=== PATIENT | male | born 1945 | race Caucasian/White ===

== ENCOUNTER 2018-02-18 03:55 | Emergency (ER) | payer MEDICARE, SELFPAY ==
[2018-02-18 03:56] VITALS: BP 158/89; PULSE 58; RESP 18; TEMP 36.9; O2SAT 94; BMI 27.5
--- NOTE | 2018-02-18 04:44 | ED.VIS.GEN ---
History of Present Illness Chief Complaint: Other, Pain/Inj Detail of Chief Complaint: Neck pain Informant: Patient Onset: Days - 2 Context: Gradual Onset Timing: Continuous Quality: Aches/sore Location: Left upper posterior neck Current Severity: Severe Maximum Severity: Severe Worsened by: Neck/head rotation/movement Relieved by: Remaining still Associated Symptoms: None Narrative: Patient works out regularly at the gym. He states almost 2 days ago, he did his usual 5.5 miles of cardio, followed by 20-30 minutes each of weight lifting and core exercises, including crunches. He had no apparent acute injury. He went home and took a nap and woke up and his left neck hurt. Over the subsequent 24 or so hours, the pain has gradually increased. He has tried no medications for it. Pushing on the area and massaging it makes it better. There is no radiation into his upper extremities and no numbness or weakness of arms or legs. No headaches, lightheadedness, changes in level of consciousness, confusion/disorientation. Has a remote history of coronary disease for which he had a 5 way bypass. He has had no chest discomfort recently. He takes a daily aspirin but no other antiplatelets or anticoagulants. Prior similar symptoms: No Recent Illness/Hospitalization: No - Past Medical History (1) CAD (coronary artery disease) Status: Chronic (2) Kidney stone Status: Resolved Past Medical History - Allergies and Home Meds Allergies/Adverse Reactions: Allergies NARCOTIC Adverse Reaction (Uncoded 02/18/18 03:58) Vomiting Home Medications: Home Medications Medication Instructions Recorded Benazepril HCl [Lotensin] 20 mg PO DAILY 07/07/17 Carbidopa/Levodopa 25/100 [Sinemet] 1 tablet PO TIDAC 07/07/17 Omeprazole [Prilosec] 40 mg PO DAILY 07/07/17 Simvastatin [Zocor] 40 mg PO QHS 07/07/17 Aspirin [Aspirin EC] 325 mg PO DAILY 02/18/18 Metoprolol Succinate 25 mg PO DAILY 02/18/18 Ondansetron [Zofran Odt] 8 mg PO Q8H PRN PRN #12 tab 02/18/18 Primary Care Physician: Richard Schneider DO [Primary Care Provider] - 3-5 Days if not improving Smoking Status: Former smoker Review of Systems All systems negative except as indicated Musculoskeletal: Reports: Neck pain Physical Exam Vital Signs/Narrative: Vital Signs Temp Pulse Resp BP Pulse Ox 02/18/18 03:56 98.4 F 58 L 18 158/89 H 94 Inital Vital Signs reviewed: Yes General: Well nourished, Well developed, - - well-appearing, no acute distress. conversive at rest. Head: Normocephalic, Atraumatic Eyes: Perrl, EOMI ENT: Moist mucous membranes, No rhinorrhea Neck: Supple, No lymphadenopathy, No JVD, - - point tender, reproducing pt's pain, in upper left paraspinal cervical musculature, just below base of skull. no SCM or lateral neck tendnerness. No midline spinal tenderness or step-off. Skin: Normal color, No rash Neurological: Alert, Oriented x3, Cranial nerves II-XII grossly intact, Normal Strength - inclu BUE M/R/U nerves, and PIN/AIN branches., Normal Sensation, Normal Gait Psychological: Normal affect. Negative for: Depressed, Agitated Diagnostic/Tx/Re-eval - Medical Decision Making Reassured patient that this is consistent with a myofascial neck strain. We discussed treatment options. He really does not want narcotics because they tend to cause him nausea/vomiting, but at the same time, he is concerned that ibuprofen alone will not be enough to help. He has had trouble sleeping tonight because of the discomfort. We discussed pros and cons of multiple options, and we decided mutually to do intramuscular Toradol 30 mg, and oral Zofran, and discharged with a home pack of Vicodin, a single oral Norflex 100 mg, and a prescription for Zofran. I advised him that 2 weeks of discomfort would not be uncommon, but he is on day 2, and this day and tomorrow commonly are the worst. We discussed massage, hot or cold compresses, and gently stretching the affected musculature. I advised outpatient follow-up if he is not progressing as expected. He is comfortable with this plan. Of note, we did not give him mind-altering medications here because he drove himself and is driving home, and it is 4:30 in the morning. We also discussed alternative ways to do core exercises that would be less likely to result in neck muscle injury. ED Disposition - Plan for ED Patient: Disposition: Home or Assisted Living Chief Complaint: Other, Pain/Inj Diagnosis: Acute cervical myofascial strain Instructions: ED Sprain Strain Neck Prescriptions: Ondansetron [Zofran Odt] 8 mg PO Q8H PRN PRN #12 tab PRN Reason: Nausea Referrals: Richard Schneider DO [Primary Care Provider] - 3-5 Days if not improving Additional Instructions: Fill and take Zofran as needed for nausea. Ibuprofen 400-600 mg every 6-8 hours as needed for pain. When you get home, you may take the Norflex if needed, which is a muscle relaxer and may help, and/or the [place], which is a narcotic. Use a hot or cold compress, which ever feels better is a reasonable thing to try, in addition to stretching the affected muscle, and/or focused massage.
--- NOTE | 2018-02-18 04:47 | ED.DCSUM_ITS ---
History of Present Illness Chief Complaint: Other, Pain/Inj Detail of Chief Complaint: Neck pain Informant: Patient Onset: Days - 2 Context: Gradual Onset Timing: Continuous Quality: Aches/sore Location: Left upper posterior neck Current Severity: Severe Maximum Severity: Severe Worsened by: Neck/head rotation/movement Relieved by: Remaining still Associated Symptoms: None Narrative: Patient works out regularly at the gym. He states almost 2 days ago, he did his usual 5.5 miles of cardio, followed by 20-30 minutes each of weight lifting and core exercises, including crunches. He had no apparent acute injury. He went home and took a nap and woke up and his left neck hurt. Over the subsequent 24 or so hours, the pain has gradually increased. He has tried no medications for it. Pushing on the area and massaging it makes it better. There is no radiation into his upper extremities and no numbness or weakness of arms or legs. No headaches, lightheadedness, changes in level of consciousness , confusion/disorientation. Has a remote history of coronary disease for which he had a 5 way bypass. He has had no chest discomfort recently. He takes a daily aspirin but no other antiplatelets or anticoagulants. Prior similar symptoms: No Recent Illness/Hospitalization: No - Past Medical History (1) CAD (coronary artery disease) Status: Chronic (2) Kidney stone Status: Resolved Past Medical History - Allergies and Home Meds Allergies/Adverse Reactions: Allergies NARCOTIC Adverse Reaction (Uncoded 02/18/18 03:58) Vomiting Home Medications: Home Medications Medication Instructions Recorded Benazepril HCl [Lotensin] 20 mg PO DAILY 07/07/17 Carbidopa/Levodopa 25/100 [Sinemet] 1 tablet PO TIDAC 07/07/17 Omeprazole [Prilosec] 40 mg PO DAILY 07/07/17 Simvastatin [Zocor] 40 mg PO QHS 07/07/17 Aspirin [Aspirin EC] 325 mg PO DAILY 02/18/18 Metoprolol Succinate 25 mg PO DAILY 02/18/18 Ondansetron [Zofran Odt] 8 mg PO Q8H PRN PRN #12 tab 02/18/18 Primary Care Physician: Richard Schneider DO [Primary Care Provider] - 3-5 Days if not improving Smoking Status: Former smoker Review of Systems All systems negative except as indicated Musculoskeletal: Reports: Neck pain Physical Exam Vital Signs/Narrative: Vital Signs Temp Pulse Resp BP Pulse Ox 02/18/18 03:56 98.4 F 58 L 18 158/89 H 94 Inital Vital Signs reviewed: Yes General: Well nourished, Well developed, - - well-appearing, no acute distress. conversive at rest. Head: Normocephalic, Atraumatic Eyes: Perrl, EOMI ENT: Moist mucous membranes, No rhinorrhea Neck: Supple, No lymphadenopathy, No JVD, - - point tender, reproducing pt's pain, in upper left paraspinal cervical musculature, just below base of skull. no SCM or lateral neck tendnerness. No midline spinal tenderness or step-off. Skin: Normal color, No rash Neurological: Alert, Oriented x3, Cranial nerves II-XII grossly intact, Normal Strength - inclu BUE M/R/U nerves, and PIN/AIN branches., Normal Sensation, Normal Gait Psychological: Normal affect. Negative for: Depressed, Agitated Diagnostic/Tx/Re-eval - Medical Decision Making Reassured patient that this is consistent with a myofascial neck strain. We discussed treatment options. He really does not want narcotics because they tend to cause him nausea/vomiting, but at the same time, he is concerned that ibuprofen alone will not be enough to help. He has had trouble sleeping tonight because of the discomfort. We discussed pros and cons of multiple options, and we decided mutually to do intramuscular Toradol 30 mg, and oral Zofran, and discharged with a home pack of Vicodin, a single oral Norflex 100 mg , and a prescription for Zofran. I advised him that 2 weeks of discomfort would not be uncommon, but he is on day 2, and this day and tomorrow commonly are the worst. We discussed massage, hot or cold compresses, and gently stretching the affected musculature. I advised outpatient follow-up if he is not progressing as expected. He is comfortable with this plan. Of note, we did not give him mind-altering medications here because he drove himself and is driving home, and it is 4:30 in the morning. We also discussed alternative ways to do core exercises that would be less likely to result in neck muscle injury. ED Disposition - Plan for ED Patient: Disposition: Home or Assisted Living Chief Complaint: Other, Pain/Inj Diagnosis: Acute cervical myofascial strain Instructions: ED Sprain Strain Neck Prescriptions: Ondansetron [Zofran Odt] 8 mg PO Q8H PRN PRN #12 tab PRN Reason: Nausea Referrals: Richard Schneider DO [Primary Care Provider] - 3-5 Days if not improving Additional Instructions: Fill and take Zofran as needed for nausea. Ibuprofen 400-600 mg every 6-8 hours as needed for pain. When you get home, you may take the Norflex if needed, which is a muscle relaxer and may help, and/or the [place], which is a narcotic. Use a hot or cold compress, which ever feels better is a reasonable thing to try , in addition to stretching the affected muscle, and/or focused massage.
[2018-02-18] MEDS: Ketorolac 30 MG/ML Syringe IM (04:50)
[2018-02-18] MEDS: Ondansetron ODT 4 MG Tablet 8 MG PO (04:55)
[2018-02-18] MEDS: HYDROcodone Bitartrate/Apap 5/325 Tablet PO (04:57)
[2018-02-18] MEDS: Orphenadrine 100 MG Tablet PO (04:57)
[2018-02-18 05:11] VITALS: BP 123/80; PULSE 56; RESP 16; O2SAT 94
== END 2018-02-18 05:14 | disposition home or self-care (01) ==
PROVIDERS: Emergency Provider Emergency Medicine; Family Provider Student in an Organized Health Care Education/Training Program; PCP Student in an Organized Health Care Education/Training Program
DX: S16.1XXA Strain of muscle, fascia and tendon at neck level, initial encounter (principal); X50.0XXA Overexertion from strenuous movement or load, initial encounter; Y93.A3 Activity, aerobic and step exercise; Y92.89 Other specified places as the place of occurrence of the external cause; Y99.9 Unspecified external cause status; I25.10 Atherosclerotic heart disease of native coronary artery without angina pectoris; Z95.1 Presence of aortocoronary bypass graft; Z87.891 Personal history of nicotine dependence
CPT/HCPCS: 99283

== ENCOUNTER → 2022-03-27 | Outpatient (REF) | payer MEDICARE, SELFPAY ==
[2022-03-27 08:33] LABS: Bacteria 0 SEEN /hpf (None Seen); Mucous, Urine 0 SEEN /hpf (<or=2+); Red Blood Cells-Urine 0 SEEN /hpf (0-5); Squamous Epithelial Cells - UA 0 SEEN /hpf (0-5); White Blood Cells 0 SEEN /hpf (0-5)
[2022-03-27 08:45] LABS: Color, Urine Yellow (Yellow); Glucose, Dipstick Normal (Normal); Ketone-Dipstick Negative (Negative); Leukocyte Esterase-Dipstick Negative /ul (Negative); Nitrite-Dipstick Negative (Negative); Occult Blood-Urine Negative /ul (Negative); Protein-Dipstick Negative (Negative); Urine Bilirubin Dipstick Negative (Negative); Urine Clarity Clear (Clear); Urine Urobilinogen Normal (Normal)
[2022-03-27 09:34] LABS: BUN 20 mg/dL (7-18); Creatinine, Serum 1.19 mg/dL (0.70-1.30); EST Glomerular Filtration Rate 63 mL/min (>60); Glucose 87 mg/dL (74-106)
[2022-03-27 09:35] LABS: ALB/GLOB Ratio 1.2 RATIO (0.9-2.4); AST(SGOT) 44 U/L (15-37); Alanine Aminotransfer ALT/SGPT 81 U/L (16-61); Albumin, Serum 4.1 g/dL (3.2-5.0); Alkaline Phosphatase 87 U/L (45-117); Anion Gap 4 (5-15); BUN/Creat Ratio 16.8 RATIO (10-20); Calcium,Total 8.8 mg/dL (8.5-10.1); Chloride 105 mmol/L (98-107); Cholesterol 136 mg/dL (200); Est Glom Filt Rate - Afr Amer 77 mL/min (>60); Globulin 3.3 g/dL (2.2-4.2); High Density Lipoprotein 56 mg/dL; PSA,Total - Annual Screen 3.79 ng/mL (0.00-4.00); Potassium 4.3 mmol/L (3.5-5.1); Protein, Total 7.4 g/dL (6.4-8.2); Sodium Level 140 mmol/L (136-145); Triglycerides 74 mg/dL; Very Low Density Lipoprotein 15 mg/dL (5-40); Vitamin B12 > 2000 pg/mL (211-911)
== END | disposition home or self-care (01) ==
PROVIDERS: PCP Student in an Organized Health Care Education/Training Program; Referring Provider Student in an Organized Health Care Education/Training Program; Visit Provider Student in an Organized Health Care Education/Training Program
DX: E53.8 Deficiency of other specified B group vitamins (principal); N18.31 Chronic kidney disease, stage 3a; R97.20 Elevated prostate specific antigen [PSA]; R31.9 Hematuria, unspecified
CPT/HCPCS: 36415; 80053; 80061; 81001; 82607; 84153; G0103

== ENCOUNTER → 2022-07-18 | Outpatient (REF) | payer MEDICARE, SELFPAY ==
[2022-07-18 12:43] LABS: Hematocrit 43.6 % (40-54); Hemoglobin 13.9 g/dL (13.0-16.5); Mean Corp Hgb Conc 31.9 g/dL (32-36); Mean Corpuscular Hgb 31.7 pg (27.0-32.0); Mean Corpuscular Volume 99.3 fL (80-94); Mean Platelet Vol. 12.2 fl (6.2-12.0); Platelet Count 172 K/mm3 (150-450); RBC Distribution Width CV 12.3 % (11.6-14.6); RBC Distribution Width SD 45.3 fl (35.1-43.9); Red Blood Count 4.39 M/mm3 (4.6-6.2); White Blood Count 7.1 K/mm3 (4.4-11.0)
[2022-07-18 13:00] LABS: ALB/GLOB Ratio 1.1 RATIO (0.9-2.4); AST(SGOT) 22 U/L (15-37); Alanine Aminotransfer ALT/SGPT 17 U/L (16-61); Albumin, Serum 3.4 g/dL (3.2-5.0); Alkaline Phosphatase 69 U/L (45-117); Anion Gap 7 (5-15); BUN 23 mg/dL (7-18); BUN/Creat Ratio 18.4 RATIO (10-20); Calcium,Total 8.7 mg/dL (8.5-10.1); Chloride 104 mmol/L (98-107); Creatinine, Serum 1.25 mg/dL (0.70-1.30); EST Glomerular Filtration Rate 60 mL/min (>60); Est Glom Filt Rate - Afr Amer 72 mL/min (>60); Globulin 3.2 g/dL (2.2-4.2); Glucose 118 mg/dL (74-106); Potassium 4.2 mmol/L (3.5-5.1); Protein, Total 6.6 g/dL (6.4-8.2); Sodium Level 140 mmol/L (136-145)
== END ==
PROVIDERS: PCP Student in an Organized Health Care Education/Training Program; Visit Provider Student in an Organized Health Care Education/Training Program
DX: L97.919 Non-pressure chronic ulcer of unspecified part of right lower leg with unspecified severity (principal)
CPT/HCPCS: 36415; 80053; 85027; 87070; 87205

== ENCOUNTER 2022-09-23 09:23 | Outpatient (RCR) | payer MEDICARE, SELFPAY ==
[2022-09-23 09:46] VITALS: BP 107/45; PULSE 53; RESP 16; TEMP 35.5; BMI 29.9
--- NOTE | 2022-09-23 10:30 | LES_PTH ---
PATIENT: ALEXIS KRAMER LOC: U#:[id number] AGE/SX: 77/M ROOM: RE09/23/[address]: ENID Eng : 1945 BED: DIS: 10/17/2022 SPEC #: [id number] RECD: 09/23/22 10:56 STATUS: EDDIE KAYKAY #: [id number] EDILBERTO: 09/23/22 10:[address]: Edna Cabello NP DEPT: SURGICAL PATHOLOGY RECD BY: Tunde Hollingsworth ENTERED: 09/23/22 11:11 SP TYPE: Lesion OTHR DR: Dr. Richard Schneider DO Tissues: TISSUE SURGICALLY REMOVED Procedures: Surgery Specimen Level IV HEADER OPERATION: Right medial LE biopsy PRE-OP DIAGNOSIS: >20-year trauma to right thomas nonhealing wound TISSUE SUBMITTED: Right medial LE MICROSCOPIC DIAGNOSIS Right medial lower extremity skin lesion, punch biopsy: Basal cell carcinoma, ulcerated. See comment. AM:yesenia 09/24/2022 COMMENT The lesion extends to the peripheral margins of excision. Clinical correlation is suggested. Case has been reviewed in consultation with Dr. Ballesteros who concurs with the above diagnosis. IDC:LAURENT MICROSCOPIC DESCRIPTION Slides are reviewed. GROSS DESCRIPTION Received in fixative is one container labeled with the patient's name and designated right medial LE. The specimen consists of a punch biopsy of chavez-white skin measuring 0.4 cm in diameter and 0.5 cm in length. The specimen is longitudinally bisected and submitted entirely in one cassette. / SJ:yesenia 09/23/2022 TC:0 CPT: 81780
--- NOTE | 2022-09-23 11:12 | RAD_ITS ---
STUDY: X-RAY - RIGHT TIBIA AND FIBULA REASON FOR EXAM: Male, 77 years old. Nonhealing wound. TECHNIQUE: 2 view(s) of the tibia and fibula were obtained on 3 images. COMPARISON: None. FINDINGS: Normal visualized tibia. Normal visualized fibula. Diffuse subcutaneous soft tissue swelling. Focal ulceration in the proximal medial aspect of the lower leg. Vascular calcification. RAD/Tibia & Fibula 2 Views IMPRESSION: Diffuse subcutaneous soft tissue swelling with focal ulceration as described. No osseous abnormality. Electronically Signed: Trung Bahean, at 11:34 EST ,
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
--- NOTE | 2022-09-29 14:47 | WC ---
Received a call from [facility] nurse Trisha AVILES and daughter Sis this AM. They are inquiring about biopsy results and patient is c/o increased pain and foul odor from wound. Spoke with Edna Cabello CNP concerning patient pain and wound odor. Biopsy results also reviewed per Edna. New order received for ATB and refer to dermatology. Informed Trisha AVILES and daughter Sis of biopsy results, referral to dermatology, and antibiotic orders. Voiced understanding.
== END 2022-10-17 23:59 | disposition home or self-care (01) ==
LOC: WC 09:23
PROVIDERS: PCP Student in an Organized Health Care Education/Training Program; Visit Provider Nurse Practitioner
DX: L98.9 Disorder of the skin and subcutaneous tissue, unspecified (principal); S81.801A Unspecified open wound, right lower leg, initial encounter; R60.0 Localized edema; Z79.82 Long term (current) use of aspirin; G62.9 Polyneuropathy, unspecified; Z87.891 Personal history of nicotine dependence; E66.3 Overweight; I25.10 Atherosclerotic heart disease of native coronary artery without angina pectoris; T14.8XXA Other injury of unspecified body region, initial encounter
CPT/HCPCS: 11104; 73590; 88305; 99203; G0463

== ENCOUNTER → 2022-09-27 | Outpatient (REF) | payer MEDICARE, SELFPAY | PROVIDERS: PCP Student in an Organized Health Care Education/Training Program; Referring Provider Student in an Organized Health Care Education/Training Program; Visit Provider Student in an Organized Health Care Education/Training Program | DX: R53.83 Other fatigue (principal); R53.1 Weakness | CPT/HCPCS: 87804 ==

== ENCOUNTER → 2022-10-22 | Outpatient (REF) | payer MEDICARE, SELFPAY ==
[2022-10-22 10:08] LABS: AST(SGOT) 25 U/L (15-37); Alanine Aminotransfer ALT/SGPT 18 U/L (16-61); Albumin, Serum 3.4 g/dL (3.2-5.0); Alkaline Phosphatase 74 U/L (45-117); Anion Gap 6 (5-15); BUN 21 mg/dL (7-18); BUN/Creat Ratio 17.4 RATIO (10-20); Calcium,Total 8.7 mg/dL (8.5-10.1); Chloride 103 mmol/L (98-107); Creatinine, Serum 1.21 mg/dL (0.70-1.30); EST Glomerular Filtration Rate 62 mL/min (>60); Est Glom Filt Rate - Afr Amer 75 mL/min (>60); Globulin 3.4 g/dL (2.2-4.2); Glucose 106 mg/dL (74-106); Potassium 4.1 mmol/L (3.5-5.1); Protein, Total 6.8 g/dL (6.4-8.2); Sodium Level 140 mmol/L (136-145)
== END ==
PROVIDERS: PCP Student in an Organized Health Care Education/Training Program; Visit Provider Student in an Organized Health Care Education/Training Program
DX: N18.31 Chronic kidney disease, stage 3a (principal); R79.89 Other specified abnormal findings of blood chemistry
CPT/HCPCS: 36415; 80053

== ENCOUNTER → 2022-12-24 | Outpatient (REF) | payer MEDICARE, SELFPAY ==
[2022-12-24 07:57] LABS: Hematocrit 43.8 % (40-54); Hemoglobin 14.1 g/dL (13.0-16.5); Mean Corp Hgb Conc 32.2 g/dL (32-36); Mean Corpuscular Hgb 31.1 pg (27.0-32.0); Mean Corpuscular Volume 96.5 fL (80-94); Mean Platelet Vol. 12.1 fl (6.2-12.0); Platelet Count 206 K/mm3 (150-450); RBC Distribution Width SD 46.5 fl (35.1-43.9); Red Blood Count 4.54 M/mm3 (4.6-6.2)
[2022-12-24 08:13] LABS: ALB/GLOB Ratio 1.1 RATIO (0.9-2.4); AST(SGOT) 29 U/L (15-37); Alanine Aminotransfer ALT/SGPT 28 U/L (16-61); Albumin, Serum 3.8 g/dL (3.2-5.0); Alkaline Phosphatase 77 U/L (45-117); Anion Gap 4 (5-15); BUN 18 mg/dL (7-18); BUN/Creat Ratio 16.7 RATIO (10-20); Calcium,Total 8.9 mg/dL (8.5-10.1); Chloride 102 mmol/L (98-107); Creatinine, Serum 1.08 mg/dL (0.70-1.30); EST Glomerular Filtration Rate 71 mL/min (>60); Est Glom Filt Rate - Afr Amer 85 mL/min (>60); Globulin 3.5 g/dL (2.2-4.2); Glucose 98 mg/dL (74-106); Potassium 4.2 mmol/L (3.5-5.1); Protein, Total 7.3 g/dL (6.4-8.2); Sodium Level 137 mmol/L (136-145)
[2022-12-24 08:43] LABS: Hemoglobin A1c 5.6 % (3.8-5.6)
== END ==
PROVIDERS: PCP Student in an Organized Health Care Education/Training Program; Visit Provider Student in an Organized Health Care Education/Training Program
DX: N18.31 Chronic kidney disease, stage 3a (principal); R79.89 Other specified abnormal findings of blood chemistry; R73.01 Impaired fasting glucose
CPT/HCPCS: 36415; 80053; 83036; 85027

== ENCOUNTER → 2023-06-24 | Outpatient (REF) | payer MEDICARE, SELFPAY ==
[2023-06-24 09:25] LABS: Absolute Lymphocyte Count 1.15 X10^3/uL (0.83-4.51); Basophil# 0.04 X10^3/uL; Basophil% 0.7 % (0-1); Eosinophil# 0.35 X10^3/uL; Eosinophils% 5.7 % (0-5); Hematocrit 43.8 % (40-54); Hemoglobin 14.3 g/dL (13.0-16.5); Lymphocyte # 1.15 X10^3/ul (0.83-4.51); Lymphocyte % 18.7 % (19-41); Mean Corp Hgb Conc 32.6 g/dL (32-36); Mean Corpuscular Hgb 30.8 pg (27.0-32.0); Mean Corpuscular Volume 94.2 fL (80-94); Mean Platelet Vol. 12.4 fl (6.2-12.0); Monocyte# 0.55 X10^3/uL; NRBC Flagged by Analyzer 0 % (0-5); Neutrophil # 3.99 X10^3/uL (2.7-7.7); Neutrophil % 64.9 % (47-70); Platelet Count 183 K/mm3 (150-450); RBC Distribution Width CV 12.5 % (11.6-14.6); RBC Distribution Width SD 43.6 fl (35.1-43.9); Red Blood Count 4.65 M/mm3 (4.6-6.2); White Blood Count 6.1 K/mm3 (4.4-11.0)
[2023-06-24 09:56] LABS: ALB/GLOB Ratio 1.1 RATIO (0.9-2.4); AST(SGOT) 21 U/L (15-37); Alanine Aminotransfer ALT/SGPT 23 U/L (16-61); Alkaline Phosphatase 81 U/L (45-117); Anion Gap 6 (5-15); BUN 22 mg/dL (7-18); BUN/Creat Ratio 19.5 RATIO (10-20); Calcium,Total 8.8 mg/dL (8.5-10.1); Chloride 105 mmol/L (98-107); Cholesterol 136 mg/dL (200); Creatinine, Serum 1.13 mg/dL (0.70-1.30); EST Glomerular Filtration Rate 67 mL/min (>60); Est Glom Filt Rate - Afr Amer 81 mL/min (>60); Globulin 3.5 g/dL (2.2-4.2); Glucose 90 mg/dL (74-106); High Density Lipoprotein 45 mg/dL; Potassium 4.2 mmol/L (3.5-5.1); Protein, Total 7.5 g/dL (6.4-8.2); Sodium Level 139 mmol/L (136-145); Thyroid Stim Hormone (TSH) 3.05 uIU/mL (0.358-3.74); Triglycerides 121 mg/dL; Very Low Density Lipoprotein 24 mg/dL (5-40)
[2023-06-24 10:46] LABS: Hemoglobin A1c 5.7 % (3.8-5.6)
== END ==
PROVIDERS: PCP Student in an Organized Health Care Education/Training Program; Visit Provider Student in an Organized Health Care Education/Training Program
DX: R73.01 Impaired fasting glucose (principal); E78.00 Pure hypercholesterolemia, unspecified
CPT/HCPCS: 36415; 80053; 80061; 83036; 84443; 85025

== ENCOUNTER → 2023-10-12 | Outpatient (REF) | payer MEDICARE, SELFPAY ==
[2023-10-12 08:06] LABS: Hematocrit 42.5 % (40-54); Hemoglobin 13.2 g/dL (13.0-16.5); Mean Corp Hgb Conc 31.1 g/dL (32-36); Mean Corpuscular Hgb 30.8 pg (27.0-32.0); Mean Corpuscular Volume 99.3 fL (80-94); Mean Platelet Vol. 12.8 fl (6.2-12.0); Platelet Count 211 K/mm3 (150-450); RBC Distribution Width CV 12.6 % (11.6-14.6); Red Blood Count 4.28 M/mm3 (4.6-6.2); White Blood Count 7.6 K/mm3 (4.4-11.0)
[2023-10-12 08:10] LABS: ALB/GLOB Ratio 1.2 RATIO (0.9-2.4); AST(SGOT) 20 U/L (15-37); Alanine Aminotransfer ALT/SGPT 15 U/L (16-61); Albumin, Serum 4.2 g/dL (3.2-5.0); Alkaline Phosphatase 74 U/L (45-117); Anion Gap 3 (5-15); BUN 35 mg/dL (7-18); BUN/Creat Ratio 23.2 RATIO (10-20); Calcium,Total 9.2 mg/dL (8.5-10.1); Chloride 107 mmol/L (98-107); Creatinine, Serum 1.51 mg/dL (0.70-1.30); EST Glomerular Filtration Rate 48 mL/min (>60); Est Glom Filt Rate - Afr Amer 58 mL/min (>60); Globulin 3.5 g/dL (2.2-4.2); Glucose 101 mg/dL (74-106); Magnesium 2.6 mg/dL (1.6-2.6); Potassium 4.5 mmol/L (3.5-5.1); Protein, Total 7.7 g/dL (6.4-8.2); Sodium Level 139 mmol/L (136-145)
[2023-10-12 08:38] LABS: Vitamin B12 1628 pg/mL (211-911); Vitamin D,25 Hydroxy 54.4 ng/mL
== END ==
PROVIDERS: PCP Student in an Organized Health Care Education/Training Program; Visit Provider Student in an Organized Health Care Education/Training Program
DX: E55.9 Vitamin D deficiency, unspecified (principal); I10 Essential (primary) hypertension
CPT/HCPCS: 36415; 80053; 82306; 82607; 83735; 85027

== ENCOUNTER → 2023-11-03 | Outpatient (CLI) | payer MEDICARE, SELFPAY ==
--- NOTE | 2023-11-03 09:15 | NEURO ---
NCS and/or EMG Patient Report Ordering Doctor: Richard Schneider DATE OF SERVICE: 11/03/23 Andres presents for electrodiagnostic testing of the left upper limb. He has numbness and tingling in the left hand. Electrodiagnostic Findings: Left median motor nerve demonstrates prolonged distal latency with reduced amplitude and normal conduction velocity. Left ulnar motor responses within normal limits, including conduction across the elbow. Normal median and ulnar F?waves. Absent left median sensory latency at the wrist and palm. Needle EMG testing was performed in the left upper limb. This was technically complicated by the patient's inability to relax his muscles. All muscles tested showed no evidence of acute denervation with normal motor unit action potentials. Electrodiagnostic impression: This is an abnormal study in the left upper limb. 1. Electrodiagnostic findings suggestive of a left-sided median mononeuropathy. This is consistent with moderate to advanced left carpal tunnel syndrome Multi Select Codes Neurology Neurology Interp Codes: 96679-27 Musc test done w/n test comp (interp) and 47305-56 Nrv cndj test 7-8 studies (interp)
== END | disposition home or self-care (01) ==
LOC: PSN 08:04
PROVIDERS: PCP Student in an Organized Health Care Education/Training Program; Referring Provider Student in an Organized Health Care Education/Training Program; Visit Provider Student in an Organized Health Care Education/Training Program
DX: R20.0 Anesthesia of skin (principal); R20.2 Paresthesia of skin; M79.642 Pain in left hand
CPT/HCPCS: 95886; 95910

== ENCOUNTER → 2023-12-29 | Outpatient (REF) | payer MEDICARE, SELFPAY ==
[2023-12-29 08:00] LABS: Hematocrit 40.1 % (40-54); Hemoglobin 12.9 g/dL (13.0-16.5); Mean Corp Hgb Conc 32.2 g/dL (32-36); Mean Corpuscular Hgb 31.6 pg (27.0-32.0); Mean Corpuscular Volume 98.3 fL (80-94); Mean Platelet Vol. 12.5 fl (6.2-12.0); Platelet Count 172 K/mm3 (150-450); RBC Distribution Width CV 12.1 % (11.6-14.6); RBC Distribution Width SD 44.2 fl (35.1-43.9); Red Blood Count 4.08 M/mm3 (4.6-6.2); White Blood Count 6.1 K/mm3 (4.4-11.0)
--- OUTSIDE RECORDS SUMMARY | 2023-12-29 08:00 | XMS RPT_ITS | CCD ---
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 Name Role Phone Richard Pena DO Primary Care Provider Richard Pena DO L Primary Care Provider Snyder STRETCHING PRESS OPERATOR.LACY, Nery K Unavailable Richard Pena DO Primary Care Provider Snyder STRETCHING PRESS OPERATOR.SEPARATIONS SCIENTIST, Nery K Unavailable Alex STRETCHING PRESS OPERATOR.SEPARATIONS SCIENTIST, Liz Unavailable Claudio STRETCHING PRESS OPERATOR.SEPARATIONS SCIENTIST, Nery K Unavailable Alex STRETCHING PRESS OPERATOR.SEPARATIONS SCIENTIST, Liz Unavailable AVA SANDS Attending Unavailable AVA SANDS Admitting Unavailable RICHARD PENA Primary Care Unavailable Gila Hamm MD Unavailable RICHARD PENA Primary Care Unavailable RICHARD PENA Attending Unavailable RICHARD PENA Primary Care Unavailable RICHARD PENA Attending Unavailable JEAN RICHARD Dariana Primary Care Unavailable RICHARD PENA Attending Unavailable TONYA MEDEROS Attending Unavailable RICHARD PENA Referring Unavailable PENA RICHARD Dariana Primary Care Unavailable RICHARD PENA Primary Care Unavailable AVA SANDS Attending Unavailable RICHARD PENA Referring Unavailable PENA RICHARD Dariana Primary Care Unavailable RICHARD PENA Attending Unavailable RICHARD PENA Primary Care Unavailable GILA HAMM Attending Unavailable Allergies Allergy Classification Reported Allergen(s) Allergy Type Date of Onset Reaction(s) Facility (20 sources) Morphinan opioid; Translations: [OPIOIDS - MORPHINE ANALOGUES] Drug Intolerance 05-04-20 16 GI Upset [facility] (7 sources) Sulfamethoxazole / Trimethoprim; Translations: [SULFAMETHOXAZOLE-TR IMETHOPRIM] Drug Allergy 08-18-20 23 Unknown [facility] Medications Current Medications Medication Drug Class(es) Dates Sig (Normalized) Sig (Original) carbidopa 25 mg / levodopa 100 mg oral tablet (20 sources) Aromatic Amino Acid Decarboxylation Inhibitor, Aromatic Amino Acid Start: 08-18-2023 End: 08-17-2024 take 2 tablets by mouth four times daily carbidopa-levodopa (SINEMET 25-100) 25-100 mg per tablet Indications: Parkinson's disease with dyskinesia and fluctuating manifestations (HCC) Take 2 tablets by mouth four times daily. 0 08/18/2023 08/17/2024 Active Completed/Discontinued Medications Medication Drug Class(es) Dates Sig (Normalized) Sig (Original) acetaminophen 500 mg oral tablet (12 sources) take 1 tablet by mouth every eight hours as needed acetaminophen (TYLENOL) 500 mg tablet Take 500 mg by mouth every 8 hours as needed. 0 Active Problems Active Problems Problem Classification Problem Date Documented Date Episodic/Chronic Acquired foot deformities (1 source) Bunion; Translations: [Bunion of unspecified foot] Episodic Chronic kidney disease (20 sources) Chronic kidney disease stage 3A ; Translations: [Stage 3a chronic kidney disease (HCC)] Onset: 11-05-2017 Chronic Chronic kidney disease (1 source) Chronic kidney disease; Translations: [Stage 3a chronic kidney disease (HCC)] Onset: 07-09-2021 Chronic ulcer of skin (20 sources) Chronic ulcer of lower extremity; Translations: [Non-pressure chronic ulcer of unspecified part of right lower leg limited to breakdown of skin] Onset: 07-08-2022 Chronic Complication of device; implant or graft (20 sources) 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; Translations: [Atherosclerosis of coronary artery bypass graft(s) without angina pectoris] Onset: 05-05-2016 Chronic Coronary atherosclerosis and other heart disease (20 sources) Coronary atherosclerosis; Translations: [Atherosclerotic heart disease of [place] coronary artery without angina pectoris] Onset: 07-24-2021 07-24-2021 Chronic Disorders of lipid metabolism (20 sources) Pure hypercholesterolemia; Translations: [Pure hypercholesterolemia, unspecified] Onset: 05-05-2016 Chronic Esophageal disorders (20 sources) Gastroesophageal reflux disease without esophagitis; Translations: [Gastro-esophageal reflux disease without esophagitis] Onset: 11-05-2017 11-05-2017 Chronic Essential hypertension (20 sources) Essential hypertension; Translations: [Essential (primary) hypertension] Onset: 11-05-2017 Chronic Hypertension with complications and secondary hypertension (20 sources) Hypertensive renal disease; Translations: [Hypertensive chronic kidney disease with stage 1 through stage 4 chronic kidney disease, or unspecified chronic kidney disease] Onset: 01-05-2022 01-05-2022 Chronic Immunizations and screening for infectious disease (1 source) Needs influenza immunization; Translations: [Encounter for immunization] Episodic Mood disorders (20 sources) Depressive disorder; Translations: [Depressive disorder] Onset: 12-24-2021 Chronic Nutritional deficiencies (20 sources) Vitamin D deficiency; Translations: [Vitamin D deficiency, unspecified] Onset: 11-20-2020 Chronic Osteoarthritis (15 sources) Arthritis of joint of right shoulder region; Translations: [Primary osteoarthritis, right shoulder] Onset: 07-15-2022 07-15-2022 Chronic Other connective tissue disease (3 sources) Pain of left hand; Translations: [Pain in left hand] Onset: 10-13-2023 10-13-2023 Episodic Other connective tissue disease (1 source) Pain in left hand; Translations: [Left hand pain] Onset: 10-13-2023 Episodic Other hereditary and degenerative nervous system conditions (20 sources) Impaired cognition; Translations: [Mild cognitive impairment, so stated] Onset: 12-24-2021 12-24-2021 Chronic Other nervous system disorders (20 sources) Aphasia; Translations: [Aphasia] Onset: 12-24-2021 12-24-2021 Chronic Other nervous system disorders (2 sources) Carpal tunnel syndrome, left upper limb; Translations: [Left carpal tunnel syndrome] Onset: 11-09-2023 Chronic Other nervous system disorders (2 sources) Carpal tunnel syndrome of left wrist; Translations: [Carpal tunnel syndrome, left upper limb] 11-09-2023 Chronic Other nervous system disorders (3 sources) Paresthesia of hand ; Translations: [Anesthesia of skin] Onset: 10-13-2023 10-13-2023 Episodic Other nervous system disorders (1 source) Anesthesia of skin; Translations: [Numbness and tingling in left hand] Onset: 10-13-2023 Episodic Other nervous system disorders (1 source) Paresthesia of skin; Translations: [Numbness and tingling in left hand] Onset: 10-13-2023 Episodic Parkinson`s disease (20 sources) Parkinson's disease; Translations: [Parkinson's disease] Onset: 06-10-2016 Chronic Parkinson`s disease (1 source) Parkinson`s disease; Translations: [Parkinson's disease with dyskinesia and fluctuating manifestations] Onset: 10-13-2023 Past or Other Problems Problem Classification Problem Date Documented Date Episodic/Chronic Diabetes mellitus without complication (20 sources) Impaired fasting glycemia; Translations: [Impaired fasting glucose] Onset: 11-08-2019 Episodic Genitourinary symptoms and ill-defined conditions (20 sources) Microscopic hematuria; Translations: [Other microscopic hematuria] Onset: 12-24-2021 Episodic Malaise and fatigue (20 sources) Fatigue; Translations: [Other fatigue] Onset: 07-09-2021 07-09-2021 Episodic Mycoses (17 sources) Onychomycosis; Translations: [Tinea unguium] Onset: 07-08-2022 Episodic Nutritional deficiencies (20 sources) Cobalamin deficiency; Translations: [Deficiency of other specified B group vitamins] Onset: 04-08-2022 Episodic Open wounds of extremities (7 sources) Injury of lower extremity; Translations: [Unspecified open wound, right lower leg, initial encounter] Onset: 07-14-2023 Episodic Other connective tissue disease (20 sources) Muscle weakness; Translations: [Muscle weakness (generalized)] Onset: 01-07-2022 Episodic Other ear and sense organ disorders (20 sources) Impacted cerumen of bilateral ears; Translations: [Impacted cerumen, bilateral] Onset: 04-08-2022 Episodic Other nervous system disorders (20 sources) Impairment of balance; Translations: [Other abnormalities of gait and mobility] Onset: 12-24-2021 Episodic Other nervous system disorders (20 sources) Abnormal gait; Translations: [Unspecified abnormalities of gait and mobility] Onset: 07-09-2021 Episodic Other nervous system disorders (20 sources) Tremor; Translations: [Tremor, unspecified] Onset: 05-05-2016 05-05-2016 Episodic Other nervous system disorders (20 sources) Cold feet; Translations: [Unspecified disturbances of skin sensation] Onset: 11-20-2020 11-20-2020 Episodic Other nervous system disorders (20 sources) Dysphasia; Translations: [Dysphasia] Onset: 12-24-2021 12-24-2021 Episodic Other non-epithelial cancer of skin (14 sources) Basal cell carcinoma of lower extremity; Translations: [Basal cell carcinoma of skin of right lower limb, including hip] Onset: 10-07-2022 10-07-2022 Episodic Other non-traumatic joint disorders (20 sources) Chronic pain of right upper limb; Translations: [Pain in right shoulder] Onset: 04-08-2022 Episodic Other screening for suspected conditions (not mental disorders or infectious disease) (20 sources) Raised prostate specific antigen; Translations: [Elevated prostate specific antigen [PSA]] Onset: 12-24-2021 Episodic Residual codes; unclassified (20 sources) Bilateral lower limb edema; Translations: [Localized edema] Onset: 07-08-2022 Episodic Spondylosis; intervertebral disc disorders; other back problems (20 sources) Neck pain; Translations: [Cervicalgia] Onset: 05-11-2018 05-11-2018 Episodic Results Test Name Value Interpretation Reference Range Facil ity Vital Signs Date Time Vital Sign Value Performing Clinician Faci lity 08-18-2023 09:27-0400 Body height 172.7 cm Gila Hamm MD Work Phone: [facility] 08-18-2023 09:27-0400 Body weight 91.17 kg Gila Hamm MD Work Phone: [facility] 08-18-2023 09:27-0400 SaO2% (BldA) [Mass fraction] 96 % Gila Hamm MD Work Phone: [facility] 04-07-2023 09:53-0400 Body temperature 97 [degF] Richard Pena DO Work Phone: [facility] 04-07-2023 09:53-0400 Body weight 91.63 kg Richard Pena DO Work Phone: [facility] 04-07-2023 09:53-0400 Diastolic blood pressure 60 mm[Hg] Richard Pena DO Work Phone: [facility] 04-07-2023 09:53-0400 Heart rate 64 /min Richard Pena DO Work Phone: [facility] 04-07-2023 09:53-0400 Respiratory rate 20 /min Richard Pena DO Work Phone: [facility] 04-07-2023 09:53-0400 Systolic blood pressure 90 mm[Hg] Richard Pena DO Work Phone: [facility] 01-06-2023 10:31-0400 Body temperature 96.4 [degF] Richard Pena DO Work Phone: [facility] 01-06-2023 10:31-0400 Body weight 92.99 kg Richard Pena DO Work Phone: [facility] 01-06-2023 10:31-0400 Diastolic blood pressure 82 mm[Hg] Richard Pena DO Work Phone: [facility] 01-06-2023 10:31-0400 Heart rate 60 /min Richard Pena DO Work Phone: [facility] 01-06-2023 10:31-0400 Respiratory rate 20 /min Richard Pena DO Work Phone: [facility] 01-06-2023 10:31-0400 Systolic blood pressure 124 mm[Hg] Richard Pena DO Work Phone: [facility] 12-16-2022 10:47-0500 Body height 172.7 cm Gila Hamm MD Work Phone: [facility] 12-16-2022 10:47-0500 Body weight 93.67 kg Gila Hamm MD Work Phone: [facility] 12-16-2022 10:47-0500 SaO2% (BldA) [Mass fraction] 95 % Gila Hamm MD Work Phone: [facility] 07-08-2022 10:19-0400 Body temperature 97 [degF] Richard Pena DO Work Phone: [facility] 07-08-2022 10:19-0400 Body weight 91.63 kg Richard Pena DO Work Phone: [facility] 07-08-2022 10:19-0400 Diastolic blood pressure 60 mm[Hg] Richard Pena DO Work Phone: [facility] 07-08-2022 10:19-0400 Heart rate 64 /min Richard Pena DO Work Phone: [facility] 07-08-2022 10:19-0400 Respiratory rate 20 /min Richard Pena DO Work Phone: [facility] 07-08-2022 10:19-0400 Systolic blood pressure 110 mm[Hg] Richard Pena DO Work Phone: [facility] 04-08-2022 10:03-0400 Body temperature 97 [degF] Richard Pena DO Work Phone: [facility] 04-08-2022 10:03-0400 Body weight 86.64 kg Richard Pena DO Work Phone: [facility] 04-08-2022 10:03-0400 Diastolic blood pressure 60 mm[Hg] Richard Pena DO Work Phone: [facility] 04-08-2022 10:03-0400 Heart rate 64 /min Richard Pena DO Work Phone: [facility] 04-08-2022 10:03-0400 Respiratory rate 16 /min Richard Pena DO Work Phone: [facility] 04-08-2022 10:03-0400 Systolic blood pressure 90 mm[Hg] Richard Pena DO Work Phone: [facility] 01-07-2022 08:44-0400 Body temperature 96.01 [degF] Richard Pena DO Work Phone: [facility] 01-07-2022 08:44-0400 Body weight 79.38 kg Richard Pena DO Work Phone: [facility] 01-07-2022 08:44-0400 Diastolic blood pressure 50 mm[Hg] Richard Pena DO Work Phone: [facility] 01-07-2022 08:44-0400 Heart rate 60 /min Richard Pena DO Work Phone: [facility] 01-07-2022 08:44-0400 Respiratory rate 16 /min Richard Pena DO Work Phone: [facility] 01-07-2022 08:44-0400 Systolic blood pressure 107 mm[Hg] Richard Pena DO Work Phone: [facility] Encounters Encounter Date Encounter Type Care Provider Facility Start: 12-22-2023 Telephone encounter Richard finleygarret DO Work Phone: [facility] Procedures Date Procedure Procedure Detail Performing Clinician Start: 07-08-2022 INFLUENZA SEASONAL QUADRIVALENT HIGH DOSE AGE 65+ Richard Dariana Pena DO Work Phone: Start: 02-04-2022 Mri brain brain stem w/o w/contrast material Richard Westbrook Pena DO Work Phone: Start: 07-24-2021 History of coronary artery bypass grafting S/P CABG x 5 Richard Pena DO Work Phone: Start: 07-18-2018 Colonoscopy Richard Gaitan rison DO Work Phone: Plan of Treatment Date Care Activity Detail Author Start: 07-18-2028 Colonoscopy COLONOSCOPY [facility] Start: 07-18-2028 COLORECTAL CANCER SCREENING COLORECTAL CANCER SCREENING [facility] Start: 03-27-2027 LIPID SCREEN LIPID SCREEN [facility] Start: 11-04-2026 LIPID SCREEN LIPID SCREEN [facility] Start: 10-07-2025 DIABETES SCREEN DIABETES SCREEN [facility] Start: 10-07-2025 Diabetes Screening Diabetes Screening [facility] Start: 12-18-2024 DIABETES SCREEN DIABETES SCREEN [facility] Start: 10-13-2024 Annual PCP Team Chronic Disease Visit Annual PCP Team Chronic Disease Visit [facility] Start: 10-13-2024 BP Controlled (<130/80) BP Controlled (<130/80) [facility] Start: 07-14-2024 Annual PCP Team Chronic Disease Visit Annual PCP Team Chronic Disease Visit [facility] Start: 07-14-2024 BP Controlled (<130/80) BP Controlled (<130/80) [facility] in Start: 04-07-2024 ANNUAL PCP TEAM CHRONIC DISEASE VISIT ANNUAL PCP TEAM CHRONIC DISEASE VISIT [facility] Start: 04-07-2024 BP CONTROLLED (<130/80) BP CONTROLLED (<130/80) [facility] in Start: 01-07-2024 ANNUAL PCP TEAM CHRONIC DISEASE VISIT ANNUAL PCP TEAM CHRONIC DISEASE VISIT [facility] Start: 12-22-2023 End: 03-22-2024 CBC W Auto Differential panel - Blood CBC + DIFF Lab Routine Hypertension, essential Expected: 12/22/2023, Expires: 03/22/2024 [facility] Work Phone: Immunizations Immunization Date Immunization Notes Care Provider Ant campoverde 07-14-2023 influenza (HD-IIV4) vaccine, age 65+ yr, high dose, quadrivalent, PF (FLUZONE HIGH-DOSE) Richard Pena DO Work Phone: [facility] Work Phone: 07-14-2023 pneumococcal (PCV20) vaccine, 20 valent (PREVNAR 20) Richard Pena DO Work Phone: [facility] Work Phone: 07-08-2022 influenza, high-dose , quadrivalent vaccine (FLUZONE HIGH DOSE QUADRIVALENT) Richard Pena DO Work Phone: [facility] Work Phone: 07-09-2021 influenza, high-dose , quadrivalent vaccine (FLUZONE HIGH DOSE QUADRIVALENT) Richard Pena DO Work Phone: [facility] Work Phone: 07-19-2020 influenza, high dose seasonal, preservative-free Richard Gaitanrison DO Work Phone: [facility] 08-10-2019 influenza, high dose seasonal, preservative-free Richard Gaitanrison DO Work Phone: [facility] 06-28-2019 zoster vaccine recombinant Richard Pena DO Work Phone: [facility] 03-26-2019 zoster vaccine recombinant Richard Pean DO Work Phone: [facility] 08-09-2018 influenza, high dose seasonal, preservative-free Richard Pena DO Work Phone: [facility] 08-09-2018 influenza, injectabl e, quadrivalent, preservative free Richard Pena DO Work Phone: [facility] 07-16-2017 influenza, high dose seasonal, preservative-free Richard Pena DO Work Phone: [facility] Work Phone: 07-16-2017 pneumococcal conjuga te vaccine, 13 valent Richard Pena DO Work Phone: [facility] Work Phone: 07-25-2016 influenza, high dose seasonal, preservative-free Richard Pena DO Work Phone: [facility] Work Phone: 11-09-2007 pneumococcal polysaccharide vaccine, 23 valent Richard Pena DO Work Phone: [facility] Work Phone: Payers Date Payer Category Payer Medicare [employer] MEDICARE A ETNA MEDICARE PPO [id number] 2021-Present [phone] [address] [place] [address] PPO [id number] 2021 Medicare [employer] MEDICARE A ETNA MEDICARE PPO [id number] 2021-Present [phone] [address] [place] [address] PPO [id number] 2021 Medicare [id number] Social History Date Type Detail Facility Start: [facility] Work Phone: End: 06-28-2013 History of tobacco use Current smoker [facility] Work Phone: End: 06-28-2013 History of tobacco use Cigarette Smoker [facility] Work Phone: Start: 01-07-2022 End: 12-06-2023 Alcohol intake Current drinker of alcohol (finding) [facility] Start: 1945 Sex Assigned At Not on file [facility] Start: 12-28-2021 End: 07-08-2022 Exposure to SARS-CoV-2 (event) Not sure [facility] Work Phone: Start: 06-16-2022 End: 04-07-2023 Cigarettes smoked current (pack per day) - Reported 0.5 [facility] Start: 06-16-2022 Tobacco use and exposure Smoke less tobacco non-user [facility] Start: 01-05-2023 History SDOH Alcohol Frequency 1 [facility] Start: 01-05-2023 History SDOH Alcohol Std Drinks 0 [facility] Start: 01-05-2023 History SDOH Social Connections Phone 5 [facility] Start: 01-05-2023 History SDOH Social Connections Membership 2 [facility] Start: 01-05-2023 End: 04-07-2023 Social connection and isolation panel [facility] Do you belong to any clubs or organizations such as faith groups, unions, fraternal or athletic groups, or school groups? No [facility] Are you now , , , , never or living with a partner? [facility] How often to you hav e a drink containing alcohol? Never [facility] How many standard dr inks containing alcohol do you have on a typical day? Patient does not drink [facility] (I/We) worried eliza er (my/our) food would run out before (I/we) got money to buy more. Never true [facility] Clinical Notes 07-19-2017 to 12-22-2023 Telephone Encounter - Sabrina Kay LPN - 12/22/2023 5:55 PM ESTTelephone Encounter - Marta Thomson APRN.CNP - 12/22/2023 5:27 PM EST Note Date & Type Note Facility 12-22-2023 Miscellaneous Notes Formattin g of this note might be different from the original. Lab orders faxed to [facility]. Labs are placed -- should have these done fasting and just a few days prior to appointment . Please fax. Thank you, Marta Thomson APRN.SEPARATIONS SCIENTIST Patient daughter Sis Medina calling asking if father needs any lab work done prior to his appt on 01/12/2024 with PCP. If so can fax order to [facility] and can be drawn there. Computer shows last labs were done 06/2023. Pending orders if wanted, needs diagnosis. Please advise documented in this encounter [facility] documented in this encounter [facility]02-19-2024 NoteHNO ID: [id number] Author: TONYA MEDEROS PA-C Service: ? Author Type: Physician Branch Assistant Type: Progress Notes Filed: 12/06/2023 09:12 Note Text: Tonya Mederos PA-C Department of Orthopaedics Orthopaedics [address] [facility] [address] Dept: [phone] Dept December 06, 2023 CHIEF COMPLAINT: Established Patient and Post Op of the Left Hand. ASSESSMENT: G56.02 Left carpal tunnel syndrome (primary encounter diagnosis) SUMMARY/PLAN: Patient presents 1 week and 5 days status post left carpal tunnel release. He is doing well, having some 3 out of 10 soreness in the palm. He tells me that he constructed some padding out of a washcloth that he has been using while ambulating. We will get him a gel brace that he can wear instead of using the washcloth padding. We discussed proper hand washing, no soaking of the operative hand. No heavy lifting, pushing or pulling with the operative hand, encourage gentle motion. We discussed scar massage. Follow up as planned. Exam: Incision site is well-approximated without erythema or drainage, there is mild but appropriate tenderness throughout the base of the palm as well as some subjective numbness in the radial 3 digits on the left. Imaging: Deferred today. Mr. Andres Oliveira was advised as to contrast therapies and/or to take analgesics/anti-inflammatories as needed and all contraindications were reviewed. Supporting Information Below: Medications: Current Outpatient Medications Medication Sig carbidopa-levodopa (SINEMET 25-100) 25-100 mg per tablet Take 2 tablets by mouth four times daily. omeprazole (PRILOSEC) 40 mg capsule Take 1 capsule by mouth once daily. metoprolol succinate ER (TOPROL XL) 25 mg 24 hr tablet Take 1 tablet by mouth once daily. simvastatin (ZOCOR) 80 mg tablet Take 1 tablet by mouth daily at bedtime. aspirin, enteric coated (ASPIRIN, ENTERIC COATED) 81 mg EC tablet Take 1 tablet by mouth once daily. Magnesium Oxide 500 mg tab Take 1 tablet by mouth once daily. cholecalciferol (VITAMIN D3) 50 mcg (2,000 unit) tablet Take 1 tablet by mouth once daily. furosemide (LASIX) 20 mg tablet Take 1 tablet by mouth once daily. For leg swelling Cyanocobalamin 2,500 mcg subl Dissolve 1 tablet under the tongue twice daily with meals. (Patient taking differently: Dissolve 2,500 mcg under the tongue two times a day with meals. 2 tab once a day) acetaminophen (TYLENOL) 500 mg tablet Take 500 mg by mouth every 8 hours as needed. sertraline (ZOLOFT) 100 mg tablet Take 1 tablet by mouth once daily. In the bedtime, for mood diclofenac (VOLTAREN) 1 % topical gel 2 times daily as needed ondansetron (ZOFRAN) 4 mg tablet every 8 hours as needed. mupirocin (BACTROBAN) 2 % ointment Apply to affected area once daily. MEDICATION, NON-DATABASE Standard Wheel Chair Dx Parkinson's Disease No current facility-administered medications for this visit. Allergies: Bactrim [Sulfamethoxazole-Trimethoprim] and Narcotics [Opioids - Morphine Analogues] This note was partially generated using [employer] voice recognition system, and there may be some incorrect words, spellings, and punctuation that were not noted in checking the note before saving. BECCA QuintanaCCl[facility] NoteHNO ID: [id number] Author: ?, ?, ? Service: ? Author Type: ? Type: Progress Notes Filed: 12/06/2023 09:12 Note Text: AMB ROOMING INTAKE FLOWSHEET DATA Pain Pain Level: 3 Pain Location: Hand-Left Description: Numbness Duration Amount of Time: (post op) Frequency: Intermittent Intervention/Comfort measure: Other: See comment (none) Patient here today for 1 week 5 days post op left CTR. Still has some numbness, but feels like he is headed in the right direction. Is not taking anything for pain relief.[facility]02-19-2024 History of Present illness Narrative* Tonya Mederos PA-C - 12/06/2023 9:11 AM EST Tonya Mederos PA-C Department of Orthopaedics Orthopaedics [address] [facility] [address] Dept: [phone] Dept December 06, 2023 CHIEF COMPLAINT: Established Patient and Post Op of the Left Hand. ASSESSMENT: G56.02 Left carpal tunnel syndrome (primary encounter diagnosis) SUMMARY/PLAN: Patient presents 1 week and 5 days status post left carpal tunnel release. He is doing well, havingsome 3 out of 10 soreness in the palm. He tells me that he constructed some padding out of a washcloth that he has been using while ambulating. We will get him a gel brace that he can wear instead ofusing the washcloth padding. We discussed proper hand washing, no soaking of the operative hand. Noheavy lifting, pushing or pulling with the operative hand, encourage gentle motion. We discussed scar massage. Follow up as planned. Exam: Incision site is well-approximated without erythema or drainage, there is mild but appropriate tenderness throughout the base of the palm as well as some subjective numbness in the radial 3 digits onthe left. Imaging: Deferred today. Mr. Andres Oliveira was advised as to contrast therapies and/or to take analgesics/anti-inflammatories as needed and all contraindications were reviewed. Supporting Information Below: Medications: Current Outpatient Medications Medication Sig carbidopa-levodopa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 TOPICAL OINTMENT 2. Need for influenza vaccination - ICD9: V04.81, ICD10: Z23 - INFLUENZA SEASONAL QUADRIVALENT HIGH DOSE AGE 65+ 3. Onychomycosis - ICD9: 110.1, ICD10: B35.1 - referral for helping to trim toenails. - CONSULT TO PODIATRY 4. Bunion - ICD9: 727.1, ICD10: M21.619 - referral for toenail and foot care. - CONSULT TO PODIATRY 5. Bilateral leg edema - ICD9: 782.3, ICD10: R60.0 - see above Start on diuretic for 30 days as below with Lasix, need for leg elevation when sitting as d/w him today. Wound dressing changes daily with mupirocin and telfa non stick dressing until wound is healed. If not improving, then will get opinion from wound care. Likely related to dependent edema legs and non healing in area of previous wound/injury of the past - FUROSEMIDE 20 MG TABLET 6. IFG (impaired fasting glucose) - ICD9: 790.21, ICD10: R73.01 Stable 7. Stage 3a chronic kidney disease (HCC) - ICD9: 585.3, ICD10: N18.31 - eGFR: Stable - Counseled on avoiding regular use of NSAIDs, adequate hydration, potential risk of IV dye 8. Balance disorder - ICD9: 781.99, ICD10: R26.89 - secondary to parkinson's, need for walker use at all times, okay for wheelchair use as needed, f/u with Neurologist as well. 9. Parkinson disease (HCC) - ICD9: 332.0, ICD10: G20 See above 10. Hypertension, essential - ICD9: 401.9, ICD10: I10 - good control - Encouraged dietary sodium restriction/DASH diet - Recommended regular aerobic exercise. - Recommend home blood pressure monitoring, to bring results in on next visit - Discussed need and benefit for weight loss. - Goal of BP <130/80 Richard Pena DO To ER if develops chest pain, shortness of breath, or severe worsening of symptoms. Discussed risks, benefits, alternatives, and potential side effects of medications. Patient expressed understanding and agreed with the plan. Richard Pena DO [address] [place] [address] documented in this encounterGerman Hospital07-13-2022 Miscellaneous Notes* Telephone Encounter - Vivien Elena Ma - 04/29/2022 3:12 PM EDT Faxed 04/29/2022 Vivien Elena Ma * Telephone Encounter - Pearl Gibbons APRN.LACY - 04/29/2022 2:00 PM EDT In the outbox in our office, please fax. Pearl Gibbons APRN.LACY * Telephone Encounter - Marta Devine APRN.CNP - 04/29/2022 1:59 PM EDT Noted. Please look out for this. Thank you, Marta Devine APRN.LACY * Telephone Encounter - Imtiaz Olivares RN - 04/29/2022 1:47 PM EDT [facility] returned call and states they do still need the Rx. She will fax again today. * Telephone Encounter - Sharon Calloway MA - 04/29/2022 1:20 PM EDT TC to pharmacy to clarify if prescription was refilled or no longer needed. Unable to reach left to return call to office. Please read below and advise. Sharon Calloway MA * Telephone Encounter - Radha Carpio LPN - 04/17/2022 1:18 PM EDT Will watch for this. * Telephone Encounter - Lynn Gray LPN - 04/17/2022 12:04 PM EDT Adelaide with [facility] faxing over a refill request for Medication: Voltaren gel 1% directions from last prescription sent to them from Dr. Pena was : apply topically 2 times a day to the right shoulder for pain until pain resolves. [facility] PH: [phone] ext [phone] FAX: [phone] Please watch for the fax to come thru. Lynn Gray LPN documented in this encounterGerman Hospital06-30-2022 Miscellaneous Notes* Telephone Encounter - Norah Joseph RN - 04/16/2022 3:07 PM EDT Received fax from [facility]. [facility] Physician Provider Order Sheet. Update post fall with vitals. Placed in [employer]'s inbox for review. Will fax upon completion. IBRAHIMA Motley, RN April 16, 2022 3:10 PM documented in this encounterGerman Hospital06-22-2022 History of Present illness Narrative* Richard Pena, - 04/08/2022 10:05 PM EDT CC: Andres Oliveira is a 76 year old male who presents to the office for follow up HPI: Patient is present with his daughter Sis in the office today Seen in the office last on 01/07/22 Parkinson's disease, taking his Sinemet medication without difficulty. Struggling with worsening ofsome of his functional status that is intermittent but progressive. Difficulty with dressing himself/changing clothes in the AM, stick feet difficulty with picking up his feet in the morning for about 30 min when waking up, as well as shaving difficulty- taking himmuch longer than previous. Has had some balance concerns with worsening balance with gait as well as some intermittent speech slurring. He has been living alone but no longer feeling safe for this due to muscle weakness and difficulty with gait and balance. no longer is driving which is also a new change. Hasn't been exercising as much over the last 2-3 weeks due to these bad days. Was tried on some trazodone for his insomnia which is also worsening. He was recently in office on 12/23 and had been able to admit to feeling hopeless and overwhelmed at times with his progressive nature of the parkinson's disease. Daughter has also noticed that his memory seems to be changing- word finding difficulty as well as short term memory recall difficulty . He has had 1 hallucination in the last few months- has fallen out of bed twice and off couch once dueto acting out my dreams. Very vivid dreams at times. Last MRI brain >5 years ago. No known head injuries. he was started on Zoloft, MRI brain was ordered. Hasn't had this completed yet. HTN, stable, readings at home 105-110/70s typically. Denies any dyspnea or CP or palpitations or dizziness/LH or syncope. Elevated PSA, asymptomatic, no fevers or chills or pain, no previous history. + microscopic hematuria, no flank pain. willing to have urinalysis rechecked Currently Parkinson's disease, is now living at [facility] and overall feels it is going okay living there. He continues to have my good days and moments and other times not doing as well. he has days he struggles more with his gait and balance than other days. No recent falls, use of his walker daily when he is walking. Right shoulder pain, present for the last few months since his fall prior to moving in the assistedliving area of [place]. Worse with trying to reach or grab or lift sometimes. No swelling. Use ofibuprofen with some relief. B/l ear discomfort, present the last few weeks, no fevers or chills. Labs are showing PSA <4 and stable creatinine and CBC labs Still admits struggles sometimes with feeling down/overwhelmed by his parkinson's disease process. No SI or HI. Is taking his zoloft medication- okay with dose adjustments. 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 CKD (chronic kidney disease) stage 3, GFR 30-59 ml/min ([facility]) 04/2016 Depressive disorder 12/24/2021 GERD (gastroesophageal reflux disease) Hypertension IFG (impaired fasting glucose) 10/2019 5.7% at diagnosis Kidney stone Mixed hyperlipidemia Parkinson disease (HCC) 07/2014 PAST SURGICAL HISTORY Procedure Laterality Date COLONOSCOPY FLX DX W/COLLJ SPEC WHEN PFRMD 07/18/2018 Colonoscopy EKG HEART SURGERY HX KIDNEY SURGERY HX basket extraction of kidney stone PAST SURGICAL HISTORY OF 04/2002 cardiac bypass x 5 PAST SURGICAL HISTORY OF 05/2015 kidney stone removed Current Outpatient Medications Medication Sig ibuprofen (MOTRIN) 200 mg tablet Take 1-2 tablets by mouth every 8 hours as needed for pain (Take with food.). MEDICATION, NON-DATABASE Standard Wheel Chair Dx Parkinson's Disease sertraline (ZOLOFT) 25 mg tablet Take 1 tablet by mouth once daily. In the evening, for mood (Patient taking differently: Take 50 mg by mouth once daily. In the evening, for mood ) carbidopa-levodopa (SINEMET 25-100) 25-100 mg per tablet Take 2 tablets by mouth three times daily. omeprazole (PRILOSEC) 40 mg capsule Take 1 capsule by mouth once daily. metoprolol succinate ER (TOPROL XL) 25 mg 24 hr tablet Take 1 tablet by mouth once daily. simvastatin (ZOCOR) 80 mg tablet Take 1 tablet by mouth daily at bedtime. melatonin 5 mg tablet Take 2 tablets by mouth daily at bedtime. aspirin, enteric coated (ASPIRIN, ENTERIC COATED) 81 mg EC tablet Take 81 mg by mouth once daily. Cholecalciferol, Vitamin D3, 5,000 unit cap Take 5,000 Units by mouth once daily. MAGNESIUM OXIDE/MAGNESIUM (MAGNESIUM, OXIDE/AA CHELATE, ORAL) Take by mouth. Current Facility-Administered Medications Medication Dose Route Frequency perflutren lipid microspheres 1.3 mL in NaCl (PF) 0.9% 10 mL injection (DEFINITY) INTRAVENOUS DIRECTED PRN sodium chloride 0.9 % (flush) 10 mL (BD POSIFLUSH) 10 mL INTRAVENOUS DIRECTED PRN ALLERGIES Allergen Reactions Narcotics [Opioids * GI Upset vomiting with an oral pain med-has taken morphine without problems Social History Tobacco Use Smoking status: Former Smoker Packs/day: 0.50 Years: 20.00 Pack years: 10.00 Types: Cigarettes Quit date: 06/28/2013 Years since quittin.7 Smokeless tobacco: Never Used Substance Use Topics Alcohol use: Yes Comment: occasionally Drug use: No ROS: See HPI PE: BP 90/60 Pulse 64 Temp (Src) 97 (Left Tympanic) Resp 16 Wt 191 lb (86.6kg) Gen: A&OX3, NAD, non-toxic appearing HEENT: PERRLA, EOMs intact b/l, nares without drainage, pharynx without erythema, exudate, lesions,or drainage. Uvula midline. EAC with b/l cerumen present Neck: No LAD, no thyromegaly, no meningismus. CV: RRR, no murmur Lungs: CTA b/l, no wheezing Skin: No rashes, lesions, or wounds on exposed skin. Pain with abduction right shoulder and at AC joint on exam, signs of impingement with + lema' and neers' testing present, weakness with lift off testing, no swelling of shoulder No leg swelling + resting tremor right >left hand/harm Mild head tremor Balance disorder- walking with walker. Slowed gait ASSESSMENT/PLAN: 1. Parkinson's disease (HCC) - ICD9: 332.0, ICD10: G20 (primary diagnosis) - increase dose of zoloft as prescribed, continue sinemet, continue use of walker daily. Is living in assisted living, needs to start PHYSICAL THERAPY for right shoulder pain and concerns for rotatorcuff tendinitis and weakness as well as right shoulder pain 2. Elevated PSA - ICD9: 790.93, ICD10: R97.20 Improved levels 3. Balance disorder - ICD9: 781.99, ICD10: R26.89 - increase dose of zoloft as prescribed, continue sinemet, continue use of walker daily. Is living in assisted living, needs to start PHYSICAL THERAPY for right shoulder pain and concerns for rotatorcuff tendinitis and weakness as well as right shoulder pain 4. Microscopic hematuria - ICD9: 599.72, ICD10: R31.29 resolved 5. Pure hypercholesterolemia - ICD9: 272.0, ICD10: E78.00 - stable, continue same medications 6. IFG (impaired fasting glucose) - ICD9: 790.21, ICD10: R73.01 - stable, continue same medications. 7. Stage 3a chronic kidney disease (HCC) - ICD9: 585.3, ICD10: N18.31 stable 8. Vitamin D deficiency - ICD9: 268.9, ICD10: E55.9 - stable, continue supplement 9. Vitamin B12 deficiency - ICD9: 266.2, ICD10: E53.8 - stable, continue supplement 10. Gait disorder - ICD9: 781.2, ICD10: R26.9 - increase dose of zoloft as prescribed, continue sinemet, continue use of walker daily. Is living in assisted living, needs to start PHYSICAL THERAPY for right shoulder pain and concerns for rotatorcuff tendinitis and weakness as well as right shoulder pain 11. Muscle weakness - ICD9: 728.87, ICD10: M62.81 - increase dose of zoloft as prescribed, continue sinemet, continue use of walker daily. Is living in assisted living, needs to start PHYSICAL THERAPY for right shoulder pain and concerns for rotatorcuff tendinitis and weakness as well as right shoulder pain 12. Depressive disorder - ICD9: 311, ICD10: F32.A - increase dose of zoloft as prescribed, continue sinemet, continue use of walker daily. Is living in assisted living, needs to start PHYSICAL THERAPY for right shoulder pain and concerns for rotatorcuff tendinitis and weakness as well as right shoulder pain 13. Chronic right shoulder pain - ICD9: 719.41, 338.29, ICD10: M25.511, G89.29 - continue use of walker daily. Is living in assisted living, needs to start PHYSICAL THERAPY for right shoulder pain and concerns for rotator cuff tendinitis and weakness as well as right shoulder pain. Add on voltaren 1% cream twice a day until symptoms improve, likely due to rotator cuff disorder as d/w him and dtr today in office 14. Bilateral impacted cerumen - ICD9: 380.4, ICD10: H61.23 Flushed today with success in office, no complications Richard Pena DO Return if no improvement. Follow up with Richard Pena DO. To ER if develops chest pain, shortness of breath Discussed risks, benefits, alternatives, and potential side effects of medications. Patient/Guardian expressed understanding and agreed with the plan. See patient instructions. Richard Pena DO [address] [place] [address] documented in this encounterGerman Hospital06-09-2022 Miscellaneous Notes* Telephone Encounter - Jerrica Mehta RN - 03/26/2022 8:56 AM EDT Margie with [facility] calls. Provider message given. Orders for labs were received. Pauline verbalizes understanding. Jerrica Mehta RN * Telephone Encounter - Vivien Elena Ma - 03/26/2022 8:41 AM EDT Spoke with Alejandrina @ [facility] who will have nurse contact office for Dr. Pena order. Lab orders faxed to [phone]. Vivien Elena Ma * Telephone Encounter - Richard Pena DO - 03/25/2022 10:21 PM EDT Please call [facility] and fax orders for labs as below. Needs to have these drawn this week (Wednesday is good). He will need to fast if able on after 10 pm until drawn on Wednesday AM. Richard Pena DO documented in this encounterGerman Hospital05-31-2022 Miscellaneous Notes* Telephone Encounter - Norah Joseph RN - 03/17/2022 11:56 AM EDT Received fax update from Trisha Dumont LPN @ [facility]. 03/14/2022 Resident decided amantadine was not effective. Now discontinued per orders. Fax sent to [facility] admins to scan into patient's chart. Update shared with MD DAVIS. Norah Joseph, MSN, RN March 17, 2022 11:57 AM * Telephone Encounter - Gila Hamm MD - 03/02/2022 8:01 AM EDT Done * Telephone Encounter - Yocasta Miller MA - 02/27/2022 3:51 PM EDT Alejandrina from [place] called back. Patient is still getting tripped up and they need a new rx sent through to the pharmacy for patient to only take the medication 1 x daily. I have the rx pended with updated instructions if you can review and sign. Also, they will be faxing over a hard copy for a written signature to update there records that it is okay to decrease patients dose. Once I receive this I will place this in providers inbox. Thanks! Yocasta Miller MA * Telephone Encounter - Norah Joseph RN - 02/27/2022 2:59 PM EDT Called [facility] to see if RX refill was needed. RN on unit was unavailable so left message with Alejandrina and provided office number for [facility] to clarify. Awaiting response. Will process as needed. IBRAHIMA Motley, RN February 27, 2022 3:01 PM * Telephone Encounter - Gila Hamm MD - 02/27/2022 1:41 PM EDT Pt in facility. Dose recently changed on facility orders. Refill to pharmacy not appropriate * Telephone Encounter - Joyce Ernst [facility] - 02/27/2022 10:32 AM EDT [facility] phones requesting refills as follows: Last FUV January 2022 with [facility] Pending Prescriptions Disp Refills AMANTADINE HCL 100 MG TABLET 60 tablet 11 Sig: Take 1 tablet by mouth twice daily. VERONICA: No Please review and advise. Joyce Ernst [facility] documented in this encounterGerman Hospital05-13-2022 Miscellaneous Notes* Telephone Encounter - Yanira Rainey Ma - 02/27/2022 3:17 PM EDT Called [facility] and gave information. Niece was notified Yanira Rainey Ma * Telephone Encounter - Pearl Gibbons APRN.CNP - 02/27/2022 3:09 PM EDT Ibuprofen ordered. Please instruct staff to watch for signs of possible head bleed, including but not limited to loss of consciousness, altered mental status, aphasia. The following approved medication requests have been transmitted electronically. Signed Prescriptions Disp Refills ibuprofen (MOTRIN) 200 mg tablet 30 tablet 0 Sig: Take 1-2 tablets by mouth every 8 hours as needed for pain (Take with food.). Authorizing Provider: RICHARD PENA Ordering User: PEARL GIBBONS APRN.CNP * Telephone Encounter - Jing Snow RN - 02/26/2022 2:05 PM EDT Patient's daughter, Sis calling on behalf of patient with request for prn order for Ibuprofen (or related medication) be faxed to [facility] today. Patient fell twice within last couple of days without report of injury. See My Chart message and TE in [employer]. She states yesterday her patient attemptedto get out of chair and reach for walker. He told his daughter he lost his balance and fell on his s german, landing on his shoulder. Per [facility] notes he has no injury but he tells his daughter he is verysore . She is asking for medication for discomfort. [facility] .She does not know fax#. She is out of town at this time. Jing Snow RN documented in this encounterGerman Hospital05-12-2022 Miscellaneous Notes* Telephone Encounter - Norah Joseph RN - 02/26/2022 9:05 AM EDT Order form completed and faxed to [facility]. RN also called facility and spoke with Alejandrina, asking her to share update with Moira. IBRAHIMA Motley, RN February 26, 2022 9:23 AM * Telephone Encounter - Gila Hamm MD - 02/26/2022 8:58 AM EDT If no UTI or other exacerbating factor as alternative explanation. Reduce amantadine to once daily (in AM). If better then stay at that dose. If not better after 5-7 days then just discontinue. * Telephone Encounter - Norah Joseph RN - 02/26/2022 8:38 AM EDT Received fax from [facility]ACI. Provider order sheet for Amantadine. Included note On 02-13-22 Resident started Amantadine 100mg every day x 7 days, then on 02-20-22 Resident started above med BID, Resident has experienced 2 falls since starting BID. (02/24 & 02/25). Please advise. Thank you. RN called facility to further investigate the note. Spoke with Moira, nurse caring for the patient. No recent acute illnesses, or confusion. No other changes in medication. He says that he has sticky feet, he feels like its very sticy and gets frozen and then falls over. He fell and hit his rightshoulder on the floor. Similar fall twice. He did not hit his head and had no injury with the falls. Nurse reported that he refused to take the amantadine this morning. Update shared with MD DAVIS. RN will communicate update to the facility based on DAVIS's feedback and guidance. Norah Joseph, MSN, RN February 26, 2022 8:47 AM documented in this encounterGerman Hospital05-06-2022 Miscellaneous Notes* Telephone Encounter - Pearl Gibbons APRN.CNP - 02/20/2022 4:11 PM EDT Noted, agree with below. Pearl Gibbons APRN.LACY * Telephone Encounter - Adenike Oliva LPN - 02/20/2022 4:05 PM EDT Andrew from [facility] calling with PT plan of care 2 visits weekly for 4 weeks working onbalance and fall prevention. documented in this encounterGerman Hospital05-02-2022 Miscellaneous Notes* Telephone Encounter - Sabrina Kay LPN - 02/16/2022 4:22 PM EDT Kamala informed detailed message left on Vm. Sabrina Kay LPN * Telephone Encounter - Marta Devine APRN.CNP - 02/16/2022 4:04 PM EDT Yes, Dr. Pena willing to follow. Marta Devine APRN.LACY * Telephone Encounter - Imtiaz Olivares RN - 02/16/2022 1:48 PM EDT Michelle Wray , asking if pcp would agree to follow for orders for PT. Please phone Kamala withverbal: [phone] documented in this encounterGerman Hospital04-29-2022 Miscellaneous Notes* Telephone Encounter - Imtiaz Olivares RN - 02/13/2022 9:16 AM EDT Faxed last 2 ov notes to attn: Louis- [facility], per Louis request. Reports they have a referral for services for patient. documented in this encounterGerman Hospital04-20-2022 Miscellaneous Notes* Telephone Encounter - Richard Pena DO - 02/04/2022 8:34 PM EDT MRI reviewed, will follow up with Neurologist next week. Richard Pena DO documented in this encounterGerman Hospital04-20-2022 History of Present illness Narrative* RT Chetan(R) - 02/04/2022 9:20 AM EDT Radiology Service Progress Note DATE OF SERVICE: February 04, 2022 TIME: 9:53 AM PATIENT IDENTITY VERIFICATION COMPLETED USING TWO (2) STANDARD IDENTIFIERS: Name and Date of confirmed by patient verbally. FALL SCREENING: Has the patient had 2 falls in the last year or 1 fall with injury or currently using an Ambulatory Assistive Device (Walker, Cane, Wheelchair, Crutches, etc.)? Yes, Patient High Riskfor Falls What interventions were put in place to prevent falls during this visit? Instructed Patient to Callfor Help if Needed, Offered Assistance with Transfers/Clothing, Instructed Patient to Remain Seated(Not on Exam Table) Until Exam and Increased Observations by Caregivers PATIENT GENDER DATA: Male PATIENT RELEVANT IMPLANT DATA REVIEWED: Yes ALLERGIES: Reviewed and unchanged CONTRAST ALLERGY: NO. EXAM: MRI - CONTRAST TYPE: GROUP II PERIPHERAL IV DATA: Ambulatory: A peripheral IV was started in the Right antecubital site with a Angio cath: 22 gauge. RADIOLOGY DEPARTMENT: MR; Exam(s) Completed: Head: Routine Brain SIGNATURE: RT Chetan(R) PATIENT NAME: Andres Oliveira DATE: February 04, 2022 TIME: 9:53 AM documented in this encounterGerman Hospital03-23-2022 History of Present illness Narrative* Richard Pena, DO - 01/07/2022 10:11 AM EDT CC: Andres Oliveira is a 76 year old male who presents to the office for follow up HPI: Patient is present with his daughter Sis in the office today Parkinson's disease, taking his Sinemet medication without difficulty. Struggling with worsening ofsome of his functional status that is intermittent but progressive. Difficulty with dressing himself/changing clothes in the AM, stick feet difficulty with picking up his feet in the morning for about 30 min when waking up, as well as shaving difficulty- taking himmuch longer than previous. Has had some balance concerns with worsening balance with gait as well as some intermittent speech slurring. He has been living alone but no longer feeling safe for this due to muscle weakness and difficulty with gait and balance. no longer is driving which is also a new change. Hasn't been exercising as much over the last 2-3 weeks due to these bad days. Was tried on some trazodone for his insomnia which is also worsening. He was recently in office on 12/23 and had been able to admit to feeling hopeless and overwhelmed at times with his progressive nature of the parkinson's disease. Daughter has also noticed that his memory seems to be changing- word finding difficulty as well as short term memory recall difficulty . He has had 1 hallucination in the last few months- has fallen out of bed twice and off couch once dueto acting out my dreams. Very vivid dreams at times. Last MRI brain >5 years ago. No known head injuries. he was started on Zoloft, MRI brain was ordered. Hasn't had this completed yet. HTN, stable, readings at home 105-110/70s typically. Denies any dyspnea or CP or palpitations or dizziness/LH or syncope. Elevated PSA, asymptomatic, no fevers or chills or pain, no previous history. + microscopic hematuria, no flank pain. 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 CKD (chronic kidney disease) stage 3, GFR 30-59 ml/min ([facility]) 04/2016 Depressive disorder 12/24/2021 GERD (gastroesophageal reflux disease) Hypertension IFG (impaired fasting glucose) 10/2019 5.7% at diagnosis Kidney stone Mixed hyperlipidemia Parkinson disease ([facility]) 07/2014 PAST SURGICAL HISTORY Procedure Laterality Date COLONOSCOPY FLX DX W/COLLJ SPEC WHEN PFRMD 07/18/2018 Colonoscopy EKG HEART SURGERY HX KIDNEY SURGERY HX basket extraction of kidney stone PAST SURGICAL HISTORY OF 04/2002 cardiac bypass x 5 PAST SURGICAL HISTORY OF 05/2015 kidney stone removed Social History: Social History Tobacco Use Smoking status: Former Smoker Packs/day: 0.50 Years: 20.00 Pack years: 10.00 Types: Cigarettes Quit date: 06/28/2013 Years since quittin.5 Smokeless tobacco: Never Used Substance Use Topics Alcohol use: Yes Comment: occasionally Drug use: No FAMILY HISTORY Problem Relation Age of Onset Heart Father Stroke Father Heart Attack Father Hypertension Father Hyperlipidemia Father Alzheimer's Disease Father Colon Cancer Mother Aneurysm Mother Diabetes Mother Alzheimer's Disease Maternal Grandfather Thyroid No Family History Blood Disease No Family History Blood Clots No Family History Factor 5 Leiden No Family History DVT No Family History Systemic Lupus Erythematosus No Family History Multiple Sclerosis No Family History Bipolar disorder No Family History Schizophrenia No Family History Depression No Family History Dementia No Family History Parkinson s Disease No Family History COPD No Family History Current Outpatient prescriptions: MEDICATION, NON-DATABASE Standard Wheel Chair Dx Parkinson's Disease sertraline (ZOLOFT) 25 mg tablet Take 1 tablet by mouth once daily. In the evening, for mood carbidopa-levodopa (SINEMET 25-100) 25-100 mg per tablet Take 2 tablets by mouth three times daily. omeprazole (PRILOSEC) 40 mg capsule Take 1 capsule by mouth once daily. metoprolol succinate ER (TOPROL XL) 25 mg 24 hr tablet Take 1 tablet by mouth once daily. simvastatin (ZOCOR) 80 mg tablet Take 1 tablet by mouth daily at bedtime. melatonin 5 mg tablet Take 2 tablets by mouth daily at bedtime. aspirin, enteric coated (ASPIRIN, ENTERIC COATED) 81 mg EC tablet Take 81 mg by mouth once daily. Cholecalciferol, Vitamin D3, 5,000 unit cap Take 5,000 Units by mouth once daily. MAGNESIUM OXIDE/MAGNESIUM (MAGNESIUM, OXIDE/AA CHELATE, ORAL) Take by mouth. Allergies: ALLERGIES Allergen Reactions Narcotics [Opioids * GI Upset vomiting with an oral pain med-has taken morphine without problems ROS: See HPI PE: 01/07/22 0844 BP: 107/50 Pulse: 60 Resp: 16 Temp: (!) 35.6 C (96 F) TempSrc: Right Tympanic Weight: 79.4 kg (175 lb) Gen: A&O, NAD, non-toxic appearing, Pleasant, cooperative HEENT: NT/AC, PERRLA, EOMs intact b/l, nares clear and patent b/l, pharynx without erythema, exudate or lesions. Uvula midline. EACs without erythema or debris. TMs pearly dunlap with intact landmarks b/l. Neck: supple, No cervical LAD, no thyromegaly, no carotid bruits CV: RRR, normal S1 and S2, no murmurs, no gallops, no rubs, Pulses 2+ and symmetric in UE and LE b/l Lungs: normal respiratory effort, CTA b/l, no wheezing or rhonchi or rales Abd: soft, NT, ND, +BS, no hepatosplenomegaly MS: slowed gait, stable with use of walker today, Neuro: CN II-XII intact b/l, strength diminished at 4/5 b/l UE and LE, DTRs 2/4 UE and LE, sensation diminished legs Skin: warm, dry, intact, No rashes or lesions on exposed skin. Shuffling gait Fatigued appearing ASSESSMENT/PLAN: 1. Parkinson's disease (HCC) - ICD9: 332.0, ICD10: G20 (primary diagnosis) - will be going into assisted living as recommended due to his balance and gait and muscle strengthdecline, hospital bed and lift chair and wheelchair rx given today - HOSP BED W MATTR FULL ELECTRIC - SEAT LIFT MECHANISM COMBL 2. Balance disorder - ICD9: 781.99, ICD10: R26.89 - will be going into assisted living as recommended due to his balance and gait and muscle strengthdecline, hospital bed and lift chair and wheelchair rx given today - HOSP BED W MATTR FULL ELECTRIC - SEAT LIFT MECHANISM COMBL 3. Muscle weakness - ICD9: 728.87, ICD10: M62.81 - will be going into assisted living as recommended due to his balance and gait and muscle strengthdecline, hospital bed and lift chair and wheelchair rx given today - HOSP BED W MATTR FULL ELECTRIC - SEAT LIFT MECHANISM COMBL 4. Gait disorder - ICD9: 781.2, ICD10: R26.9 - will be going into assisted living as recommended due to his balance and gait and muscle strengthdecline, hospital bed and lift chair and wheelchair rx given today - HOSP BED W MATTR FULL ELECTRIC - SEAT LIFT MECHANISM COMBL 5. Microscopic hematuria - ICD9: 599.72, ICD10: R31.29 Recheck urinalysis today, f/u with urologist, slightly elevated PSA that is new - URINALYSIS, WITH MICROSCOPIC - URINALYSIS, WITH MICROSCOPIC 6. Elevated PSA - ICD9: 790.93, ICD10: R97.20 Recheck urinalysis today, f/u with urologist, slightly elevated PSA that is new 7. Pure hypercholesterolemia - ICD9: 272.0, ICD10: E78.00 Stable, good control 8. Hypertension, essential - ICD9: 401.9, ICD10: I10 - good control - Continue current medication(s) - Encouraged dietary sodium restriction/DASH diet - Recommended regular aerobic exercise. - Recommend home blood pressure monitoring, to bring results in on next visit - Goal of BP <130/80 9. Depressive disorder - ICD9: 311, ICD10: F32.A - continue zoloft, is helping mood. 10. IFG (impaired fasting glucose) - ICD9: 790.21, ICD10: R73.01 - stable 11. 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 Stage 3a chronic kidney disease (HCC) - ICD9: 585.3, ICD10: N18.31 stable 13. Vitamin D deficiency - ICD9: 268.9, ICD10: E55.9 Continue supplement 14. Vitamin B12 deficiency - ICD9: 266.2, ICD10: E53.8 - continue supplement Richard L Pena, DO I spent 42 minutes in the visit, with more than 50% of the total [id number] time of the visit in counseling / coordination of care. Paperwork given from Stefani for patient today to take for admission. To ER if develops chest pain, shortness of breath, or severe worsening of symptoms. Discussed risks, benefits, alternatives, and potential side effects of medications. Patient expressed understanding and agreed with the plan. Richard Pena DO [address] [place] [address] [facility] Miscellaneous Notes* Telephone Encounter - Richard Pena DO - 12/05/2021 5:11 PM EST The following approved medication requests have been transmitted electronically. Signed Prescriptions Disp Refills traZODone (DESYREL) 50 mg tablet 180 tablet 0 Sig: Take 1-2 tablets by mouth daily at bedtime. For insomnia Authorizing Provider: RICHARD PENA DO Patient aware rx sent in Richard Pena DO documented in this [facility] History of Past illness Narrative* Problem Noted Date Resolved Date Acute on chronic renal insufficiency 07/19/2017 01/05/2022 Dehydration, moderate 07/19/2017 01/05/2022 Parkinson disease 06/10/2016 01/05/2022 Essential hypertension 05/05/2016 1 documented as of this encounter (statuses as of 01/07/2022) [facility] of Past illness Narrative* Problem Noted Date Resolved Date Acute on chronic renal insufficiency 07/19/2017 01/05/2022 Dehydration, moderate 07/19/2017 01/05/2022 Parkinson disease 06/10/2016 01/05/2022 Essential hypertension 05/05/2016 1 documented as of this encounter (statuses as of 01/22/2022) [facility] of Past illness Narrative* Problem Noted Date Resolved Date Acute on chronic renal insufficiency 07/19/2017 01/05/2022 Dehydration, moderate 07/19/2017 01/05/2022 Parkinson disease 06/10/2016 01/05/2022 Essential hypertension 05/05/2016 1 documented as of this encounter (statuses as of 02/05/2022) [facility] of Past illness Narrative* Problem Noted Date Resolved Date Acute on chronic renal insufficiency 07/19/2017 01/05/2022 Dehydration, moderate 07/19/2017 01/05/2022 Parkinson disease 06/10/2016 01/05/2022 Essential hypertension 05/05/2016 1 documented as of this encounter (statuses as of 02/05/2022) [facility] illness Narrative* Problem Noted Date Resolved Date Acute on chronic renal insufficiency 07/19/2017 01/05/2022 Dehydration, moderate 07/19/2017 01/05/2022 Parkinson disease 06/10/2016 01/05/2022 Essential hypertension 05/05/2016 1 documented as of this encounter (statuses as of 02/13/2022) [facility] of [facility] illness Narrative* Problem Noted Date Resolved Date Acute on chronic renal insufficiency 07/19/2017 01/05/2022 Dehydration, moderate 07/19/2017 01/05/2022 Parkinson disease 06/10/2016 01/05/2022 Essential hypertension 05/05/2016 1 documented as of this encounter (statuses as of 02/16/2022) [facility] of [facility] illness Narrative* Problem Noted Date Resolved Date Acute on chronic renal insufficiency 07/19/2017 01/05/2022 Dehydration, moderate 07/19/2017 01/05/2022 Parkinson disease 06/10/2016 01/05/2022 Essential hypertension 05/05/2016 1 documented as of this encounter (statuses as of 02/26/2022) [facility] of [facility] illness Narrative* Problem Noted Date Resolved Date Acute on chronic renal insufficiency 07/19/2017 01/05/2022 Dehydration, moderate 07/19/2017 01/05/2022 Parkinson disease 06/10/2016 01/05/2022 Essential hypertension 05/05/2016 1 documented as of this encounter (statuses as of 02/27/2022) [facility] Narrative* Problem Noted Date Resolved Date Acute on chronic renal insufficiency 07/19/2017 01/05/2022 Dehydration, moderate 07/19/2017 01/05/2022 Parkinson disease 06/10/2016 01/05/2022 Essential hypertension 05/05/2016 1 documented as of this encounter (statuses as of 03/17/2022) [facility] Narrative* Problem Noted Date Resolved Date Acute on chronic renal insufficiency 07/19/2017 01/05/2022 Dehydration, moderate 07/19/2017 01/05/2022 Parkinson disease 06/10/2016 01/05/2022 Essential hypertension 05/05/2016 1 documented as of this encounter (statuses as of 03/18/2022) [facility] Narrative* Problem Noted Date Resolved Date Acute on chronic renal insufficiency 07/19/2017 01/05/2022 Dehydration, moderate 07/19/2017 01/05/2022 Parkinson disease 06/10/2016 01/05/2022 Essential hypertension 05/05/2016 1 documented as of this encounter (statuses as of 03/26/2022) [facility] Narrative* Problem Noted Date Resolved Date Acute on chronic renal insufficiency 07/19/2017 01/05/2022 Dehydration, moderate 07/19/2017 01/05/2022 Parkinson disease 06/10/2016 01/05/2022 Essential hypertension 05/05/2016 1 documented as of this encounter (statuses as of 04/09/2022) [facility] Narrative* Problem Noted Date Resolved Date Acute on chronic renal insufficiency 07/19/2017 01/05/2022 Dehydration, moderate 07/19/2017 01/05/2022 Parkinson disease 06/10/2016 01/05/2022 Essential hypertension 05/05/2016 1 documented as of this encounter (statuses as of 04/16/2022) [facility] Narrative* Problem Noted Date Resolved Date Acute on chronic renal insufficiency 07/19/2017 01/05/2022 Dehydration, moderate 07/19/2017 01/05/2022 Parkinson disease 06/10/2016 01/05/2022 Essential hypertension 05/05/2016 1 documented as of this encounter (statuses as of 04/30/2022) [facility] Narrative* Problem Noted Date Resolved Date Acute on chronic renal insufficiency 07/19/2017 01/05/2022 Dehydration, moderate 07/19/2017 01/05/2022 Essential hypertension 05/05/2016 1 documented as of this encounter (statuses as of 07/08/2022) [facility] Narrative* Problem Noted Date Resolved Date Acute on chronic renal insufficiency 07/19/2017 01/05/2022 Dehydration, moderate 07/19/2017 01/05/2022 Essential hypertension 05/05/2016 1 documented as of this encounter (statuses as of 08/11/2022) [facility] Narrative* Problem Noted Date Resolved Date Acute on chronic renal insufficiency 07/19/2017 01/05/2022 Dehydration, moderate 07/19/2017 01/05/2022 Essential hypertension 05/05/2016 1 documented as of this encounter (statuses as of 10/09/2022) [facility] N[facility]ative* Problem Noted Date Resolved Date Acute on chronic renal insufficiency 07/19/2017 01/05/2022 Dehydration, moderate 07/19/2017 01/05/2022 Essential hypertension 05/05/2016 1 documented as of this encounter (statuses as of 11/11/2022) [facility] N[facility]* Problem Noted Date Resolved Date Acute on chronic renal insufficiency 07/19/2017 01/05/2022 Dehydration, moderate 07/19/2017 01/05/2022 Essential hypertension 05/05/2016 1 documented as of this encounter (statuses as of 12/17/2022) [facility] Narrative* Problem Noted Date Resolved Date Acute on chronic renal insufficiency 07/19/2017 01/05/2022 Dehydration, moderate 07/19/2017 01/05/2022 Essential hypertension 05/05/2016 1 documented as of this encounter (statuses as of 12/24/2022) [facility] Narrative* Problem Noted Date Resolved Date Acute on chronic renal insufficiency 07/19/2017 01/05/2022 Dehydration, moderate 07/19/2017 01/05/2022 Essential hypertension 05/05/2016 1 documented as of this encounter (statuses as of 12/24/2022) [facility] Narrative* Problem Noted Date Resolved Date Acute on chronic renal insufficiency 07/19/2017 01/05/2022 Dehydration, moderate 07/19/2017 01/05/2022 Essential hypertension 05/05/2016 1 documented as of this encounter (statuses as of 01/06/2023) [facility] Narrative* Problem Noted Date Resolved Date Acute on chronic renal insufficiency 07/19/2017 01/05/2022 Dehydration, moderate 07/19/2017 01/05/2022 Essential hypertension 05/05/2016 1 documented as of this encounter (statuses as of 04/07/2023) [facility] Narrative* Problem Noted Date Diagnosed Date Resolved Date Acute on chronic renal insufficiency 07/19/2017 01/05/2022 Dehydration, moderate 07/19/20172021 Essential hypertension 05/05/201607/24 documented as of this encounter (statuses as of 06/23/2023) [facility]* Problem Noted Date Diagnosed Date Resolved Date Acute on chronic renal insufficiency 07/19/2017 01/05/2022 Dehydration, moderate 07/19/20172021 Essential hypertension 05/05/201607/24 documented as of this encounter (statuses as of 08/11/2023) [facility]* Problem Noted Date Diagnosed Date Resolved Date Acute on chronic renal insufficiency 07/19/2017 01/05/2022 Dehydration, moderate 07/19/20172021 Essential hypertension 05/05/201607/24 documented as of this encounter (statuses as of 08/23/2023) [facility] Narrative* Problem Noted Date Diagnosed Date Resolved Date Acute on chronic renal insufficiency 07/19/2017 01/05/2022 Dehydration, moderate 07/19/20172021 Essential hypertension 05/05/201607/24 documented as of this encounter (statuses as of 09/08/2023) [facility] Narrative* Problem Noted Date Diagnosed Date Resolved Date Acute on chronic renal insufficiency 07/19/2017 01/05/2022 Dehydration, moderate 07/19/20172021 Essential hypertension 05/05/201607/24 documented as of this encounter (statuses as of 11/30/2023) [facility]* Problem Noted Date Diagnosed Date Resolved Date Acute on chronic renal insufficiency 07/19/2017 01/05/2022 Dehydration, moderate 07/19/20172021 Essential hypertension 05/05/201607/24 documented as of this encounter (statuses as of 12/06/2023) [facility] Narrative* Problem Noted Date Diagnosed Date Resolved Date Acute on chronic renal insufficiency 07/19/2017 01/05/2022 Dehydration, moderate 07/19/20172021 Essential hypertension 05/05/201607/24 documented as of this encounter (statuses as of 12/23/2023) [facility] Diagnosis Parkinson's disease (HCC)- Primary Paralysis agitans Balance disorder Other symptoms involving nervous and musculoskeletal systems Muscle weakness Muscle weakness (generalized) Gait disorder Abnormality of gait Microscopic hematuria Elevated PSA Elevated prostate specific antigen (PSA) Pure hypercholesterolemia Hypertension, essential Unspecified essential hypertension Depressive disorder Depressive disorder, not elsewhere classified IFG (impaired fasting glucose) Impaired fasting glucose 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 Stage 3a chronic kidney disease (HCC) Vitamin D deficiency Unspecified vitamin D deficiency Vitamin B12 deficiency Other B-complex deficiencies [facility] encounter [facility] Diagnosis Cognitive impairment, mild, so stated Mild cognitive impairment, so stated Parkinson's disease (HCC) Paralysis agitans Aphasia Dysphasia Other speech disturbance [facility] Diagnosis Elevated PSA- Primary Elevated prostate specific antigen (PSA) Parkinson's disease (HCC) Paralysis agitans Balance disorder Other symptoms involving nervous and musculoskeletal systems Microscopic hematuria Pure hypercholesterolemia IFG (impaired fasting glucose) Impaired fasting glucose Stage 3a chronic kidney disease (HCC) Vitamin D deficiency Unspecified vitamin D deficiency Vitamin B12 deficiency Other B-complex deficiencies [facility] Diagnosis Parkinson's disease (HCC)- Primary Paralysis agitans Elevated PSA Elevated prostate specific antigen (PSA) Balance disorder Other symptoms involving nervous and musculoskeletal systems Microscopic hematuria Pure hypercholesterolemia IFG (impaired fasting glucose) Impaired fasting glucose Stage 3a chronic kidney disease (HCC) Vitamin D deficiency Unspecified vitamin D deficiency Vitamin B12 deficiency Other B-complex deficiencies Gait disorder Abnormality of gait Muscle weakness Muscle weakness (generalized) Depressive disorder Depressive disorder, not elsewhere classified Chronic right shoulder pain Pain in joint, shoulder region Bilateral impacted cerumen Impacted cerumen [facility] Diagnosis Chronic ulcer of right leg, limited to breakdown of skin (HCC)- Primary Need for influenza vaccination Need for prophylactic vaccination and inoculation against influenza Onychomycosis Dermatophytosis of nail Bunion Bilateral leg edema Edema IFG (impaired fasting glucose) Impaired fasting glucose Stage 3a chronic kidney disease (HCC) Balance disorder Other symptoms involving nervous and musculoskeletal systems Parkinson disease (HCC) Paralysis agitans Hypertension, essential Unspecified essential hypertension [facility]* Diagnosis Bilateral leg edema Edema Chronic ulcer of right leg, limited to breakdown of skin (HCC) [facility]* Diagnosis Parkinson's disease (HCC)- Primary Paralysis agitans [facility]* Diagnosis Gastroesophageal reflux disease without esophagitis Esophageal reflux Parkinson's disease (HCC) Paralysis agitans Hypertension, essential Unspecified essential hypertension Pure hypercholesterolemia Parkinson disease (HCC) Paralysis agitans Bilateral leg edema Edema Chronic ulcer of right leg, limited to breakdown of skin (HCC) [facility]* Diagnosis Parkinson's disease (HCC)- Primary Paralysis agitans Chronic ulcer of right leg, limited to breakdown of skin (HCC) Chronic kidney disease, stage 3a (HCC) Hypertension, essential Unspecified essential hypertension Pure hypercholesterolemia Bilateral leg edema Edema IFG (impaired fasting glucose) Impaired fasting glucose Vitamin D deficiency Unspecified vitamin D deficiency [facility]* Diagnosis Leg wound, right, initial encounter- Primary Chronic ulcer of right leg, limited to breakdown of skin (HCC) Chronic kidney disease, stage 3a (HCC) Parkinson's disease (HCC) Paralysis agitans Hypertension, essential Unspecified essential hypertension Pure hypercholesterolemia Bilateral leg edema Edema IFG (impaired fasting glucose) Impaired fasting glucose documented in this encounter [facility] note* Diagnosis Pure hypercholesterolemia- Primary IFG (impaired fasting glucose) Impaired fasting glucose documented in this encounter [facility] note* Diagnosis Parkinson's disease with dyskinesia and fluctuating manifestations- Primary documented in this encounter [facility]* Diagnosis Carpal tunnel syndrome, left Carpal tunnel syndrome documented in this encounter [facility] note* Diagnosis Left carpal tunnel syndrome- Primary Carpal tunnel syndrome [facility] Advance Directives No Advanced Directives Records FoundDocuments on File Type Date Recorded Patient [employer] Expl anation Advance Directive(s) 11/20/2020 6:33 PM Advance Directive(s) 07/18/2018 8:31 AM Documents on File Type Date Recorded Patient [employer] Expl anation Advance Directive(s) 11/20/2020 6:33 PM Advance Directive(s) 07/18/2018 8:31 AM Documents on File Type Date Recorded Patient [employer] Expl anation Advance Directive(s) 11/20/2020 6:33 PM Documents on File Type Date Recorded Patient [employer] Expl anation Advance Directive(s) 11/20/2020 6:33 PM Reason for Referral Specialty Diagnoses / Procedures Referred By Raul wild Referred To Contact MR IMAGING Diagnoses Cognitive impairment, mild, so stated Parkinson's disease (HCC) Aphasia Dysphasia Procedures MRI BRAIN WO/W IVCON MRI BRAIN BRAIN STEM W/O W/CONTRAST MATERIAL Richard Pena, [address] [place] [address] Mr Imaging Referral ID Status Reason Start Date Expiration Date V isits Requested Visits Authorized [id number] Closed Auto-Generate d Referral 12/24/2021 01/23/2023 1 1 Specialty Diagnoses / Procedures Referred By Contac t Referred To Contact Podiatry Diagnoses Onychomycosis Bunion Procedures CONSULT TO PODIATRY OFFICE/OUTPATIENT NEW HIGH MDM 60-74 MINUTES Richard Pena, [address] [place] [address] Referral ID Status Reason Start Date Expiration Date Visits Requested Visits Authorized [id number] Pending Review PCP Requested Referral 07/08/2022 07/08/2023 1 1 Specialty Diagnoses / Procedures Referred By Contac t Referred To Contact Diagnoses Parkinson's disease (HCC) Procedures PROVIDER ORDERED FOLLOW UP OFFICE/OUTPATIENT NEW HIGH MDM 60-74 MINUTES Gila Hamm MD [address] [address] Referral ID Status Reason Start Date Expiration Date Visits Requested Visits Authorized [id number] Pending Review PCP Requested Referral 12/16/2022 03/16/2023 1 1 Specialty Diagnoses / Procedures Referred By Raul wild Referred To Contact Diagnoses Parkinson's disease with dyskinesia and fluctuating manifestations Procedures PROVIDER ORDERED FOLLOW UP OFFICE/OUTPATIENT NEW HIGH [facility] 60-74 MINUTES Gila Hamm MD [address] [address] Referral ID Status Reason Start Date Expiration Date Visits Requested Visits Authorized [id number] Pending Review PCP Requested Referral 08/18/2023 11/16/2023 1 1 Summary Purpose Family History No Family History Records FoundNo Family History Records Found Additional Source Comments Source Comments (unrecognize d section and content) In the event this informatio n is protected by the Federal Confidentiality of Alcohol and Drug Abuse Patient Records regulations: The Federal rules restrict any use of the information to criminally investigate or prosecute any alcohol or drug abuse patient.[facility] HospitalIn the event this information is protected by the Federal Confidentiality of Alcohol and Drug Abuse Patient Records regulations: The Federal rules restrict any use of the information to criminally investigate or prosecute any alcohol or drug abuse patient.[facility] HospitalIn the event this information is protected by the Federal Confidentiality of Alcohol and Drug Abuse Patient Records regulations: The Federal rules restrict any use of the information to criminally investigate or prosecute any alcohol or drug abuse patient.[facility] HospitalIn the event this information is protected by the Federal Confidentiality of Alcohol and Drug Abuse Patient Records regulations: The Federal rules restrict any use of the information to criminally investigate or prosecute any alcohol or drug abuse patient.[facility] HospitalIn the event this information is protected by the Federal Confidentiality of Alcohol and Drug Abuse Patient Records regulations: The Federal rules restrict any use of the information to criminally investigate or prosecute any alcohol or drug abuse patient.[facility] HospitalIn the event this information is protected by the Federal Confidentiality of Alcohol and Drug Abuse Patient Records regulations: The Federal rules restrict any use of the information to criminally investigate or prosecute any alcohol or drug abuse patient.[facility] HospitalIn the event this information is protected by the Federal Confidentiality of Alcohol and Drug Abuse Patient Records regulations: The Federal rules restrict any use of the information to criminally investigate or prosecute any alcohol or drug abuse patient.[facility] HospitalIn the event this information is protected by the Federal Confidentiality of Alcohol and Drug Abuse Patient Records regulations: The Federal rules restrict any use of the information to criminally investigate or prosecute any alcohol or drug abuse patient.[facility] HospitalIn the event this information is protected by the Federal Confidentiality of Alcohol and Drug Abuse Patient Records regulations: The Federal rules restrict any use of the information to criminally investigate or prosecute any alcohol or drug abuse patient.[facility] HospitalIn the event this information is protected by the Federal Confidentiality of Alcohol and Drug Abuse Patient Records regulations: The Federal rules restrict any use of the information to criminally investigate or prosecute any alcohol or drug abuse patient.[facility] HospitalIn the event this information is protected by the Federal Confidentiality of Alcohol and Drug Abuse Patient Records regulations: The Federal rules restrict any use of the information to criminally investigate or prosecute any alcohol or drug abuse patient.[facility] HospitalIn the event this information is protected by the Federal Confidentiality of Alcohol and Drug Abuse Patient Records regulations: The Federal rules restrict any use of the information to criminally investigate or prosecute any alcohol or drug abuse patient.[facility] HospitalIn the event this information is protected by the Federal Confidentiality of Alcohol and Drug Abuse Patient Records regulations: The Federal rules restrict any use of the information to criminally investigate or prosecute any alcohol or drug abuse patient.[facility] HospitalIn the event this information is protected by the Federal Confidentiality of Alcohol and Drug Abuse Patient Records regulations: The Federal rules restrict any use of the information to criminally investigate or prosecute any alcohol or drug abuse patient.[facility] HospitalIn the event this information is protected by the Federal Confidentiality of Alcohol and Drug Abuse Patient Records regulations: The Federal rules restrict any use of the information to criminally investigate or prosecute any alcohol or drug abuse patient.[facility] HospitalIn the event this information is protected by the Federal Confidentiality of Alcohol and Drug Abuse Patient Records regulations: The Federal rules restrict any use of the information to criminally investigate or prosecute any alcohol or drug abuse patient.[facility] HospitalIn the event this information is protected by the Federal Confidentiality of Alcohol and Drug Abuse Patient Records regulations: The Federal rules restrict any use of the information to criminally investigate or prosecute any alcohol or drug abuse patient.[facility] HospitalIn the event this information is protected by the Federal Confidentiality of Alcohol and Drug Abuse Patient Records regulations: The Federal rules restrict any use of the information to criminally investigate or prosecute any alcohol or drug abuse patient.[facility] HospitalIn the event this information is protected by the Federal Confidentiality of Alcohol and Drug Abuse Patient Records regulations: The Federal rules restrict any use of the information to criminally investigate or prosecute any alcohol or drug abuse patient.[facility] HospitalIn the event this information is protected by the Federal Confidentiality of Alcohol and Drug Abuse Patient Records regulations: The Federal rules restrict any use of the information to criminally investigate or prosecute any alcohol or drug abuse patient.[facility] HospitalIn the event this information is protected by the Federal Confidentiality of Alcohol and Drug Abuse Patient Records regulations: The Federal rules restrict any use of the information to criminally investigate or prosecute any alcohol or drug abuse patient.[facility] HospitalIn the event this information is protected by the Federal Confidentiality of Alcohol and Drug Abuse Patient Records regulations: The Federal rules restrict any use of the information to criminally investigate or prosecute any alcohol or drug abuse patient.[facility] HospitalIn the event this information is protected by the Federal Confidentiality of Alcohol and Drug Abuse Patient Records regulations: The Federal rules restrict any use of the information to criminally investigate or prosecute any alcohol or drug abuse patient.[facility] HospitalIn the event this information is protected by the Federal Confidentiality of Alcohol and Drug Abuse Patient Records regulations: The Federal rules restrict any use of the information to criminally investigate or prosecute any alcohol or drug abuse patient.[facility] HospitalIn the event this information is protected by the Federal Confidentiality of Alcohol and Drug Abuse Patient Records regulations: The Federal rules restrict any use of the information to criminally investigate or prosecute any alcohol or drug abuse patient.[facility] HospitalIn the event this information is protected by the Federal Confidentiality of Alcohol and Drug Abuse Patient Records regulations: The Federal rules restrict any use of the information to criminally investigate or prosecute any alcohol or drug abuse patient.[facility] HospitalIn the event this information is protected by the Federal Confidentiality of Alcohol and Drug Abuse Patient Records regulations: The Federal rules restrict any use of the information to criminally investigate or prosecute any alcohol or drug abuse patient.[facility] HospitalIn the event this information is protected by the Federal Confidentiality of Alcohol and Drug Abuse Patient Records regulations: The Federal rules restrict any use of the information to criminally investigate or prosecute any alcohol or drug abuse patient.[facility] HospitalIn the event this information is protected by the Federal Confidentiality of Alcohol and Drug Abuse Patient Records regulations: The Federal rules restrict any use of the information to criminally investigate or prosecute any alcohol or drug abuse patient.[facility] HospitalIn the event this information is protected by the Federal Confidentiality of Alcohol and Drug Abuse Patient Records regulations: The Federal rules restrict any use of the information to criminally investigate or prosecute any alcohol or drug abuse patient.[facility] Reason for Visit (unrecogniz ed section and content) Specialty Diagnoses / Procedures Referred By Contac t Referred To Contact Diagnoses Parkinson's disease Procedures PROVIDER ORDERED FOLLOW UP OFFICE/OUTPATIENT [facility] 60-74 MINUTES Gila Hamm MD [address] [place] [id number] Referral ID Status Reason Start Date Expiration Date V isits Requested Visits Authorized [id number] Closed PCP Requested Referral 12/16/2022 03/16/2023 1 1 Reason Comments Follow Up 6 months Reason Comments Refill Request Specialty Diagnoses / Procedures Referred By Contac t Referred To Contact MR IMAGING Diagnoses Cognitive impairment, mild, so stated Parkinson's disease (HCC) Aphasia Dysphasia Procedures MRI BRAIN WO/W IVCON MRI BRAIN BRAIN STEM W/O W/CONTRAST MATERIAL Richard Pena DO [address] [place] [address] Mr Imaging Referral ID Status Reason Start Date Expiration Date V isits Requested Visits Authorized [id number] Closed Auto-Generate d Referral 12/24/2021 01/23/2023 1 1 Reason Comments Results Reason Comments Faxed to [facility] Reason Comments Follow for PT Reason Comments Other Falls on Amantadine Reason Comments Patient Update Reason Onset Date Comments Refill Request 02/27/2022 Refill Request 03/17/2022 Reason Comments PT plan of care Reason Comments Orders Reason Comments Follow Up 3 months Reason Comments Other Ella Treviñoe Physician Provider Order Reason Comments request for medication being faxed Reason Onset Date Comments F/U 3 Month Immunizations 07/08/2022 Flu vaccination Reason Onset Date Comments Refill Request 11/10/2022 Reason Onset Date Comments Refill Request 12/23/2022 Reason Comments 6 Month Exam Reason Comments F/U 3 Month Reason Comments Lab Orders Reason Comments Patient Question Reason Comments New Pain Specialty Diagnoses / Procedures Referred By Raul wild Referred To Contact Orthopedics Diagnoses Carpal tunnel syndrome, left Procedures CONSULT TO ORTHOPAEDICS OFFICE/OUTPATIENT NEW HIGH MDM 60 MINUTES Richard Pena, DO [address] [place] [address] Referral ID Status Reason Start Date Expiration Date V isits Requested Visits Authorized [id number] Closed PCP Requested Referral 11/06/2023 11/05/2024 1 1 Reason Comments Established Patient Post Op Care Teams (unrecognized sec tion and content) Rail 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 Relationship Specialty Start Date End Date Richard Pena DO [address] [place] [address] PCP - General Family Practice 05/04/16 Rail Tractor Operator Relationship Specialty Start Date End Date Richard Pena DO [address] [place] [address] PCP - General Family Practice 05/04/16 Rail Tractor Operator Relationship Specialty Start Date End Date Richard Pena DO [address] [place] [address] PCP - General Family Practice 05/04/16 Rail Tractor Operator Relationship Specialty Start Date End Date Richard Pena DO [address] [place] [address] PCP - General Family Practice 05/04/16 Rail Tractor Operator Relationship Specialty Start Date End Date Richard Pena, DO [address] [facility] [place] [address] PCP - General Family Practice 05/04/16 Rail Tractor Operator Relationship Specialty Start Date End Date Richard Pena, DO [address] [facility] [place] [address] PCP - General Family Practice 05/04/16 Rail Tractor Operator Relationship Specialty Start Date End Date Richard Pena, DO [address] [facility] [place] [address] PCP - General Family Practice 05/04/16 Rail Tractor Operator Relationship Specialty Start Date End Date Richard Pena, DO [address] [facility] [place] [address] PCP - General Family Practice 05/04/16 Rail Tractor Operator Relationship Specialty Start Date End Date Richard Pena, DO [address] [facility] [place] [address] PCP - General Family Practice 05/04/16 Rail Tractor Operator Relationship Specialty Start Date End Date Richard Pena, DO [address] [facility] [place] [address] PCP - General Family Practice 05/04/16 Rail Tractor Operator Relationship Specialty Start Date End Date Richard Pena, DO [address] [facility] [place] [address] PCP - General Family Medicine 05/04/16 Rail Tractor Operator Relationship Specialty Start Date End Date Richard Pena, DO [address] [facility] [place] [address] PCP - General Family Medicine 05/04/16 Nery Snyder, STRETCHING PRESS OPERATOR.SEPARATIONS SCIENTIST [address] [place] [address] Specialty Boardmarker Neurology 08/05/22 Rail Tractor Operator Relationship Specialty Start Date End Date Richard Pena, DO [address] [facility] [place] [address] PCP - General Family Medicine 05/04/16 Nery Snyder, STRETCHING PRESS OPERATOR.SEPARATIONS SCIENTIST [address] [place] [address] Specialty Boardmarker Neurology 08/05/22 Rail Tractor Operator Relationship Specialty Start Date End Date Richard Pena, DO [address] [facility] [place] [address] PCP - General Family Medicine 05/04/16 Nery Snyder, STRETCHING PRESS OPERATOR.SEPARATIONS SCIENTIST [address] [facility] [place] [address] Specialty Boardmarker Neurology 08/05/22 Liz Johnson, STRETCHING PRESS OPERATOR.SEPARATIONS SCIENTIST [address] [place] [address] Specialty Boardmarker Neurology 11/02/22 Rail Tractor Operator Relationship Specialty Start Date End Date Richard Pena, DO [address] [place] [address] PCP - General Family Medicine 05/04/16 Nery Snyder, STRETCHING PRESS OPERATOR.SEPARATIONS SCIENTIST [address] [facility] [place] [address] Specialty Boardmarker Neurology 08/05/22 Liz Johnson, STRETCHING PRESS OPERATOR.SEPARATIONS SCIENTIST [address] [facility] [place] [place] [address] Specialty Boardmarker Neurology 11/02/22 Rail Tractor Operator Relationship Specialty Start Date End Date Richard Pena, DO [address] [facility] [place] [address] PCP - General Family Medicine 05/04/16 Nery Snyder, STRETCHING PRESS OPERATOR.SEPARATIONS SCIENTIST [address] [place] [address] Specialty Boardmarker Neurology 08/05/22 Liz Johnson, STRETCHING PRESS OPERATOR.SEPARATIONS SCIENTIST [address] [place] [address] Specialty Boardmarker Neurology 11/02/22 Rail Tractor Operator Relationship Specialty Start Date End Date Richard Pena, DO [address] [place] [address] PCP - General Family Medicine 05/04/16 Nery Snyder, STRETCHING PRESS OPERATOR.SEPARATIONS SCIENTIST [address] [place] [address] Specialty Boardmarker Neurology 08/05/22 Liz Johnson, STRETCHING PRESS OPERATOR.SEPARATIONS SCIENTIST [address] [facility] [place] [place] [address] Specialty Boardmarker Neurology 11/02/22 Rail Tractor Operator Relationship Specialty Start Date End Date Richard Pena DO [address] [place] [address] PCP - General Family Medicine 05/04/16 Nery Snyder, STRETCHING PRESS OPERATOR.SEPARATIONS SCIENTIST [address] [facility] [place] [address] Specialty Boardmarker Neurology 08/05/22 Liz Johnson, STRETCHING PRESS OPERATOR.SEPARATIONS SCIENTIST [address] [place] [address] Specialty Boardmarker Neurology 11/02/22 Rail Tractor Operator Relationship Specialty Start Date End Date Richard Pena DO [address] [place] [address] PCP - General Family Medicine 05/04/16 Nery Snyder, STRETCHING PRESS OPERATOR.SEPARATIONS SCIENTIST [address] [place] [address] Specialty Boardmarker Neurology 08/05/22 Liz Johnson APRN.SEPARATIONS SCIENTIST [address] [place] [address] Specialty Boardmarker Neurology 11/02/22 Rail Tractor Operator Relationship Specialty Start Date End Date Richard Pena DO [address] [place] [address] PCP - General Family Medicine 05/04/16 Nery Snyder, STRETCHING PRESS OPERATOR.SEPARATIONS SCIENTIST [address] [place] [address] Specialty Boardmarker Neurology 08/05/22 Liz Johnson, STRETCHING PRESS OPERATOR.SEPARATIONS SCIENTIST [address] [place] [address] Specialty Boardmarker Neurology 11/02/22 Rail Tractor Operator Relationship Specialty Start Date End Date Richard Pena DO [address] [place] [address] PCP - General Family Medicine 05/04/16 Nery Snyder, STRETCHING PRESS OPERATOR.SEPARATIONS SCIENTIST [address] [place] [address] Specialty Boardmarker Neurology 08/05/22 Liz Johnson STRETCHING PRESS OPERATOR.SEPARATIONS SCIENTIST [address] [place] [address] Specialty Boardmarker Neurology 11/02/22 Rail Tractor Operator Relationship Specialty Start Date End Date Richard Pena DO [address] [place], [place] [address] PCP - General Family Medicine 05/04/16 Nery Snyder, STRETCHING PRESS OPERATOR.SEPARATIONS SCIENTIST [address], [place] [id number] Specialty Boardmarker Neurology 08/05/22 Liz Johnson, STRETCHING PRESS OPERATOR.SEPARATIONS SCIENTIST [address] [place], [place] [id number] Specialty Boardmarker Neurology 11/02/22 Gila Hamm MD [address] [place] [id number] Specialty Boardmarker Neurology 10/06/23 Rail Tractor Operator Relationship Specialty Start Date End Date Richard Pena DO [address] [place], [place] [address] PCP - General Family Medicine 05/04/16 Nery Snyder, STRETCHING PRESS OPERATOR.SEPARATIONS SCIENTIST [address] [place] [place], [place] [id number] Specialty Boardmarker Neurology 08/05/22 Liz Johnson, STRETCHING PRESS OPERATOR.SEPARATIONS SCIENTIST [address] [place] [address] Specialty Boardmarker Neurology 11/02/22 Gila Hamm MD [address] [id number] Specialty Boardmarker Neurology 10/06/23 Rail Tractor Operator Relationship Specialty Start Date End Date Richard Pena DO [address] [place] [address] PCP - General Family Medicine 05/04/16 Nery Snyder, STRETCHING PRESS OPERATOR.SEPARATIONS SCIENTIST [address] [place] [address] Specialty Boardmarker Neurology 08/05/22 Liz Johnson, MILIND.SEPARATIONS SCIENTIST [address] [place] [address] Specialty Boardmarker Neurology 11/02/22 Gila Hamm MD [address] [id number] Specialty Boardmarker Neurology 10/06/23 (unrecognized sect ion and content) No Status Records FoundNo Status Records Found INFORMATION SOURCE (unrecogn ized section and content) DATE CREATED AUTHOR AUTHOR'S ORGANIZ ATION 12/23/2023 [facility] FOR RECORDS PERTAINING TO PATIENTS WHO ARE OR HAVE BEEN ENROLLED IN A CHEMICAL DEPENDENCY/SUBSTANCEABUSE PROGRAM, SOME INFORMATION MAY BE OMITTED. This clinical summary was aggregated from multiple sources. Caution should be exercised in using it in the provision of clinical care. This summary normalizes information from multiple sources, and as a consequence, information in this document may materially change the coding, format and clinical context of patient data. In addition, data may be omitted in some cases. CLINICAL DECISIONS SHOULD BE BASED ON THE PRIMARY CLINICAL RECORDS. [employer] [facility]. provides no warranty or guarantee of the accuracy or completeness of information in this document.
[2023-12-29 08:10] LABS: Vitamin B12 1377 pg/mL (211-911)
[2023-12-29 08:55] LABS: ALB/GLOB Ratio 1.3 RATIO (0.9-2.4); AST(SGOT) 23 U/L (15-37); Alanine Aminotransfer ALT/SGPT 14 U/L (16-61); Albumin, Serum 3.8 g/dL (3.2-5.0); Alkaline Phosphatase 73 U/L (45-117); Anion Gap 5 (5-15); BUN 24 mg/dL (7-18); BUN/Creat Ratio 22.6 RATIO (10-20); Calcium,Total 8.8 mg/dL (8.5-10.1); Chloride 106 mmol/L (98-107); Creatinine, Serum 1.06 mg/dL (0.70-1.30); EST Glomerular Filtration Rate 72 mL/min (>60); Est Glom Filt Rate - Afr Amer 87 mL/min (>60); Glucose 100 mg/dL (74-106); Magnesium 2.5 mg/dL (1.6-2.6); Potassium 4.6 mmol/L (3.5-5.1); Protein, Total 6.8 g/dL (6.4-8.2); Sodium Level 142 mmol/L (136-145)
== END ==
PROVIDERS: PCP Student in an Organized Health Care Education/Training Program; Referring Provider Student in an Organized Health Care Education/Training Program; Visit Provider Student in an Organized Health Care Education/Training Program
DX: I10 Essential (primary) hypertension (principal); E53.9 Vitamin B deficiency, unspecified; E78.00 Pure hypercholesterolemia, unspecified; R73.01 Impaired fasting glucose; N18.31 Chronic kidney disease, stage 3a
CPT/HCPCS: 36415; 80053; 82607; 83735; 85027

== ENCOUNTER → 2024-03-01 | Outpatient (REF) | payer MEDICARE, SELFPAY ==
[2024-03-01 09:34] LABS: Bacteria 0 SEEN /hpf (None Seen); Mucous, Urine 0 SEEN /hpf (<or=2+); Red Blood Cells-Urine 0 SEEN /hpf (0-5); Squamous Epithelial Cells - UA 0 SEEN /hpf (0-5); White Blood Cells 0 SEEN /hpf (0-5)
[2024-03-01 09:42] LABS: Color, Urine Yellow (Yellow); Glucose, Dipstick Normal (Normal); Ketone-Dipstick 5 mg/dl (Negative); Leukocyte Esterase-Dipstick Negative /ul (Negative); Nitrite-Dipstick Negative (Negative); Occult Blood-Urine Negative /ul (Negative); Protein-Dipstick 15 mg/dl (Negative); Urine Bilirubin Dipstick Negative (Negative); Urine Clarity Clear (Clear); Urine Urobilinogen Normal (Normal)
[2024-03-01 09:57] LABS: Amorphous Sediment 1+
== END ==
PROVIDERS: PCP Student in an Organized Health Care Education/Training Program; Visit Provider Student in an Organized Health Care Education/Training Program
DX: R35.0 Frequency of micturition (principal)
CPT/HCPCS: 81001; 87086

== ENCOUNTER → 2024-04-03 | Outpatient (REF) | payer MEDICARE, SELFPAY ==
[2024-04-03 08:46] LABS: Hematocrit 42.5 % (40-54); Hemoglobin 13.4 g/dL (13.0-16.5); Mean Corp Hgb Conc 31.5 g/dL (32-36); Mean Corpuscular Hgb 31.4 pg (27.0-32.0); Mean Corpuscular Volume 99.5 fL (80-94); Platelet Count 184 K/mm3 (150-450); RBC Distribution Width CV 12.4 % (11.6-14.6); RBC Distribution Width SD 45.4 fl (35.1-43.9); Red Blood Count 4.27 M/mm3 (4.6-6.2); White Blood Count 5.3 K/mm3 (4.4-11.0)
[2024-04-03 08:53] LABS: Vitamin D,25 Hydroxy 52.2 ng/mL
[2024-04-03 08:59] LABS: ALB/GLOB Ratio 1.2 RATIO (0.9-2.4); AST(SGOT) 30 U/L (15-37); Alanine Aminotransfer ALT/SGPT 16 U/L (16-61); Albumin, Serum 3.8 g/dL (3.2-5.0); Alkaline Phosphatase 80 U/L (45-117); Anion Gap 7 (5-15); BUN 25 mg/dL (7-18); BUN/Creat Ratio 22.3 RATIO (10-20); Chloride 105 mmol/L (98-107); Creatinine, Serum 1.12 mg/dL (0.70-1.30); EST Glomerular Filtration Rate 67 mL/min (>60); Est Glom Filt Rate - Afr Amer 82 mL/min (>60); Globulin 3.2 g/dL (2.2-4.2); Glucose 119 mg/dL (74-106); Magnesium 2.3 mg/dL (1.6-2.6); Potassium 4.3 mmol/L (3.5-5.1); Sodium Level 141 mmol/L (136-145); Thyroid Stim Hormone (TSH) 2.49 uIU/mL (0.358-3.74)
== END ==
PROVIDERS: PCP Student in an Organized Health Care Education/Training Program; Visit Provider Student in an Organized Health Care Education/Training Program
DX: G20.C Parkinsonism, unspecified (principal); I12.9 Hypertensive chronic kidney disease with stage 1 through stage 4 chronic kidney disease, or unspecified chronic kidney disease; N18.31 Chronic kidney disease, stage 3a; E55.9 Vitamin D deficiency, unspecified; K21.9 Gastro-esophageal reflux disease without esophagitis; R73.01 Impaired fasting glucose
CPT/HCPCS: 36415; 80053; 82306; 83735; 84443; 85027

== ENCOUNTER 2024-04-13 07:22 | Emergency (ER) | payer MEDICARE, SELFPAY ==
[2024-04-13 07:22] VITALS: BP 130/78; PULSE 48; RESP 12; TEMP 35.7; O2SAT 97
[2024-04-13 07:25] VITALS: BMI 29.1
--- NOTE | 2024-04-13 07:36 | EDS_ITS ---
HPI History of Present Illness Chief Complaint: Head Injury Detail of Chief Complaint: Facial trauma Informant: patient Onset/Context/Timing Onset: Today (Midnight) Mechanism/Context: Blunt Injury and Fall (Fell out of bed. Awoke when he hit the floor.) Location: Patient has abrasion left side of the forehead and has periorbital ecchymos Current Severity: Gone Maximum Severity: Patient has absolutely no complaints Worsened by: Nothing Relieved by: Not applicable Associated Symptoms Associated Symptoms: Negative for Parasthesias, Weakness, Loss of function, Inability to ambulate, Loss of consciousness or Amnesia Narrative Narrative: Patient is a 78-year-old male. He has history of Parkinson's disease, coronary disease, dyslipidemia, and depression who was sent in by nursing facility [facility] he fell. He was asleep in his bed. He fell out of his bed. He was not aware that he fell out of his bed until he hit the floor and awoke. This occurred at midnight. He presently at the time denied headache. He denies double vision blurred vision loss of vision or change in vision. He denies parr ears or decreased hearing. He denies difficulty breathing out of his nose. He denies dental trauma. He denies neck pain. He denies paresthesia, anesthesia or motor weakness upper or lower extremity. He does report difficulty walking and is has fallen due to Parkinson's disease. He is on no anticoagulant. He is on a baby aspirin. He denies chest pain or shortness of breath. He denies shoulder or upper extremity pain. Tetanus Immunization: 5-10 years Prior similar symptoms: No Recent Illness/Hospitalization: No PFSH PFSH Medical History no medical history no medical history (Documented HPI narrative) Home Medications ?Medication ?Instructions ?Recorded ?Last Taken ?Type Omeprazole [Prilosec] 40 mg PO DAILY 07/07/17 Unknown History simvastatin 40 mg tablet 80 mg PO QHS 07/07/17 Unknown History metoprolol succinate 25 mg 25 mg PO DAILY 02/18/18 Unknown History tablet,extended release 24 hr aspirin 81 mg capsule 81 mg PO DAILY 09/23/22 Unknown History carbidopa 25 mg-levodopa 100 mg 2 tab PO TID 09/23/22 Unknown History tablet cholecalciferol (vitamin D3) 50 50 mcg PO DAILY 09/23/22 Unknown History mcg (2,000 unit) capsule (Vitamin D3) furosemide 20 mg tablet 20 mg PO DAILY 09/23/22 Unknown History ibuprofen 200 mg capsule 400 mg PO Q6H PRN Pain 09/23/22 Unknown History magnesium 500 mg tablet 500 mg PO DAILY 09/23/22 Unknown History sertraline 100 mg tablet 100 mg PO DAILY 09/23/22 Unknown History vitamin B12 0.5 mg-folic acid 1 mg 2 tab PO DAILY 09/23/22 Unknown History tablet Allergy/AdvReac Type Severity Reaction Status Date / Time Opioids - Morphine Analogues AdvReac Vomiting Verified 09/28/22 16:09 (narcotics) Social History (Updated 04/13/24 @ 07:[address] Jarod Maya MD) household members: none housing: assisted living facility Smoking Status: Former smoker ROS ROS ED Constitutional Constitutional ED: Denies chills, fever(s) or subjective Eyes Eyes: Denies blurry vision or change in vision ENT ENT ED: Denies ear pain, rhinorrhea or sore throat Cardiovascular Cardiovascular: Denies chest pain or palpitations Respiratory/Chest Respiratory/Chest: Denies cough, dyspnea or dyspnea on exertion Gastrointestinal Gastrointestinal: Denies nausea or vomiting Musculoskeletal Musculoskeletal: Denies arthralgias, back pain, myalgias or neck pain Integumentary Reports Abrasions Hematologic/Lymphatic Hematologic/Lymphatic: Denies easy bleeding or easy bruising EXAM Physical Exam Const Vital Signs: 04/13/24 07:22 Temperature 96.2 F L Temperature Source Temporal Pulse Rate 48 L Respiratory Rate 12 Blood Pressure 130/78 H Blood Pressure Mean 95 Pulse Ox 97 Oxygen Delivery Method Room Air Positive well nourished and well developed General Appearance ED: well developed and NAD HEENT Reports TM's clear HEENT Narrative: Patient has abrasion above the left brow medially swell as mid left forehead. There is mild Donald orbital ecchymosis noted. There is no clinical findings of basilar skull fracture. Patient does have cerumen in his external auditory canal. Able to see approximately 50% of the TM and they are normal. trauma; Negative for tenderness Nose: Negative for septum abnormal Tympanic Membrane ED: Yes TM's clear Eyes PERRL and EOMs intact bilaterally General Eye ED: Yes other Other Details: There is no subconjunctival hemorrhage. There is no nystagmus. There is no step-off with palpation the infraorbital rim. There is no hyperesthesia of the infraorbital nerve. There is no entrapment with upward gaze. He denies diplopia with upward gaze. Neck full ROM Neck Narrative: C-spine was cleared per Nexus criteria. General: Negative for tenderness Chest Wall inspection of chest normal Resp normal respiratory effort and clear to auscultation bilaterally Cardio regular rhythm, S1 normal heart sound, S2 normal heart sound and no murmurs GI normal to inspection, nondistended, normoactive bowel sounds, non-tender, non- distended and no masses Back/Spine normal to inspection Extremity normal to inspection Extremity Narrative: Patient has a cock-up splint left wrist due to carpal tunnel syndrome. Neuro oriented x3, CN's II-XII intact bilaterally, moves all extremities, no focal motor deficits and no sensory deficits noted Neuro Narrative: Gait not assessed since he has instability due to Parkinson's. Daughter states she noted no difference this morning. Nichol Coma Scale: document GCS findings Spontaneous Obeys Commands Oriented 15 Plantar Reflex: Downgoing: bilateral Psych mental status grossly normal and thought process normal Skin no rashes or lesions noted, No no wounds, skin turgor normal and no jaundice Trauma: abrasion MDM MDM MDM Narrative Medical decision making narrative: Per the Correll CT head rule imaging of the head is not indicated. Per the Nexus criteria imaging of the neck is not indicated. Patient's tetanus is up-to-date based on the information obtained. Discharge Plan Triage Chief Complaint: Head Injury ED Provider: Jarod Maya Dx/Rx/DC Orders Clinical Impression: Injury due to fall, Contusion of face, Contusion of nose, initial encounter, Abrasion of forehead, History of Parkinson's disease, History of coronary artery disease Instructions: ED Abrasion, ED Facial Contusion Prescriptions: No Action simvastatin 40 MG tablet 80 mg PO QHS Omeprazole [Prilosec] 40 MG capsule 40 mg PO DAILY metoprolol succinate 25 MG tablet extended release 24 hr 25 mg PO DAILY ibuprofen 200 mg Capsule 400 mg PO Q6H PRN (Reason: Pain) furosemide 20 mg Tablet 20 mg PO DAILY carbidopa-levodopa 25-100 mg Tablet 2 tab PO TID aspirin 81 mg Capsule 81 mg PO DAILY magnesium 500 mg Tablet 500 mg PO DAILY sertraline 100 mg Tablet 100 mg PO DAILY vitamin Z42-[id number] acid 0.5-1 mg Tablet 2 tab PO DAILY cholecalciferol (vitamin D3) [Vitamin D3] 50 mcg (2,000 unit) Capsule 50 mcg PO DAILY Primary Care Provider: Richard Schneider Referrals: Richard Schneider DO [Primary Care Provider] - As Needed Print Language: Japanese Disposition Disposition: Home, Self Care
== END 2024-04-13 07:58 | disposition home or self-care (01) ==
LOC: ED 07:54
PROVIDERS: Emergency Provider Emergency Medicine; PCP Student in an Organized Health Care Education/Training Program; Visit Provider Emergency Medicine
DX: S00.83XA Contusion of other part of head, initial encounter (principal); G20.C Parkinsonism, unspecified; I25.10 Atherosclerotic heart disease of native coronary artery without angina pectoris; R26.2 Difficulty in walking, not elsewhere classified; Z87.891 Personal history of nicotine dependence; Z79.82 Long term (current) use of aspirin; S00.33XA Contusion of nose, initial encounter; S00.31XA Abrasion of nose, initial encounter; E78.5 Hyperlipidemia, unspecified; W06.XXXA Fall from bed, initial encounter
CPT/HCPCS: 99282

== ENCOUNTER → 2024-05-01 | Outpatient (REF) | payer MEDICARE, SELFPAY ==
[2024-05-01 08:17] LABS: Absolute Lymphocyte Count 1.12 X10^3/uL (0.83-4.51); Absolute Neutrophil Count 5.9 X10^3/uL (2.0-7.7); Basophil# 0.04 X10^3/uL; Basophil% 0.5 % (0-1); Eosinophil# 0.36 X10^3/uL; Eosinophils% 4.4 % (0-5); Hematocrit 43.9 % (40-54); Hemoglobin 13.6 g/dL (13.0-16.5); Lymphocyte # 1.12 X10^3/ul (0.83-4.51); Lymphocyte % 13.8 % (19-41); Mean Corpuscular Hgb 30.4 pg (27.0-32.0); Mean Corpuscular Volume 98.2 fL (80-94); Mean Platelet Vol. 11.9 fl (6.2-12.0); Monocyte# 0.63 X10^3/uL; Monocyte% 7.7 % (0-10); NRBC Flagged by Analyzer 0 % (0-5); Neutrophil # 5.94 X10^3/uL (2.7-7.7); Neutrophil % 73.1 % (47-70); POSITIVE COUNT YES; RBC Distribution Width CV 12.4 % (11.6-14.6); Red Blood Count 4.47 M/mm3 (4.6-6.2); White Blood Count 8.1 K/mm3 (4.4-11.0)
[2024-05-01 08:19] LABS: Differential Indicated SCAN CRITERIA MET
[2024-05-01 08:24] LABS: Vitamin B12 1610 pg/mL (211-911)
[2024-05-01 08:28] LABS: ALB/GLOB Ratio 1.1 RATIO (0.9-2.4); AST(SGOT) 22 U/L (15-37); Alanine Aminotransfer ALT/SGPT 11 U/L (16-61); Albumin, Serum 3.9 g/dL (3.2-5.0); Alkaline Phosphatase 92 U/L (45-117); Anion Gap 2 (5-15); BUN 23 mg/dL (7-18); BUN/Creat Ratio 22.3 RATIO (10-20); Calcium,Total 9.2 mg/dL (8.5-10.1); Chloride 105 mmol/L (98-107); Creatinine, Serum 1.03 mg/dL (0.70-1.30); EST Glomerular Filtration Rate 74 mL/min (>60); Est Glom Filt Rate - Afr Amer 90 mL/min (>60); Globulin 3.7 g/dL (2.2-4.2); Glucose 100 mg/dL (74-106); Potassium 4.2 mmol/L (3.5-5.1); Protein, Total 7.6 g/dL (6.4-8.2); Sodium Level 139 mmol/L (136-145)
[2024-05-01 09:16] LABS: Platelet Estimate ADEQUATE (ADEQ)
[2024-05-01 21:47] LABS: Hemoglobin A1c 5.2 % (3.8-5.6)
== END ==
PROVIDERS: PCP Student in an Organized Health Care Education/Training Program; Visit Provider Student in an Organized Health Care Education/Training Program
DX: I10 Essential (primary) hypertension (principal); G20.B2 Parkinson's disease with dyskinesia, with fluctuations; R73.01 Impaired fasting glucose
CPT/HCPCS: 36415; 80053; 82607; 83036; 85025

== ENCOUNTER → 2024-07-25 | Outpatient (REF) | payer MEDICARE, SELFPAY ==
[2024-07-25 09:07] LABS: Hematocrit 43.7 % (40-54); Hemoglobin 13.9 g/dL (13.0-16.5); Mean Corp Hgb Conc 31.8 g/dL (32-36); Mean Corpuscular Hgb 30.6 pg (27.0-32.0); Mean Corpuscular Volume 96.3 fL (80-94); Platelet Count 200 K/mm3 (150-450); RBC Distribution Width CV 12.2 % (11.6-14.6); RBC Distribution Width SD 43.6 fl (35.1-43.9); Red Blood Count 4.54 M/mm3 (4.6-6.2); White Blood Count 6.4 K/mm3 (4.4-11.0)
[2024-07-25 09:57] LABS: ALB/GLOB Ratio 1.2 RATIO (0.9-2.4); AST(SGOT) 21 U/L (15-37); Alanine Aminotransfer ALT/SGPT 16 U/L (16-61); Alkaline Phosphatase 80 U/L (45-117); Anion Gap 7 (5-15); BUN 20 mg/dL (7-18); BUN/Creat Ratio 17.5 RATIO (10-20); Calcium,Total 9.1 mg/dL (8.5-10.1); Chloride 105 mmol/L (98-107); Creatinine, Serum 1.14 mg/dL (0.70-1.30); EST Glomerular Filtration Rate 66 mL/min (>60); Est Glom Filt Rate - Afr Amer 80 mL/min (>60); Globulin 3.3 g/dL (2.2-4.2); Glucose 91 mg/dL (74-106); Potassium 4.3 mmol/L (3.5-5.1); Protein, Total 7.3 g/dL (6.4-8.2); Sodium Level 141 mmol/L (136-145)
[2024-07-25 10:13] LABS: Hemoglobin A1c 5.7 % (3.8-5.6)
== END ==
PROVIDERS: PCP Student in an Organized Health Care Education/Training Program; Visit Provider Student in an Organized Health Care Education/Training Program
DX: G20.C Parkinsonism, unspecified (principal); R73.01 Impaired fasting glucose; I12.9 Hypertensive chronic kidney disease with stage 1 through stage 4 chronic kidney disease, or unspecified chronic kidney disease; N18.31 Chronic kidney disease, stage 3a; E55.9 Vitamin D deficiency, unspecified; R31.29 Other microscopic hematuria; K21.9 Gastro-esophageal reflux disease without esophagitis; Z79.899 Other long term (current) drug therapy
CPT/HCPCS: 36415; 80053; 83036; 85027

== ENCOUNTER → 2025-01-11 | Outpatient (REF) | payer MEDICARE, SELFPAY ==
[2025-01-11 08:08] LABS: Absolute Lymphocyte Count 1.07 X10^3/uL (0.83-4.51); Absolute Neutrophil Count 4.5 X10^3/uL (2.0-7.7); Basophil# 0.03 X10^3/uL; Basophil% 0.5 % (0-1); Eosinophil# 0.28 X10^3/uL; Eosinophils% 4.4 % (0-5); Hematocrit 44.1 % (40-54); Hemoglobin 14.5 g/dL (13.0-16.5); Lymphocyte # 1.07 X10^3/ul (0.83-4.51); Lymphocyte % 16.8 % (19-41); Mean Corp Hgb Conc 32.9 g/dL (32-36); Mean Corpuscular Hgb 31.8 pg (27.0-32.0); Mean Corpuscular Volume 96.7 fL (80-94); Mean Platelet Vol. 12.3 fl (6.2-12.0); Monocyte# 0.44 X10^3/uL; Monocyte% 6.9 % (0-10); NRBC Flagged by Analyzer 0 % (0-5); Neutrophil # 4.54 X10^3/uL (2.7-7.7); Neutrophil % 71.1 % (47-70); Platelet Count 189 K/mm3 (150-450); RBC Distribution Width CV 12.5 % (11.6-14.6); RBC Distribution Width SD 44.7 fl (35.1-43.9); Red Blood Count 4.56 M/mm3 (4.6-6.2); White Blood Count 6.4 K/mm3 (4.4-11.0)
[2025-01-11 09:48] LABS: Hemoglobin A1c 5.6 % (<=5.6)
[2025-01-11 10:04] LABS: AST(SGOT) 30 U/L (<=37); Alanine Aminotransfer ALT/SGPT 15 U/L (<=46); Albumin, Serum 4.7 g/dL (3.4-4.8); Alkaline Phosphatase 90 U/L (40-129); Anion Gap 12 (5-15); BUN 21 mg/dL (4-19); BUN/Creat Ratio 19.4 RATIO (10-20); Calcium,Total 9.3 mg/dL (7.6-11.0); Carbon Dioxide 26.9 mmol/L (21.0-32.0); Chloride 102 mmol/L (98-108); Creatinine, Serum 1.08 mg/dL (0.70-1.20); EST Glomerular Filtration Rate 70 (>60); Globulin 1.2 g/dL (2.2-4.2); Glucose 84 mg/dL (70-99); Potassium 4.4 mmol/L (3.3-5.1); Protein, Total 5.9 g/dL (5.9-8.4); Sodium Level 141 mmol/L (133-145); Total Bilirubin 0.55 mg/dL (0.00-1.30)
[2025-01-11 10:25] LABS: Vitamin B12 1876 pg/mL (180-914); Vitamin D,25 Hydroxy 46.9 ng/mL (30-100)
== END ==
PROVIDERS: PCP Student in an Organized Health Care Education/Training Program; Referring Provider Student in an Organized Health Care Education/Training Program; Visit Provider Student in an Organized Health Care Education/Training Program
DX: I12.9 Hypertensive chronic kidney disease with stage 1 through stage 4 chronic kidney disease, or unspecified chronic kidney disease (principal); G20.C Parkinsonism, unspecified; R73.01 Impaired fasting glucose; N18.31 Chronic kidney disease, stage 3a; I25.810 Atherosclerosis of coronary artery bypass graft(s) without angina pectoris; E55.9 Vitamin D deficiency, unspecified
CPT/HCPCS: 36415; 80053; 82306; 82607; 83036; 85025

== ENCOUNTER 2025-04-24 09:30 | Outpatient (RCR) | payer MEDICARE, SELFPAY ==
--- NOTE | 2024-12-20 12:50 | HP.PTEVAL ---
Patient's Visit Information Visit Information Visit Information: ALEXIS KRAMER is a 79 year old M referred to Physical Therapy by Dr. Shilpa Hamm MD with a diagnosis of PD with dyskinesia. Date of Evaluation: 12/20/24 Physical Therapist: SUNSHINE Santos Visit Plan Frequency: 1-2x /Week Duration: 3 Months Plan: 1-2X/ week for sit to stand transfers, gait training, standing balance, seated opp arm and leg, posture and general mobility with HEP Assess bed mobility on Re-eval Subjective Subjective: Her daughter is present. He has PD and has had it for 15 years. He lives at [facility] for 3 years. He was able to use the walker to walk. He attempts to use the walker in his room and to go to the dining room. His legs feel like cement and hard to walk. He is having trouble getting out of bed most of the time and uses his call button. Mornings are not good. He has a thick phlegm build up in his lungs but no trouble swallowing and no choking. He is not exercising. He will walk on a good day. Objective Objective: LE MMT: B hip flex 4/5 B knee ext 4/5 B knee flex 4/5 Sit to stand: not able to get up on first attempt. He does not like to weight shift FW and likes to pull himself to stand. After instructing in how to get up pt was able to get up much easier using 2 UE assist and min A by therapist to weight shift him forward. Gait: walks with rolling walker with short steps and does not pick R foot up at times. Has a hard time finding his center of gravity. With verbal cues and pushing the walker a little farther out in front of him, he was able to take larger steps but did need constant cueing. 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 Nu-step L1 X 5 min Balance/Special Test Scores Lower Extremity Functional Score: 10 Goals Goal 1:: I HEP Goal Time Frame: 6-8 Weeks Goal 2:: Be able to sit to stand X 5 times in a row Goal Time Frame: 6-8 Weeks Goal 3:: Be able to walk 150 feet with wheeled walker with CGA and verbal cues to take larger steps Goal Time Frame: 6-8 Weeks Goal 4:: Pt to report improvement with his walking at the outpatient [facility] living facility Goal Time Frame: 6-8 Weeks Rehabilitation Potential Rehabilitation Potential: Good Anticipated Interventions Patient/Client Instruction: Educate patient on: Condition and Plan of Care For the Purpose of:: To improve muscle performance and motor function, To improve ability to perform ADL's, To increase tolerance to activity/condition/position, To improve performance and independence with ADL's, To decrease level of supervision to perform tasks, To improve ability of physical actions for home/community/work/leisure, To improve gait and locomotor functions, To improve health of tissue, To increase flexibility/ROM, To improve endurance, To improve balance, To improve safety with gait and To improve safety Therapeutic Exercise to Include: Strength training, Endurance training, Balance training, Postural training, Gait and locomotor training, Neuromotor development and Active ROM For the Purpose of:: To improve muscle performance and motor function, To improve ability to perform ADL's, To increase tolerance to activity/condition/position, To improve performance and independence with ADL's, To decrease level of supervision to perform tasks, To improve ability of physical actions for home/community/work/leisure, To improve gait and locomotor functions, To improve health of tissue, To decrease soft tissue restriction, To increase flexibility/ROM, To improve endurance, To improve balance and To improve safety with gait Functional Training to Include: Gait training For the Purpose of:: To improve gait and locomotor functions and To improve safety with gait Text: Thank you for the opportunity to evaluate your patient. For Medicare and Medicare HMO plans, please review the plan of care and approve it. It will need to be FAXED BACK to us at [phone] for Medicare purposes. For Medicare only, by signing this I certify the plan of care. Please let me know if there are questions or concerns regarding this plan of care. Physician Signature: Date:
--- NOTE | 2025-01-17 10:56 | HP.PTREVAL ---
Re-Evaluation Intro: Dr. Shilpa Hamm MD, It has been my pleasure to treat ALEXIS KRAMER over the last 8 visits for PD with dyskinesia. Please see the progress note below for an update on the physical therapy plan of care! Subjective Subjective: Pt thinks that some of this PT is helping. He is learning lots of tips. Things are frustrating because sometimes things change in the middle of walking or an exercises. At times he feels that he is nailed down to the floor. Objective Objective/Function: sit to stand: Pt was able to get 6 times sit to stand using his UE and then on the 7th time he was not weight shifting FW enough. As he did more sit to stands he progressively got more retro LOB. Pt needs to work on turning with his walker...he tries more quick small steps. Pt able to ambulate 157 feet with rolling walker with CGA. Plan Plan Plan: 1-2X/ week for sit to stand transfers, gait training, standing balance, seated opp arm and leg, posture and general mobility with HEP Assess bed mobility on Re-eval Balance/Gait/Functional tests Balance/Special Test Scores Lower Extremity Functional Score: 18 Goals Goals Goal 1:: I HEP Goal Time Frame: 6-8 Weeks Goal 2:: Be able to sit to stand X 10 times in a row Goal Time Frame: 6-8 Weeks Goal 3:: Be able to walk 250 feet with wheeled walker with CGA and verbal cues to take larger steps Goal Time Frame: 6-8 Weeks Goal 4:: Pt to report improvement with his walking [facility] Goal Time Frame: 6-8 Weeks Goal Progress: Progressing Anticipated Interventions Anticipated Interventions Patient/Client Instruction: Educate patient on: Condition and Plan of Care For the Purpose of:: To improve muscle performance and motor function, To improve ability to perform ADL's, To increase tolerance to activity/condition/position, To improve performance and independence with ADL's, To decrease level of supervision to perform tasks, To improve ability of physical actions for home/community/work/leisure, To improve gait and locomotor functions, To improve health of tissue, To increase flexibility/ROM, To improve endurance, To improve balance, To improve safety with gait and To improve safety Therapeutic Exercise to Include: Strength training, Endurance training, Balance training, Postural training, Gait and locomotor training, Neuromotor development and Active ROM For the Purpose of:: To improve muscle performance and motor function, To improve ability to perform ADL's, To increase tolerance to activity/condition/position, To improve performance and independence with ADL's, To decrease level of supervision to perform tasks, To improve ability of physical actions for home/community/work/leisure, To improve gait and locomotor functions, To improve health of tissue, To decrease soft tissue restriction, To increase flexibility/ROM, To improve endurance, To improve balance and To improve safety with gait Functional Training to Include: Gait training For the Purpose of:: To improve gait and locomotor functions and To improve safety with gait Re-Evaluation Ending Re-evaluation ending: Please do not hesitate to contact me at [phone] by phone or if you have questions or concerns regarding this new plan of care! Sincerely, Trena Hernandez, MPT
--- NOTE | 2025-02-21 11:21 | HP.PTEVAL_ITS ---
Patient's Visit Information Visit Information Visit Information: ALEXIS KRAMER is a 79 year old M referred to Physical Therapy by Dr. Shilpa Hamm MD with a diagnosis of PD with dyskinesia. Date of Evaluation: 12/20/24 Physical Therapist: SUNSHINE Santos Visit Plan Frequency: 1-2x /Week Duration: 3 Months Plan: Discussed w/ PT the saliva issue and possible SP therapy 1.Give chair exercises and go over for understanding for home (see hand out: seated opp arm and leg, seated trunk rotation, seated trunk flexion with rotation, LAQ) 2. Work on sit to stands and getting nose out over toes to weight shift FW 3. Work on progressive gait and getting his steps to be more smooth and recip and not a step 2 pattern 1X/ week for 4-6 weeks sit to stand transfers, gait training, standing balance, seated opp arm and leg, posture and general mobility with HEP Subjective Subjective: Her daughter is present. He has PD and has had it for 15 years. He lives at [facility] for 3 years. He was able to use the walker to walk. He attempts to use the walker in his room and to go to the dining room. His legs feel like cement and hard to walk. He is having trouble getting out of bed most of the time and uses his call button. Mornings are not good. He has a thick phlegm build up in his lungs but no trouble swallowing and no choking. He is not exercising. He will walk on a good day. Pain multiple areas: Pain Intensity (Out of 10): Unrated Objective Objective: LE MMT: B hip flex 4/5 B knee ext 4/5 B knee flex 4/5 Sit to stand: not able to get up on first attempt. He does not like to weight shift FW and likes to pull himself to stand. After instructing in how to get up pt was able to get up much easier using 2 UE assist and min A by therapist to weight shift him forward. Gait: walks with rolling walker with short steps and does not pick R foot up at times. Has a hard time finding his center of gravity. With verbal cues and pushing the walker a little farther out in front of him, he was able to take larger steps but did need constant cueing. 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 Nu-step L1 X 5 min Balance/Special Test Scores Lower Extremity Functional Score: 14 Goals Goal 1:: I HEP Goal Time Frame: 6-8 Weeks Goal 2:: Be able to sit to stand X 10 times in a row Goal Time Frame: 6-8 Weeks Goal 3:: Be able to walk 250 feet with wheeled walker with CGA and verbal cues to take larger steps Goal Time Frame: 6-8 Weeks Goal 4:: Pt to report improvement with his walking at the [facility] living facility Goal Time Frame: 6-8 Weeks Goal 5:: Pt to talk to head nurse at his facility about riding the Nu-step daily and taking the movement class daily at his facility Goal Time Frame: 2-4 Weeks Rehabilitation Potential Rehabilitation Potential: Good Anticipated Interventions Patient/Client Instruction: Educate patient on: Condition and Plan of Care For the Purpose of:: To improve muscle performance and motor function, To improve ability to perform ADL's, To increase tolerance to activity/condition/position, To improve performance and independence with ADL's, To decrease level of supervision to perform tasks, To improve ability of physical actions for home/community/work/leisure, To improve gait and locomotor functions, To improve health of tissue, To increase flexibility/ROM, To improve endurance, To improve balance, To improve safety with gait and To improve safety Therapeutic Exercise to Include: Strength training, Endurance training, Balance training, Postural training, Gait and locomotor training, Neuromotor development and Active ROM For the Purpose of:: To improve muscle performance and motor function, To improve ability to perform ADL's, To increase tolerance to activity/condition/position, To improve performance and independence with ADL's, To decrease level of supervision to perform tasks, To improve ability of physical actions for home/community/work/leisure, To improve gait and locomotor functions, To improve health of tissue, To decrease soft tissue restriction, To increase flexibility/ROM, To improve endurance, To improve balance and To improve safety with gait Functional Training to Include: Gait training For the Purpose of:: To improve gait and locomotor functions and To improve safety with gait Text: Thank you for the opportunity to evaluate your patient. For Medicare and Medicare HMO plans, please review the plan of care and approve it. It will need to be FAXED BACK to us at [phone] for Medicare purposes. For Medicare only, by signing this I certify the plan of care. Please let me know if there are questions or concerns regarding this plan of care. Physician Signature: Date:
--- NOTE | 2025-04-24 11:26 | HP.PTREVAL ---
Re-Evaluation Intro: Dr. Shilpa Hamm MD, It has been my pleasure to treat ALEXIS KRAMER over the last 24 visits for PD with dyskinesia. Please see the progress note below for an update on the physical therapy plan of care! Subjective Subjective: Pt feels that he has good days and bad days. He feels that getting up out of a chair has improved and his strength is a little better. He is up walking at [place] 3-4x/ week and he tries to find someone to walk with him. Objective Objective/Function: Pt still gets sticky feet with turning. Today after a PT session he was unable to turn a 1/4 turn from one chair to his wheelchair as he was unable to move his feet Gait: walking approx 40 feet he had to stop and reset as he started to take very short steppage steps and could not make his stride bigger. Sit to stand X 10 in a row using B UE on first attempt Plan Plan Plan: Today we discussed taking a month off PT and seeing how he does. He has made improvements with sit to stand but turning and gait with some distance he struggles with 3. Add turning with walker exercises around objects and to turn to sit down in a chair as pt feet get stuck at times 1. Continue to Work on sit to stands and getting nose out over toes to weight shift FW 2. Continue to Work on progressive gait and getting his steps to be more smooth and recip and not a step 2 pattern 1X/ week for 4-6 weeks sit to stand transfers, gait training, standing balance, seated opp arm and leg, posture and general mobility with HEP Balance/Gait/Functional tests Balance/Special Test Scores Lower Extremity Functional Score: 14 Goals Goals Goal 1:: I HEP Goal Time Frame: 6-8 Weeks Goal Progress: Goal Met Goal 2:: Be able to sit to stand X 10 times in a row Goal Time Frame: 6-8 Weeks Goal Progress: Goal Met Goal 3:: Be able to walk 250 feet with wheeled walker with CGA and verbal cues to take larger steps Goal Time Frame: 6-8 Weeks Goal Progress: Progressing Goal 4:: Pt to report improvement with his walking at the [facility] Goal Time Frame: 6-8 Weeks Goal Progress: Goal Met Goal 5:: Pt to talk to head nurse at his facility about riding the Nu-step daily and taking the movement class daily at his facility Goal Time Frame: 2-4 Weeks Goal Progress: Goal Met Goal 6:: Be able to turn with his walker with less sticky feet and not getting stuck. Goal Progress: Not Progressing Anticipated Interventions Anticipated Interventions Patient/Client Instruction: Educate patient on: Condition and Plan of Care For the Purpose of:: To improve muscle performance and motor function, To improve ability to perform ADL's, To increase tolerance to activity/condition/position, To improve performance and independence with ADL's, To decrease level of supervision to perform tasks, To improve ability of physical actions for home/community/work/leisure, To improve gait and locomotor functions, To improve health of tissue, To increase flexibility/ROM, To improve endurance, To improve balance, To improve safety with gait and To improve safety Therapeutic Exercise to Include: Strength training, Endurance training, Balance training, Postural training, Gait and locomotor training, Neuromotor development and Active ROM For the Purpose of:: To improve muscle performance and motor function, To improve ability to perform ADL's, To increase tolerance to activity/condition/position, To improve performance and independence with ADL's, To decrease level of supervision to perform tasks, To improve ability of physical actions for home/community/work/leisure, To improve gait and locomotor functions, To improve health of tissue, To decrease soft tissue restriction, To increase flexibility/ROM, To improve endurance, To improve balance and To improve safety with gait Functional Training to Include: Gait training For the Purpose of:: To improve gait and locomotor functions and To improve safety with gait Re-Evaluation Ending Re-evaluation ending: Please do not hesitate to contact me at [phone] by phone or if you have questions or concerns regarding this new plan of care! Sincerely, Trena Hernandez MPT
--- NOTE | 2025-06-12 11:59 | HP.PT.NRP ---
Patient Information Patient Information: ALEXIS KRAMER was seen in my office for initial evaluation on 12/20/24. The following Plan of Care was established for this patient: POC Established Initial Frequency: 1-2x /Week Initial Duration: 3 Months Anticipated Interventions Patient/Client Instruction: Educate patient on: Condition and Plan of Care For the Purpose of:: To improve muscle performance and motor function, To improve ability to perform ADL's, To increase tolerance to activity/condition/position, To improve performance and independence with ADL's, To decrease level of supervision to perform tasks, To improve ability of physical actions for home/community/work/leisure, To improve gait and locomotor functions, To improve health of tissue, To increase flexibility/ROM, To improve endurance, To improve balance, To improve safety with gait and To improve safety Therapeutic Exercise to Include: Strength training, Endurance training, Balance training, Postural training, Gait and locomotor training, Neuromotor development and Active ROM For the Purpose of:: To improve muscle performance and motor function, To improve ability to perform ADL's, To increase tolerance to activity/condition/position, To improve performance and independence with ADL's, To decrease level of supervision to perform tasks, To improve ability of physical actions for home/community/work/leisure, To improve gait and locomotor functions, To improve health of tissue, To decrease soft tissue restriction, To increase flexibility/ROM, To improve endurance, To improve balance and To improve safety with gait Functional Training to Include: Gait training For the Purpose of:: To improve gait and locomotor functions and To improve safety with gait Last Seen Last Seen: This patient was last seen in our office 04/24/25. Pertinent comments regarding their Physical therapy will appear below: [facility] PT. Pt was going to take a month off and call back and he didn't call back and will be discharged. At this point I will be discontinuing this patient from physical therapy. I would be happy to see this patient again in the future if found appropriate by the physician. Thank you! Trena Hernandez, [facility] Balance/Gait/Functional tests Balance/Special Test Scores Lower Extremity Functional Score: 14
== END 2025-04-24 19:00 | disposition home or self-care (01) ==
LOC: PT 09:30
PROVIDERS: PCP Student in an Organized Health Care Education/Training Program; Referring Provider Psychiatry & Neurology Neurology; Visit Provider Psychiatry & Neurology Neurology
DX: G20.B2 Parkinson's disease with dyskinesia, with fluctuations (principal)
CPT/HCPCS: 97110; 97116; 97162; 97164; 97530

== ENCOUNTER 2025-06-24 05:59 | Emergency (ER) | payer MEDICARE, SELFPAY ==
[2025-06-24 06:00] VITALS: BP 143/77; PULSE 53; RESP 16; TEMP 37.3; O2SAT 98; BMI 29.1
--- NOTE | 2025-06-24 06:40 | RAD_ITS ---
PROCEDURE: PELVIS 1 OR 2 VIEWS 06/24/2025 REASON FOR EXAM: FALL TECHNIQUE: Procedure Code: RADPEL Modality: DX Procedure: PELVIS 1 OR 2 VIEWS COMPARISON: None FINDINGS: CR pelvis/hips: Bones: Mild marginal osteophyte formation both hips. Bony pelvis intact with no fractures. Right proximal femur otherwise negative. Left proximal femur otherwise negative. Joints: Age-appropriate degenerative changes of the hips and pelvis. Soft tissues: Moderate vascular calcifications abdominal aortic branches. Adjacent soft tissues otherwise negative. Other: Remainder of exam negative. RAD/Pelvis 1 or 2 Views IMPRESSION: Negative for acute abnormality of the bony pelvis. Reading Location: [id number]
--- NOTE | 2025-06-24 06:40 | RAD_ITS ---
PROCEDURE: RIBS UNI MIN 3V W/PA CHEST 06/24/2025 REASON FOR EXAM: FALL TECHNIQUE: Procedure Code: RADRIB Modality: DX Procedure: RIBS UNI MIN 3V W/PA CHEST COMPARISON: None. FINDINGS: Hardware and support lines: Sternotomy wires in place. Mediastinal clips in place. Heart: Negative. Lungs: Negative for infiltrates, or pulmonary edema. Pleura: No pleural thickening. No pleural effusion. Negative from the thorax. Mediastinum and aorta: Negative for hilar adenopathy. Mildly tortuous thoracic aorta. Bones: Additional right-sided rib images show no rib fracture. Age-appropriate degenerative changes of the spine. Other: Remainder of the exam negative. RAD/Ribs Uni Min 3V w/PA Chest IMPRESSION: Negative for acute cardiopulmonary disease Negative for right-sided rib fracture. Reading Location: [id number]
--- NOTE | 2025-06-24 06:40 | RAD_ITS ---
PROCEDURE: WRIST MIN 3 VIEWS 06/24/2025 REASON FOR EXAM: PAIN TECHNIQUE: Procedure Code: RADWR Modality: DX Procedure: WRIST MIN 3 VIEWS Laterality: Right COMPARISON: None. FINDINGS: Bones: Moderate degenerative changes in the triscaphe joint. Old probable 5th metacarpal fracture. Healed. Distal radius and ulna otherwise negative. Carpals and metacarpals otherwise negative. Negative for fracture. Joints: Moderate degenerative changes of the triscaphe joint. Soft tissues: Adjacent soft tissues otherwise negative. Negative for soft tissue swelling. Other: Remainder of exam negative. RAD/Wrist min 3 Views IMPRESSION: Negative for acute abnormality of the right wrist. Reading Location: [id number]
--- OUTSIDE RECORDS SUMMARY | 2025-06-24 06:44 | XMS RPT_ITS | CCD ---
Author Organization [facility] Care Team Providers Care Carpet Inspector Finished Name Role Phone Richard Schneider DO Primary Care Provider Richard Schneider DO Primary Care Provider Claudio HATCHERY HELPER.Nery HOUSE Unavailable Richard Schneider DO Primary Care Provider Claudio HATCHERY HELPER.Nery HOUSE Unavailable Alex HATCHERY HELPER.Justine HOUSEricia Unavailable Claudio HATCHERY HELPER.SENIOR ETL DEVELOPERNery Unavailable Alex HATCHERY HELPER.SENIOR ETL DEVELOPER, Liz Unavailable ALBERTO SPENCER Attending Unavailable ALBERTO SPENCER Admitting Unavailable RICHARD SCHNEIDER Primary Care Unavailable Gila Issa MD Unavailable Dr. Richard Schneider Primary Care Provider Dr. Richard Schneider Referring Provider Dr. Richard Schneider Other Provider Dr. Bruno Zarate Attending Provider Richard Schneider DO Primary Care Provider Berto HATCHERY HELPER.Marta HOUSE Unavailable Shai HATCHERY HELPER.Rob HOUSE Unavailable Dr. Richard Schneider DO Primary Care Provider Richard Escudero Attending Provider UnavailRichard Seymour Referring Provider UnavailDr. Gila Keller MD Attending Provider Dr. Gila Issa MD Referring Provider Winston VAZ.Kavita HOUSE Unavailable Dr. Richard Schneider DO Primary Care Provider [phone] Dr. Gila Issa MD Attending Provider Dr. Gila Issa MD Referring Provider Schneider, Richard Primary Care Unavailable Schneider, Richard Attending Unavailable Schneider, Richard Referring Unavailable Schneider, Richard Attending Unavailable Schneider, Richard Primary Care Unavailable Schneider, Richard Attending Unavailable Schneider, Richard Primary Care Unavailable Gila Issa Referring Unavailable Gila Issa Attending Unavailable Schneider, Richard Primary Care Unavailable SCHNEIDER, RICHARD L Attending Unavailable SCHNEIDER, RICHARD L Primary Care Unavailable GILA ISSA Attending Unavailable GILA ISSA Referring Unavailable WYATT, RICHARD L Primary Care Unavailable RICHARD SCHNEIDER L Attending Unavailable RICHARD SCHNEIDER L Primary Care Unavailable Allergies Allergy Classification Reported Allergen(s) Allergy Type Date of Onset Reaction(s) Facility (20 sources) Morphinan opioid; Translations: [OPIOIDS - MORPHINE ANALOGUES] Drug Intolerance 05-04-20 16 GI Upset [facility] (8 sources) Opioids - Morphine Analogues Propensity to adverse reactions 09-28-20 22 Vomiting [facility] (20 sources) Sulfamethoxazole / Trimethoprim; Translations: [SULFAMETHOXAZOLE-TR IMETHOPRIM] Drug Allergy 08-18-20 23 Unknown [facility] (1 source) Opioids - Morphine Analogues Drug allergy (disorder) 12-13-19 25 [facility] Repository Medications Current Medications Medication Drug Class(es) Dates Sig (Normalized) Sig (Original) acetaminophen 500 mg oral tablet (20 sources) take 1 tablet by mouth every eight hours as needed acetaminophen (TYLENOL) 500 mg tablet Take 500 mg by mouth every 8 hours as needed. Active Comment on above: Take 500 mg by mouth every 8 hours as needed. albuterol 0.83 mg/ml inhalation solution (18 sources) beta2-Adrenergic Agonist Start: 09-27-2024 End: 10-04-2024 albuterol (PROVENTIL) 2.5 mg /3 mL (0.083 %) nebulizer solution Indications: Wheezing , Chest congestion Use 3 mL via nebulizer two times a day. Use over 5-15minutes. 60 mL 3 10/04/2024 Active aspirin 81 mg delayed release oral tablet (20 sources) Platelet Aggregation Inhibitor, Nonsteroidal Anti-inflammatory Drug Start: 12-23-2022 End: 12-23-2022 take 1 tablet by mouth once daily aspirin, enteric coated (ASPIRIN, ENTERIC COATED) 81 mg EC tablet Take 1 tablet by mouth once daily. 90 tablet 3 12/23/2022 Active Start: 09-23-2022 take 1 capsule by mo [facility] once daily Aspirin 81 mg Capsule Active 81 mg PO DAILY September 23, 2022 1:00am Start: 02-18-2018 take 325 mg by mouth once ellyn y Aspirin Active 325 MG PO DAILY February 18, 2018 4:01am Comment on above: Take 81 mg by mouth once daily. [facility] benazepril hydrochloride 40 mg oral tablet (2 sources) Angiotensin Converting Enzyme Inhibitor Start: 017 Benazepril (Lotensin) 40 MG tablet Active 20 MG PO DAILY July 07, 2017 3:42pm carbidopa 25 mg / levodopa 100 mg oral tablet (20 sources) Aromatic Amino Acid Decarboxylation Inhibitor, Aromatic Amino Acid Start: 023 End: 025 take 2 tablets by mouth four times daily carbidopa-levodopa (SINEMET 25-100) 25-100 mg per tablet Indications: Parkinson's disease with dyskinesia and fluctuating manifestations (HCC) Take 2 tablets by mouth four times daily. 240 tablet 11 07/26/2024 07/26/2025 Active Start: 09-23-2022 take 2 tablets by mo [facility] three times daily Carbidopa-Levodopa Active 2 TABLET PO THREE TIMES A DAY September 23, 2022 1:00am Start: 11-20-2020 End: 12-23-2023 Carbidopa-Levodopa 25-100 mg Tablet Active 2 {tbl} PO THREE TIMES A DAY September 23, 2022 1:00am Start: 07-07-2017 take 1 tablet by gerardo three times daily before mealtime Carbidopa-Levodopa Active 1 TABLET PO THREE TIMES DAILY BEFORE MEALS July 07, 2017 3:42pm Comment on above: Take 2 tablets by mo [facility] three times daily. Take 2 tablets by mo [facility] four times daily. cholecalciferol 0.05 mg oral tablet (20 sources) Vitamin D Start: 12-24-19 End: 12-24-19 take 1 tablet by mouth once daily cholecalciferol (VITAMIN D3) 50 mcg (2,000 unit) tablet Take 1 tablet by mouth once daily. 90 tablet 3 12/23/2022 Active Start: 09-23-2022 take 1 capsule by [facility] once daily Cholecalciferol (Vitamin D3) (Vitamin D3) 50 mcg (2,000 unit) Capsule Active 50 ug PO DAILY September 23, 2022 1:00am take 1 capsule by [facility] once daily Cholecalciferol, Vitamin D3, 5,000 unit cap Take 5,000 Units by mouth once daily. 0 Active Comment on above: Take 5,000 Units by mouth once daily. Take 2,000 Units by mouth once daily. Take 1 tablet by gerardo once daily. clonazePAM 0.5 mg oral tablet (3 sources) Benzodiazepine Start: End: take 0.5 tablet by mouth once daily at bedtime clonazePAM (KLONOPIN) 0.5 mg tablet Indications: Sleep disturbance , Sleep walking Take 0.5 tablets by mouth daily at bedtime for 90 days. 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 For leg swelling 90 tablet 3 12/23/2022 Active Comment on above: Take 1 tablet by gerardo once daily. For leg swelling 12 hr guaiFENesin 600 mg extended release oral tablet (5 sources) Start: 09-08-2024 End: 10-08-2024 take 2 tablets by mouth twice daily guaiFENesin (MUCINEX) 600 mg 12 hr tablet Take 2 tablets by mouth two times a day. 120 tablet 09/08/2024 10/08/2024 Active Magnesium (8 sources) Start: 09-23-2022 take 1 tablet by mouth once daily Magnesium 500 mg Tablet Active 500 mg PO DAILY September 23, 2022 1:00am Start: 09-23-2022 take 500 mg by mouth once ellyn y Magnesium Active 500 MG PO DAILY September 23, 2022 1:00am Start: 09-23-2022 take 500 mg by mouth once ellyn y Magnesium Active 500 MG PO DAILY September 23, 2022 12:00am magnesium oxide 500 mg oral tablet (20 sources) Start: 12-23-2022 take 1 tablet by mouth once daily Magnesium Oxide 500 mg tab Take 1 tablet by mouth once daily. 90 tablet 3 12/23/2022 Active Comment on above: Take 1 tablet by gerardo th once daily. MEDICATION, NON-DATABASE (20 sources) Start: 01-06-2022 MEDICATION, NON-DATABASE Indications: Parkinson's disease (HCC) Standard Wheel Chair Dx Parkinson's Disease 1 Each 01/06/2022 Active Start: 01-06-2022 MEDICATION, NO N-DATABASE Indications: Parkinson's disease Standard Wheel Chair Dx Parkinson's Disease 1 Each 0 01/06/2022 Active Start: 01-06-2022 MEDICATION, NO N-DATABASE Indications: Parkinson's disease (HCC) Standard Wheel Chair Dx Parkinson's Disease 1 Each 0 01/06/2022 Active Comment on above: Standard Wheel Chair Dx Parkinson's Disease 24 hr metoprolol succinate 25 mg extended release oral tablet (20 sources) beta-Adrenergic Kalee Start: 02-19-20 18 End: 12-24-19 take 1 tablet by mouth once daily metoprolol succinate ER (TOPROL XL) 25 mg 24 hr tablet Indications: Parkinson's disease (HCC) , Hypertension, essential Take 1 tablet by mouth once daily. 90 tablet 3 12/23/2022 Active Comment on above: Take 1 tablet by gerardo th once daily. omeprazole 40 mg delayed release oral capsule (20 sources) Proton Pump Inhibitor Start: 07-07-20 17 End: 12-24-19 23 take 1 capsule by mouth once daily omeprazole (PRILOSEC) 40 mg capsule Indications: Gastroesophageal reflux disease without esophagitis Take 1 capsule by mouth once daily. 90 capsule 3 12/23/2022 Active Comment on above: Take 1 capsule by mo [facility] once daily. ondansetron 4 mg oral tablet (20 sources) Serotonin-3 Receptor Antagonist Start: 11-12-19 ondansetron (ZOFRAN) 4 mg tablet every 8 hours as needed. 11/12/2022 Active Start: 02-18-2018 take 8 mg by mouth e very eight hours as needed Ondansetron Active 8 MG PO EVERY 8 HOURS NEEDED February 18, 2018 4:45am Comment on above: every 8 hours as nee ded. sertraline 100 mg oral tablet (20 sources) Serotonin Reuptake Inhibitor Start: 12-19-2024 End: 12-21-2024 take 1 tablet by mouth once daily sertraline (ZOLOFT) 50 mg tablet Take 1 tablet by mouth once daily. Add to 100 mg tablet to total 150 mg a day 90 tablet 1 12/21/2024 Active Start: 04-08-2022 End: 12-21-2024 take 1 tablet by mouth once daily at bedtime sertraline (ZOLOFT) 100 mg tablet Take 1 tablet by mouth once daily. In the bedtime, for mood 90 tablet 3 12/21/2024 Active Start: 12-24-2021 End: 04-08-2022 take 1 tablet by mouth once daily in the evening sertraline (ZOLOFT) 25 mg tablet Take 1 tablet by mouth once daily. In the evening, for mood 90 tablet 1 12/24/2021 04/08/2022 Discontinued Comment on above: Take 1 tablet by gerardo once daily. In the evening, for mood Take 1 tablet by gerardo once daily. In the bedtime, for mood simvastatin 80 mg oral tablet (20 sources) HMG-CoA Reductase Inhibitor Start: 07-24-20 End: 12-24-19 take 1 tablet by mouth once daily at bedtime simvastatin (ZOCOR) 80 mg tablet Indications: Pure hypercholesterolemia Take 1 tablet by mouth daily at bedtime. 90 tablet 3 12/23/2022 Active Start: 07-07-2017 take 2 tablets by mo [facility] at bedtime Simvastatin 40 MG tablet Active 80 mg PO AT BEDTIME July 07, 2017 12:00am Start: 07-07-2017 take 80 mg by mouth at bedtime Simvastatin Active 80 MG PO AT BEDTIME July 07, 2017 12:00am Start: 07-07-2017 take 40 mg by mouth at bedtime Simvastatin Active 40 MG PO AT BEDTIME July 07, 2017 3:42pm Comment on above: Take 1 tablet by gerardo th daily at bedtime. vitamin b12 1 mg oral lozenge (20 sources) Vitamin B12 Start: 04-05-2025 cyanocobalamin, vitamin B-12, 1,000 mcg lozg Dissolve 2 lozenges under the tongue once daily. 30 lozenge 04/05/2025 Active Start: 12-23-2022 End: 04-05-2025 Cyanocobalamin 2,500 mcg sub l Dissolve 1 tablet under the tongue twice daily with meals. 180 tablet 3 12/23/2022 04/05/2025 Discontinued (Dosage adjustment) Comment on above: Dissolve 1 tablet un valentin the tongue twice daily with meals. Completed/Discontinued Medications Medication Drug Class(es) Dates Sig (Normalized) Sig (Original) amantadine hydrochloride 100 mg oral tablet (8 sources) Influenza A M2 Protein Inhibitor Start: 03-02-2022 End: 08-29-2022 take 1 tablet by mouth once daily amantadine HCl (SYMMETREL) 100 mg tablet Take 1 tablet by mouth once daily. 30 tablet 5 03/02/2022 04/08/2022 Discontinued Start: 02-11-2022 End: 02-27-2022 take 1 tablet by mouth twice daily amantadine HCl (SYMMETREL) 100 mg tablet Take 1 tablet by mouth twice daily. 0 02/11/2022 02/27/2022 Discontinued Comment on above: Take 1 tablet by gerardo th twice daily. Take 1 tablet by gerardo th once daily. diclofenac potassium 50 mg oral tablet (20 sources) Nonsteroidal Anti-inflammatory Drug Start: take 1 tablet by mouth every twelve hours as needed diclofenac potassium (CATAFLAM) 50 mg tablet Take 1 tablet by mouth two times a day as needed. Take with food. 60 tablet 2 09/07/2023 Active Start: 09-03-2023 End: 03-01-2024 take 1 tablet by mouth twice daily diclofenac, EC, (VOLTAREN) 50 mg EC tablet Take 1 tablet by mouth two times a day. 180 tablet 1 09/03/2023 03/01/2024 Active Start: 10-26-2022 End: 08-30-2024 diclofenac (VOLTAREN) 1 % to pical gel 2 times daily as needed 10/26/2022 08/30/2024 Discontinued Comment on above: 2 times daily as nee ded Take 1 tablet by gerardo th two times a day. Take 1 tablet by gerardo th two times a day as needed. Take with food. ibuprofen 400 mg oral tablet (20 sources) Nonsteroidal Anti-inflammatory Drug Start: End: take 1 tablet by mouth every six hours as needed ibuprofen (MOTRIN) 400 mg tablet Take 1 tablet by mouth every 6 hours as needed (for pain as needed). 0 12/23/2022 08/10/2023 Discontinued Start: 09-23-2022 Ibuprofen 200 mg cap Take by mouth. 09/23/2022 Active Start: 09-23-2022 take 2 capsules by m out every six hours as needed for pain Ibuprofen 200 mg Capsule Active 400 mg PO EVERY 6 HOURS as needed for Pain September 23, 2022 1:00am Start: 09-23-2022 take 400 mg by mouth every six hours Ibuprofen Active 400 MG PO EVERY 6 HOURS September 23, 2022 1:00am Start: 02-27-2022 End: 12-23-2022 take 200-400 mg by mouth every eight hours as needed ibuprofen (MOTRIN) 200 mg tablet Take 1-2 tablets by mouth every 8 hours as needed for pain (Take with food.). 30 tablet 0 02/27/2022 12/23/2022 Discontinued (Changing Therapy/Dosage Form) Comment on above: Take 1-2 tablets by mouth every 8 hours as needed for pain (Take with food.). Take 1 tablet by gerardo th every 6 hours as needed (for pain as needed). MAGNESIUM OXIDE/MAGNESIUM (MAGNESIUM, OXIDE/AA CHELATE, ORAL) (20 sources) End: 12-23-2022 take 500 mg by mouth once daily MAGNESIUM OXIDE/MAGNESIUM (MAGNESIUM, OXIDE/AA CHELATE, ORAL) Take 500 mg by mouth once daily. 0 12/23/2022 Discontinued (Changing Therapy/Dosage Form) take 500 mg by mouth once daily MAGNESIUM OXIDE/MAGNESIUM (MAGNESIUM, OXIDE/AA CHELATE, ORAL) Take 500 mg by mouth once daily. 0 Active MAGNESIUM OXIDE/ MAGNESIUM (MAGNESIUM, OXIDE/AA CHELATE, ORAL) Take by mouth. 0 Active Comment on above: Take by mouth. Take 500 mg by mouth once daily. melatonin 5 mg oral tablet (14 sources) Start: 12-20-19 take 2 tablets by mouth once daily at bedtime melatonin 5 mg tablet Take 2 tablets by mouth daily at bedtime. 0 12/20/2019 Active Comment on above: Take 2 tablets by mo [facility] daily at bedtime. meloxicam 15 mg oral tablet (2 sources) Nonsteroidal Anti-inflammatory Drug Start: 08-10-20 take 1 tablet by mouth once daily for pain meloxicam (MOBIC) 15 mg tablet Take 1 tablet by mouth once daily. For hand pain, with breakfast take PO With food. 90 tablet 1 08/10/2023 Active Comment on above: Take 1 tablet by gerardo once daily. For hand pain, with breakfast take PO With food. 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 30 g 1 07/08/2022 08/30/2024 Discontinued Comment on above: Apply to affected ar ea once daily. perflutren lipid microspheres 1.3 mL in NaCl (PF) 0.9% 10 mL injection (DEFINITY) (17 sources) Start: 07-09-20 End: 10-08-20 perflutren lipid microspheres 1.3 mL in NaCl (PF) 0.9% 10 mL injection (DEFINITY) 125 ml sodium chloride 9 mg/ml prefilled syringe (17 sources) Start: 07-09-20 End: 10-08-20 sodium chloride 0.9 % (flush) 10 mL (BD POSIFLUSH) traZODone hydrochloride 50 mg oral tablet (1 source) Serotonin Reuptake Inhibitor Start: 12-05-19 End: 12-25-19 take 1-2 tablets by mouth once daily at bedtime traZODone (DESYREL) 50 mg tablet Take 1-2 tablets by mouth daily at bedtime. For insomnia 180 tablet 0 12/05/2021 12/24/2021 Discontinued Comment on above: Take 1-2 tablets by mouth daily at bedtime. For insomnia Problems Active Problems Problem Classification Problem Date Documented Date Episodic/Chronic Acquired foot deformities (1 source) Bunion; Translations: [Bunion of unspecified foot] Episodic Calculus of urinary tract (10 sources) Kidney stone; Translations: [Calculus of kidney] 02-18-2018 Episodic Chronic kidney disease (20 sources) Chronic kidney disease stage 3A ; Translations: [Stage 3a chronic kidney disease (HCC)] Onset: 11-05-2017 Chronic Chronic kidney disease (1 source) Chronic kidney disease; Translations: [Chronic kidney disease, stage 3a] Onset: 01-16-2025 Chronic ulcer of skin (20 sources) Chronic ulcer of lower extremity; Translations: [Non-pressure chronic ulcer of unspecified part of right lower leg limited to breakdown of skin] Onset: 07-08-2022 Resolved: 05-10-2024 Chronic Complication of device; implant or graft (20 sources) 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; Translations: [Atherosclerosis of coronary artery bypass graft(s) without angina pectoris] Onset: 05-05-2016 Chronic Coronary atherosclerosis and other heart disease (20 sources) Coronary atherosclerosis; Translations: [Atherosclerotic heart disease of [place] coronary artery without angina pectoris] Onset: 07-24-2021 07-24-2021 Chronic Disorders of lipid metabolism (20 sources) Pure hypercholesterolemia; Translations: [Pure hypercholesterolemia, unspecified] Onset: 05-05-2016 Chronic Esophageal disorders (20 sources) Gastroesophageal reflux disease without esophagitis; Translations: [Gastro-esophageal reflux disease without esophagitis] Onset: 11-05-2017 11-05-2017 Chronic Essential hypertension (20 sources) Essential hypertension; Translations: [Essential (primary) hypertension] Onset: 05-05-2016 Resolved: 07-24-2021 Chronic Hypertension with complications and secondary hypertension (20 sources) Hypertensive renal disease; Translations: [Hypertensive chronic kidney disease with stage 1 through stage 4 chronic kidney disease, or unspecified chronic kidney disease] Onset: 01-05-2022 01-05-2022 Chronic Immunizations and screening for infectious disease (2 sources) Needs influenza immunization; Translations: [Encounter for immunization] Episodic Mood disorders (20 sources) Depressive disorder; Translations: [Depressive disorder] Onset: 12-24-2021 Chronic Nutritional deficiencies (20 sources) Vitamin D deficiency; Translations: [Vitamin D deficiency, unspecified] Onset: 11-20-2020 Chronic Osteoarthritis (20 sources) Arthritis of joint of right shoulder region; Translations: [Primary osteoarthritis, right shoulder] Onset: 07-15-2022 07-15-2022 Chronic Other circulatory disease (2 sources) Pulmonary congestion ; Translations: [Other specified symptoms and signs involving the circulatory and respiratory systems] 09-27-2024 Episodic Other hereditary and degenerative nervous system conditions (20 sources) Impaired cognition; Translations: [Mild cognitive impairment, so stated] Onset: 12-24-2021 12-24-2021 Chronic Other injuries and conditions due to external causes (6 sources) Open wound with complication; Translations: [Other injury of unspecified body region, initial encounter] 09-23-2022 Episodic Other injuries and conditions due to external causes (3 sources) Other injury of unspecified body region, initial encounter; Translations: [Open wound(s) (multiple) of unspecified site(s), complicated] Episodic Other injuries and conditions due to external causes (2 sources) Open wound; Translations: [Other injury of unspecified body region, initial encounter] 09-23-2022 Episodic Other lower respiratory disease (2 sources) Dyspnea; Translations: [Shortness of breath] 05-10-2024 Episodic Other lower respiratory disease (2 sources) Wheezing; Translations: [Wheezing] 09-27-2024 Episodic Other nervous system disorders (20 sources) Aphasia; Translations: [Aphasia] Onset: 12-24-2021 12-24-2021 Chronic Other nervous system disorders (1 source) Carpal tunnel syndrome, left upper limb; Translations: [Left carpal tunnel syndrome] Onset: 11-24-2023 Chronic Other nervous system disorders (20 sources) Carpal tunnel syndrome of left wrist; Translations: [Carpal tunnel syndrome, left upper limb] Onset: 01-12-2024 11-09-2023 Chronic Other nutritional; endocrine; and metabolic disorders (1 source) Weight decreased; Translations: [Abnormal weight loss] 01-24-2025 Episodic Other skin disorders (8 sources) Biopsy result abnormal; Translations: [Disorder of the skin and subcutaneous tissue, unspecified] 09-23-2022 Episodic Other skin disorders (3 sources) Disorder of the skin and subcutaneous tissue, unspecified; Translations: [Unspecified disorder of skin and subcutaneous tissue] Episodic Parkinson`s disease (20 sources) Parkinson's disease; Translations: [Parkinson's disease] Onset: 06-10-2016 Chronic Parkinson`s disease (2 sources) Parkinson`s disease; Translations: [Parkinson's disease with dyskinesia, with fluctuations] Onset: 10-13-2023 Sprains and strains (10 sources) Strain of neck muscle; Translations: [Strain of muscle, fascia and tendon at neck level, initial encounter] 02-19-2018 Episodic Past or Other Problems Problem Classification Problem Date Documented Date Episodic/Chronic Diabetes mellitus without complication (20 sources) Impaired fasting glycemia; Translations: [Impaired fasting glucose] Onset: 11-08-2019 Episodic Fluid and electrolyte disorders (20 sources) Moderate dehydration; Translations: [Dehydration] Onset: 07-19-2017 Resolved: 01-05-2022 01-05-2022 Episodic Genitourinary symptoms and ill-defined conditions (20 sources) Microscopic hematuria; Translations: [Other microscopic hematuria] Onset: 12-24-2021 Episodic Malaise and fatigue (20 sources) Fatigue; Translations: [Other fatigue] Onset: 07-09-2021 07-09-2021 Episodic Mycoses (20 sources) Onychomycosis; Translations: [Tinea unguium] Onset: 07-08-2022 Episodic Nutritional deficiencies (20 sources) Cobalamin deficiency; Translations: [Deficiency of other specified B group vitamins] Onset: 04-08-2022 Episodic Open wounds of extremities (20 sources) Injury of lower extremity; Translations: [Unspecified open wound, right lower leg, initial encounter] Onset: 07-14-2023 Episodic Other aftercare (1 source) Other care home (current) drug therapy; Translations: [Other care home (current) drug therapy] Onset: 08-18-2024 Episodic Other connective tissue disease (20 sources) Muscle weakness; Translations: [Muscle weakness (generalized)] Onset: 01-07-2022 Episodic Other connective tissue disease (20 sources) Pain of left hand; Translations: [Pain in left hand] Onset: 10-13-2023 10-13-2023 Episodic Other diseases of kidney and ureters (20 sources) Chronic renal insufficiency; Translations: [Disorder of kidney and ureter, unspecified] Onset: 07-19-2017 Resolved: 01-05-2022 01-05-2022 Episodic Other ear and sense organ disorders (20 sources) Impacted cerumen of bilateral ears; Translations: [Impacted cerumen, bilateral] Onset: 04-08-2022 Episodic Other lower respiratory disease (16 sources) Cough; Translations: [Subacute cough] Onset: 05-10-2024 05-10-2024 Episodic Other lower respiratory disease (7 sources) Cough; Translations: [Subacute cough] Onset: 05-10-2024 05-10-2024 Episodic Other nervous system disorders (20 sources) [...] Translations: [Dysphasia] Onset: 12-24-2021 12-24-2021 Episodic Other nervous system disorders (20 sources) Paresthesia of hand ; Translations: [Anesthesia of skin] Onset: 10-13-2023 10-13-2023 Episodic Other non-epithelial cancer of skin (20 sources) Basal cell carcinoma of lower extremity; [...] edema; Translations: [Localized edema] Onset: 07-08-2022 Episodic Residual codes; unclassified (20 sources) Poor short-term memory ; Translations: [Other amnesia] Onset: 01-12-2024 01-12-2024 Episodic Spondylosis; intervertebral disc disorders; other back problems (20 sources) Neck pain; Translations: [Cervicalgia] Onset: 05-11-2018 05-11-2018 Episodic Results Test Name Value Interpretation Reference Range Facility [facility] 06-21-2025 CNPN Telephone (NRMDN) ALEXIS KRAMER ([id number]) 1945 M Date Time Provider Department 06/21/25 GILA ISSA During your visit today, we recorded the following information about you: Moon Clarke RN 06/21/2025 1:35 PM Signed Voicemail received June 21, 2025 [id number] with [facility] requesting last OV notes to be faxed to [phone]. Also asking if Dr. sIsa will follow and sign for home care. Call back number is [phone] Tiffanie Hannah MA 06/21/2025 3:56 PM Signed Faxed and confirmation received Gila Issa MD 06/22/2025 2:10 PM Signed More appropriate for PCP to follow Moon Clarke RN 06/22/2025 2:54 PM Signed Message from provider given Allergies As of Date: 06/21/2025 Noted Allergy Reaction BACTRIM (SULFAMETHOXAZOLE-TRIME TH*08/18/2023 16 - Unknown NARCOTICS (OPIOIDS - MORPHINE RICARDO*2016 8 - GI Upset Comments: vomiting with an oral pain med-has taken morphine without problems Date Reviewed: 01/24/2025 Reviewed by: Sabrina Kay LPN - Fully Assessed Reason for Visit: Patient Update [1234] Prescriptions as of 06/22/2025 - clonazePAM (KLONOPIN) 0.5 mg tablet Take 0.5 tablets by mouth daily at bedtime for 90 days. - cyanocobalamin, vitamin B-12, 1,000 mcg lozg Dissolve 2 lozenges under the tongue once daily. - sertraline (ZOLOFT) 50 mg tablet Take 1 tablet by mouth once daily. Add to 100 mg tablet to total 150 mg a day - sertraline (ZOLOFT) 100 mg tablet Take 1 tablet by mouth once daily. In the bedtime, for mood - albuterol (PROVENTIL) 2.5 mg /3 mL (0.083 %) nebulizer solution Use 3 mL via nebulizer two times a day. Use over 5-15minutes. - carbidopa-levodopa (SINEMET 25-100) 25-100 mg per tablet Take 2 tablets by mouth four times daily. - Ibuprofen 200 mg cap Take by mouth. - omeprazole (PRILOSEC) 40 mg capsule Take 1 capsule by mouth once daily. - metoprolol succinate ER (TOPROL XL) 25 mg 24 hr tablet Take 1 tablet by mouth once daily. - simvastatin (ZOCOR) 80 mg tablet Take 1 tablet by mouth daily at bedtime. - aspirin, enteric coated (ASPIRIN, ENTERIC COATED) 81 mg EC tablet Take 1 tablet by mouth once daily. - Magnesium Oxide 500 mg tab Take 1 tablet by mouth once daily. - cholecalciferol (VITAMIN D3) 50 mcg (2,000 unit) tablet Take 1 tablet by mouth once daily. - furosemide (LASIX) 20 mg tablet Take 1 tablet by mouth once daily. For leg swelling - acetaminophen (TYLENOL) 500 mg tablet Take 500 mg by mouth every 8 hours as needed. - ondansetron (ZOFRAN) 4 mg tablet every 8 hours as needed. - MEDICATION, NON-DATABASE Standard Wheel Chair Dx Parkinson's Disease Meds Comments as of 2016: Aspirin 325 mg a day OTC Problem List As Of Date 06/21/2025 Noted Resolved Coronary atherosclerosis of autologous artery b*05/05/2016 Pure hypercholesterolemia [E78.00] 05/05/2016 Essential hypertension [I10] 05/05/2016 07/24/2021 Tremor of unknown origin [R25.1] 05/05/2016 Parkinson disease (HCC) [G20.A1] 06/10/2016 Acute on chronic renal insufficiency [N28.9, N1*07/19/2017 01/05/2022 Dehydration, moderate [E86.0] 07/19/2017 01/05/2022 Gastroesophageal reflux disease without esophag*11/05/2017 Parkinson's disease (HCC) [G20.A1] 11/05/2017 Hypertension, essential [I10] 11/05/2017 Stage 3a chronic kidney disease (HCC) [N18.31] 11/05/2017 Neck pain [M54.2] 05/11/2018 IFG (impaired fasting glucose) [R73.01] 11/08/2019 Vitamin D deficiency [E55.9] 11/20/2020 Bilateral cold feet [R20.9] 11/20/2020 Gait disorder [R26.9] 07/09/2021 Fatigue [R53.83] 07/09/2021 Coronary artery disease involving [place] turcios*07/24/2021 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] 07/24/2021 Dysphasia [R47.02] 12/24/2021 Aphasia [R47.01] 12/24/2021 Cognitive impairment, mild, so stated [G31.84] 12/24/2021 Elevated PSA [R97.20] 12/24/2021 Balance disorder [R26.89] 12/24/2021 Microscopic hematuria [R31.29] 12/24/2021 Depressive disorder [F32.A] 12/24/2021 Hypertensive kidney disease with stage 3a chron*01/05/2022 Muscle weakness [M62.81] 01/07/2022 Vitamin B12 deficiency [E53.8] 04/08/2022 Chronic right shoulder pain [M25.511, G89.29] 04/08/2022 Bilateral impacted cerumen [H61.23] 04/08/2022 Bilateral leg edema [R60.0] 07/08/2022 Chronic ulcer of right leg, limited to breakdow*07/08/2022 05/10/2024 Onychomycosis [B35.1] 07/08/2022 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] 07/15/2022 Basal cell carcinoma (BCC) of right lower leg [*10/07/2022 Chronic kidney disease, stage 3a (HCC) [N18.31] 01/06/2023 Leg wound, right, initial encounter [S81.801A] 07/14/2023 Parkinson's disease with dyskinesia and fluctua*10/13/2023 Left hand pain [M79.642] 10/13/2023 Numbness and tingling in left hand [R20.0, R20.*10/13/2023 Short-term memory loss [R41.3] 01/12/2024 Carpal tunnel syndrome, left [G56.02] 01/12/2024 Subacute cough [R05.2] 05/10/2024 Encoun (more content not included)... Normal [facility] CNPNon 06-13-2025 CNPN Telephone (NRMDN) ALEXIS KRAMER ([id number]) 1945 M Date Time Provider Department 06/13/25 GILA ISSA During your visit today, we recorded the following information about you: Tiffanie Hannah MA 06/13/2025 2:33 PM Signed Received rehab discharge summary from [facility]. Placed on Dr. Issa desk for review Allergies As of Date: 06/13/2025 Noted Allergy Reaction BACTRIM (SULFAMETHOXAZOLE-TRIME TH*08/18/2023 16 - Unknown NARCOTICS (OPIOIDS - MORPHINE RICARDO*2016 8 - GI Upset Comments: vomiting with an oral pain med-has taken morphine without problems Date Reviewed: 01/24/2025 Reviewed by: Sabrina Kay LPN - Fully Assessed Reason for Visit: Patient Update [1234] Prescriptions as of 06/13/2025 - clonazePAM (KLONOPIN) 0.5 mg tablet Take 0.5 tablets by mouth daily at bedtime for 90 days. - cyanocobalamin, vitamin B-12, 1,000 mcg lozg Dissolve 2 lozenges under the tongue once daily. - sertraline (ZOLOFT) 50 mg tablet Take 1 tablet by mouth once daily. Add to 100 mg tablet to total 150 mg a day - sertraline (ZOLOFT) 100 mg tablet Take 1 tablet by mouth once daily. In the bedtime, for mood - albuterol (PROVENTIL) 2.5 mg /3 mL (0.083 %) nebulizer solution Use 3 mL via nebulizer two times a day. Use over 5-15minutes. - carbidopa-levodopa (SINEMET 25-100) 25-100 mg per tablet Take 2 tablets by mouth four times daily. - Ibuprofen 200 mg cap Take by mouth. - omeprazole (PRILOSEC) 40 mg capsule Take 1 capsule by mouth once daily. - metoprolol succinate ER (TOPROL XL) 25 mg 24 hr tablet Take 1 tablet by mouth once daily. - simvastatin (ZOCOR) 80 mg tablet Take 1 tablet by mouth daily at bedtime. - aspirin, enteric coated (ASPIRIN, ENTERIC COATED) 81 mg EC tablet Take 1 tablet by mouth once daily. - Magnesium Oxide 500 mg tab Take 1 tablet by mouth once daily. - cholecalciferol (VITAMIN D3) 50 mcg (2,000 unit) tablet Take 1 tablet by mouth once daily. - furosemide (LASIX) 20 mg tablet Take 1 tablet by mouth once daily. For leg swelling - acetaminophen (TYLENOL) 500 mg tablet Take 500 mg by mouth every 8 hours as needed. - ondansetron (ZOFRAN) 4 mg tablet every 8 hours as needed. - MEDICATION, NON-DATABASE Standard Wheel Chair Dx Parkinson's Disease Meds Comments as of 2016: Aspirin 325 mg a day OTC Problem List As Of Date 06/13/2025 Noted Resolved Coronary atherosclerosis of autologous artery b*05/05/2016 Pure hypercholesterolemia [E78.00] 05/05/2016 Essential hypertension [I10] 05/05/2016 07/24/2021 Tremor of unknown origin [R25.1] 05/05/2016 Parkinson disease (HCC) [G20.A1] 06/10/2016 Acute on chronic renal insufficiency [N28.9, N1*07/19/2017 01/05/2022 Dehydration, moderate [E86.0] 07/19/2017 01/05/2022 Gastroesophageal reflux disease without esophag*11/05/2017 Parkinson's disease (HCC) [G20.A1] 11/05/2017 Hypertension, essential [I10] 11/05/2017 Stage 3a chronic kidney disease (HCC) [N18.31] 11/05/2017 Neck pain [M54.2] 05/11/2018 IFG (impaired fasting glucose) [R73.01] 11/08/2019 Vitamin D deficiency [E55.9] 11/20/2020 Bilateral cold feet [R20.9] 11/20/2020 Gait disorder [R26.9] 07/09/2021 Fatigue [R53.83] 07/09/2021 Coronary artery disease involving [place]*07/24/2021 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] 07/24/2021 Dysphasia [R47.02] 12/24/2021 Aphasia [R47.01] 12/24/2021 Cognitive impairment, mild, so stated [G31.84] 12/24/2021 Elevated PSA [R97.20] 12/24/2021 Balance disorder [R26.89] 12/24/2021 Microscopic hematuria [R31.29] 12/24/2021 Depressive disorder [F32.A] 12/24/2021 Hypertensive kidney disease with stage 3a chron*01/05/2022 Muscle weakness [M62.81] 01/07/2022 Vitamin B12 deficiency [E53.8] 04/08/2022 Chronic right shoulder pain [M25.511, G89.29] 04/08/2022 Bilateral impacted cerumen [H61.23] 04/08/2022 Bilateral leg edema [R60.0] 07/08/2022 Chronic ulcer of right leg, limited to breakdow*07/08/2022 05/10/2024 Onychomycosis [B35.1] 07/08/2022 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] 07/15/2022 Basal cell carcinoma (BCC) of right lower leg [*10/07/2022 Chronic kidney disease, stage 3a (HCC) [N18.31] 01/06/2023 Leg wound, right, initial encounter [S81.801A] 07/14/2023 Parkinson's disease with dyskinesia and fluctua*10/13/2023 Left hand pain [M79.642] 10/13/2023 Numbness and tingling in left hand [R20.0, R20.*10/13/2023 Short-term memory loss [R41.3] 01/12/2024 Carpal tunnel syndrome, left [G56.02] 01/12/2024 Subacute cough [R05.2] 05/10/2024 Encounter Status:Closed by TIFFANIE HANNAH on 06/13/25 [facility] CNPMeghana 04-24-2025 CNPN Telephone (NRMDN) ALEXIS KRAMER ([id number]) 1945 M Date Time Provider Department 04/24/25 GILA ISSA CAESAR During your visit today, we recorded the following information about you: Tiffanie Hannah MA 04/24/2025 12:37 PM Signed Received PT recertification letter from [facility]. Placed on Dr. Issa desk for review and signature Tiffanie Hannah MA 04/24/2025 2:04 PM Signed Faxed back and confirmation received Allergies As of Date: 04/24/2025 Noted Allergy Reaction BACTRIM (SULFAMETHOXAZOLE-TRIME TH*08/18/2023 16 - Unknown NARCOTICS (OPIOIDS - MORPHINE RICARDO*2016 8 - GI Upset Comments: vomiting with an oral pain med-has taken morphine without problems Date Reviewed: 01/24/2025 Reviewed by: Sabrina Kay LPN - Fully Assessed Reason for Visit: Orders [681] Prescriptions as of 04/24/2025 - clonazePAM (KLONOPIN) 0.5 mg tablet Take 0.5 tablets by mouth daily at bedtime for 90 days. - cyanocobalamin, vitamin B-12, 1,000 mcg lozg Dissolve 2 lozenges under the tongue once daily. - sertraline (ZOLOFT) 50 mg tablet Take 1 tablet by mouth once daily. Add to 100 mg tablet to total 150 mg a day - sertraline (ZOLOFT) 100 mg tablet Take 1 tablet by mouth once daily. In the bedtime, for mood - albuterol (PROVENTIL) 2.5 mg /3 mL (0.083 %) nebulizer solution Use 3 mL via nebulizer two times a day. Use over 5-15minutes. - carbidopa-levodopa (SINEMET 25-100) 25-100 mg per tablet Take 2 tablets by mouth four times daily. - Ibuprofen 200 mg cap Take by mouth. - omeprazole (PRILOSEC) 40 mg capsule Take 1 capsule by mouth once daily. - metoprolol succinate ER (TOPROL XL) 25 mg 24 hr tablet Take 1 tablet by mouth once daily. - simvastatin (ZOCOR) 80 mg tablet Take 1 tablet by mouth daily at bedtime. - aspirin, enteric coated (ASPIRIN, ENTERIC COATED) 81 mg EC tablet Take 1 tablet by mouth once daily. - Magnesium Oxide 500 mg tab Take 1 tablet by mouth once daily. - cholecalciferol (VITAMIN D3) 50 mcg (2,000 unit) tablet Take 1 tablet by mouth once daily. - furosemide (LASIX) 20 mg tablet Take 1 tablet by mouth once daily. For leg swelling - acetaminophen (TYLENOL) 500 mg tablet Take 500 mg by mouth every 8 hours as needed. - ondansetron (ZOFRAN) 4 mg tablet every 8 hours as needed. - MEDICATION, NON-DATABASE Standard Wheel Chair Dx Parkinson's Disease Meds Comments as of 2016: Aspirin 325 mg a day OTC Problem List As Of Date 04/24/2025 Noted Resolved Coronary atherosclerosis of autologous artery b*05/05/2016 Pure hypercholesterolemia [E78.00] 05/05/2016 Essential hypertension [I10] 05/05/2016 07/24/2021 Tremor of unknown origin [R25.1] 05/05/2016 Parkinson disease (HCC) [G20.A1] 06/10/2016 Acute on chronic renal insufficiency [N28.9, N1*07/19/2017 01/05/2022 Dehydration, moderate [E86.0] 07/19/2017 01/05/2022 Gastroesophageal reflux disease without esophag*11/05/2017 Parkinson's disease (HCC) [G20.A1] 11/05/2017 Hypertension, essential [I10] 11/05/2017 Stage 3a chronic kidney disease (HCC) [N18.31] 11/05/2017 Neck pain [M54.2] 05/11/2018 IFG (impaired fasting glucose) [R73.01] 11/08/2019 Vitamin D deficiency [E55.9] 11/20/2020 Bilateral cold feet [R20.9] 11/20/2020 Gait disorder [R26.9] 07/09/2021 Fatigue [R53.83] 07/09/2021 Coronary artery disease involving [place] turc[place]*07/24/2021 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] 07/24/2021 Dysphasia [R47.02] 12/24/2021 Aphasia [R47.01] 12/24/2021 Cognitive impairment, mild, so stated [G31.84] 12/24/2021 Elevated PSA [R97.20] 12/24/2021 Balance disorder [R26.89] 12/24/2021 Microscopic hematuria [R31.29] 12/24/2021 Depressive disorder [F32.A] 12/24/2021 Hypertensive kidney disease with stage 3a chron*01/05/2022 Muscle weakness [M62.81] 01/07/2022 Vitamin B12 deficiency [E53.8] 04/08/2022 Chronic right shoulder pain [M25.511, G89.29] 04/08/2022 Bilateral impacted cerumen [H61.23] 04/08/2022 Bilateral leg edema [R60.0] 07/08/2022 Chronic ulcer of right leg, limited to breakdow*07/08/2022 05/10/2024 Onychomycosis [B35.1] 07/08/2022 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] 07/15/2022 Basal cell carcinoma (BCC) of right lower leg [*10/07/2022 Chronic kidney disease, stage 3a (HCC) [N18.31] 01/06/2023 Leg wound, right, initial encounter [S81.801A] 07/14/2023 Parkinson's disease with dyskinesia and fluctua*10/13/2023 Left hand pain [M79.642] 10/13/2023 Numbness and tingling in left hand [R20.0, R20.*10/13/2023 Short-term memory loss [R41.3] 01/12/2024 Carpal tunnel syndrome, left [G56.02] 01/12/2024 Subacute cough [R05.2] 05/10/2024 Encounter Status:Closed by TIFFANIE HANNAH on 04/24/25 Normal [facility] Re-Evaluation - PT (1)on Re-Evaluation - PT (1) [facility] Physical Therapy [facility] [place] [address] / REEVALUATION / MEDICARE RECERTIFICATION PHYSICAL THERAPY MR#: [id number] Acct: [id number] Name: ALEXIS KRAMER Rep #: [id number] : 1945 79 From: Trena Hernandez MPT Referring Dr.: Dr. Gila Issa MD Status:REG RCR Insurance: [facility] SELF PAY INSURANCE Re-Evaluation Intro: Dr. Gila Issa MD, It has been my pleasure to treat ALEXIS KRAMER over the last 24 visits for PD with dyskinesia. Please see the progress note below for an update on the physical therapy plan of care! Subjective Subjective: Pt feels that he has good days and bad days. He feels that getting up out of a chair has improved and his strength is a little better. He is up walking at [place] 3-4x/ week and he tries to find someone to walk with him. Objective Objective/Function: Pt still gets sticky feet with turning. Today after a PT session he was unable to turn a 1/4 turn from one chair to his wheelchair as he was unable to move his feet Gait: walking approx 40 feet he had to stop and reset as he started to take very short steppage steps and could not make his stride bigger. Sit to stand X 10 in a row using B UE on first attempt Plan Plan Plan: Today we discussed taking a month off PT and seeing how he does. He has made improvements with sit to stand but turning and gait with some distance he struggles with 3. Add turning with walker exercises around objects and to turn to sit down in a chair as pt feet get stuck at times 1. Continue to Work on sit to stands and getting nose out over toes to weight shift FW 2. Continue to Work on progressive gait and getting his steps to be more smooth and recip and not a step 2 pattern 1X/ week for 4-6 weeks sit to stand transfers, gait training, standing balance, seated opp arm and leg, posture and general mobility with HEP Balance/Gait/Functional tests Balance/Special Test Scores Lower Extremity Functional Score: 14 Goals Goals Goal 1:: I HEP Goal Time Frame: 6-8 Weeks Goal Progress: Goal Met Goal 2:: Be able to sit to stand X 10 times in a row Goal Time Frame: 6-8 Weeks Goal Progress: Goal Met Goal 3:: Be able to walk 250 feet with wheeled walker with CGA and verbal cues to take larger steps Goal Time Frame: 6-8 Weeks Goal Progress: Progressing Goal 4:: Pt to report improvement with his walking at the student [facility] living facility Goal Time Frame: 6-8 Weeks Goal Progress: Goal Met Goal 5:: Pt to talk to head nurse at his facility about riding the Nu-step daily and taking the movement class daily at his facility Goal Time Frame: 2-4 Weeks Goal Progress: Goal Met Goal 6:: Be able to turn with his walker with less sticky feet and not getting stuck. Goal Progress: Not Progressing Anticipated Interventions Anticipated Interventions Patient/Client Instruction: Educate patient on: Condition and Plan of Care For the Purpose of:: To improve muscle performance and motor function, To improve ability to perform ADL's, To increase tolerance to activity/condition/posi tion, To improve performance and independence with ADL's, To decrease level of supervision to perform tasks, To improve ability of physical actions for home/community/work/lei sure, To improve gait and locomotor functions, To improve health of tissue, To increase flexibility/ROM, To improve endurance, To improve balance, To improve safety with gait and To improve safety Therapeutic Exercise to Include: Strength training, Endurance training, Balance training, Postural training, Gait and locomotor training, Neuromotor development and Active ROM For the Purpose of:: To improve muscle performance and motor function, To improve ability to perform ADL's, To increase tolerance to activity/condition/posi tion, To improve performance and independence with ADL's, To decrease level of supervision to perform tasks, To improve ability of physical actions for home/community/work/lei sure, To improve gait and locomotor functions, To improve health of tissue, To decrease soft tissue restriction, To increase flexibility/ROM, To improve endurance, To improve balance and To improve safety with gait Functional Training to Include: Gait training For the Purpose of:: To improve gait and locomotor functions and To improve safety with gait Re-Evaluation Ending Re-evaluation ending: Please do not hesitate to contact me at [phone] by phone or if you have questions or concerns regarding this new plan of care! Sincerely, Trena Hernandez, SUNSHINE 04/24/25 1126 CC: Dr. Richard Schneider DO; Dr. Gila Issa MD Signed For Medicare only, by signing this I certify the plan of care. Physicians Signatur (more content not included)... Normal [facility] 04-05-2025 [facility] Telephone (FAMMukulWS) ALEXIS KRAMER ([id number]) 1945 M Date Time Provider Department [facility] your visit today, we recorded the following information about you: Jerrica Mehta, KACIE 04/05/2025 12:59 PM Signed Trisha AVILES with [facility] calls to let provider know that they are switching pharmacies and need medication orders resigned. Forms were faxed a week ago and not received back. Trisha re faxing forms and asking if SUPPORT TECHNICIAN can sign them since Dr. Schneider is out. Jerrica Mehta, RN Kavita Mcgarry APRN.CNP 04/05/2025 4:21 PM Signed I will get the orders for [facility] patients signed and returned, thank you Kavita Mcgarry APRN.CNP 04/05/2025 4:39 PM Signed Addended by: KAVITA MCGARRY on: 04/05/2025 04:39 PM Modules accepted: Orders Kavita Mcgarry APRN.CNP 04/05/2025 4:41 PM Addendum Orders signed and in fax bin for staff to send back. If clonazepam was ordered by neurologist, they should sign for the med and provide scripts. If he's no longer seeing the neurologist then we can manage. Thank you Radha Carpio LPN 04/06/2025 8:06 AM Addendum This was faxed back and confirmation of received.Spoke with nurse Priya whom takes care of pt at facility she states pt never started the clonazapam they asked for per fax Neurologist stated to get filled through pcp. Kavita Mcgarry APRN.LCAY 04/06/2025 8:24 AM Signed Per daughter/facility, this clonazepam was recommended by neurology for sleep disturbances and sleep walking. Unable to find note of this by Dr Issa, but ok with ordering. Patient is in a controlled environment and doesn't need nonopioid agreement or consents signed, daughter already consented to agreeable to treatment. PDMP website checked and validated. All prescriptions have been APPROPRIATELY filled. No suspicious activity was identified. 04/06/2025 by Kavita Mcgarry APRN.CNP The following approved medication requests have been transmitted electronically. Requested Prescriptions Signed Prescriptions Disp Refills cyanocobalamin, vitamin B-12, 1,000 mcg lozg 30 lozenge 0 Sig: Dissolve 2 lozenges under the tongue once daily. Authorizing Provider: KAVITA MCGARRY clonazePAM (KLONOPIN) 0.5 mg tablet 15 tablet 2 Sig: Take 0.5 tablets by mouth daily at bedtime for 90 days. Authorizing Provider: KAVITA MCGARRY APRN.CNP Casto, Miranda Jean, APRN.CNP 04/06/2025 8:24 AM Signed Addended by: KAVITA MCGARRY on: 04/06/2025 08:24 AM Modules accepted: Orders Allergies As of Date: 04/05/2025 Noted Allergy Reaction BACTRIM (SULFAMETHOXAZOLE-TRIME TH*08/18/2023 16 - Unknown NARCOTICS (OPIOIDS - MORPHINE RICARDO*2016 8 - GI Upset Comments: vomiting with an oral pain med-has taken morphine without problems Date Reviewed: 01/24/2025 Reviewed by: Sabrina Kay LPN - Fully Assessed Reason for Visit: Forms [913] Visit Diagnoses:Sleep disturbance [G47.9] Sleep walking [F51.3] Order(s):cyanocobalamin , vitamin B-12, 1,000 mcg lozgDissolve 2 lozenges under the tongue once daily.Disp: 30 lozengeRfl: 0 clonazePAM (KLONOPIN) 0.5 mg tabletTake 0.5 tablets by mouth daily at bedtime for 90 days.Disp: 15 tabletRfl: 2 Prescriptions as of 04/06/2025 - clonazePAM (KLONOPIN) 0.5 mg tablet Take 0.5 tablets by mouth daily at bedtime for 90 days. - cyanocobalamin, vitamin B-12, 1,000 mcg lozg Dissolve 2 lozenges under the tongue once daily. - sertraline (ZOLOFT) 50 mg tablet Take 1 tablet by mouth once daily. Add to 100 mg tablet to total 150 mg a day - sertraline (ZOLOFT) 100 mg tablet Take 1 tablet by mouth once daily. In the bedtime, for mood - albuterol (PROVENTIL) 2.5 mg /3 mL (0.083 %) nebulizer solution Use 3 mL via nebulizer two times a day. Use over 5-15minutes. - carbidopa-levodopa (SINEMET 25-100) 25-100 mg per tablet Take 2 tablets by mouth four times daily. - Ibuprofen 200 mg cap Take by mouth. - omeprazole (PRILOSEC) 40 mg capsule Take 1 capsule by mouth once daily. - metoprolol succinate ER (TOPROL XL) 25 mg 24 hr tablet Take 1 tablet by mouth once daily. - simvastatin (ZOCOR) 80 mg tablet Take 1 tablet by mouth daily at bedtime. - aspirin, enteric coated (ASPIRIN, ENTERIC COATED) 81 mg EC tablet Take 1 tablet by mouth once daily. - Magnesium Oxide 500 mg tab Take 1 tablet by mouth once daily. - cholecalciferol (VITAMIN D3) 50 mcg (2,000 unit) tablet Take 1 tablet by mouth once daily. - furosemide (LASIX) 20 mg tablet Take 1 tablet by mouth once daily. For leg swelling - acetaminophen (TYLENOL) 500 mg tablet Take 500 mg by mouth every 8 hours as needed. - ondansetron (ZOFRAN) 4 mg tablet every 8 hours as needed. - MEDICATION, NON-DATABASE Standard Wheel Chair Dx Parkinson's Disease Meds Comments as of 2016: Aspirin 325 mg a day OTC Medication notes t (more content not included)... Normal [facility] Inital Evaluation (1) - PTon 02-21-2025 Inital Evaluation (1) - PT [facility] [address] [place] [address]. [address] [place] [address] / REHABILITATION SERVICES INITIAL EVALUATION MR#: [id number] Acct: [id number] Name: ALEXIS KRAMER Rep #: [id number] : 1945 79 From: Trena GONSALEZ Referring Dr.: Dr. Gila Issa MD Status: REG [facility] Insurance: [facility] SELF PAY INSURANCE Patient's Visit Information Visit Information Visit Information: ALEXIS KRAMER is a 79 year old M referred to Physical Therapy by Dr. Gila Issa MD with a diagnosis of PD with dyskinesia. Date of Evaluation: 12/20/24 Physical Therapist: SUNSHINE Santos Visit Plan Frequency: 1-2x /Week Duration: 3 Months Plan: Discussed w/ PT the saliva issue and possible SP therapy 1.Give chair exercises and go over for understanding for home (see hand out: seated opp arm and leg, seated trunk rotation, seated trunk flexion with rotation, LAQ) 2. Work on sit to stands and getting nose out over toes to weight shift FW 3. Work on progressive gait and getting his steps to be more smooth and recip and not a step 2 pattern 1X/ week for 4-6 weeks sit to stand transfers, gait training, standing balance, seated opp arm and leg, posture and general mobility with HEP Subjective Subjective: Her daughter is present. He has PD and has had it for 15 years. He lives at [facility] for 3 years. He was able to use the walker to walk. He attempts to use the walker in his room and to go to the dining room. His legs feel like cement and hard to walk. He is having trouble getting out of bed most of the time and uses his call button. Mornings are not good. He has a thick phlegm build up in his lungs but no trouble swallowing and no choking. He is not exercising. He will walk on a good day. Pain multiple areas: Pain Intensity (Out of 10): Unrated Objective Objective: LE MMT: B hip flex 4/5 B knee ext 4/5 B knee flex 4/5 Sit to stand: not able to get up on first attempt. He does not like to weight shift FW and likes to pull himself to stand. After instructing in how to get up pt was able to get up much easier using 2 UE assist and min A by therapist to weight shift him forward. Gait: walks with rolling walker with short steps and does not pick R foot up at times. Has a hard time finding his center of gravity. With verbal cues and pushing the walker a little farther out in front of him, he was able to take larger steps but did need constant cueing. He struggles with turning 180 degrees to get into the chair...takes very small steps and does not filler picker his feet much. Nu-step L1 X 5 min Balance/Special Test Scores Lower Extremity Functional Score: 14 Goals Goal 1:: I HEP Goal Time Frame: 6-8 Weeks Goal 2:: Be able to sit to stand X 10 times in a row Goal Time Frame: 6-8 Weeks Goal 3:: Be able to walk 250 feet with wheeled walker with CGA and verbal cues to take larger steps Goal Time Frame: 6-8 Weeks Goal 4:: Pt to report improvement with his walking at the [facility] Goal Time Frame: 6-8 Weeks Goal 5:: Pt to talk to head nurse at his facility about riding the Nu-step daily and taking the movement class daily at his facility Goal Time Frame: 2-4 Weeks Rehabilitation Potential Rehabilitation Potential: Good Anticipated Interventions Patient/Client Instruction: Educate patient on: Condition and Plan of Care For the Purpose of:: To improve muscle performance and motor function, To improve ability to perform ADL's, To increase tolerance to activity/condition/posi tion, To improve performance and independence with ADL's, To decrease level of supervision to perform tasks, To improve ability of physical actions for home/community/work/lei sure, To improve gait and locomotor functions, To improve health of tissue, To increase flexibility/ROM, To improve endurance, To improve balance, To improve safety with gait and To improve safety Therapeutic Exercise to Include: Strength training, Endurance training, Balance training, Postural training, Gait and locomotor training, Neuromotor development and Active ROM For the Purpose of:: To improve muscle performance and motor function, To improve ability to perform ADL's, To increase tolerance to activity/condition/posi tion, To improve performance and independence with ADL's, To decrease level of supervision to perform tasks, To improve ability of physical actions for home/community/work/lei sure, To improve gait and locomotor functions, To improve health of tissue, To decrease soft tissue restriction, To increase flexibility/ROM, To improve endurance, To improve balance and To improve safety with gait Functional Training to Include: Gait training For the Purpose of:: To improve gait and locomotor functions and To improve safety with gait Text: Thank you for the opportunity to eval (more content not included)... [facility] 01-24-2025 [facility] NIAALEXIS ([id number]) 1945 M Date Time Provider Department 01/24/25 10:00 AM [facility] During your visit today, we recorded the following information about you: Temperature Pulse Respiration Blood pressure 97 degrees 64/minute 20/minute 100/60 Weight 83.5 kg Richard Schneider, 01/24/2025 8:01 PM Signed CC: Alexis Kramer is a 79 year old male who presents to the office for follow up HPI: Appetite has been good Parkinson's disease, taking medications as prescribed, seeing Neurologist Dr. Holm regularly, no recent medication changes. daughter Sis has noticed some slight decline in memory and weakening of his voice and he is no longer able to write. He has some bad days in which he is not able to walk at all. CKD stage 3, has been improved Creatinine at this time in 1.08 No recent falls, using his wheelchair/walker Cough is resolved. No wheezing or shortness of breath or hemoptysis. Did have a normal CXR per [facility] orders. No distress. No chest pain. No hx of CHF or asthma Dry mouth and dry lips, creates a mucous like film which bothers him. Has been tried on multiple different medications and supplements without benefit. Neurologist thinks this is about his Parkinson's disease. Has lost about 12 lbs in the last 6 months. Unintentional. 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 Add to 100 mg tablet to total 150 mg a day sertraline (ZOLOFT) 100 mg tablet Take 1 tablet by mouth once daily. In the bedtime, for mood albuterol (PROVENTIL) 2.5 mg /3 mL (0.083 %) nebulizer solution Use 3 mL via nebulizer two times a day. Use over 5-15minutes. carbidopa-levodopa (SINEMET 25-100) 25-100 mg per tablet Take 2 tablets by mouth four times daily. Ibuprofen 200 mg cap Take by mouth. omeprazole (PRILOSEC) 40 mg capsule Take 1 [...] daily with meals. (Patient taking differently: Dissolve 1,000 mcg under the tongue two times a day with meals. 2 tab once a day) acetaminophen (TYLENOL) 500 mg tablet Take 500 mg by mouth every 8 hours as needed. ondansetron (ZOFRAN) 4 mg tablet every 8 hours as needed. MEDICATION, NON-DATABASE Standard Wheel Chair Dx Parkinson's Disease No current facility-administered medications for this visit. ALLERGIES Allergen Reactions Bactrim [Sulfametho* Unknown Narcotics [Opioids * GI Upset vomiting with an oral pain med-has taken morphine without problems Social History Tobacco Use Smoking status: Former Current packs/day: 0.00 Average packs/day: 0.5 packs/day for 20.0 years (10.0 ttl pk-yrs) Types: Cigarettes Start date: 06/28/1993 Quit date: 06/28/2013 Years since quittin.5 Smokeless tobacco: Never Vaping Use Vaping status: Never Used Substance Use Topics Alcohol use: Yes Comment: occasionally Drug use: No ROS: See HPI PE: BP 100/60 Pulse 64 Temp (Src) 97 (Left Tympanic) Resp 20 Wt 184 lb (83.5kg) Gen: AANDO, NAD, non-toxic appearing, Pleasant, cooperative HEENT: NT/AC, PERRLA, EOMs intact b/l, nares clear and patent b/l, pharynx without erythema, exudate or lesions. Uvula midline. MMM, EACs without erythema or debris. TMs pearly dunlap with intact landmarks b/l. Neck: supple, No cervical LAD, no thyromegaly, no carotid bruits CV: RRR, n (more content not included)... Normal [facility] CNPNon 01-17-2025 CNPN Telephone (NRMDN) ALEXIS KRAMER ([id number]) 1945 M Date Time Provider Department 01/17[facility] visit today, we recorded the following information about you: Tiffanie Hannah MA 01/17/2025 1:50 PM Signed Received Re-evaluation from [facility]. Placed on Dr. Issa desk for review and signature Tiffanie Hannah MA 01/26/2025 8:58 AM Signed Faxed back and confirmation received Allergies As of Date: 01/17/2025 Noted Allergy Reaction BACTRIM (SULFAMETHOXAZOLE-TRIME TH*08/18/2023 16 - Unknown NARCOTICS (OPIOIDS - MORPHINE RICARDO*2016 8 - GI Upset Comments: vomiting with an oral pain med-has taken morphine without problems Date Reviewed: 08/30/2024 Reviewed by: Gila Issa MD - Fully Assessed Reason for Visit: Orders [681] Prescriptions as of 01/26/2025 - sertraline (ZOLOFT) 50 mg tablet Take 1 tablet by mouth once daily. Add to 100 mg tablet to total 150 mg a day - sertraline (ZOLOFT) 100 mg tablet Take 1 tablet by mouth once daily. In the bedtime, for mood - albuterol (PROVENTIL) 2.5 mg /3 mL (0.083 %) nebulizer solution Use 3 mL via nebulizer two times a day. Use over 5-15minutes. - carbidopa-levodopa (SINEMET 25-100) 25-100 mg per tablet Take 2 tablets by mouth four times daily. - Ibuprofen 200 mg cap Take by mouth. - omeprazole (PRILOSEC) 40 mg capsule Take 1 capsule by mouth once daily. - metoprolol succinate ER (TOPROL XL) 25 mg 24 hr tablet Take 1 tablet by mouth once daily. - simvastatin (ZOCOR) 80 mg tablet Take 1 tablet by mouth daily at bedtime. - aspirin, enteric coated (ASPIRIN, ENTERIC COATED) 81 mg EC tablet Take 1 tablet by mouth once daily. - Magnesium Oxide 500 mg tab Take 1 tablet by mouth once daily. - cholecalciferol (VITAMIN D3) 50 mcg (2,000 unit) tablet Take 1 tablet by mouth once daily. - furosemide (LASIX) 20 mg tablet Take 1 tablet by mouth once daily. For leg swelling - Cyanocobalamin 2,500 mcg subl Dissolve 1 tablet under the tongue twice daily with meals. - acetaminophen (TYLENOL) 500 mg tablet Take 500 mg by mouth every 8 hours as needed. - ondansetron (ZOFRAN) 4 mg tablet every 8 hours as needed. - MEDICATION, NON-DATABASE Standard Wheel Chair Dx Parkinson's Disease Meds Comments as of 2016: Aspirin 325 mg a day OTC Problem List As Of Date 01/17/2025 Noted Resolved Coronary atherosclerosis of autologous artery b*05/05/2016 Pure hypercholesterolemia [E78.00] 05/05/2016 Essential hypertension [I10] 05/05/2016 07/24/2021 Tremor of unknown origin [R25.1] 05/05/2016 Parkinson disease (HCC) [G20.A1] 06/10/2016 Acute on chronic renal insufficiency [N28.9, N1*07/19/2017 01/05/2022 Dehydration, moderate [E86.0] 07/19/2017 01/05/2022 Gastroesophageal reflux disease without esophag*11/05/2017 Parkinson's disease (HCC) [G20.A1] 11/05/2017 Hypertension, essential [I10] 11/05/2017 Stage 3a chronic kidney disease (HCC) [N18.31] 11/05/2017 Neck pain [M54.2] 05/11/2018 IFG (impaired fasting glucose) [R73.01] 11/08/2019 Vitamin D deficiency [E55.9] 11/20/2020 Bilateral cold feet [R20.9] 11/20/2020 Gait disorder [R26.9] 07/09/2021 Fatigue [R53.83] 07/09/2021 Coronary artery disease involving [place]*07/24/2021 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] 07/24/2021 Dysphasia [R47.02] 12/24/2021 Aphasia [R47.01] 12/24/2021 Cognitive impairment, mild, so stated [G31.84] 12/24/2021 Elevated PSA [R97.20] 12/24/2021 Balance disorder [R26.89] 12/24/2021 Microscopic hematuria [R31.29] 12/24/2021 Depressive disorder [F32.A] 12/24/2021 Hypertensive kidney disease with stage 3a chron*01/05/2022 Muscle weakness [M62.81] 01/07/2022 Vitamin B12 deficiency [E53.8] 04/08/2022 Chronic right shoulder pain [M25.511, G89.29] 04/08/2022 Bilateral impacted cerumen [H61.23] 04/08/2022 Bilateral leg edema [R60.0] 07/08/2022 Chronic ulcer of right leg, limited to breakdow*07/08/2022 05/10/2024 Onychomycosis [B35.1] 07/08/2022 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] 07/15/2022 Basal cell carcinoma (BCC) of right lower leg [*10/07/2022 Chronic kidney disease, stage 3a (HCC) [N18.31] 01/06/2023 Leg wound, right, initial encounter [S81.801A] 07/14/2023 Parkinson's disease with dyskinesia and fluctua*10/13/2023 Left hand pain [M79.642] 10/13/2023 Numbness and tingling in left hand [R20.0, R20.*10/13/2023 Short-term memory loss [R41.3] 01/12/2024 Carpal tunnel syndrome, left [G56.02] 01/12/2024 Subacute cough [R05.2] 05/10/2024 Encounter Status:Closed by TIFFANIE HANNAH on 01/26/25 Normal [facility] Re-Evaluation - PT (1)on Re-Evaluation - PT (1) [facility] [address] [place] [address] / REEVALUATION / MEDICARE RECERTIFICATION PHYSICAL THERAPY MR#: [id number] Acct: [id number] Name: ALEXIS KRAMER Rep #: [id number] : 1945 79 From: Trena Hernandez [facility] Referring Dr.: Dr. Gila Issa MD Status:REG RCR Insurance: [employer] [facility] SELF PAY INSURANCE Re-Evaluation Intro: Dr. Gila Issa MD, It has been my pleasure to treat ALEXIS KRMAER over the last 8 visits for PD with dyskinesia. Please see the progress note below for an update on the physical therapy plan of care! Subjective Subjective: Pt thinks that some of this PT is helping. He is learning lots of tips. Things are frustrating because sometimes things change in the middle of walking or an exercises. At times he feels that he is nailed down to the floor. Objective Objective/Function: sit to stand: Pt was able to get 6 times sit to stand using his UE and then on the 7th time he was not weight shifting FW enough. As he did more sit to stands he progressively got more retro LOB. Pt needs to work on turning with his walker...he tries more quick small steps. Pt able to ambulate 157 feet with rolling walker with CGA. Plan Plan Plan: 1-2X/ week for sit to stand transfers, gait training, standing balance, seated opp arm and leg, posture and general mobility with HEP Assess bed mobility on Re-eval Balance/Gait/Functional tests Balance/Special Test Scores Lower Extremity Functional Score: 18 Goals Goals Goal 1:: I HEP Goal Time Frame: 6-8 Weeks Goal 2:: Be able to sit to stand X 10 times in a row Goal Time Frame: 6-8 Weeks Goal 3:: Be able to walk 250 feet with wheeled walker with CGA and verbal cues to take larger steps Goal Time Frame: 6-8 Weeks Goal 4:: Pt [facility] Goal Time Frame: 6-8 Weeks Goal Progress: Progressing Anticipated Interventions Anticipated Interventions Patient/Client Instruction: Educate patient on: Condition and Plan of Care For the Purpose of:: To improve muscle performance and motor function, To improve ability to perform ADL's, To increase tolerance to activity/condition/posi tion, To improve performance and independence with ADL's, To decrease level of supervision to perform tasks, To improve ability of physical actions for home/community/work/lei sure, To improve gait and locomotor functions, To improve health of tissue, To increase flexibility/ROM, To improve endurance, To improve balance, To improve safety with gait and To improve safety Therapeutic Exercise to Include: Strength training, Endurance training, Balance training, Postural training, Gait and locomotor training, Neuromotor development and Active ROM For the Purpose of:: To improve muscle performance and motor function, To improve ability to perform ADL's, To increase tolerance to activity/condition/posi tion, To improve performance and independence with ADL's, To decrease level of supervision to perform tasks, To improve ability of physical actions for home/community/work/lei sure, To improve gait and locomotor functions, To improve health of tissue, To decrease soft tissue restriction, To increase flexibility/ROM, To improve endurance, To improve balance and To improve safety with gait Functional Training to Include: Gait training For the Purpose of:: To improve gait and locomotor functions and To improve safety with gait Re-Evaluation Ending Re-evaluation ending: Please do not hesitate to contact me at [phone] by phone or if you have questions or concerns regarding this new plan of care! Sincerely, SUNSHINE Santos 01/17/25 1056 CC: Dr. Richard Schneider, DO; Dr. Gila Issa MD Signed For Medicare only, by signing this I certify the plan of care. Physicians Signature Date Normal [facility] Absolute neutrophil countOrd ered By: Richard Schneider on 01-11-2025 Neutrophils (Bld) [#/Vol] 4.5 10*3/uL 2.0-7.7 [facility] Anion gap in Serum or Plasma Ordered By: Richard Schneider on 01-11-2025 Anion gap [Moles/Vol] 12 mmol/L 5-15 [facility] BUN/creatinine ratioOrdered By: Richard Schneider on 01-11-2025 Urea nitrogen/Creatinine [Mass ratio] 19.4 mg/mg 10-20 [facility] Basophil percentageOrdered B y: Richard Schneider on 01-11-2025 Basophils/100 WBC (Bld) 0.5 % 0-1 [facility] Bilirubin, totalOrdered By: Richard Schneider on 01-11-2025 Bilirubin [Mass/Vol] 0.55 mg/dL 0.00-1.30 [facility] Carbon dioxide, total [Moles /volume] in Central venous bloodOrdered By: Richard Schneider on 01-11-2025 CO2 [Moles/Vol] 26.9 mmol/L 21.0-32.0 [facility] Chloride assayOrdered By: Iram Schneider on 01-11-2025 Chloride [Moles/Vol] 102 mmol/L 98-108 [facility] Eosinophil percentageOrdered By: Richard Schneider on 01-11-2025 Eosinophils/100 WBC (Bld) 4.4 % 0-5 [facility] Erythrocyte distribution wid th ratioOrdered By: Richard Schneider on 01-11-2025 Erythrocyte distribution width (RBC) [Ratio] 12.5 % 11.6-14.6 [facility] Erythrocyte distribution wid th standard deviationOrdered By: Richard Schneider on 01-11-2025 Erythrocyte distribution width (RBC) [Entitic vol] 44.7 fL High 35.1-43.9 [facility] GFR/1.73 sq M.predicted domo g non-blacks MDRD (S/P/Bld) [Vol rate/Area]Ordered By: Richard Schneider on 01-11-2025 Estimated GFR (MDRD) Non-Af Amer 70 >60 [facility] Comment on above: mL/min/1.73m2 CKD-EP I Creatinine Equation (2020) Hematocrit Auto (Bld) [Volum e fraction]Ordered By: Richard Schneider on 01-11-2025 Hematocrit (Bld) [Volume fraction] 44.1 % 40-54 [facility] Hemoglobin A1c percentageOrd ered By: Richard Schneider on 01-11-2025 HbA1c (Bld) [Mass fraction] 5.6 % Low >5.7 [facility] Hemoglobin measurementOrdere d By: Richard Schneider on 01-11-2025 Hemoglobin (Bld) [Mass/Vol] 14.5 g/dL 13.0-16.5 [facility] Immature granulocytes/100 WB C Auto (Bld)Ordered By: Richard Schneider on 01-11-2025 Immature granulocytes/100 WBC (Bld) 0.300 % 0.0-0.9 [facility] Comment on above: IG% - Immature Granu locytes (promyelocytes, myelocytes and metamyelocytes) > 1% indicates that a LEFT SHIFT is Present. Laboratory - Chemistry and C hemistry - challengeOrdered By: Richard Schneider on 01-11-2025 AST [Catalytic activity/Vol] 30 U/L <38 [facility] Lymphocytes Auto (Unsp spec) [#/Vol]Ordered By: Richard Schneider on 01-11-2025 Lymphocytes (Bld) [#/Vol] 1.07 10*3/uL 0.83-4.51 [facility] Lymphocytes/100 WBC Auto (Un sp spec)Ordered By: Richard Schneider on 01-11-2025 Lymphocytes/100 WBC (Bld) 16.8 % Low 19-41 [facility] MCV (mean corpuscular volume ) determinationOrdered By: Richard Schneider on 01-11-2025 MCV (RBC) [Entitic vol] 96.7 fL High 80-94 [facility] Mean corpuscular hemoglobin (MCH) determinationOrdered By: Richard Schneider on 01-11-2025 MCH (RBC) [Entitic mass] 31.8 pg 27.0-32.0 [facility] Mean corpuscular hemoglobin concentration (MCHC) determinationOrdered By: Richard Schneider on 01-11-2025 MCHC (RBC) [Mass/Vol] 32.9 g/dL 32-36 [facility] Mean platelet volume determi nationOrdered By: Richard Schneider on 01-11-2025 Platelet mean volume (Bld) [Entitic vol] 12.3 fL High 6.2-12.0 [facility] Monocyte percentageOrdered B y: Richard Schneider on 01-11-2025 Monocytes/100 WBC (Bld) 6.9 % 0-10 [facility] Neutrophil percentageOrdered By: Richard Schneider on 01-11-2025 Neutrophils/100 WBC (Bld) 71.1 % High 47-70 [facility] Nucleated red blood cell per centageOrdered By: Richard Schneider on 01-11-2025 Nucleated RBC/100 WBC (Bld) [Ratio] 0 % 0-5 [facility] Platelet countOrdered By: Iram Schneider on 01-11-2025 Platelets (Bld) [#/Vol] 189 10*3/uL 150-450 [facility] Potassium (Unsp spec) [Mass/ Vol]Ordered By: Richard Schneider on 01-11-2025 Potassium [Moles/Vol] 4.4 mmol/L 3.3-5.1 [facility] RBC Auto (Bld) [#/Vol]Ordere d By: Richard Schneider on 01-11-2025 RBC (Bld) [#/Vol] 4.56 10*6/uL Low 4.6-6.2 [facility] Serum creatinine measurement (mass/volume)Ordered By: Richard Schneider on 01-11-2025 Creatinine [Mass/Vol] 1.08 mg/dL 0.70-1.20 [facility] Serum globulin measurementOr dered By: Richard Schneider on 01-11-2025 Globulin (S) [Mass/Vol] 1.2 g/dL Low 2.2-4.2 [facility] Serum glucose measurement (m ass/volume)Ordered By: Richard Schneider on 01-11-2025 Glucose [Mass/Vol] 84 mg/dL 70-99 [facility] Serum or plasma alanine watters otransferase (ALT) measurementOrdered By: Richard Schneider on 01-11-2025 ALT [Catalytic activity/Vol] 15 U/L <47 [facility] Serum or plasma albumin nelia urement (mass/volume)Ordered By: Richard Schneider on 01-11-2025 Albumin [Mass/Vol] 4.7 g/dL 3.4-4.8 [facility] Serum or plasma albumin/glob ulin mass ratioOrdered By: Richard Schneider on 01-11-2025 Albumin/Globulin [Mass ratio] 4.0 {ratio} High 0.9-2.4 [facility] Serum or plasma alkaline bianka sphatase measurementOrdered By: Richard Schneider on 01-11-2025 ALP [Catalytic activity/Vol] 90 U/L 40-129 [facility] Serum or plasma calcium nelia urement (mass/volume)Ordered By: Richard Schneider on 01-11-2025 Calcium [Mass/Vol] 9.3 mg/dL 7.6-11.0 [facility] Serum or plasma urea nitroge n measurement (mass/volume)Ordered By: Richard Schneider on 01-11-2025 Urea nitrogen [Mass/Vol] 21 mg/dL High 4-19 [facility] Sodium levelOrdered By: Patricia Schneider on 01-11-2025 Sodium [Moles/Vol] 141 mmol/L 133-145 [facility] Total proteinOrdered By: Jason Schneider on 01-11-2025 Protein [Mass/Vol] 5.9 g/dL 5.9-8.4 [facility] Vitamin B12 ser/plasOrdered By: Richard Schneider on 01-11-2025 Cobalamin (Vitamin B12) [Mass/Vol] 1876 pg/mL High 180-914 [facility] Vitamin D, 25-hydroxyOrdered By: Richard Schneider on 01-11-2025 Vitamin D 25-Hydroxy 46.9 ng/mL 30-100 [facility] Comment on above: Vitamin D StatusDefi ciency: <20 ng/mL (50nmol/L)Insufficiency: 20-30 ng/mL (50-75 nmol/L)Sufficiency: 30-100 ng/mL (75-250 nmol/L)Toxicity: >100 ng/mL (>250 nmol/L) White blood cell (WBC) count Ordered By: Richard Schneider on 01-11-2025 WBC (Bld) [#/Vol] 6.4 10*3/uL 4.4-11.0 [facility] AELX[facility]RAM[facility] ([id number]) 1945 M Date Time Provider Department 12/21/24 [facility] During your visit today, we recorded the following information about you: Vivien Martinez MA 12/21/2024 1:49 PM Signed Scripts pended. See note from Stefani in your box. EMILY Noe Rebekah, APRN.[facility] 12/21/2024 1:53 PM Signed The following approved medication requests have been transmitted electronically. Requested Prescriptions Signed Prescriptions Disp Refills sertraline (ZOLOFT) 50 mg tablet 90 tablet 1 Sig: Take 1 tablet by mouth once daily. Add to 100 mg tablet to total 150 mg a day Authorizing Provider: RICHARD SCHNEIDER Ordering User: ROB COPELAND sertraline (ZOLOFT) 100 mg tablet 90 tablet 3 Sig: Take 1 tablet by mouth once daily. In the bedtime, for mood Authorizing Provider: RICHARD SCHNEIDER Ordering User: ROB COPELAND APRN.CNP Holiday, [place], [place] 12/21/2024 1:56 PM Signed Sis notified Vivien Martinez MA Allergies As of Date: 12/21/2024 Noted Allergy Reaction BACTRIM (SULFAMETHOXAZOLE-TRIME TH*08/18/2023 16 - Unknown NARCOTICS (OPIOIDS - MORPHINE RICARDO*2016 8 - GI Upset Comments: vomiting with an oral pain med-has taken morphine without problems Date Reviewed: 08/30/2024 Reviewed by: Gila Issa MD - Fully Assessed Reason for Visit: Orders [681] Order(s):sertraline (ZOLOFT) 50 mg tabletTake 1 tablet by mouth once daily. Add to 100 mg tablet to total 150 mg a dayDisp: 90 tabletRfl: 1 sertraline (ZOLOFT) 100 mg tabletTake 1 tablet by mouth once daily. In the bedtime, for moodDisp: 90 tabletRfl: 3 Prescriptions as of 12/21/2024 - sertraline (ZOLOFT) 50 mg tablet Take 1 tablet by mouth once daily. Add to 100 mg tablet to total 150 mg a day - sertraline (ZOLOFT) 100 mg tablet Take 1 tablet by mouth once daily. In the bedtime, for mood - albuterol (PROVENTIL) 2.5 mg /3 mL (0.083 %) nebulizer solution Use 3 mL via nebulizer two times a day. Use over 5-15minutes. - carbidopa-levodopa (SINEMET 25-100) 25-100 mg per tablet Take 2 tablets by mouth four times daily. - Ibuprofen 200 mg cap Take by mouth. - omeprazole (PRILOSEC) 40 mg capsule Take 1 capsule by mouth once daily. - metoprolol succinate ER (TOPROL XL) 25 mg 24 hr tablet Take 1 tablet by mouth once daily. - simvastatin (ZOCOR) 80 mg tablet Take 1 tablet by mouth daily at bedtime. - aspirin, enteric coated (ASPIRIN, ENTERIC COATED) 81 mg EC tablet Take 1 tablet by mouth once daily. - Magnesium Oxide 500 mg tab Take 1 tablet by mouth once daily. - cholecalciferol (VITAMIN D3) 50 mcg (2,000 unit) tablet Take 1 tablet by mouth once daily. - furosemide (LASIX) 20 mg tablet Take 1 tablet by mouth once daily. For leg swelling - Cyanocobalamin 2,500 mcg subl Dissolve 1 tablet under the tongue twice daily with meals. - acetaminophen (TYLENOL) 500 mg tablet Take 500 mg by mouth every 8 hours as needed. - ondansetron (ZOFRAN) 4 mg tablet every 8 hours as needed. 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/05/2016 Pure hypercholesterolemia [E78.00] 05/05/2016 Essential hypertension [I10] 05/05/2016 07/24/2021 Tremor of unknown origin [R25.1] 05/05/2016 Parkinson disease (HCC) [G20.A1] 06/10/2016 Acute on chronic renal insufficiency [N28.9, N1*07/19/2017 01/05/2022 Dehydration, moderate [E86.0] 07/19/2017 01/05/2022 Gastroesophageal reflux disease without esophag*11/05/2017 Parkinson's disease (HCC) [G20.A1] 11/05/2017 Hypertension, essential [I10] 11/05/2017 Stage 3a chronic kidney disease (HCC) [N18.31] 11/05/2017 Neck pain [M54.2] 05/11/2018 IFG (impaired fasting glucose) [R73.01] 11/08/2019 Vitamin D deficiency [E55.9] 11/20/2020 Bilateral cold feet [R20.9] 11/20/2020 Gait disorder [R26.9] 07/09/2021 Fatigue [R53.83] 07/09/2021 Coronary artery disease involving [place] turcios*07/24/2021 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] 07/24/2021 Dysphasia [R47.02] 12/24/2021 Aphasia [R47.01] 12/24/2021 Cognitive impairment, mild, so stated [G31.84] 12/24/2021 Elevated PSA [R97.20] 12/24/2021 Balance disorder [R26.89] 12/24/2021 Microscopic hematuria [R31.29] 12/24/2021 Depressive disorder [F32.A] 12/24/2021 Hypertensive kidney disease with stage 3a chron*01/05/2022 Muscle weakness [M62.81] 01/07/2022 Vitamin B12 deficiency [E53.8] 04/08/2022 Chronic right shoulder pain [M25.511, G89.29] 04/08/2022 Bilateral impacted cerumen [H61.23] 04/08/2022 Bilateral leg edema [R60.0] 07/08/2022 Chronic ulcer of right leg, limited to breakdow*07/08/2022 05/10/2024 Onychomycosis [B35.1] 07/08/2022 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] 07/15/2022 (more content not included)... Normal [facility] CNPN Telephone (NRMDN) ALEXIS KRAMER ([id number]) 1945 M Date Time Provider Department 12/21/24 GILA ISSA CAESAR During your visit today, we recorded the following information about you: Tiffanie Hannah MA 12/21/2024 2:59 PM Signed Received Rehab eval from [facility]. Placed on Dr. Issa desk for signature Tiffanie Hannah MA 12/22/2024 8:54 AM Signed Faxed back and confirmation received Allergies As of Date: 12/21/2024 Noted Allergy Reaction BACTRIM (SULFAMETHOXAZOLE-TRIME TH*08/18/2023 16 - Unknown NARCOTICS (OPIOIDS - MORPHINE RICARDO*2016 8 - GI Upset Comments: vomiting with an oral pain med-has taken morphine without problems Date Reviewed: 08/30/2024 Reviewed by: Gila Issa MD - Fully Assessed Reason for Visit: Orders [681] Prescriptions as of 12/22/2024 - sertraline (ZOLOFT) 50 mg tablet Take 1 tablet by mouth once daily. Add to 100 mg tablet to total 150 mg a day - sertraline (ZOLOFT) 100 mg tablet Take 1 tablet by mouth once daily. In the bedtime, for mood - albuterol (PROVENTIL) 2.5 mg /3 mL (0.083 %) nebulizer solution Use 3 mL via nebulizer two times a day. Use over 5-15minutes. - carbidopa-levodopa (SINEMET 25-100) 25-100 mg per tablet Take 2 tablets by mouth four times daily. - Ibuprofen 200 mg cap Take by mouth. - omeprazole (PRILOSEC) 40 mg capsule Take 1 capsule by mouth once daily. - metoprolol succinate ER (TOPROL XL) 25 mg 24 hr tablet Take 1 tablet by mouth once daily. - simvastatin (ZOCOR) 80 mg tablet Take 1 tablet by mouth daily at bedtime. - aspirin, enteric coated (ASPIRIN, ENTERIC COATED) 81 mg EC tablet Take 1 tablet by mouth once daily. - Magnesium Oxide 500 mg tab Take 1 tablet by mouth once daily. - cholecalciferol (VITAMIN D3) 50 mcg (2,000 unit) tablet Take 1 tablet by mouth once daily. - furosemide (LASIX) 20 mg tablet Take 1 tablet by mouth once daily. For leg swelling - Cyanocobalamin 2,500 mcg subl Dissolve 1 tablet under the tongue twice daily with meals. - acetaminophen (TYLENOL) 500 mg tablet Take 500 mg by mouth every 8 hours as needed. - ondansetron (ZOFRAN) 4 mg tablet every 8 hours as needed. 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/05/2016 Pure hypercholesterolemia [E78.00] 05/05/2016 Essential hypertension [I10] 05/05/2016 07/24/2021 Tremor of unknown origin [R25.1] 05/05/2016 Parkinson disease (HCC) [G20.A1] 06/10/2016 Acute on chronic renal insufficiency [N28.9, N1*07/19/2017 01/05/2022 Dehydration, moderate [E86.0] 07/19/2017 01/05/2022 Gastroesophageal reflux disease without esophag*11/05/2017 Parkinson's disease (HCC) [G20.A1] 11/05/2017 Hypertension, essential [I10] 11/05/2017 Stage 3a chronic kidney disease (HCC) [N18.31] 11/05/2017 Neck pain [M54.2] 05/11/2018 IFG (impaired fasting glucose) [R73.01] 11/08/2019 Vitamin D deficiency [E55.9] 11/20/2020 Bilateral cold feet [R20.9] 11/20/2020 Gait disorder [R26.9] 07/09/2021 Fatigue [R53.83] 07/09/2021 Coronary artery disease involving [place] turcios*07/24/2021 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] 07/24/2021 Dysphasia [R47.02] 12/24/2021 Aphasia [R47.01] 12/24/2021 Cognitive impairment, mild, so stated [G31.84] 12/24/2021 Elevated PSA [R97.20] 12/24/2021 Balance disorder [R26.89] 12/24/2021 Microscopic hematuria [R31.29] 12/24/2021 Depressive disorder [F32.A] 12/24/2021 Hypertensive kidney disease with stage 3a chron*01/05/2022 Muscle weakness [M62.81] 01/07/2022 Vitamin B12 deficiency [E53.8] 04/08/2022 Chronic right shoulder pain [M25.511, G89.29] 04/08/2022 Bilateral impacted cerumen [H61.23] 04/08/2022 Bilateral leg edema [R60.0] 07/08/2022 Chronic ulcer of right leg, limited to breakdow*07/08/2022 05/10/2024 Onychomycosis [B35.1] 07/08/2022 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] 07/15/2022 Basal cell carcinoma (BCC) of right lower leg [*10/07/2022 Chronic kidney disease, stage 3a (HCC) [N18.31] 01/06/2023 Leg wound, right, initial encounter [S81.801A] 07/14/2023 Parkinson's disease with dyskinesia and fluctua*10/13/2023 Left hand pain [M79.642] 10/13/2023 Numbness and tingling in left hand [R20.0, R20.*10/13/2023 Short-term memory loss [R41.3] 01/12/2024 Carpal tunnel syndrome, left [G56.02] 01/12/2024 Subacute cough [R05.2] 05/10/2024 Encounter Status:Closed by TIFFANIE HANNAH on 12/22/24 Normal [facility] Inital Evaluation (1) - PTon 12-20-2024 Inital Evaluation (1) - PT [facility] Physical Therapy [facility] [address] [place] [address] / REHABILITATION SERVICES INITIAL EVALUATION MR#: [id number] Acct: [id number] Name: ALEXIS KRAMER Rep #: [id number] : 1945 79 From: Trena GONSALEZ Referring Dr.: Dr. Gila Issa MD Status: REG RCR [facility] Patient's Visit Information Visit Information Visit Information: ALEXIS KRAMER is a 79 year old M referred to Physical Therapy by Dr. Gila Issa MD with a diagnosis of PD with dyskinesia. Date of Evaluation: 12/20/24 Physical Therapist: SUNSHINE Santos Visit Plan Frequency: 1-2x /Week Duration: 3 Months Plan: 1-2X/ week for sit to stand transfers, gait training, standing balance, seated opp arm and leg, posture and general mobility with HEP Assess bed mobility on Re-eval Subjective Subjective: Her daughter is present. He has PD and has had it for 15 years. He lives at [facility] for 3 years. He was able to use the walker to walk. He attempts to use the walker in his room and to go to the dining room. His legs feel like cement and hard to walk. He is having trouble getting out of bed most of the time and uses his call button. Mornings are not good. He has a thick phlegm build up in his lungs but no trouble swallowing and no choking. He is not exercising. He will walk on a good day. Objective Objective: LE MMT: B hip flex 4/5 B knee ext 4/5 B knee flex 4/5 Sit to stand: not able to get up on first attempt. He does not like to weight shift FW and likes to pull himself to stand. After instructing in how to get up pt was able to get up much easier using 2 UE assist and min A by therapist to weight shift him forward. Gait: walks with rolling walker with short steps and does not pick R foot up at times. Has a hard time finding his center of gravity. With verbal cues and pushing the walker a little farther out in front of him, he was able to take larger steps but did need constant cueing. He struggles with turning 180 degrees to get into the chair...takes very small steps and does not filler picker his feet much. Nu-step L1 X 5 min Balance/Special Test Scores Lower Extremity Functional Score: 10 Goals Goal 1:: I HEP Goal Time Frame: 6-8 Weeks Goal 2:: Be able to sit to stand X 5 times in a row Goal Time Frame: 6-8 Weeks Goal 3:: Be able to walk 150 feet with wheeled walker with CGA and verbal cues to take larger steps Goal Time Frame: 6-8 Weeks Goal 4:: Pt to report improvement with his walking at the [facility] Goal Time Frame: 6-8 Weeks Rehabilitation Potential Rehabilitation Potential: Good Anticipated Interventions Patient/Client Instruction: Educate patient on: Condition and Plan of Care For the Purpose of:: To improve muscle performance and motor function, To improve ability to perform ADL's, To increase tolerance to activity/condition/posi tion, To improve performance and independence with ADL's, To decrease level of supervision to perform tasks, To improve ability of physical actions for home/community/work/lei sure, To improve gait and locomotor functions, To improve health of tissue, To increase flexibility/ROM, To improve endurance, To improve balance, To improve safety with gait and To improve safety Therapeutic Exercise to Include: Strength training, Endurance training, Balance training, Postural training, Gait and locomotor training, Neuromotor development and Active ROM For the Purpose of:: To improve muscle performance and motor function, To improve ability to perform ADL's, To increase tolerance to activity/condition/posi tion, To improve performance and independence with ADL's, To decrease level of supervision to perform tasks, To improve ability of physical actions for home/community/work/lei sure, To improve gait and locomotor functions, To improve health of tissue, To decrease soft tissue restriction, To increase flexibility/ROM, To improve endurance, To improve balance and To improve safety with gait Functional Training to Include: Gait training For the Purpose of:: To improve gait and locomotor functions and To improve safety with gait Text: Thank you for the opportunity to evaluate your patient. For Medicare and Medicare HMO plans, please review the plan of care and approve it. It will need to be FAXED BACK to us at [phone] for Medicare purposes. For Medicare only, by signing this I certify the plan of care. Please let me know if there are questions or concerns regarding this plan of care. Physician Signature: Date: 12/20/24 1250 CC: Dr. Richard Schneider DO; Dr. Gila Issa MD Signed Normal [facility] 12-18-2024 CNPN Telephone (FAMPWS) ALEXIS KRAMER ([id number]) 1945 M Date Time Provider Department 12/18/24 [facility] During your visit today, we recorded the following information about you: Ольга Young MA 12/18/2024 1:52 PM Signed Message sent in pt's daughter with update. Please review and advise. Ольга Young MA Pt message: Hello. Dad is having increased difficulty with walking and even being able to get out of bed without assistance is sometimes impossible. He?s feeling very weak and I?m noticing that he seems depressed. Wondering if maybe an increase dose of his depression medicine could help some? [facility] evaluation, as suggested by Dr issa. He?s still trying to walk, but it?s becoming more and more difficult. So I don?t think he?s giving up but he?s definitely depressed. The staff at [facility] have also noticed. Thank you! Richard Carney DO 12/19/2024 4:21 PM Signed Please let Sis know, okay to increase zoloft to 150 mg a day Richard Schneider DO The following approved medication requests have been transmitted electronically. Requested Prescriptions Signed Prescriptions Disp Refills sertraline (ZOLOFT) 50 mg tablet 90 tablet 1 Sig: Take 1 tablet by mouth once daily. Add to 100 mg tablet to total 150 mg a day Authorizing Provider: RICHARD SCHNEIDER DO Detwiler-Green, Susan LPN 12/20/2024 9:02 AM Signed Sis informed. Jerrica Mehta RN 12/20/2024 11:19 AM Signed Daughter (Sis) calls to request the order for increased Zoloft be sent to [facility] so they have it for their files as well. Faxed order to [phone] per request. Jerrica Mehta RN Allergies As of Date: 12/18/2024 Noted Allergy Reaction BACTRIM (SULFAMETHOXAZOLE-TRIME TH*08/18/2023 16 - Unknown NARCOTICS (OPIOIDS - MORPHINE RICARDO*2016 8 - GI Upset Comments: vomiting with an oral pain med-has taken morphine without problems Date Reviewed: 08/30/2024 Reviewed by: Gila Issa MD - Fully Assessed Reason for Visit: Patient Update [1234] Order(s):sertraline (ZOLOFT) 50 mg tabletTake 1 tablet by mouth once daily. Add to 100 mg tablet to total 150 mg a dayDisp: 90 tabletRfl: 1 Prescriptions as of 12/20/2024 - sertraline (ZOLOFT) 50 mg tablet Take 1 tablet by mouth once daily. Add to 100 mg tablet to total 150 mg a day - albuterol (PROVENTIL) 2.5 mg /3 mL (0.083 %) nebulizer solution Use 3 mL via nebulizer two times a day. Use over 5-15minutes. - carbidopa-levodopa (SINEMET 25-100) 25-100 mg per tablet Take 2 tablets by mouth four times daily. - Ibuprofen 200 mg cap Take by mouth. - omeprazole (PRILOSEC) 40 mg capsule Take 1 capsule by mouth once daily. - metoprolol succinate ER (TOPROL XL) 25 mg 24 hr tablet Take 1 tablet by mouth once daily. - simvastatin (ZOCOR) 80 mg tablet Take 1 tablet by mouth daily at bedtime. - aspirin, enteric coated (ASPIRIN, ENTERIC COATED) 81 mg EC tablet Take 1 tablet by mouth once daily. - Magnesium Oxide 500 mg tab Take 1 tablet by mouth once daily. - cholecalciferol (VITAMIN D3) 50 mcg (2,000 unit) tablet Take 1 tablet by mouth once daily. - sertraline (ZOLOFT) 100 mg tablet Take 1 tablet by mouth once daily. In the bedtime, for mood - furosemide (LASIX) 20 mg tablet Take 1 tablet by mouth once daily. For leg swelling - Cyanocobalamin 2,500 mcg subl Dissolve 1 tablet under the tongue twice daily with meals. - acetaminophen (TYLENOL) 500 mg tablet Take 500 mg by mouth every 8 hours as needed. - ondansetron (ZOFRAN) 4 mg tablet every 8 hours as needed. 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/05/2016 Pure hypercholesterolemia [E78.00] 05/05/2016 Essential hypertension [I10] 05/05/2016 07/24/2021 Tremor of unknown origin [R25.1] 05/05/2016 Parkinson disease (HCC) [G20.A1] 06/10/2016 Acute on chronic renal insufficiency [N28.9, N1*07/19/2017 01/05/2022 Dehydration, moderate [E86.0] 07/19/2017 01/05/2022 Gastroesophageal reflux disease without esophag*11/05/2017 Parkinson's disease (HCC) [G20.A1] 11/05/2017 Hypertension, essential [I10] 11/05/2017 Stage 3a chronic kidney disease (HCC) [N18.31] 11/05/2017 Neck pain [M54.2] 05/11/2018 IFG (impaired fasting glucose) [R73.01] 11/08/2019 Vitamin D deficiency [E55.9] 11/20/2020 Bilateral cold feet [R20.9] 11/20/2020 Gait disorder [R26.9] 07/09/2021 Fatigue [R53.83] 07/09/2021 Coronary artery disease involving [place] turcios*07/24/2021 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 Normal [facility] ALEXIS KRAMER ([id number]) 1945 M Date Time Provider Department 10/16/24 RICHARD SCHNEIDER [facility] During your visit today, we recorded the following information about you: Amita Bojorquez RN 10/16/2024 9:46 AM Signed Pts josselin Sis called in and reports Pt has been using the nebulizer for a week or so, and hasn't noticed that it has helped much with his phlegm. She states Jayce is going to keep giving them to him until the provider tells them not to. She is asking if there is anything else the provider would recommend for the Pt to help him get rid of the phlegm. She said or is this just his new normal after the Parkinson's and he is just going to have to get used to it. Please call Pts josselin back. Richard Schneider DO 10/16/2024 4:18 PM Signed Only other option would be to see [employer]. I don't have any other options to use other than trial of an antihistamine such as Claritin or Angie or Zyrtec DO Rahul Morales Susan LPN 10/16/2024 4:22 PM Signed Pt's daughter informed. Allergies As of Date: 10/16/2024 Noted Allergy Reaction BACTRIM (SULFAMETHOXAZOLE-TRIME TH*08/18/2023 16 - Unknown NARCOTICS (OPIOIDS - MORPHINE RICARDO*2016 8 - GI Upset Comments: vomiting with an oral pain med-has taken morphine without problems Date Reviewed: 08/30/2024 Reviewed by: Gila Issa MD - Fully Assessed Reason for Visit: Patient Question [5252] Prescriptions as of 10/16/2024 - albuterol (PROVENTIL) 2.5 mg /3 mL (0.083 %) nebulizer solution Use 3 mL via nebulizer two times a day. Use over 5-15minutes. - carbidopa-levodopa (SINEMET 25-100) 25-100 mg per tablet Take 2 tablets by mouth four times daily. - Ibuprofen 200 mg cap Take by mouth. - omeprazole (PRILOSEC) 40 mg capsule Take 1 capsule by mouth once daily. - metoprolol succinate ER (TOPROL XL) 25 mg 24 hr tablet Take 1 tablet by mouth once daily. - simvastatin (ZOCOR) 80 mg tablet Take 1 tablet by mouth daily at bedtime. - aspirin, enteric coated (ASPIRIN, ENTERIC COATED) 81 mg EC tablet Take 1 tablet by mouth once daily. - Magnesium Oxide 500 mg tab Take 1 tablet by mouth once daily. - cholecalciferol (VITAMIN D3) 50 mcg (2,000 unit) tablet Take 1 tablet by mouth once daily. - sertraline (ZOLOFT) 100 mg tablet Take 1 tablet by mouth once daily. In the bedtime, for mood - furosemide (LASIX) 20 mg tablet Take 1 tablet by mouth once daily. For leg swelling - Cyanocobalamin 2,500 mcg subl Dissolve 1 tablet under the tongue twice daily with meals. - acetaminophen (TYLENOL) 500 mg tablet Take 500 mg by mouth every 8 hours as needed. - ondansetron (ZOFRAN) 4 mg tablet every 8 hours as needed. - MEDICATION, NON-DATABASE Standard Wheel Chair Dx Parkinson's Disease Meds Comments as of 2016: Aspirin 325 mg a day OTC Problem List As Of Date 10/16/2024 Noted Resolved Coronary atherosclerosis of autologous artery b*05/05/2016 Pure hypercholesterolemia [E78.00] 05/05/2016 Essential hypertension [I10] 05/05/2016 07/24/2021 Tremor of unknown origin [R25.1] 05/05/2016 Parkinson disease (HCC) [G20.A1] 06/10/2016 Acute on chronic renal insufficiency [N28.9, N1*07/19/2017 01/05/2022 Dehydration, moderate [E86.0] 07/19/2017 01/05/2022 Gastroesophageal reflux disease without esophag*11/05/2017 Parkinson's disease (HCC) [G20.A1] 11/05/2017 Hypertension, essential [I10] 11/05/2017 Stage 3a chronic kidney disease (HCC) [N18.31] 11/05/2017 Neck pain [M54.2] 05/11/2018 IFG (impaired fasting glucose) [R73.01] 11/08/2019 Vitamin D deficiency [E55.9] 11/20/2020 Bilateral cold feet [R20.9] 11/20/2020 Gait disorder [R26.9] 07/09/2021 Fatigue [R53.83] 07/09/2021 Coronary artery disease involving [place] turcios*07/24/2021 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] 07/24/2021 Dysphasia [R47.02] 12/24/2021 Aphasia [R47.01] 12/24/2021 Cognitive impairment, mild, so stated [G31.84] 12/24/2021 Elevated PSA [R97.20] 12/24/2021 Balance disorder [R26.89] 12/24/2021 Microscopic hematuria [R31.29] 12/24/2021 Depressive disorder [F32.A] 12/24/2021 Hypertensive kidney disease with stage 3a chron*01/05/2022 Muscle weakness [M62.81] 01/07/2022 Vitamin B12 deficiency [E53.8] 04/08/2022 Chronic right shoulder pain [M25.511, G89.29] 04/08/2022 Bilateral impacted cerumen [H61.23] 04/08/2022 Bilateral leg edema [R60.0] 07/08/2022 Chronic ulcer of right leg, limited to breakdow*07/08/2022 05/10/2024 Onychomycosis [B35.1] 07/08/2022 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] 07/15/2022 Basal cell carcinoma (BCC) of right lower leg [*10/07/2022 Chronic kidney disease, stage 3a (HCC) [N18.31] 01/06/2023 Leg wound, right, initial encounter [S81.801A] 07/14/2023 Parkinson's disease with dyskinesia and fluctua*10/13/2023 Left hand pain [M79.642] 10/13/2023 Numbness and tingling in left hand [R20.0, R20.*12 (more content not included)... Normal [facility] 10-06-2024 CNPN Telephone (FAMPWS) ALEXIS KRAMER ([id number]) 1945 M Date Time Provider Department 10/06/24 RICHARD SCHNEIDER [facility] During your visit today, we recorded the following information about you: Amelia Goldberg, KACIE 10/06/2024 11:06 AM Signed Priya from [facility] calling and states that [facility] [place] face office notes and diagnosis codes for pt's nebulizer. [facility] [place] [phone]. Sent 08/30/[address] [facility]a neurologist, phone encounter from 09/22/24 and order that has dx codes on it for nebulizer. [place] [facility] Priya [place] [facility] for them to have on file in case they need it again. Allergies As of Date: 10/06/2024 Noted Allergy Reaction BACTRIM (SULFAMETHOXAZOLE-TRIME TH*08/18/2023 16 - Unknown NARCOTICS (OPIOIDS - MORPHINE RICARDO*2016 8 - GI Upset Comments: vomiting with an oral pain med-has taken morphine without problems Date Reviewed: 08/30/2024 Reviewed by: Gila Issa MD - Fully Assessed Reason for Visit: Information needed for DME company for nebulizer [Other] Prescriptions as of 10/06/2024 - albuterol (PROVENTIL) 2.5 mg /3 mL (0.083 %) nebulizer solution Use 3 mL via nebulizer two times a day. Use over 5-15minutes. - guaiFENesin (MUCINEX) 600 mg 12 hr tablet Take 2 tablets by mouth two times a day. - carbidopa-levodopa (SINEMET 25-100) 25-100 mg per tablet Take 2 tablets by mouth four times daily. - Ibuprofen 200 mg cap Take by mouth. - omeprazole (PRILOSEC) 40 mg capsule Take 1 capsule by mouth once daily. - metoprolol succinate ER (TOPROL XL) 25 mg 24 hr tablet Take 1 tablet by mouth once daily. - simvastatin (ZOCOR) 80 mg tablet Take 1 tablet by mouth daily at bedtime. - aspirin, enteric coated (ASPIRIN, ENTERIC COATED) 81 mg EC tablet Take 1 tablet by mouth once daily. - Magnesium Oxide 500 mg tab Take 1 tablet by mouth once daily. - cholecalciferol (VITAMIN D3) 50 mcg (2,000 unit) tablet Take 1 tablet by mouth once daily. - sertraline (ZOLOFT) 100 mg tablet Take 1 tablet by mouth once daily. In the bedtime, for mood - furosemide (LASIX) 20 mg tablet Take 1 tablet by mouth once daily. For leg swelling - Cyanocobalamin 2,500 mcg subl Dissolve 1 tablet under the tongue twice daily with meals. - acetaminophen (TYLENOL) 500 mg tablet Take 500 mg by mouth every 8 hours as needed. - ondansetron (ZOFRAN) 4 mg tablet every 8 hours as needed. - MEDICATION, NON-DATABASE Standard Wheel Chair Dx Parkinson's Disease Meds Comments as of 2016: Aspirin 325 mg a day OTC Problem List As Of Date 10/06/2024 Noted Resolved Coronary atherosclerosis of autologous artery b*05/05/2016 Pure hypercholesterolemia [E78.00] 05/05/2016 Essential hypertension [I10] 05/05/2016 07/24/2021 Tremor of unknown origin [R25.1] 05/05/2016 Parkinson disease (HCC) [G20.A1] 06/10/2016 Acute on chronic renal insufficiency [N28.9, N1*07/19/2017 01/05/2022 Dehydration, moderate [E86.0] 07/19/2017 01/05/2022 Gastroesophageal reflux disease without esophag*11/05/2017 Parkinson's disease (HCC) [G20.A1] 11/05/2017 Hypertension, essential [I10] 11/05/2017 Stage 3a chronic kidney disease (HCC) [N18.31] 11/05/2017 Neck pain [M54.2] 05/11/2018 IFG (impaired fasting glucose) [R73.01] 11/08/2019 Vitamin D deficiency [E55.9] 11/20/2020 Bilateral cold feet [R20.9] 11/20/2020 Gait disorder [R26.9] 07/09/2021 Fatigue [R53.83] 07/09/2021 Coronary artery disease involving [place] turcios*07/24/2021 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] 07/24/2021 Dysphasia [R47.02] 12/24/2021 Aphasia [R47.01] 12/24/2021 Cognitive impairment, mild, so stated [G31.84] 12/24/2021 Elevated PSA [R97.20] 12/24/2021 Balance disorder [R26.89] 12/24/2021 Microscopic hematuria [R31.29] 12/24/2021 Depressive disorder [F32.A] 12/24/2021 Hypertensive kidney disease with stage 3a chron*01/05/2022 Muscle weakness [M62.81] 01/07/2022 Vitamin B12 deficiency [E53.8] 04/08/2022 Chronic right shoulder pain [M25.511, G89.29] 04/08/2022 Bilateral impacted cerumen [H61.23] 04/08/2022 Bilateral leg edema [R60.0] 07/08/2022 Chronic ulcer of right leg, limited to breakdow*07/08/2022 05/10/2024 Onychomycosis [B35.1] 07/08/2022 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] 07/15/2022 Basal cell carcinoma (BCC) of right lower leg [*10/07/2022 Chronic kidney disease, stage 3a (HCC) [N18.31] 01/06/2023 Leg wound, right, initial encounter [S81.801A] 07/14/2023 Parkinson's disease with dyskinesia and fluctua*10/13/2023 Left hand pain [M79.642] 10/13/2023 Numbness and tingling in left hand [R20.0, R20.*10/13/2023 Short-term memory loss [R41.3] 01/12/2024 Carpal tunnel syndrome, left [G56.02] 01/12/2024 Subacute cough [R05.2] 05/10/2024 Encounter Status:Closed by AMELIA [facility]ERG [facility]LEX[facility]RAM[facility] ([id number]) 1945 M Date Time Provider Department 10/04/24 RICHARD SCHNEIDER [facility] During your visit today, we recorded the following information about you: Lynn Gray LPN 10/04/2024 11:40 AM Signed Padmini with [employer] reports they have sent several faxes regarding Nebulizer solution and also needs an order for the machine. They will try to order from [employer]. Please fax orders to [facility] FAX: [phone]. They never received anything earlier. 1)orders for nebulizer solution 2)order for machine. TRACI Minor Rachel L, MA 10/04/2024 1:58 PM Signed Order for Albuterol was faxed to on 09/29. Reordered and pended along with order for nebulizer. Please sign. Orders will need to be faxed. EMILY Arriaga Jordan L, DO 10/04/2024 4:16 PM Signed Please fax rx MARTY Morales Rachel L, MA 10/04/2024 4:18 PM Signed Faxed as requested. Liliya Patel MA Allergies As of Date: 10/04/2024 Noted Allergy Reaction BACTRIM (SULFAMETHOXAZOLE-TRIME TH*08/18/2023 16 - Unknown NARCOTICS (OPIOIDS - MORPHINE RICARDO*2016 8 - GI Upset Comments: vomiting with an oral pain med-has taken morphine without problems Date Reviewed: 08/30/2024 Reviewed by: Gila Issa MD - Fully Assessed Reason for Visit: Orders [681] Primary Visit Diagnosis:SOB (shortness of breath) [R06.02] Other Visit Diagnoses:Wheezing [R06.2] Chest congestion [R09.89] Order(s):NEBULIZER [[id number]] Order #: [id number] albuterol (PROVENTIL) 2.5 mg /3 mL (0.083 %) nebulizer solutionUse 3 mL via nebulizer two times a day. Use over 5-15minutes.Disp: 60 mLRfl: 3 Prescriptions as of 10/04/2024 - albuterol (PROVENTIL) 2.5 mg /3 mL (0.083 %) nebulizer solution Use 3 mL via nebulizer two times a day. Use over 5-15minutes. - guaiFENesin (MUCINEX) 600 mg 12 hr tablet Take 2 tablets by mouth two times a day. - carbidopa-levodopa (SINEMET 25-100) 25-100 mg per tablet Take 2 tablets by mouth four times daily. - Ibuprofen 200 mg cap Take by mouth. - omeprazole (PRILOSEC) 40 mg capsule Take 1 capsule by mouth once daily. - metoprolol succinate ER (TOPROL XL) 25 mg 24 hr tablet Take 1 tablet by mouth once daily. - simvastatin (ZOCOR) 80 mg tablet Take 1 tablet by mouth daily at bedtime. - aspirin, enteric coated (ASPIRIN, ENTERIC COATED) 81 mg EC tablet Take 1 tablet by mouth once daily. - Magnesium Oxide 500 mg tab Take 1 tablet by mouth once daily. - cholecalciferol (VITAMIN D3) 50 mcg (2,000 unit) tablet Take 1 tablet by mouth once daily. - sertraline (ZOLOFT) 100 mg tablet Take 1 tablet by mouth once daily. In the bedtime, for mood - furosemide (LASIX) 20 mg tablet Take 1 tablet by mouth once daily. For leg swelling - Cyanocobalamin 2,500 mcg subl Dissolve 1 tablet under the tongue twice daily with meals. - acetaminophen (TYLENOL) 500 mg tablet Take 500 mg by mouth every 8 hours as needed. - ondansetron (ZOFRAN) 4 mg tablet every 8 hours as needed. - MEDICATION, NON-DATABASE Standard Wheel Chair Dx Parkinson's Disease Meds Comments as of 2016: Aspirin 325 mg a day OTC Problem List As Of Date 10/04/2024 Noted Resolved Coronary atherosclerosis of autologous artery b*05/05/2016 Pure hypercholesterolemia [E78.00] 05/05/2016 Essential hypertension [I10] 05/05/2016 07/24/2021 Tremor of unknown origin [R25.1] 05/05/2016 Parkinson disease (HCC) [G20.A1] 06/10/2016 Acute on chronic renal insufficiency [N28.9, N1*07/19/2017 01/05/2022 Dehydration, moderate [E86.0] 07/19/2017 01/05/2022 Gastroesophageal reflux disease without esophag*11/05/2017 Parkinson's disease (HCC) [G20.A1] 11/05/2017 Hypertension, essential [I10] 11/05/2017 Stage 3a chronic kidney disease (HCC) [N18.31] 11/05/2017 Neck pain [M54.2] 05/11/2018 IFG (impaired fasting glucose) [R73.01] 11/08/2019 Vitamin D deficiency [E55.9] 11/20/2020 Bilateral cold feet [R20.9] 11/20/2020 Gait disorder [R26.9] 07/09/2021 Fatigue [R53.83] 07/09/2021 Coronary artery disease involving [place] turcios*07/24/2021 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] 07/24/2021 Dysphasia [R47.02] 12/24/2021 Aphasia [R47.01] 12/24/2021 Cognitive impairment, mild, so stated [G31.84] 12/24/2021 Elevated PSA [R97.20] 12/24/2021 Balance disorder [R26.89] 12/24/2021 Microscopic hematuria [R31.29] 12/24/2021 Depressive disorder [F32.A] 12/24/2021 Hypertensive kidney disease with stage 3a chron*01/05/2022 Muscle weakness [M62.81] 01/07/2022 Vitamin B12 deficiency [E53.8] 04/08/2022 Chronic right shoulder pain [M25.511, G89.29] 04/08/2022 Bilateral impacted cerumen [H61.23] 04/08/2022 Bilateral leg edema [R60.0] 07/08/2022 Chronic ulcer of right leg, limited to breakdow*07/08/2022 05/10/2024 Onychomycosis [B35.1] 07/08/2022 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] 07/15 (more content not included)... Normal [facility] CNPNon 09-22-2024 [facility]RAM[facility] ([id number]) 1945 M Date Time Provider Department 09/22/24 RICHARD SCHNEIDER [facility] During your visit today, we recorded the following information about you: Amita Bojorquez RN 09/26/2024 10:24 AM Addendum Flory Soni with [facility] (this was a mistake I had Stefani written down, but typed in the wrong place) called in and reports Pt was put on Mucinex 600 mg take 2 tablets po BID on August 10. She states the Pt is not having any improvement he is still not able to get up the phlegm. He has a weak cough and cannot clear the phlegm. She states he uses cough drops as well. Pt was asking if there was anything else he could try to help with this. Please call [facility] back so they can let Pt know and send Rx to [facility] Vianca Holcomb LPN 09/26/2024 10:00 AM Signed Daughter is calling to check on status of message. Daughter reports pt is getting frustrated. Daughter reports pt is at [facility]. Daughter is asking for a call along with Stefani with dr's message. TRACI Russell Jordan L, DO 09/26/2024 4:30 PM Signed Please call the daughter and let her know that we are going to have to get an opinion from Neurologist to know what to try next since the Mucinex isn't helping him and likely it is related to weakness of respiratory muscles related to his Parkinson's disease DO Hansel Morales Kristin, MD 09/27/2024 7:31 AM Signed No additional recommendations from me. I defer to Dr. Schneider for opinion on what options could work better for him. Richard Schneider DO 09/27/2024 7:47 AM Signed See below Could consider trying to do albuterol nebulizer twice a day to see if this helps him break up the mucous if patient/daughter are willing DO Reno Morales Amanda, RN 09/27/2024 10:46 AM Signed Pts daughter called and is notified of providers message. She voices understanding and states Pt lives at [facility], so they would have to help him. Valerie nurse with [facility] called and asked if they would help Pt with albuterol nebulizer, and she states they help him with medications already. She states they would help with the administration. Please fax orders to [facility] at fax # [phone]. KACIE Teague Jordan L, DO 09/27/2024 8:14 PM Signed Please fax script and notify DO hSirin Morales Linda M, LPN 09/28/2024 10:28 AM Signed Script is not signed placed back in your box for signature. Richard Schneider DO 09/29/2024 1:08 PM Signed rx signed DO Rahul Morales Susan LPN 09/29/2024 1:16 PM Signed Order faxed. Allergies As of Date: 09/22/2024 Noted Allergy Reaction BACTRIM (SULFAMETHOXAZOLE-TRIME TH*08/18/2023 16 - Unknown NARCOTICS (OPIOIDS - MORPHINE RICARDO*2016 8 - GI Upset Comments: vomiting with an oral pain med-has taken morphine without problems Date Reviewed: 08/30/2024 Reviewed by: Gila Issa MD - Fully Assessed Reason for Visit: Patient Question [1477] Medication Request [138] Primary Visit Diagnosis:Wheezing [R06.2] Other Visit Diagnosis:Chest congestion [R09.89] Order(s):albuterol (PROVENTIL) 2.5 mg /3 mL (0.083 %) nebulizer solutionUse 3 mL via nebulizer two times a day. Use over 5-15minutes.Disp: 60 mLRfl: 3 Prescriptions as of 09/29/2024 - albuterol (PROVENTIL) 2.5 mg /3 mL (0.083 %) nebulizer solution Use 3 mL via nebulizer two times a day. Use over 5-15minutes. - guaiFENesin (MUCINEX) 600 mg 12 hr tablet Take 2 tablets by mouth two times a day. - carbidopa-levodopa (SINEMET 25-100) 25-100 mg per tablet Take 2 tablets by mouth four times daily. - Ibuprofen 200 mg cap Take by mouth. - omeprazole (PRILOSEC) 40 mg capsule Take 1 capsule by mouth once daily. - metoprolol succinate ER (TOPROL XL) 25 mg 24 hr tablet Take 1 tablet by mouth once daily. - simvastatin (ZOCOR) 80 mg tablet Take 1 tablet by mouth daily at bedtime. - aspirin, enteric coated (ASPIRIN, ENTERIC COATED) 81 mg EC tablet Take 1 tablet by mouth once daily. - Magnesium Oxide 500 mg tab Take 1 tablet by mouth once daily. - cholecalciferol (VITAMIN D3) 50 mcg (2,000 unit) tablet Take 1 tablet by mouth once daily. - sertraline (ZOLOFT) 100 mg tablet Take 1 tablet by mouth once daily. In the bedtime, for mood - furosemide (LASIX) 20 mg tablet Take 1 tablet by mouth once daily. For leg swelling - Cyanocobalamin 2,500 mcg subl Dissolve 1 tablet under the tongue twice daily with meals. - acetaminophen (TYLENOL) 500 mg tablet Take 500 mg by mouth every 8 hours as needed. - ondansetron (ZOFRAN) 4 mg tablet every 8 hours as needed. - MEDICATION, NON-DATABASE Standard Wheel Chair Dx Parkinson's Disease Meds Comments as of 2016: Aspirin 325 mg a day OTC Problem List As Of Date 09/22/2024 Note (more content not included)... Normal [facility] CNPNon 09-08-2024 CNPN Telephone ([facility]) ALEXIS KRAMER ([id number]) 1945 M Date Time Provider Department 09/08/24 [facility]ARD SCHNEIDER [facility] During your visit today, we recorded the following information about you: Misty Hopkins, KACIE 09/08/2024 8:39 AM Signed Patients daughter is calling in due to patient saw neurology (Dr. Issa) on 08/30/24 and she informed them that she was going to send a staff messages to pcp to see if pcp thought it would be ok for patient to start mucinex treatment and they have not heard anything back from either office. Please review and advise and contact patients daughter back with information Richard Schneider DO 09/08/2024 9:39 AM Signed Noted, yes okay to trial on Mucinex 600 mg 2 times a day to see if this helps his symptoms DO Deysi Morales Barbara, RN 09/08/2024 11:06 AM Addendum Called daughter and notified of Dr. Schneider's instructions. Daughter says pt is at [facility] and the order for the med would need to be faxed over to them. Noted in another encounter that prescription was already sent to [facility] pharmacy per Rob Copeland. Called and spoke with nurse Rico at [facility]. Trisha asking about Mucinex directions of taking 2 tablets by mouth 2 times per day. Since it is a 12 hour tablet, should it be 1 tablet by mouth 2 times a day? If so, can a new script be sent in? Richard Schneider DO 09/11/2024 7:55 AM Signed Mucinex should be as below 600 mg twice a day Richard L Schneider, DO Allergies As of Date: 09/08/2024 Noted Allergy Reaction BACTRIM (SULFAMETHOXAZOLE-TRIME TH*08/18/2023 16 - Unknown NARCOTICS (OPIOIDS - MORPHINE RICARDO*2016 8 - GI Upset Comments: vomiting with an oral pain med-has taken morphine without problems Date Reviewed: 08/30/2024 Reviewed by: Gila Issa MD - Fully Assessed Reason for Visit: Patient Question [1477] Medication Question [1478] Prescriptions as of 09/11/2024 - guaiFENesin (MUCINEX) 600 mg 12 hr tablet Take 2 tablets by mouth two times a day. - carbidopa-levodopa (SINEMET 25-100) 25-100 mg per tablet Take 2 tablets by mouth four times daily. - Ibuprofen 200 mg cap Take by mouth. - omeprazole (PRILOSEC) 40 mg capsule Take 1 capsule by mouth once daily. - metoprolol succinate ER (TOPROL XL) 25 mg 24 hr tablet Take 1 tablet by mouth once daily. - simvastatin (ZOCOR) 80 mg tablet Take 1 tablet by mouth daily at bedtime. - aspirin, enteric coated (ASPIRIN, ENTERIC COATED) 81 mg EC tablet Take 1 tablet by mouth once daily. - Magnesium Oxide 500 mg tab Take 1 tablet by mouth once daily. - cholecalciferol (VITAMIN D3) 50 mcg (2,000 unit) tablet Take 1 tablet by mouth once daily. - sertraline (ZOLOFT) 100 mg tablet Take 1 tablet by mouth once daily. In the bedtime, for mood - furosemide (LASIX) 20 mg tablet Take 1 tablet by mouth once daily. For leg swelling - Cyanocobalamin 2,500 mcg subl Dissolve 1 tablet under the tongue twice daily with meals. - acetaminophen (TYLENOL) 500 mg tablet Take 500 mg by mouth every 8 hours as needed. - ondansetron (ZOFRAN) 4 mg tablet every 8 hours as needed. - MEDICATION, NON-DATABASE Standard Wheel Chair Dx Parkinson's Disease Meds Comments as of 2016: Aspirin 325 mg a day OTC Problem List As Of Date 09/08/2024 Noted Resolved Coronary atherosclerosis of autologous artery b*05/05/2016 Pure hypercholesterolemia [E78.00] 05/05/2016 Essential hypertension [I10] 05/05/2016 07/24/2021 Tremor of unknown origin [R25.1] 05/05/2016 Parkinson disease (HCC) [G20.A1] 06/10/2016 Acute on chronic renal insufficiency [N28.9, N1*07/19/2017 01/05/2022 Dehydration, moderate [E86.0] 07/19/2017 01/05/2022 Gastroesophageal reflux disease without esophag*11/05/2017 Parkinson's disease (HCC) [G20.A1] 11/05/2017 Hypertension, essential [I10] 11/05/2017 Stage 3a chronic kidney disease (HCC) [N18.31] 11/05/2017 Neck pain [M54.2] 05/11/2018 IFG (impaired fasting glucose) [R73.01] 11/08/2019 Vitamin D deficiency [E55.9] 11/20/2020 Bilateral cold feet [R20.9] 11/20/2020 Gait disorder [R26.9] 07/09/2021 Fatigue [R53.83] 07/09/2021 Coronary artery disease involving [place]cios*07/24/2021 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] 07/24/2021 Dysphasia [R47.02] 12/24/2021 Aphasia [R47.01] 12/24/2021 Cognitive impairment, mild, so stated [G31.84] 12/24/2021 Elevated PSA [R97.20] 12/24/2021 Balance disorder [R26.89] 12/24/2021 Microscopic hematuria [R31.29] 12/24/2021 Depressive disorder [F32.A] 12/24/2021 Hypertensive kidney disease with stage 3a chron*01/05/2022 Muscle weakness [M62.81] 01/07/2022 Vitamin B12 deficiency [E53.8] 04/08/2022 Chronic right shoulder pain [M25.511, G89.29] 04/08/2022 Bilateral impacted cerumen [H61.23] 04/08/2022 Bilateral leg edema [R60.0] 07/08/2022 Chronic ulcer of right leg, limited to breakdow*07/08/2022 (more content not included)... Normal [facility]RAM[facility] ([id number]) 1945 M Date Time Provider Department 09/08/24 ROB [facility] During your visit today, we recorded the following information about you: Allergies As of Date: 09/08/2024 Noted Allergy Reaction BACTRIM (SULFAMETHOXAZOLE-TRIME TH*08/18/2023 16 - Unknown NARCOTICS (OPIOIDS - MORPHINE RICARDO*2016 8 - GI Upset Comments: vomiting with an oral pain med-has taken morphine without problems Date Reviewed: 08/30/2024 Reviewed by: Gila Issa MD - Fully Assessed Reason for Visit: Orders [681] Order(s):guaiFENesin (MUCINEX) 600 mg 12 hr tabletTake 2 tablets by mouth two times a day.Disp: 120 tabletRfl: 0 Prescriptions as of 09/08/2024 - guaiFENesin (MUCINEX) 600 mg 12 hr tablet Take 2 tablets by mouth two times a day. - carbidopa-levodopa (SINEMET 25-100) 25-100 mg per tablet Take 2 tablets by mouth four times daily. - Ibuprofen 200 mg cap Take by mouth. - omeprazole (PRILOSEC) 40 mg capsule Take 1 capsule by mouth once daily. - metoprolol succinate ER (TOPROL XL) 25 mg 24 hr tablet Take 1 tablet by mouth once daily. - simvastatin (ZOCOR) 80 mg tablet Take 1 tablet by mouth daily at bedtime. - aspirin, enteric coated (ASPIRIN, ENTERIC COATED) 81 mg EC tablet Take 1 tablet by mouth once daily. - Magnesium Oxide 500 mg tab Take 1 tablet by mouth once daily. - cholecalciferol (VITAMIN D3) 50 mcg (2,000 unit) tablet Take 1 tablet by mouth once daily. - sertraline (ZOLOFT) 100 mg tablet Take 1 tablet by mouth once daily. In the bedtime, for mood - furosemide (LASIX) 20 mg tablet Take 1 tablet by mouth once daily. For leg swelling - Cyanocobalamin 2,500 mcg subl Dissolve 1 tablet under the tongue twice daily with meals. - acetaminophen (TYLENOL) 500 mg tablet Take 500 mg by mouth every 8 hours as needed. - ondansetron (ZOFRAN) 4 mg tablet every 8 hours as needed. - MEDICATION, NON-DATABASE Standard Wheel Chair Dx Parkinson's Disease Meds Comments as of 2016: Aspirin 325 mg a day OTC Problem List As Of Date 09/08/2024 Noted Resolved Coronary atherosclerosis of autologous artery b*05/05/2016 Pure hypercholesterolemia [E78.00] 05/05/2016 Essential hypertension [I10] 05/05/2016 07/24/2021 Tremor of unknown origin [R25.1] 05/05/2016 Parkinson disease (HCC) [G20.A1] 06/10/2016 Acute on chronic renal insufficiency [N28.9, N1*07/19/2017 01/05/2022 Dehydration, moderate [E86.0] 07/19/2017 01/05/2022 Gastroesophageal reflux disease without esophag*11/05/2017 Parkinson's disease (HCC) [G20.A1] 11/05/2017 Hypertension, essential [I10] 11/05/2017 Stage 3a chronic kidney disease (HCC) [N18.31] 11/05/2017 Neck pain [M54.2] 05/11/2018 IFG (impaired fasting glucose) [R73.01] 11/08/2019 Vitamin D deficiency [E55.9] 11/20/2020 Bilateral cold feet [R20.9] 11/20/2020 Gait disorder [R26.9] 07/09/2021 Fatigue [R53.83] 07/09/2021 Coronary artery disease involving [place] turcios*07/24/2021 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] 07/24/2021 Dysphasia [R47.02] 12/24/2021 Aphasia [R47.01] 12/24/2021 Cognitive impairment, mild, so stated [G31.84] 12/24/2021 Elevated PSA [R97.20] 12/24/2021 Balance disorder [R26.89] 12/24/2021 Microscopic hematuria [R31.29] 12/24/2021 Depressive disorder [F32.A] 12/24/2021 Hypertensive kidney disease with stage 3a chron*01/05/2022 Muscle weakness [M62.81] 01/07/2022 Vitamin B12 deficiency [E53.8] 04/08/2022 Chronic right shoulder pain [M25.511, G89.29] 04/08/2022 Bilateral impacted cerumen [H61.23] 04/08/2022 Bilateral leg edema [R60.0] 07/08/2022 Chronic ulcer of right leg, limited to breakdow*07/08/2022 05/10/2024 Onychomycosis [B35.1] 07/08/2022 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] 07/15/2022 Basal cell carcinoma (BCC) of right lower leg [*10/07/2022 Chronic kidney disease, stage 3a (HCC) [N18.31] 01/06/2023 Leg wound, right, initial encounter [S81.801A] 07/14/2023 Parkinson's disease with dyskinesia and fluctua*10/13/2023 Left hand pain [M79.642] 10/13/2023 Numbness and tingling in left hand [R20.0, R20.*10/13/2023 Short-term memory loss [R41.3] 01/12/2024 Carpal tunnel syndrome, left [G56.02] 01/12/2024 Subacute cough [R05.2] 05/10/2024 Prescriptions ordered this encounter Disp Refills Start End GUAIFENESIN ER 600 MG TABLET, EXTEND* 120 * 0 09/08/2024 10/08/2024 Route: ORAL Sig: Take 2 tablets by mouth two times a day. Encounter Status:Closed by ROB COPELAND on 09/08/24 [facility] Madhu 08-30-2024 CNOV Office Visit (NRMDN) ALEXIS KRAMER ([id number]) 1945 M Date Time Provider Department 08/30/24 9:30 AM GILA ISSA NRMDN During your visit today, we recorded the following information about you: Weight 86.1 kg Gila Issa MD 08/30/2024 10:19 AM Addendum It was a pleasure to see you today. We addressed the following diagnoses: Parkinson's disease with dyskinesia and fluctuating manifestations (hcc) My recommendations are as follows: For Parkinson's - no change to medications today For walking/freezing - consider Parkinson's specific therapy at [facility]. Seeing therapy at [place] when you come for a Dr. Issa visit is always an option. Consider U-step walker. [employer] For the phlegm - continue with the lemon drops. I will message Dr. Schneider about something to thin out the phlegm Movement Disorders Medication Schedule: Medications [id number] HS Sinemet 25/100mg 2 2 2 2 Sertraline 100 mg 1 No follow-ups on file. If there are any concerns before your next visit, please call or you can send a message through [employer]. You can also now schedule and select appointments through [employer]. MD Hansel Figueredo Kristin, MD 08/30/2024 12:58 PM Signed [facility] - FOLLOW UP EVALUATION Richard Schneider, DO [address] [facility] [id number] I had the pleasure of seeing Mr. Kramer for follow up today. He is a 79 year old right-handed male with a history of Parkinson's disease since 2009. He is seen with a daughter. Subjective Previous Plan-02/23/2024 Visit: Continue your medications as you have been taking them. We are not making any changes today. If you feel you are not tolerating them or your symptoms are changing before your next appointment, please feel free to send me a [employer] message or contact the office - Continue exercise - Interval History: Good and bad times. Hard to see patterns. Thick secretions. [place] his mouth and bothersome. PCP suggested lemon drops about a week ago so unclear how helpful so far. More slurred speech. Worse in the evening. More freezing. Multiple times per day. Not linked to bad/off times. No PT lately. Hasn't found therapy helpful- Parkinson's specific and not. One fall since last visit but he was half asleep and hit his face. Parkinson's Medication Schedule - as of the start of the visit: Medications [id number] 430 HS Sinemet 25/100mg 2 2 2 2 Sertraline 100 mg 1 Prior Anti-Parkinson Therapies Amantadine IR Carbidopa/Levodopa didn't tolerate trazodone Questionnaires In addition, the following areas that may be affected by abnormal involuntary movements were evaluated: Daily activities Difficulties with eating: Yes (mild) Difficulties in dressing: Yes (slight) Difficulties with hygiene activities: Yes (slight) Difficulties with handwriting: Yes (mild) Difficulties with doing hobbies and other activities: Yes (mild) Difficulties turning in bed: Yes (severe) Difficulties getting out of bed, car or chair: Yes (moderate) Tremors/Gait/Balance Shaking or tremors: Yes (slight) Walking and balance problems: Yes (moderate) Number of falls in the Last Month: 0 Gait freezing: Yes (severe) Autonomic/Pain Lightheadeness on standin (none) Urinary problems: 0 (none) Constipation problems: Yes (slight) Pain and other sensations: 0 (none) Speech/Swallowing Speech problems: Yes (moderate) Drooling: Yes (mild) Chewing and swallowing problems: 0 (none) Sleep/Fatigue Sleep problems: Yes (mild) Daytime sleepiness: Yes (mild) Fatigue: 0 (none) Mood/Behavior Depression: PHQ-9 Score: 0 usually representing no significant (0-4) depression. Anxiety: GANGA-7 Total Score: 0 usually representing no significant (0-4) anxiety. Finally, the following table shows the patient's overall global physical and mental health using the PROMIS scale: PROMIS-10 Flowsheet Row Office Visit from 08/30/2024 in Neurology Office Visit from 02/23/2024 in Neurology Global Physical Health T Score 39.8 44.9 Global Mental Health T Score 48.3 50.8 0-10 Standard Pain Scale 5 5 *PROMIS-10 scoring scale: mean = 50, over 50 is above average, under 50 is below average ALLERGIES Allergen Reactions Bactrim [Sulfametho* Unknown Narcotics [Opioids * GI Upset vomiting with an oral pain med-has taken morphine without problems Current Outpatient Medications Medication Sig carbidopa-levodopa (SINEMET 25-100) 25-100 mg per tablet Take 2 tablets by mouth four times daily. Ibuprofen 200 mg cap Take by mouth. omeprazole (PRILOSEC) 40 mg capsule Take 1 capsule by mouth once daily. metoprolol succinate ER (TOPROL XL) 25 mg 24 hr tablet Take 1 tablet by mouth once daily. simvastatin (ZOCOR) 80 mg tablet Take 1 tablet by mouth daily at bedtime. aspirin, enteric coated (ASPIRIN, ENTERIC COATED) 81 mg EC tablet Take 1 (more content not included)... Normal [facility] CNOVon 07-26-2024 CNOV Office Visit (FAMPWS ) ALEXIS KRAMER ([id number]) 1945 M Date Time Provider Department 07/26/24 10:00 AM [facility] During your visit today, we recorded the following information about you: Temperature Pulse Respiration Blood pressure 97 degrees 60/minute 20/minute 110/60 Weight 86.6 kg Richard Schneider DO 07/26/2024 12:01 PM Signed CC: Alexis Kramer is a 79 year old male who presents to the office for follow up HPI: Appetite has been good Parkinson's disease, taking medications as prescribed, seeing Neurologist Dr. Holm regularly, no recent medication changes. daughter Sis has noticed some slight decline in memory CKD stage 3, has been improved Creatinine at this time in 1.12 No recent falls Cough is resolved. No wheezing or shortness of breath or hemoptysis. Did have a normal CXR per [facility] orders. No distress. No chest pain. 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 Ibuprofen 200 mg cap Take by mouth. omeprazole (PRILOSEC) 40 mg capsule Take 1 capsule by mouth once daily. metoprolol succinate ER (TOPROL XL) 25 mg 24 hr tablet Take 1 tablet by mouth once daily. (Patient not taking: Reported on 02/22/2024) simvastatin (ZOCOR) 80 mg tablet Take 1 [...] topical gel 2 times daily as needed (Patient not taking: Reported on 02/22/2024) ondansetron (ZOFRAN) 4 mg tablet every 8 hours as needed. mupirocin (BACTROBAN) 2 % ointment Apply to affected area once daily. (Patient not taking: Reported on 02/22/2024) MEDICATION, NON-DATABASE Standard Wheel Chair Dx Parkinson's Disease No current facility-administered medications for this visit. ALLERGIES Allergen Reactions Bactrim [Sulfametho* Unknown Narcotics [Opioids * GI Upset vomiting with an oral pain med-has taken morphine without problems Social History Tobacco Use Smoking status: Former Current packs/day: 0.00 Average packs/day: 0.5 packs/day for 20.0 years (10.0 ttl pk-yrs) Types: Cigarettes Start date: 06/28/1993 Quit date: 06/28/2013 Years since quittin.0 Smokeless tobacco: Never Vaping Use Vaping status: Never Used Substance Use Topics Alcohol use: Yes Comment: occasionally Drug use: No ROS: See HPI PE: BP 110/60 Pulse 60 Temp (Src) 97 (Left Tympanic) Resp 20 Wt 191 lb (86.6kg) Gen: AANDO, NAD, non-toxic appearing, Pleasant, cooperative HEENT: NT/AC, PERRLA, EOMs intact b/l, nares clear and patent b/l, pharynx without erythema, exudate or lesions. Uvula midline. MMM, EACs without erythema or debris. TMs pearly dunlap with intact landmarks b/l. Neck: supple, No cervical LAD, no thyromegaly, no carotid bruits CV: RRR, normal S1 and S2, 1/6 HSM RUSB soft blowing murmurs, no gallops, no rubs, Pulses 2+ and symmetric in UE and LE b/l Lungs: normal respiratory effort, CTA b/l, no wheezing or rhonchi or rales Abd: soft, NT, ND, +BS, no hepatosplenomegaly MS: gait impaired, sitting in wheelchair Neuro: CN II-XII intact b/l, strength 5/5 b/l UE and LE, DTRs 2/4 UE and LE, sensation (more content not included)... Normal [facility] [place] Basophil percentageOrdered B y: Richard Schneider on 12-29-2023 Bilirubin [Mass/Vol] 0.60 mg/dL 0.20-1.00 [facility] Comment on above: For patients on eltr ombopag therapy, use of Dimension [place] TBIL is not recommended. Chloride [Moles/Vol] 106 mmol/L 98-[address] [facility] Glucose [Mass/Vol] 100 mg/dL 74-106 [facility] Comment on above: Fasting Glucose resu lt from 100 to 125 mg/dL suggests IMPAIRED HOMEOSTASIS per A.D.A. criteria. Hemoglobin (Bld) [Mass/Vol] 12.9 g/dL 13.0-16.5 [facility] Potassium [Moles/Vol] 4.6 mmol/L 3.5-5.1 [facility] Protein [Mass/Vol] 6.8 g/dL 6.4-8.2 [facility] Sodium [Moles/Vol] 142 mmol/L 136-145 [facility] WBC (Bld) [#/Vol] 6.1 10*3/uL 4.4-11.0 [facility] Determination of erythrocyte mean corpuscular volume (MCV)Ordered By: Richrad Schneider on 12-29-2023 MCV (RBC) [Entitic vol] 98.3 fL 80-94 [facility] Erythrocyte distribution wid th ratioOrdered By: Richard Schneider on 12-29-2023 Erythrocyte distribution width (RBC) [Ratio] 12.1 % 11.6-14.6 [facility] Erythrocyte distribution wid th standard deviationOrdered By: Richard Schneider on 12-29-2023 Erythrocyte distribution width (RBC) [Entitic vol] 44.2 fL 35.1-43.9 [facility] Hematocrit Auto (Bld) [Volum e fraction]Ordered By: Richard Schneider on 12-29-2023 Hematocrit (Bld) [Volume fraction] 40.1 % 40-54 [facility] Laboratory - Chemistry and C hemistry - challengeOrdered By: Richard Schneider on 12-29-2023 Albumin/Globulin [Mass ratio] 1.3 {ratio} 0.9-2.4 [facility] ALP [Catalytic activity/Vol] 73 U/L 45-117 [facility] ALT [Catalytic activity/Vol] 14 U/L 16-61 [facility] CO2 [Moles/Vol] 31.0 mmol/L 21.0-32.0 [facility] Cobalamin (Vitamin B12) [Mass/Vol] 1377 pg/mL 211-911 [facility] Globulin (S) [Mass/Vol] 3.0 g/dL 2.2-4.2 [facility] Magnesium [Mass/Vol] 2.5 mg/dL 1.6-2.6 [facility] Urea nitrogen/Creatinine [Mass ratio] 22.6 mg/mg 10-20 [facility] Laboratory - Hematology and Cell countsOrdered By: Richard Schneider on 12-29-2023 MCH (RBC) [Entitic mass] 31.6 pg 27.0-32.0 [facility] MCHC (RBC) [Mass/Vol] 32.2 g/dL 32-36 [facility] Platelet mean volume (Bld) [Entitic vol] 12.5 fL 6.2-12.0 [facility] Platelets (Bld) [#/Vol] 172 10*3/uL 150-450 [facility] No Panel InformationOrdered By: Richard Schneider on 12-29-2023 Estimated GFR (MDRD) Amer 87 mL/min >60 [facility] Comment on above: GFR Calc Estimated GFR (MDRD) Non-Af Amer 72 mL/min >60 [facility] Comment on above: Non- GFR Calc RBC Auto (Bld) [#/Vol]Ordere d By: Richard Schneider on 12-29-2023 RBC (Bld) [#/Vol] 4.08 10*6/uL 4.6-6.2 [facility] Serum or plasma calcium nelia urement (mass/volume)Ordered By: Richard Schneider on 12-29-2023 Calcium [Mass/Vol] 8.8 mg/dL 8.5-10.1 [facility] Serum or plasma creatinine m easurement (mass/volume)Ordered By: Richard Schneider on 12-29-2023 Creatinine [Mass/Vol] 1.06 mg/dL 0.70-1.30 [facility] Comment on above: The validity of the calculated GFR & GFRAA in patients over 70 years has not been determined. Clinical correlation is essential. Serum or plasma urea nitroge n measurement (mass/volume)Ordered By: Richard Schneider on 12-29-2023 Urea nitrogen [Mass/Vol] 24 mg/dL 7-18 [facility] Thin prep Papanicolaou smear with manual screeningOrdered By: Richard Schneider on 12-29-2023 Thin prep Papanicolaou smear with manual screening 3.8 g/dL 3.2-5.0 [facility] Thin prep Papanicolaou smear with manual screening 23 U/L 15-37 [facility] Thin prep Papanicolaou smear with manual screening 5 5-15 [facility] NURSING PROGon 11-24-2023 NURSING PROG HNO ID: [id number] Author: MARVEL SINGH RN Service: ? Author Type: Registered Nurse Type: Nursing Progress Note Filed: 11/24/2023 16:50 Note Text: Dr. Spencer at bedside for Ultrasound guided Left local block. RN at bedside, pt monitored throughout, BP 126/60 Temp 37.1 ?C (98.8 ?F) (Temporal) Resp 16 Ht 172.7 cm (5' 8) Wt 88 kg (194 lb) SpO2 98% BMI 29.50 kg/m? . Pt medicated with 15cc of local anesthetic. Pt tolerated procedure without difficulty. Family called to bedside at completion of procedure. [facility] OPERATIVE NOon 11-24-2023 OPERATIVE NO HNO ID: [id number] Author: ALBERTO SPENCER MD Service: Orthopaedic Surgery Author Type: Physician Type: Operative Report Filed: 11/24/2023 17:26 Note Text: OPERATIVE/PROCEDURE REPORT LOG ID: [id number] Surgery/Procedure Date: 11/24/2023 Incision/Procedure Start Time: 5:02 PM Incision Close/Procedure End Time: 5:21 PM Surgeon(s)/Proceduralis t(s) and Bumper Straightener(s): Surgeon(s) and Role: * Alberto Spencer MD - Primary Physician Bumper Straightener: Tonya Gray PA-C Procedure(s): OPERATION: Left carpal tunnel release, open. ANESTHESIA: local. PREOPERATIVE DIAGNOSIS: Left carpal tunnel syndrome. POSTOPERATIVE DIAGNOSIS: Left carpal tunnel syndrome. OPERATIVE INDICATIONS: This is a pleasant 78 year old male who had worsening, numbness, and tingling. His electrodiagnostic showed moderate to advanced carpal tunnel syndrome. He exhausted conservative management and in the office, we discussed the risks, benefits, alternatives, and potential complications involving carpal tunnel release and he wished to pursue surgical intervention. OPERATIVE FINDINGS: Consistent with postoperative diagnosis. OPERATIVE PROCEDURE: On November 24, 2023, the patient was clearly identified in the preoperative area and marked accordingly on the Left palm by myself. In the preop area, Local anesthetic was provided at the palm and wrist with 1% lidocaine with 1:100,000 epinephrine for total of 20 mL. He was taken to the operative suite and placed in the supine position with an armboard on the Left. All other bony landmarks were appropriately padded in standard fashion. The arm was then sterilely prepped and draped in standard fashion. An appropriate time-out was conducted and all in the room were in agreement, signed consent form was on the chart. A longitudinal incision was made with in line with the third web space from 1 cm distal of the wrist crease to Lopez's cardinal line. I used Kvng Rakes to retract the soft tissues. Bipolar electrocautery was used for hemostasis. I bluntly dissected down with Littler scissors to distal edge of the transverse carpal ligament until a flash of fat was noted. I directly divided distal edge of the transverse carpal ligament with a #15 blade. Attention was then focused on the proximal portion and I used Littler scissors to bluntly dissect off the volar surface of the transverse carpal ligament. A carpal tunnel and median nerve protection guide was slid directly under the ligament for dilation and a second time for appropriate positioning, this was passed freely without any resistance. Subsequently, I selected a mini meniscotome [place] blade and slid this in the protective guide, completely dividing the transverse carpal ligament. Kvng rakes were used to view up the wound to visualize for complete release and a [place] elevator was used to palpatefor complete release. hemostasis was observed. The wound was copiously irrigated with normal saline and I closed with 3-0 nylons in horizontal mattress fashion for a total of 3. Xeroform gauze, sterile 4 x 4 gauze, Webril padding, and a Bias roll was used for final bandage. There were no complications during the procedure. The patient was safely transferred to the Postanesthetic Care Unit in stable condition. I performed the entire procedure. SIGNATURE: Alberto Spencer MD PATIENT NAME: Alexis Kramer DATE: November 24, 2023 TIME: 5:25 PM PAGER/CONTACT #: [facility] percentageOrdered B y: Richard Schneider on 10-12-2023 Bilirubin [Mass/Vol] 0.50 mg/dL 0.20-1.00 [facility] Comment on above: For patients on eltr ombopag therapy, use of Dimension [place] TBIL is not recommended. Chloride [Moles/Vol] 107 mmol/L 98-107 [facility] Glucose [Mass/Vol] 101 mg/dL 74-106 [facility] Comment on above: Fasting Glucose resu lt from 100 to 125 mg/dL suggests IMPAIRED HOMEOSTASIS per A.D.A. criteria. Potassium [Moles/Vol] 4.5 mmol/L 3.5-5.1 [facility] Protein [Mass/Vol] 7.7 g/dL 6.4-8.2 [facility] Sodium [Moles/Vol] 139 mmol/L 136-145 [facility] WBC (Bld) [#/Vol] 7.6 10*3/uL 4.4-11.0 [facility] Blood erythrocytes count (nu mber/volume)Ordered By: Richard Schneider on 10-12-2023 RBC (Bld) [#/Vol] 4.28 10*6/uL 4.6-6.2 [facility] Blood hemoglobin measurement (mass/volume)Ordered By: Richard Schneider on 10-12-2023 Hemoglobin (Bld) [Mass/Vol] 13.2 g/dL 13.0-16.5 [facility] Blood platelet mean volumeOr dered By: Richard Schneider on 10-12-2023 Platelet mean volume (Bld) [Entitic vol] 12.8 fL 6.2-12.0 [facility] Determination of erythrocyte mean corpuscular volume (MCV)Ordered By: Richard Schneider on 10-12-2023 MCV (RBC) [Entitic vol] 99.3 fL 80-94 [facility] Hematocrit Auto (Bld) [Volum e fraction]Ordered By: Richard Schneider on 10-12-2023 Hematocrit (Bld) [Volume fraction] 42.5 % 40-54 [facility] Laboratory - Chemistry and C hemistry - challengeOrdered By: Richard Schneider on 10-12-2023 ALP [Catalytic activity/Vol] 74 U/L 45-117 [facility] ALT [Catalytic activity/Vol] 15 U/L 16-61 [facility] CO2 [Moles/Vol] 29.0 mmol/L 21.0-32.0 [facility] Cobalamin (Vitamin B12) [Mass/Vol] 1628 pg/mL 211-911 [facility] Globulin (S) [Mass/Vol] 3.5 g/dL 2.2-4.2 [facility] Magnesium [Mass/Vol] 2.6 mg/dL 1.6-2.6 [facility] Urea nitrogen/Creatinine [Mass ratio] 23.2 mg/mg 10-20 [facility] Laboratory - Hematology and Cell countsOrdered By: Richard Schneider on 10-12-2023 Erythrocyte distribution width (RBC) [Entitic vol] 46.0 fL 35.1-43.9 [facility] Erythrocyte distribution width (RBC) [Ratio] 12.6 % 11.6-14.6 [facility] MCH (RBC) [Entitic mass] 30.8 pg 27.0-32.0 [facility] MCHC Auto (RBC) [Mass/Vol]Or dered By: Richard Schneider on 10-12-2023 MCHC (RBC) [Mass/Vol] 31.1 g/dL 32-36 [facility] No Panel InformationOrdered By: Richard Schneider on 10-12-2023 Estimated GFR (MDRD) Amer 58 mL/min >60 [facility] Comment on above: GFR Calc Estimated GFR (MDRD) Non-Af Amer 48 mL/min >60 [facility] Comment on above: Non- GFR Calc Vitamin D 25-Hydroxy 54.4 ng/mL [facility] Comment on above: Vitamin D 25(OH) Sta tus Range Deficiency <20 ng/mL (50nmol/L) Insufficiency 20 - 30 ng/mL (50 - 75 nmol/L) Sufficiency 30 - 100 ng/mL (75 - 250 nmol/L) Toxicity >100 ng/mL (>250 nmol/L) Platelets bldOrdered By: Jason Schneider on 10-12-2023 Platelets (Bld) [#/Vol] 211 10*3/uL 150-450 [facility] Serum or plasma albumin nelia urement (mass/volume)Ordered By: Richard Schneider on 10-12-2023 Albumin [Mass/Vol] 4.2 g/dL 3.2-5.0 [facility] Serum or plasma albumin/glob ulin mass ratioOrdered By: Richard Schneider on 10-12-2023 Albumin/Globulin [Mass ratio] 1.2 {ratio} 0.9-2.4 [facility] Serum or plasma calcium nelia urement (mass/volume)Ordered By: Richard Schneider on 10-12-2023 Calcium [Mass/Vol] 9.2 mg/dL 8.5-10.1 [facility] Serum or plasma creatinine m easurement (mass/volume)Ordered By: Richard Schneider on 10-12-2023 Creatinine [Mass/Vol] 1.51 mg/dL 0.70-1.30 [facility] Comment on above: The validity of the calculated GFR & GFRAA in patients over 70 years has not been determined. Clinical correlation is essential. Serum or plasma urea nitroge n measurement (mass/volume)Ordered By: Richard Schneider on 10-12-2023 Urea nitrogen [Mass/Vol] 35 mg/dL 7-18 [facility] Thin prep Papanicolaou smear with manual screeningOrdered By: Richard Schneider on 10-12-2023 Thin prep Papanicolaou smear with manual screening 20 U/L 15-37 [facility] Thin prep Papanicolaou smear with manual screening 3 5-15 [facility] Absolute lymphocyte countOrd ered By: Richard Schneider on 06-24-2023 Lymphocytes Auto (Unsp spec) [#/Vol] 1.15 10*3/uL 0.83-4.51 [facility] Basophil percentageOrdered B y: Richard Schneider on 06-24-2023 Basophils/100 WBC (Bld) 0.7 % 0-1 [facility] Bilirubin [Mass/Vol] 0.80 mg/dL 0.20-1.00 [facility] Comment on above: For patients on eltr ombopag therapy, use of Dimension [place] TBIL is not recommended. Chloride [Moles/Vol] 105 mmol/L 98-107 [facility] Cholesterol [Mass/Vol] 136 mg/dL <200 [facility] Comment on above: <200 mg/dL Desirable 200-240 mg/dL Borderline >240 mg/dL High Risk Eosinophils/100 WBC (Bld) 5.7 % 0-5 [facility] Glucose [Mass/Vol] 90 mg/dL 74-106 [facility] Neutrophils (Bld) [#/Vol] 4.0 10*3/uL 2.0-7.7 [facility] Neutrophils/100 WBC (Bld) 64.9 % 47-70 [facility] Potassium [Moles/Vol] 4.2 mmol/L 3.5-5.1 [facility] Protein [Mass/Vol] 7.5 g/dL 6.4-8.2 [facility] Sodium [Moles/Vol] 139 mmol/L 136-145 [facility] Triglyceride [Mass/Vol] 121 mg/dL <199 [facility] Comment on above: The drugs N-Acetylcy steine and Metamizole may falsely depress this assay.Serum Triglycerides Reference Interval Normal <150 mg/dL Borderline high 150 - 199 mg/dL High 200 - 499 mg/dL Very High > or = 500 mg/dL WBC (Bld) [#/Vol] 6.1 10*3/uL 4.4-11.0 [facility] Blood erythrocytes count (nu mber/volume)Ordered By: Richard Schneider on 06-24-2023 RBC (Bld) [#/Vol] 4.65 10*6/uL 4.6-6.2 [facility] Blood hemoglobin measurement (mass/volume)Ordered By: Richard Schneider on 06-24-2023 Hemoglobin (Bld) [Mass/Vol] 14.3 g/dL 13.0-16.5 [facility] Blood lymphocytes/100 leukoc ytesOrdered By: Richard Schneider on 06-24-2023 Lymphocytes/100 WBC (Bld) 18.7 % 19-41 [facility] Blood monocytes/100 leukocyt esOrdered By: Richard Schneider on 06-24-2023 Monocytes/100 WBC (Bld) 9.0 % 0-10 [facility] Blood platelet mean volumeOr dered By: Richard Schneider on 06-24-2023 Platelet mean volume (Bld) [Entitic vol] 12.4 fL 6.2-12.0 [facility] Determination of erythrocyte mean corpuscular volume (MCV)Ordered By: Richard Schneider on 06-24-2023 MCV (RBC) [Entitic vol] 94.2 fL 80-94 [facility] Hematocrit Auto (Bld) [Volum e fraction]Ordered By: Richard Schneider on 06-24-2023 Hematocrit (Bld) [Volume fraction] 43.8 % 40-54 [facility] Laboratory - Chemistry and C hemistry - challengeOrdered By: Richard Schneider on 06-24-2023 ALP [Catalytic activity/Vol] 81 U/L 45-117 [facility] ALT [Catalytic activity/Vol] 23 U/L 16-61 [facility] CO2 [Moles/Vol] 28.0 mmol/L 21.0-32.0 [facility] Globulin (S) [Mass/Vol] 3.5 g/dL 2.2-4.2 [facility] Urea nitrogen/Creatinine [Mass ratio] 19.5 mg/mg 10-20 [facility] Laboratory - Hematology and Cell countsOrdered By: Richard Schneider on 06-24-2023 Erythrocyte distribution width (RBC) [Entitic vol] 43.6 fL 35.1-43.9 [facility] Erythrocyte distribution width (RBC) [Ratio] 12.5 % 11.6-14.6 [facility] Immature granulocytes/100 WBC (Bld) 1.000 % 0.0-0.9 [facility] Comment on above: IG% - Immature Granu locytes (promyelocytes, myelocytes and metamyelocytes) > 1% indicates that a LEFT SHIFT is Present. MCH (RBC) [Entitic mass] 30.8 pg 27.0-32.0 [facility] Nucleated RBC/100 WBC (Bld) [Ratio] 0 % 0-5 [facility] MCHC Auto (RBC) [Mass/Vol]Or dered By: Richard Schneider on 06-24-2023 MCHC (RBC) [Mass/Vol] 32.6 g/dL 32-36 [facility] No Panel InformationOrdered By: Richard Schneider on 06-24-2023 Estimated GFR (MDRD) Amer 81 mL/min >60 [facility] Comment on above: GFR Calc Estimated GFR (MDRD) Non-Af Amer 67 mL/min >60 [facility] Comment on above: Non- GFR Calc Thyroid Stimulating Hormone (TSH) 3.05 uIU/mL 0.358-3.74 [facility] Platelets bldOrdered By: Jason Schneider on 06-24-2023 Platelets (Bld) [#/Vol] 183 10*3/uL 150-450 [facility] Serum or plasma albumin nelia urement (mass/volume)Ordered By: Richard Schneider on 06-24-2023 Albumin [Mass/Vol] 4.0 g/dL 3.2-5.0 [facility] Serum or plasma albumin/glob ulin mass ratioOrdered By: Richard Schneider on 06-24-2023 Albumin/Globulin [Mass ratio] 1.1 {ratio} 0.9-2.4 [facility] Serum or plasma calcium nelia urement (mass/volume)Ordered By: Richard Schneider on 06-24-2023 Calcium [Mass/Vol] 8.8 mg/dL 8.5-10.1 [facility] Serum or plasma cholesterol in HDL measurement (mass/volume)Ordered By: Richard Schneider on 06-24-2023 Cholesterol in HDL [Mass/Vol] 45 mg/dL >40 [facility] Comment on above: The drugs N-Acetylcy steine and Metamizole may falsely depress this assay. Reference Range HDL <40 mg/dL Low HDL Cholesterol HDL >or= 60 mg/dL High HDL Cholesterol Serum or plasma cholesterol in VLDL measurement (mass/volume)Ordered By: Richard Schneider on 06-24-2023 Cholesterol in VLDL [Mass/Vol] 24 mg/dL 5-40 [facility] Serum or plasma creatinine m easurement (mass/volume)Ordered By: Richard Schneider on 06-24-2023 Creatinine [Mass/Vol] 1.13 mg/dL 0.70-1.30 [facility] Comment on above: The validity of the calculated GFR & GFRAA in patients over 70 years has not been determined. Clinical correlation is essential. Serum or plasma low density lipoprotein (LDL) cholesterol measurement (mass/volume)Ordered By: Richard Schneider on 06-24-2023 Cholesterol in LDL [Mass/Vol] 67 mg/dL 0-130 [facility] Serum or plasma urea nitroge n measurement (mass/volume)Ordered By: Richard Schneider on 06-24-2023 Urea nitrogen [Mass/Vol] 22 mg/dL 7-18 [facility] Thin prep Papanicolaou smear with manual screeningOrdered By: Richard Schneider on 06-24-2023 Thin prep Papanicolaou smear with manual screening 21 U/L 15-37 [facility] Thin prep Papanicolaou smear with manual screening 6 5-15 [facility] Whole blood hemoglobin A1c/t otal hemoglobin ratio (mass fraction)Ordered By: Richard Schneider on 06-24-2023 HbA1c (Bld) [Mass fraction] 5.7 % 3.8-5.6 [facility] Comment on above: Normal < 5.7 % Predi abetic 5.7 - 6.4 % Diabetic >or= 6.5 % Please note range changes. Basophil percentageOrdered B y: Richard Schneider on 12-24-2022 Bilirubin [Mass/Vol] 0.70 mg/dL 0.20-1.00 [facility] Comment on above: For patients on eltr ombopag therapy, use of Dimension [place] TBIL is not recommended. Chloride [Moles/Vol] 102 mmol/L 98-107 [facility] Glucose [Mass/Vol] 98 mg/dL 74-106 [facility] Potassium [Moles/Vol] 4.2 mmol/L 3.5-5.1 [facility] Protein [Mass/Vol] 7.3 g/dL 6.4-8.2 [facility] Sodium [Moles/Vol] 137 mmol/L 136-145 [facility] WBC (Bld) [#/Vol] 6.0 10*3/uL 4.4-11.0 [facility] Blood erythrocytes count (nu mber/volume)Ordered By: Richard Schneider on 12-24-2022 RBC (Bld) [#/Vol] 4.54 10*6/uL 4.6-6.2 [facility] Blood hemoglobin measurement (mass/volume)Ordered By: Richard Schneider on 12-24-2022 Hemoglobin (Bld) [Mass/Vol] 14.1 g/dL 13.0-16.5 [facility] Blood platelet mean volumeOr dered By: Richard Schneider on 12-24-2022 Platelet mean volume (Bld) [Entitic vol] 12.1 fL 6.2-12.0 [facility] Determination of erythrocyte mean corpuscular volume (MCV)Ordered By: Richard Schneider on 12-24-2022 MCV (RBC) [Entitic vol] 96.5 fL 80-94 [facility] Hematocrit Auto (Bld) [Volum e fraction]Ordered By: Richard Schneider on 12-24-2022 Hematocrit (Bld) [Volume fraction] 43.8 % 40-54 [facility] Laboratory - Chemistry and C hemistry - challengeOrdered By: Richard Schneider on 12-24-2022 ALP [Catalytic activity/Vol] 77 U/L 45-117 [facility] ALT [Catalytic activity/Vol] 28 U/L 16-61 [facility] CO2 [Moles/Vol] 31.0 mmol/L 21.0-32.0 [facility] Globulin (S) [Mass/Vol] 3.5 g/dL 2.2-4.2 [facility] Urea nitrogen/Creatinine [Mass ratio] 16.7 mg/mg 10-20 [facility] Laboratory - Hematology and Cell countsOrdered By: Richard Schneider on 12-24-2022 Erythrocyte distribution width (RBC) [Entitic vol] 46.5 fL 35.1-43.9 [facility] Erythrocyte distribution width (RBC) [Ratio] 13.0 % 11.6-14.6 [facility] MCH (RBC) [Entitic mass] 31.1 pg 27.0-32.0 [facility] MCHC Auto (RBC) [Mass/Vol]Or dered By: Richard Schneider on 12-24-2022 MCHC (RBC) [Mass/Vol] 32.2 g/dL 32-36 [facility] No Panel InformationOrdered By: Richard Schneider on 12-24-2022 Estimated GFR (MDRD) Amer 85 mL/min >60 [facility] Comment on above: GFR Calc Estimated GFR (MDRD) Non-Af Amer 71 mL/min >60 [facility] Comment on above: Non- GFR Calc Platelets bldOrdered By: Jason Schneider on 12-24-2022 Platelets (Bld) [#/Vol] 206 10*3/uL 150-450 [facility] Serum or plasma albumin nelia urement (mass/volume)Ordered By: Richard Schneider on 12-24-2022 Albumin [Mass/Vol] 3.8 g/dL 3.2-5.0 [facility] Serum or plasma albumin/glob ulin mass ratioOrdered By: Richard Schneider on 12-24-2022 Albumin/Globulin [Mass ratio] 1.1 {ratio} 0.9-2.4 [facility] Serum or plasma calcium nelia urement (mass/volume)Ordered By: Richard Schneider on 12-24-2022 Calcium [Mass/Vol] 8.9 mg/dL 8.5-10.1 [facility] Serum or plasma creatinine m easurement (mass/volume)Ordered By: Richard Schneider on 12-24-2022 Creatinine [Mass/Vol] 1.08 mg/dL 0.70-1.30 [facility] Comment on above: The validity of the calculated GFR & GFRAA in patients over 70 years has not been determined. Clinical correlation is essential. Serum or plasma urea nitroge n measurement (mass/volume)Ordered By: Richard Schneider on 12-24-2022 Urea nitrogen [Mass/Vol] 18 mg/dL 7-18 [facility] Thin prep Papanicolaou smear with manual screeningOrdered By: Richard Schneider on 12-24-2022 Thin prep Papanicolaou smear with manual screening 29 U/L 15-37 [facility] Thin prep Papanicolaou smear with manual screening 4 5-15 [facility] Whole blood hemoglobin A1c/t otal hemoglobin ratio (mass fraction)Ordered By: Richard Schneider on 12-24-2022 HbA1c (Bld) [Mass fraction] 5.6 % 3.8-5.6 [facility] Comment on above: Normal < 5.7 % Predi abetic 5.7 - 6.4 % Diabetic >or= 6.5 % Please note range changes. Basophil percentageOrdered B y: Richard Schneider on 10-22-2022 Bilirubin [Mass/Vol] 0.50 mg/dL 0.20-1.00 [facility] Comment on above: For patients on eltr ombopag therapy, use of Dimension [place] TBIL is not recommended. Chloride [Moles/Vol] 103 mmol/L 98-107 [facility] Glucose [Mass/Vol] 106 mg/dL 74-106 [facility] Comment on above: Fasting Glucose resu lt from 100 to 125 mg/dL suggests IMPAIRED HOMEOSTASIS per A.D.A. criteria. Potassium [Moles/Vol] 4.1 mmol/L 3.5-5.1 [facility] Protein [Mass/Vol] 6.8 g/dL 6.4-8.2 [facility] Sodium [Moles/Vol] 140 mmol/L 136-145 [facility] Laboratory - Chemistry and C hemistry - challengeOrdered By: Richard Schneider on 10-22-2022 ALP [Catalytic activity/Vol] 74 U/L 45-117 [facility] ALT [Catalytic activity/Vol] 18 U/L 16-61 [facility] CO2 [Moles/Vol] 31.0 mmol/L 21.0-32.0 [facility] Globulin (S) [Mass/Vol] 3.4 g/dL 2.2-4.2 [facility] Urea nitrogen/Creatinine [Mass ratio] 17.4 mg/mg 10-20 [facility] No Panel InformationOrdered By: Richard Schneider on 10-22-2022 Estimated GFR (MDRD) Amer 75 mL/min >60 [facility] Comment on above: GFR Calc Estimated GFR (MDRD) Non-Af Amer 62 mL/min >60 [facility] Comment on above: Non- GFR Calc Serum or plasma albumin nelia urement (mass/volume)Ordered By: Richard Schneider on 10-22-2022 Albumin [Mass/Vol] 3.4 g/dL 3.2-5.0 [facility] Serum or plasma albumin/glob ulin mass ratioOrdered By: Richard Schneider on 10-22-2022 Albumin/Globulin [Mass ratio] 1.0 {ratio} 0.9-2.4 [facility] Serum or plasma calcium nelia urement (mass/volume)Ordered By: Richard Schneider on 10-22-2022 Calcium [Mass/Vol] 8.7 mg/dL 8.5-10.1 [facility] Serum or plasma creatinine m easurement (mass/volume)Ordered By: Richard Schneider on 10-22-2022 Creatinine [Mass/Vol] 1.21 mg/dL 0.70-1.30 [facility] Comment on above: The validity of the calculated GFR & GFRAA in patients over 70 years has not been determined. Clinical correlation is essential. Serum or plasma urea nitroge n measurement (mass/volume)Ordered By: Richard Schneider on 10-22-2022 Urea nitrogen [Mass/Vol] 21 mg/dL 7-18 [facility] Thin prep Papanicolaou smear with manual screeningOrdered By: Richard Schneider on 10-22-2022 Thin prep Papanicolaou smear with manual screening 25 U/L 15-37 [facility] Thin prep Papanicolaou smear with manual screening 6 5-15 [facility] No Panel InformationOrdered By: Dr. Schneider on 09-27-2022 Influenza Types A,B Direct FA (YOLA) [facility] Basophil percentageon 2021 Bilirubin [Mass/Vol] 0.50 mg/dL 0.20-1.00 [facility] Work Phone: Comment on above: For patients on eltr ombopag therapy, use of Dimension [place] TBIL is not recommended. Chloride [Moles/Vol] 104 mmol/L 98-107 [facility] Work Phone: Glucose [Mass/Vol] 118 mg/dL 74-106 [facility] Work Phone: Comment on above: Fasting Glucose resu lt from 100 to 125 mg/dL suggests IMPAIRED HOMEOSTASIS per A.D.A. criteria. Potassium [Moles/Vol] 4.2 mmol/L 3.5-5.1 [facility] Work Phone: Protein [Mass/Vol] 6.6 g/dL 6.4-8.2 [facility] Work Phone: Sodium [Moles/Vol] 140 mmol/L 136-145 [facility] Work Phone: [phone] WBC (Bld) [#/Vol] 7.1 10*3/uL 4.4-11.0 [facility] Work Phone: [phone] Blood erythrocytes count (nu mber/volume)on 07-18-2022 RBC (Bld) [#/Vol] 4.39 10*6/uL 4.6-6.2 [facility] Work Phone: [phone] Blood hemoglobin measurement (mass/volume)on 07-18-2022 Hemoglobin (Bld) [Mass/Vol] 13.9 g/dL 13.0-16.5 [facility] Work Phone: [phone] Blood platelet mean volumeon 07-18-2022 Platelet mean volume (Bld) [Entitic vol] 12.2 fL 6.2-12.0 [facility] Work Phone: [phone] Determination of erythrocyte mean corpuscular volume (MCV)on 07-18-2022 MCV (RBC) [Entitic vol] 99.3 fL 80-94 [facility] Work Phone: [phone] Hematocrit Auto (Bld) [Volum e fraction]on 07-18-2022 Hematocrit (Bld) [Volume fraction] 43.6 % 40-54 [facility] Work Phone: Laboratory - Chemistry and C hemistry - challengeon 07-18-2022 ALP [Catalytic activity/Vol] 69 U/L 45-117 [facility] Work Phone: [phone] ALT [Catalytic activity/Vol] 17 U/L 16-61 [facility] Work Phone: [phone] CO2 [Moles/Vol] 29.0 mmol/L 21.0-32.0 [facility] Work Phone: [phone] Globulin (S) [Mass/Vol] 3.2 g/dL 2.2-4.2 [facility] Work Phone: [phone] Urea nitrogen/Creatinine [Mass ratio] 18.4 mg/mg 10-20 [facility] Work Phone: [phone] Laboratory - Hematology and Cell countson 07-18-2022 Erythrocyte distribution width (RBC) [Entitic vol] 45.3 fL 35.1-43.9 [facility] Work Phone: [phone] Erythrocyte distribution width (RBC) [Ratio] 12.3 % 11.6-14.6 [facility] Work Phone: [phone] MCH (RBC) [Entitic mass] 31.7 pg 27.0-32.0 [facility] Work Phone: [phone] MCHC Auto (RBC) [Mass/Vol]on 07-18-2022 MCHC (RBC) [Mass/Vol] 31.9 g/dL 32-36 [facility] Work Phone: [phone] No Panel Informationon 07-18 Estimated GFR (MDRD) Amer 72 mL/min >60 [facility] Work Phone: [phone] Comment on above: GFR Calc Estimated GFR (MDRD) Non-Af Amer 60 mL/min >60 [facility] Work Phone: [phone] Comment on above: Non- GFR Calc Platelets bldon 07-18-2022 Platelets (Bld) [#/Vol] 172 10*3/uL 150-450 [facility] Work Phone: [phone] Serum or plasma albumin nelia urement (mass/volume)on 07-18-2022 Albumin [Mass/Vol] 3.4 g/dL 3.2-5.0 [facility] Work Phone: [phone] Serum or plasma albumin/glob ulin mass ratioon 07-18-2022 Albumin/Globulin [Mass ratio] 1.1 {ratio} 0.9-2.4 [facility] Work Phone: [phone] Serum or plasma calcium nelia urement (mass/volume)on 07-18-2022 Calcium [Mass/Vol] 8.7 mg/dL 8.5-10.1 [facility] Work Phone: [phone] Serum or plasma creatinine m easurement (mass/volume)on 07-18-2022 Creatinine [Mass/Vol] 1.25 mg/dL 0.70-1.30 [facility] Work Phone: Comment on above: The validity of the calculated GFR & GFRAA in patients over 70 years has not been determined. Clinical correlation is essential. Serum or plasma urea nitroge n measurement (mass/volume)on 07-18-2022 Urea nitrogen [Mass/Vol] 23 mg/dL 7-18 [facility] Work Phone: Thin prep Papanicolaou smear with manual screeningon 07-18-2022 Thin prep Papanicolaou smear with manual screening 22 U/L 15-37 [facility] Work Phone: Thin prep Papanicolaou smear with manual screening 7 5-15 [facility] Work Phone: MRI BRAIN WO/W IVCONon 02-04 [facility] Gram stain for investigation of transfusion reaction Microscopic observation Gram stain Nom (Unsp spec) [facility] Work Phone: No Panel Information Influenza Types A,B Direct FA (YOLA) [facility] Work Phone: Routine wound culture Bacteria identified Cx Nom (Wound) No growth aerobically. [facility] Work Phone: Vital Signs Date Time Vital Sign Value Performing Clinician Facility 01-24-2025 09:53-0400 Body mass index (BMI) [Ratio] 27.98 kg/m2 [email or web address] Work Phone: [facility] 01-24-2025 09:53-0400 Body temperature 97 [degF] Richard [employer] Work Phone: [facility] 01-24-2025 09:53-0400 Body weight 83.46 kg Richard [employer] Work Phone: [facility] 01-24-2025 09:53-0400 Diastolic blood pressure 60 mm[Hg] Richard [employer] Work Phone: [facility] 01-24-2025 09:53-0400 Heart rate 64 /min Richard [employer] Work Phone: [facility] 01-24-2025 09:53-0400 Respiratory rate 20 /min Richard Schneider DO Work Phone: [facility] 01-24-2025 09:53-0400 Systolic blood pressure 100 mm[Hg] Richard Schneider DO Work Phone: [facility] 08-30-2024 09:26-0500 Body mass index (BMI) [Ratio] 28.86 kg/m2 Gila Issa MD Work Phone: [facility] 08-30-2024 09:26-0500 Body weight 86.1 kg Gila Issa MD Work Phone: [facility] 08-30-2024 09:26-0500 SaO2% (BldA) [Mass fraction] 97 % Gila Issa MD Work Phone: [facility] 07-26-2024 09:46-0400 Body mass index (BMI) [Ratio] 29.04 kg/m2 Richard Schneider DO Work Phone: [facility] 07-26-2024 09:46-0400 Body temperature 97 [degF] Richard Schneider DO Work Phone: [facility] 07-26-2024 09:46-0400 Body weight 86.64 kg Richard Schneider DO Work Phone: [facility] 07-26-2024 09:46-0400 Diastolic blood pressure 60 mm[Hg] Richard Schneider DO Work Phone: [facility] 07-26-2024 09:46-0400 Heart rate 60 /min Richard Schneider DO Work Phone: [facility] 07-26-2024 09:46-0400 Respiratory rate 20 /min Richard Schneider DO Work Phone: [facility] 07-26-2024 09:46-0400 Systolic blood pressure 110 mm[Hg] Richard Schneider DO Work Phone: [facility] 05-10-2024 10:49-0400 Body mass index (BMI) [Ratio] 29.04 kg/m2 Richard Schneider DO Work Phone: [facility] 05-10-2024 10:49-0400 Body temperature 96.6 [degF] Richard Schneider DO Work Phone: [facility] 05-10-2024 10:49-0400 Body weight 86.64 kg Richard Schneider DO Work Phone: [facility] 05-10-2024 10:49-0400 Diastolic blood pressure 60 mm[Hg] Richard Schneider DO Work Phone: [facility] 05-10-2024 10:49-0400 Heart rate 60 /min Richard Schneider DO Work Phone: [facility] 05-10-2024 10:49-0400 Systolic blood pressure 110 mm[Hg] Richard Schneider DO Work Phone: [facility] 02-23-2024 09:30-0400 Body height 172.7 cm Gila Issa MD Work Phone: [facility] 02-23-2024 09:30-0400 Body mass index (BMI) [Ratio] 29.3 kg/m2 Gila Issa MD Work Phone: [facility] 02-23-2024 09:30-0400 Body weight 87.4 kg Gila Issa MD Work Phone: [facility] 02-23-2024 09:30-0400 Diastolic blood pressure 58 mm[Hg] Gila Issa MD Work Phone: [facility] 02-23-2024 09:30-0400 Heart rate 51 /min Gila Issa MD Work Phone: [facility] 02-23-2024 09:30-0400 SaO2% (BldA) [Mass fraction] 95 % Gila Issa MD Work Phone: [facility] 02-23-2024 09:30-0400 Systolic blood pressure 123 mm[Hg] Gila Issa MD Work Phone: [facility] 08-18-2023 09:27-0400 Body height 172.7 cm Gila Issa MD Work Phone: [facility] 08-18-2023 09:27-0400 Body weight 91.17 kg Gila Issa MD Work Phone: [facility] 08-18-2023 09:27-0400 SaO2% (BldA) [Mass fraction] 96 % Gila Issa MD Work Phone: [facility] 04-07-2023 09:53-0400 Body temperature 97 [degF] Richard Schneider DO Work Phone: [facility] 04-07-2023 09:53-0400 Body weight 91.63 kg Richard Schneider DO Work Phone: [facility] 04-07-2023 09:53-0400 Diastolic blood pressure 60 mm[Hg] Richard Schneider DO Work Phone: [facility] 04-07-2023 09:53-0400 Heart rate 64 /min Richard Schneider DO Work Phone: [facility] 04-07-2023 09:53-0400 Respiratory rate 20 /min Richard Schneider DO Work Phone: [facility] 04-07-2023 09:53-0400 Systolic blood pressure 90 mm[Hg] Richard Schneider DO Work Phone: [facility] 01-06-2023 10:31-0400 Body temperature 96.4 [degF] Richard Schneider DO Work Phone: [facility] 01-06-2023 10:31-0400 Body weight 92.99 kg Richard Schneider DO Work Phone: [facility] 01-06-2023 10:31-0400 Diastolic blood pressure 82 mm[Hg] Richard Schneider DO Work Phone: [facility] 01-06-2023 10:31-0400 Heart rate 60 /min Richard Schneider DO Work Phone: [facility] 01-06-2023 10:31-0400 Respiratory rate 20 /min Richard Schneider DO Work Phone: [facility] 01-06-2023 10:31-0400 Systolic blood pressure 124 mm[Hg] Richard Schneider DO Work Phone: [facility] 12-16-2022 10:47-0500 Body height 172.7 cm Gila Issa MD Work Phone: [facility] 12-16-2022 10:47-0500 Body weight 93.67 kg Gila Issa MD Work Phone: [facility] 12-16-2022 10:47-0500 SaO2% (BldA) [Mass fraction] 95 % Gila Issa MD Work Phone: [facility] 09-23-2022 09:46-0500 Body height 172.72 cm [facility] 09-23-2022 09:46-0500 Body mass index (BMI) [Ratio] 29.9 kg/m2 [facility] 09-23-2022 09:46-0500 Body temperature 95.9 [degF] [facility] 09-23-2022 09:46-0500 Body weight 89.35 kg [facility] 09-23-2022 09:46-0500 Diastolic blood pressure 45 mm[Hg] [facility] 09-23-2022 09:46-0500 Heart rate 53 /min [facility] 09-23-2022 09:46-0500 Respiratory rate 16 /min [facility] 09-23-2022 09:46-0500 Systolic blood pressure 107 mm[Hg] [facility] 07-08-2022 10:19-0400 Body temperature 97 [degF] Richard Schneider DO Work Phone: [facility] 07-08-2022 10:19-0400 Body weight 91.63 kg Richard Schneider DO Work Phone: [facility] 07-08-2022 10:19-0400 Diastolic blood pressure 60 mm[Hg] Richard Schneider DO Work Phone: [facility] 07-08-2022 10:19-0400 Heart rate 64 /min Richard Schneider DO Work Phone: [facility] 07-08-2022 10:19-0400 Respiratory rate 20 /min Richard Schneider DO Work Phone: [facility] 07-08-2022 10:19-0400 Systolic blood pressure 110 mm[Hg] Richard Schneider DO Work Phone: [facility] 04-08-2022 10:03-0400 Body temperature 97 [degF] Richard Schneider DO Work Phone: [facility] 04-08-2022 10:03-0400 Body weight 86.64 kg Richard Schneider DO Work Phone: [facility] 04-08-2022 10:03-0400 Diastolic blood pressure 60 mm[Hg] Richard Schneider DO Work Phone: [facility] 04-08-2022 10:03-0400 Heart rate 64 /min Richard Schneider DO Work Phone: [facility] 04-08-2022 10:03-0400 Respiratory rate 16 /min Richard Schneider DO Work Phone: [facility] 04-08-2022 10:03-0400 Systolic blood pressure 90 mm[Hg] Richard Schneider DO Work Phone: [facility] 01-07-2022 08:44-0400 Body temperature 96.01 [degF] Richard Schneider DO Work Phone: [facility] 01-07-2022 08:44-0400 Body weight 79.38 kg Richard Schneider DO Work Phone: [facility] 01-07-2022 08:44-0400 Diastolic blood pressure 50 mm[Hg] Richard Schneider DO Work Phone: [facility] 01-07-2022 08:44-0400 Heart rate 60 /min Richard Schneider DO Work Phone: [facility] 01-07-2022 08:44-0400 Respiratory rate 16 /min Richard Schneider DO Work Phone: [facility] 01-07-2022 08:44-0400 Systolic blood pressure 107 mm[Hg] Richard Schneider DO Work Phone: [facility] Encounters Encounter Date Encounter Type Care Provider Facility Start: 06-21-2025 End: 06-21-2025 Telephone encounter Gila Issa MD Work Phone: Neurology Comment on above: Patient Update Start: 06-13-2025 End: 06-13-2025 Telephone encounter Gila Issa MD Work Phone: Neurology Comment on above: Patient Update Start: 04-24-2025 End: 04-24-2025 Telephone encounter Gila Issa MD Work Phone: Neurology Comment on above: Orders Start: 04-24-2025 End: 04-24-[address] Richard Schneider DO Work Phone: -Physical Therapy Start: 04-24-2025 End: 04-24-[address] Gila Issa MD -Physical Therapy Work Phone: Start: 04-05-2025 End: 04-05-2025 Telephone encounter Richard Schneider DO Work Phone: [facility] Comment on above: Forms Start: 02-21-2025 End: 02-26-2025 Refill Gila Issa MD Work Phone: Neurology Comment on above: Orders Start: 02-07-2025 ambulatory Richard Schneider [facility] y:[facility] Start: 01-24-2025 End: 01-24-2025 ambulatory RICHARD SCHNEIDER Facility:[facility] Start: 01-24-2025 End: 01-24-2025 Patient encounter procedure Richard Schneider DO Work Phone: [facility] Comment on above: IFG (impaired fastin g glucose) (Primary Dx); Balance disorder; Hypertension, essential; Short-term memory loss; Stage 3a chronic kidney disease (HCC); Parkinson's disease with dyskinesia and fluctuating manifestations (HCC); Pure hypercholesterolemia; Vitamin B12 deficiency; Bilateral leg edema; Weight loss Start: 01-17-2025 End: 01-26-2025 Telephone encounter Gila Issa MD Work Phone: Neurology Comment on above: Orders Start: 01-12-[address] Danni Issa MD -Physical Therapy Work Phone: Start: 01-11-2025 End: 01-11-[address] Richard Schneider DO Work Phone: [facility] Work Phone: Start: 01-11-2025 End: 01-11-2025 Departed Referred Richard Schneider -[facility] Work Phone: Start: 01-11-2025 End: 01-11-2025 ambulatory Richard Schneider Facility:[facility] Start: 12-21-2024 End: 12-22-2024 Telephone encounter Richard Schneider DO Work Phone: [facility] Comment on above: Orders Start: 12-18-2024 End: 12-20-2024 Telephone encounter Richard Schneider DO Work Phone: [facility] Comment on above: Patient Update Start: 12-15-2024 End: 12-18-2024 ambulatory Richard Schneider DO Work Phone: [facility] Comment on above: Dad declining and de pression Start: 12-08-2024 End: 12-12-2024 ambulatory Gila Issa MD Work Phone: Neurology Comment on above: Dads parkinsons issu es Start: 12-01-2024 End: 12-04-2024 ambulatory Gila Issa MD Work Phone: Neurology Comment on above: MIKE Walker Start: 10-16-2024 End: 10-16-2024 Telephone encounter Richard Schneider DO Work Phone: [facility] Comment on above: Patient Question Start: 10-06-2024 End: 10-06-2024 Telephone encounter Richard Schneider DO Work Phone: [facility] Comment on above: Information needed f or DME company for nebulizer Start: 10-04-2024 End: 10-04-2024 Telephone encounter Richard Freemanon DO Work Phone: [facility] Comment on above: Orders Start: 09-22-2024 End: 09-29-2024 Telephone encounter Richard Schneider DO Work Phone: [facility] Comment on above: Patient Question; Me dication Request Start: 09-08-2024 End: 09-08-2024 Telephone encounter Rob Shai GARCES Work Phone: [facility] Comment on above: Orders Patient Question; Me dication Question Start: 08-30-2024 End: 08-30-2024 ambulatory GILA ISSA Facility:[facility] Start: 08-30-2024 End: 08-30-2024 Office outpatient visit 40 minutes Gila Issa MD Work Phone: Neurology Comment on above: Parkinson's disease with dyskinesia and fluctuating manifestations (HCC) Start: 07-26-2024 End: 07-26-2024 ambulatory RICHARD FREEMANON Facility:[facility] Start: 07-26-2024 End: 07-26-2024 Patient encounter procedure Richard Dariana Wyatt DO Work Phone: [facility] Comment on above: Parkinson's disease with dyskinesia and fluctuating manifestations (HCC) (Primary Dx); Need for influenza vaccination; Hypertension, essential; Balance disorder; Stage 3a chronic kidney disease (HCC); IFG (impaired fasting glucose); Pure hypercholesterolemia; Short-term memory loss Start: 07-25-2024 End: 07-25-2024 ambulatory Richard Freemanon Facility:[facility] Start: 05-10-2024 End: 05-10-2024 Patient encounter procedure Richard Gaitanrison DO Work Phone: [facility] Comment on above: Hypertension, essent ial (Primary Dx); SOB (shortness of breath); Parkinson's disease with dyskinesia and fluctuating manifestations (HCC); IFG (impaired fasting glucose); Stage 3a chronic kidney disease (HCC); Balance disorder; Subacute cough Start: 04-25-2024 Telephone encounter Rcihard montoya DO Work Phone: [facility] Comment on above: Orders (Due for labs ?/) Start: 03-07-2024 Telephone encounter Richard finleygarret DO Work Phone: [facility] on above[facility] Start: 02-23-2024 End: 02-23-2024 Patient encounter procedure Gila Issa MD Work Phone: Neurology Comment on above: Parkinson's disease with dyskinesia and fluctuating manifestations (HCC) (Primary Dx) Start: 01-19-2024 End: 01-19-2024 Patient encounter procedure Tonya Gray PA-C Work Phone: Orthopaedics Comment on above: Left carpal tunnel s yndrome (Primary Dx) Start: 12-29-2023 End: 12-29-[address] Richard Schneider Work Phone: [facility] Work Phone: Start: 12-29-2023 End: 12-29-[address] Richard Schneider Work Phone: [facility] Work Phone: Start: 12-22-2023 Telephone encounter Richard montoya DO Work Phone: [facility] Comment on above: Lab Orders Start: 12-06-2023 End: 12-06-2023 Patient encounter procedure Tonya ALONZO-C Work Phone: Orthopaedics Comment on above: Left carpal tunnel s yndrome (Primary Dx) Start: 11-24-2023 End: 11-24-2023 ambulatory ALBERTO SPENCER Facility:[facility] Start: 11-09-2023 End: 11-09-2023 Patient encounter procedure Alberto Spencer MD Work Phone: Orthopaedics Comment on above: Carpal tunnel syndro me, left Start: 11-03-2023 Non-patient / Non-visit Dr. Iram Schneider Work Phone: [facility] Start: 11-03-2023 End: 11-03-[address] Richard Schneider Work Phone: [facility]/Neurology Work Phone: Start: 10-12-2023 End: 10-12-2023 ambulatory [facility] Work Phone: Start: 10-12-2023 End: 10-12-2023 Departed Referred [facility] Work Phone: Start: 09-06-2023 Telephone encounter Richard montoya DO Work Phone: [facility] Comment on above: Patient Update Start: 08-18-2023 End: 08-18-2023 Office outpatient visit 25 minutes Gila Issa MD Work Phone: Neurology Comment on above: Parkinson's disease with dyskinesia and fluctuating manifestations (Primary Dx) Start: 08-02-2023 Telephone encounter Richard montoya DO Work Phone: [facility] Comment on above: Patient Question Start: 06-24-2023 End: 06-24-2023 [facility] Work Phone: Start: 06-24-2023 End: 06-24-2023 Departed Referred [facility] Work Phone: Start: 06-23-2023 Telephone encounter Richard montoya DO Work Phone: [facility] Comment on above: Lab Orders Start: 04-07-2023 End: 04-07-2023 Patient encounter procedure Richard Schneider DO Work Phone: [facility] Comment on above: Leg wound, right, in itial encounter (Primary Dx); Chronic ulcer of right leg, limited to breakdown of skin (HCC); Chronic kidney disease, stage 3a (HCC); Parkinson's disease (HCC); Hypertension, essential; Pure hypercholesterolemia; Bilateral leg edema; IFG (impaired fasting glucose) Start: 01-06-2023 End: 01-06-2023 Patient encounter procedure Richard Freemanon DO Work Phone: [facility] Comment on above: Parkinson's disease (HCC) (Primary Dx); Chronic ulcer of right leg, limited to breakdown of skin (HCC); Chronic kidney disease, stage 3a (HCC); Hypertension, essential; Pure hypercholesterolemia; Bilateral leg edema; IFG (impaired fasting glucose); Vitamin D deficiency Start: 12-24-2022 End: 12-24-2022 ambulatory [facility] Work Phone: Start: 12-24-2022 End: 12-24-2022 Departed Referred [facility] Start: 12-23-2022 Telephone encounter Marta Zack brower HATCHERY HELPER.SENIOR ETL DEVELOPER Work Phone: [facility] Comment on above: Results Refill Request Start: 12-16-2022 End: 12-16-2022 Patient encounter procedure Gila Issa MD Work Phone: Neurology Comment on above: Parkinson's disease (HCC) (Primary Dx) Start: 11-10-2022 Refill Richard brower DO Work Phone: [facility] Comment on above: Refill Request Start: 10-22-2022 End: 10-22-2022 ambulatory [facility] Work Phone: Start: 10-22-2022 End: 10-22-2022 Departed Referred [facility] [place] Start: 10-08-2022 Telephone encounter Rob Wong APRN.SENIOR ETL DEVELOPER Work Phone: [facility] Comment on above: Results Start: 09-27-2022 End: 09-27-2022 Departed Referred [facility] [place] Start: 09-27-2022 Registered Referred [facility] Start: 09-23-2022 Non-patient / Non-visit [facility] Start: 09-23-2022 End: 10-17-2022 ambulatory [facility] Work Phone: Start: 09-23-2022 End: 10-17-2022 Discharged Recurring [facility] Start: 07-29-2022 Telephone encounter Richard montoya DO Work Phone: [facility] Comment on above: Patient Update Start: 07-18-2022 End: 07-18-2022 ambulatory [facility] Work Phone: Start: 07-18-2022 End: 07-18-2022 Departed Referred [facility] Start: 07-08-2022 End: 07-08-2022 Patient encounter procedure Richard Schneider DO Work Phone: [facility] Comment on above: Chronic ulcer of rig ht leg, limited to breakdown of skin (HCC) (Primary Dx); Need for influenza vaccination; Onychomycosis; Bunion; Bilateral leg edema; IFG (impaired fasting glucose); Stage 3a chronic kidney disease (HCC); Balance disorder; Parkinson disease (HCC); Hypertension, essential Start: 04-17-2022 Telephone encounter Richard montoya DO Work Phone: [facility] Comment on above: request for medicati on being faxed Start: 04-16-2022 Telephone encounter Gila dejesus MD Work Phone: Neurology Comment on above: Other (Ella Peguero Ph ysician Provider Order) Start: 04-08-2022 End: 04-08-2022 Patient encounter procedure Richard Schneider DO Work Phone: [facility] Comment on above: Parkinson's disease (HCC) (Primary Dx); Elevated PSA; Balance disorder; Microscopic hematuria; Pure hypercholesterolemia; IFG (impaired fasting glucose); Stage 3a chronic kidney disease (HCC); Vitamin D deficiency; Vitamin B12 deficiency; Gait disorder; Muscle weakness; Depressive disorder; Chronic right shoulder pain; Bilateral impacted cerumen Start: 03-25-2022 Telephone encounter Richard montoya DO Work Phone: [facility] Comment on above: Orders Start: 02-27-2022 Telephone encounter Gila dejesus MD Work Phone: Neu[facility] Comment on above: Refill Request; Refi ll Request Start: 02-26-2022 Telephone encounter Gila dejesus MD Work Phone: Neurology Comment on above: Other (Falls on Brijesh tadine ) Patient Update Start: 02-20-2022 Telephone encounter Richard montoya DO Work Phone: [facility] [place] Comment on above: PT plan of care Start: 02-16-2022 Telephone encounter [facility] Comment on above: Follow for [facility] Start: 02-13-2022 Telephone encounter Richard montoya DO Work Phone: [facility] Comment on above: Faxed to [facility] Start: 02-04-2022 Telephone encounter Richard Dariana montoya DO Work Phone: [facility] Comment on above: Results Start: 02-04-2022 End: 02-04-2022 Subsequent hospital visit by physician Mri Radio Replaced By [facility] W[facility] (I-Stat/1.5t) Work Phone: Radiology Comment on above: Cognitive impairment , mild, so stated [G31.84] Start: 01-07-2022 End: 01-07-2022 Patient encounter procedure Richard Schneider DO Work Phone: [facility] Comment on above: Parkinson's disease (HCC) (Primary Dx); Balance disorder; Muscle weakness; Gait disorder; Microscopic hematuria; Elevated PSA; Pure hypercholesterolemia; Hypertension, essential; Depressive disorder; IFG (impaired fasting glucose); 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; Stage 3a chronic kidney disease (HCC); Vitamin D deficiency; Vitamin B12 deficiency Start: 12-05-2021 Telephone encounter Richard Dariana montoya DO Work Phone: [facility] [place] Comment on above: Refill Request Start: 09-18-2021 End: 09-18-2021 Discharged [facility] Procedures Date Procedure Procedure Detail Performing Clinician Start: 09-23-2022 Plain X-ray of tibia and fibula Start: 07-08-2022 INFLUENZA SEASONAL QUADRIVALENT HIGH DOSE AGE 65+ Richard Schneider DO Work Phone: Start: 02-04-2022 Mri brain brain stem w/o w/contrast material Richard Schneider DO Work Phone: Start: 07-24-2021 History of coronary artery bypass grafting S/P CABG x 5 Richard Schneider DO Work Phone: Start: 07-18-2018 Colonoscopy Richard Arnie dolanedna DO Work Phone: Influenza Types A,B Direct FA ([facility]A) Influenza Types A,B Direct FA ([facility]A) Investigation of transfusion reaction Microbial culture, routine Plan of Treatment Date Care Activity Detail Author Start: 07-18-2028 Colonoscopy COLONOSCOPY [facility] Start: 07-18-2028 COLORECTAL CANCER SCREENING COLORECTAL CANCER SCREENING [facility] Start: 03-27-2027 LIPID SCREEN LIPID SCREEN [facility] Start: 11-04-2026 LIPID SCREEN LIPID SCREEN [facility] Start: 01-24-2026 Annual PCP Team Chronic Disease Visit Annual PCP Team Chronic Disease Visit [facility] Start: 01-24-2026 BP Controlled (<130/80) BP Controlled (<130/80) [facility] in Start: 10-07-2025 DIABETES SCREEN DIABETES SCREEN [facility] Start: 10-07-2025 Diabetes Screening Diabetes Screening [facility] Start: 07-26-2025 Annual PCP Team Chronic Disease Visit Annual PCP Team Chronic Disease Visit [facility] Start: 07-26-2025 BP Controlled (<130/80) BP Controlled (<130/80) [facility] Start: 07-26-2025 Covid-19 Vaccine ( season) Covid-19 Vaccine ( season) [facility] Comment on above: Postponed from 06/18/2024 (Declined at t his time) Start: 07-18-2025 End: 07-18-2025 Patient encounter procedure 07/18/2025 10:00 AM EDT Office Visit [facility] [place] [address] [place] [address] Richard Schneider DO [address] [place] [address] 6 month follow up [facility] [place] Comment on above: 6 month follow up Start: 07-04-2025 End: 07-04-2025 Patient encounter procedure 07/04/2025 9:30 AM EDT Office Visit Neurology [address] [phone] Gila Issa MD [address] [address] Follow up Neurology Comment on above: Follow up Start: 06-18-2025 Influenza vaccination Influenza Vaccine (#1) [facility] Start: 05-10-2025 Annual PCP Team Chronic Disease Visit Annual PCP Team Chronic Disease Visit [facility] Start: 04-11-2025 End: 04-11-2025 Patient encounter procedure 04/11/2025 9:30 AM EDT Office Visit Neurology [address] [id number] Gila Issa MD [address] [address] Follow up Neurology Comment on above: Follow up Start: 03-07-2025 End: 03-07-2025 Patient encounter procedure 03/07/2025 9:30 AM EDT Office Visit Neurology [address] [address] Gila Issa MD [address] [address] 6 month follow up Neurology Comment on above: 6 month follow up Start: 02-22-2025 BP Controlled (<130/80) BP Controlled (<130/80) [facility] Start: 01-24-2025 End: 01-24-2025 Patient encounter procedure 01/24/2025 10:00 AM EDT Office Visit [facility] [place] [address] [place], [place] [id number] Richard Schneider DO [address] [place], [place] [id number] 6 month follow up [facility] Comment on above: 6 month follow up Start: 01-11-2025 Annual PCP Team Chronic Disease Visit Annual PCP Team Chronic Disease Visit [facility] Start: 01-11-2025 BP Controlled (<130/80) BP Controlled (<130/80) [facility] Start: 12-18-2024 DIABETES SCREEN DIABETES SCREEN [facility] Start: 10-18-2024 Medicare Advantage Annual Wellness Visit Medicare [facility] Annual Wellness Visit [facility] Start: 10-13-2024 Annual PCP Team Chronic Disease Visit Annual PCP Team Chronic Disease Visit [facility] Start: 10-13-2024 BP Controlled (<130/80) BP Controlled (<130/80) [facility] Start: 08-30-2024 End: 08-30-2024 Patient encounter procedure 08/30/2024 9:30 AM EST Office Visit Neurology [address] [phone] Gila Issa MD [address] [facility] [address] [place] [address] Return in about 6 months (around 08/25/2024). Neurology Comment on above: Return in about 6 months (around 08/25/20 24). Start: 07-26-2024 End: 07-26-2024 Patient encounter procedure 07/26/2024 10:00 AM EDT Office Visit [facility] [address] [place] [address] Richard Schneider DO [address] [place] [address] 3 month follow up [facility] Comment on above: 3 month follow up Start: 07-14-2024 Annual PCP Team Chronic Disease Visit Annual PCP Team Chronic Disease Visit [facility] Start: 07-14-2024 BP Controlled (<130/80) BP Controlled (<130/80) [facility] Start: 06-18-2024 Influenza vaccination Influenza Vaccine (#1) [facility] Start: 05-25-2024 End: 05-25-2024 Patient encounter procedure 05/25/2024 10:30 AM EDT Office Visit Cardiology [address] [place] [address] SOB (shortness of breath) [R06.02] Cardiology Comment on above: SOB (shortness of breath) [R06.02] Start: 05-10-2024 End: 05-10-2024 Patient encounter procedure 05/10/2024 10:20 AM EDT Office Visit [facility] [address] [place] [address] Richard Schneider DO [address] [place] [address] 3 month follow up [facility] [place] Comment on above: 3 month follow up Start: 04-27-2024 End: 07-27-2024 CBC W Auto Differential panel - Blood COMPLETE BLOOD COUNT AND DIFFERENTIAL Lab Routine Parkinson's disease with dyskinesia and fluctuating manifestations (HCC) Hypertension, essential Expected: 04/27/2024, Expires: 07/27/2024 [facility] Comment on above: Expected: 04/27/2024, Expires: Start: 04-27-2024 End: 07-27-2024 Cobalamin (Vitamin B12) [Mass/volume] in Serum or Plasma VITAMIN B12 Lab Routine Parkinson's disease with dyskinesia and fluctuating manifestations (HCC) Hypertension, essential Expected: 04/27/2024, Expires: 07/27/2024 [facility] Comment on above: Expected: 04/27/2024, Expires: Start: 04-27-2024 End: 07-27-2024 Comprehensive metabolic 2000 panel - Serum or Plasma COMPREHENSIVE METABOLIC PANEL Lab Routine Parkinson's disease with dyskinesia and fluctuating manifestations (HCC) Hypertension, essential Expected: 04/27/2024, Expires: 07/27/2024 [facility] Work Phone: Comment on above: Expected: 04/27/2024, Expires: 4 Start: 04-27-2024 End: 07-27-2024 Hemoglobin A1c in Blood HEMOGLOBIN A1C Lab Routine IFG (impaired fasting glucose) Expected: 04/27/2024, Expires: 07/27/2024 [facility] Comment on above: Expected: 04/27/2024, Expires: Start: 04-07-2024 ANNUAL PCP TEAM CHRONIC DISEASE VISIT ANNUAL PCP TEAM CHRONIC DISEASE VISIT [facility] Start: 04-07-2024 BP CONTROLLED (<130/80) BP CONTROLLED (<130/80) [facility] Start: 01-07-2024 ANNUAL PCP TEAM CHRONIC DISEASE VISIT ANNUAL PCP TEAM CHRONIC DISEASE VISIT [facility] Start: 12-22-2023 End: 03-22-2024 CBC W Auto Differential panel - Blood CBC + DIFF Lab Routine Hypertension, essential Expected: 12/22/2023, Expires: 03/22/2024 [facility] Work Phone: Comment on above: Expected: 12/22/2023, Expires: Start: 12-22-2023 End: 03-22-2024 Comprehensive metabolic 2000 panel - Serum or Plasma COMP METABOLIC PANEL Lab Routine Hypertension, essential Stage 3a chronic kidney disease (HCC) Expected: 12/22/2023, Expires: 03/22/2024 [facility] Work Phone: Comment on above: Expected: 12/22/2023, Expires: Start: 12-22-2023 End: 03-22-2024 Hemoglobin A1c in Blood HGB A1C Lab Routine IFG (impaired fasting glucose) Expected: 12/22/2023, Expires: 03/22/2024 [facility] Work Phone: Comment on above: Expected: 12/22/2023, Expires: 4 Start: 12-22-2023 End: 03-22-2024 Lipid 1996 panel - Serum or Plasma LIPID PANEL BASIC Lab Routine Hypertension, essential Expected: 12/22/2023, Expires: 03/22/2024 [facility] Work Phone: Comment on above: Expected: 12/22/2023, Expires: Start: 10-07-2023 ANNUAL PCP TEAM CHRONIC DISEASE VISIT ANNUAL PCP TEAM CHRONIC DISEASE VISIT [facility] Start: 10-07-2023 BP CONTROLLED (<130/80) BP CONTROLLED (<130/80) [facility] Start: 10-07-2023 Complete blood count Hemoglobin/Hematocrit [facility] Start: 10-07-2023 Creatinine measurement Serum Creatinine [facility] Start: 10-07-2023 HEMOGLOBIN/HEMATOCRIT HEMOGLOBIN/HEMATOCRIT [facility] Start: 10-07-2023 SERUM CREATININE SERUM CREATININE [facility] Start: 07-08-2023 ANNUAL PCP TEAM CHRONIC DISEASE VISIT ANNUAL PCP TEAM CHRONIC DISEASE VISIT [facility] Start: 07-08-2023 BP CONTROLLED (<130/80) BP CONTROLLED (<130/80) [facility] Start: 06-23-2023 End: 08-23-2023 CBC W Auto Differential panel - Blood CBC + DIFF Lab Routine Pure hypercholesterolemia Expected: 06/23/2023, Expires: 08/23/2023 [facility] Work Phone: Comment on above: Expected: 06/23/2023, Expires: 3 Start: 06-23-2023 End: 08-23-2023 Comprehensive metabolic 2000 panel - Serum or Plasma COMP METABOLIC PANEL Lab Routine Pure hypercholesterolemia IFG (impaired fasting glucose) Expected: 06/23/2023, Expires: 08/23/2023 [facility] Work Phone: Comment on above: Expected: 06/23/2023, Expires: 3 Start: 06-23-2023 End: 08-23-2023 Hemoglobin A1c in Blood HGB A1C Lab Routine IFG (impaired fasting glucose) Expected: 06/23/2023, Expires: 08/23/2023 [facility] Work Phone: Comment on above: Expected: 06/23/2023, Expires: 3 Start: 06-23-2023 End: 08-23-2023 Lipid 1996 panel - Serum or Plasma LIPID PANEL BASIC Lab Routine Pure hypercholesterolemia Expected: 06/23/2023, Expires: 08/23/2023 [facility] Work Phone: Comment on above: Expected: 06/23/2023, Expires: 3 Start: 06-23-2023 End: 08-23-2023 Thyrotropin [Units/volume] in Serum or Plasma TSH BLD Lab Routine Pure hypercholesterolemia IFG (impaired fasting glucose) Expected: 06/23/2023, Expires: 08/23/2023 [facility] Work Phone: Comment on above: Expected: 06/23/2023, Expires: 3 Start: 06-18-2023 Covid-19 Vaccine () Covid-19 Vaccine () [facility] Start: 06-18-2023 Influenza vaccination INFLUENZA (#1) [facility] Start: 04-08-2023 ANNUAL PCP TEAM CHRONIC DISEASE VISIT ANNUAL PCP TEAM CHRONIC DISEASE VISIT [facility] Start: 04-08-2023 BP CONTROLLED (<130/80) BP CONTROLLED (<130/80) [facility] Start: 02-11-2023 BP CONTROLLED (<130/80) BP CONTROLLED (<130/80) [facility] Start: 01-07-2023 ANNUAL PCP TEAM CHRONIC DISEASE VISIT ANNUAL PCP TEAM CHRONIC DISEASE VISIT [facility] Start: 01-07-2023 BP CONTROLLED (<130/80) BP CONTROLLED (<130/80) [facility] Start: 12-18-2022 HEMOGLOBIN/HEMATOCRIT HEMOGLOBIN/HEMATOCRIT [facility] Start: 12-18-2022 SERUM CREATININE SERUM CREATININE [facility] Start: 11-04-2022 Hepatitis B surface antibody level LDL CHOLESTEROL [facility] Start: 10-22-2022 End: 12-22-2022 Comprehensive metabolic 2000 panel - Serum or Plasma COMP METABOLIC PANEL Lab Routine Stage 3a chronic kidney disease (HCC) LFT elevation Expected: 10/22/2022, Expires: 12/22/2022 [facility] Work Phone: Comment on above: Expected: 10/22/2022, Expires: 3 Start: 10-18-2022 ADVANCE DIRECTIVE DISCUSSION ADVANCE DIRECTIVE DISCUSSION [facility] Start: 06-18-2022 Influenza vaccination INFLUENZA (#1) [facility] Start: 03-25-2022 End: 05-25-2022 CBC W Auto Differential panel - Blood CBC + DIFF Lab Routine Stage 3a chronic kidney disease (HCC) Expected: 03/25/2022, Expires: 05/25/2022 [facility] Work Phone: Comment on above: Expected: 03/25/2022, Expires: 2 Start: 03-25-2022 End: 05-25-2022 Comprehensive metabolic 2000 panel - Serum or Plasma COMP METABOLIC PANEL Lab Routine Stage 3a chronic kidney disease (HCC) Expected: 03/25/2022, Expires: 05/25/2022 [facility] Work Phone: Comment on above: Expected: 03/25/2022, Expires: 2 Start: 03-25-2022 End: 05-25-2022 LIPID PANEL BASIC LIPID PANEL BASIC Lab Routine Pure hypercholesterolemia Expected: 03/25/2022, Expires: 05/25/2022 [facility] Work Phone: Comment on above: Expected: 03/25/2022, Expires: 2 Start: 03-25-2022 End: 05-25-2022 Prostate specific Ag [Mass/volume] in Serum or Plasma PSA/PROSTSPECAG DIAG Lab Routine Elevated PSA Expected: 03/25/2022, Expires: 05/25/2022 [facility] Work Phone: Comment on above: Expected: 03/25/2022, Expires: 2 Start: 03-25-2022 End: 05-25-2022 Urinalysis complete panel - Urine URINALYSIS, WITH MICROSCOPIC Lab Routine Microscopic hematuria Stage 3a chronic kidney disease (HCC) Expected: 03/25/2022, Expires: 05/25/2022 [facility] Work Phone: Comment on above: Expected: 03/25/2022, Expires: 2 Start: 03-25-2022 End: 05-25-2022 VITAMIN B12 BLOOD VITAMIN B12 BLOOD Lab Routine Vitamin B12 deficiency Expected: 03/25/2022, Expires: 05/25/2022 [facility] Work Phone: Comment on above: Expected: 03/25/2022, Expires: 2 Start: 03-25-2022 End: 05-25-2022 VITAMIN D 25 HYDROXY VITAMIN D 25 HYDROXY Lab Routine Vitamin D deficiency Expected: 03/25/2022, Expires: 05/25/2022 [facility] Work Phone: Comment on above: Expected: 03/25/2022, Expires: 2 Start: 01-07-2022 End: 03-09-2022 Urinalysis complete panel - Urine [facility] Work Phone: Comment on above: Expected: 01/07/2022, Expires: 2 Start: 10-18-2021 ADVANCE DIRECTIVE DISCUSSION ADVANCE DIRECTIVE DISCUSSION [facility] Start: 05-30-2021 COVID-19 VACCINE (2 - Booster for Eloina series) COVID-19 VACCINE (2 - Booster for Eloina series) [facility] Start: 2021 RSV Vaccine (1 - 1-dose 75+ series) RSV Vaccine (1 - 1-dose 75+ series) [facility] Start: 07-16-2018 PNEUMOCOCCAL: 65+ (#3) PNEUMOCOCCAL: 65+ (#3) [facility] Start: 07-16-2018 PNEUMOCOCCAL: 65+ (2 - PPSV23 or PCV20) PNEUMOCOCCAL: 65+ (2 - PPSV23 or PCV20) [facility] Start: 07-16-2018 PNEUMOCOCCAL: 65+ (3 - PPSV23 if available, else PCV20) PNEUMOCOCCAL: 65+ (3 - PPSV23 if available, else PCV20) [facility] Start: 07-16-2018 PNEUMOCOCCAL: 65+ (3 - PPSV23 or PCV20) PNEUMOCOCCAL: 65+ (3 - PPSV23 or PCV20) [facility] Start: 11-09-2012 PNEUMOVAX AGE 65 AND OVER WITH 5YR LOOKBACK (#1) PNEUMOVAX AGE 65 AND OVER WITH 5YR LOOKBACK (#1) [facility] Start: 2006 RSV Vaccine (1 - 1-dose 60+ series) RSV Vaccine (1 - 1-dose 60+ series) [facility] Start: 1991 COLOGUARD (FIT-DNA) COLOGUARD (FIT-DNA) [facility] Start: [address] COLONOGRAPHY [facility] Start: 1991 FECAL OCCULT BLOOD FECAL OCCULT BLOOD [facility] Start: 1991 SIGMOIDOSCOPY SIGMOIDOSCOPY [facility] Start: 1965 Urine microalbumin profile [facility] Start: 1964 Anxiety Screening Anxiety Screening [facility] Start: 1964 BP CONTROLLED (<130/80) BP CONTROLLED (<130/80) [facility] Start: 1964 HEPATITIS C SCREENING HEPATITIS C SCREENING [facility] Start: 1964 Hepatitis C screening Hepatitis C Screening [facility] End: 05-10-2025 Echocardiography ECHO Cardiology Routine SOB (shortness of breath) 1 Occurrences starting 05/10/2024 until 05/10/2025 [facility] Work Phone: Comment on above: 1 Occurrences starting 05/10/2024 until 05/10/2025 [facility] Immunizations Immunization Date Immunization Notes Care Provider Ant lawler 07-26-2024 influenza, high dose seasonal, preservative-free Richard Schneider DO Work Phone: [facility] 07-26-2024 influenza virus vacc ine, unspecified formulation Gila Issa MD Work Phone: [facility] 07-14-2023 influenza (HD-IIV4) vaccine, age 65+ yr, high dose, quadrivalent, PF (FLUZONE HIGH-DOSE) Richard Gaitanrison DO Work Phone: [facility] Work Phone: 07-14-2023 pneumococcal (PCV20) vaccine, 20 valent (PREVNAR 20) Richard Schneider DO Work Phone: [facility] Work Phone: 07-14-2023 influenza virus vacc ine, unspecified formulation Richard Schneider DO Work Phone: [facility] 07-08-2022 influenza, high-dose , quadrivalent vaccine (FLUZONE HIGH DOSE QUADRIVALENT) Richard Schneider DO Work Phone: [facility] Work Phone: 07-09-2021 influenza, high-dose , quadrivalent vaccine (FLUZONE HIGH DOSE QUADRIVALENT) Richard Schneider DO Work Phone: [facility] Work Phone: 07-19-2020 influenza, high dose seasonal, preservative-free Richard Schneider DO Work Phone: [facility] 08-10-2019 influenza, high dose seasonal, preservative-free Richard Schneider DO Work Phone: [facility] 06-28-2019 zoster vaccine recombinant Richard Schneider DO Work Phone: [facility] 03-26-2019 zoster vaccine recombinant Richard Schneider DO Work Phone: [facility] 08-09-2018 influenza, high dose seasonal, preservative-free Richard Schneider DO Work Phone: [facility] 08-09-2018 influenza, injectabl e, quadrivalent, preservative free Richard Schneider DO Work Phone: [facility] 07-16-2017 influenza, high dose seasonal, preservative-free Richard Schneider DO Work Phone: [facility] Work Phone: 07-16-2017 pneumococcal conjuga te vaccine, 13 valent Richard Schneider DO Work Phone: [facility] Work Phone: 07-25-2016 influenza, high dose seasonal, preservative-free Richard Schneider DO Work Phone: [facility] Work Phone: 11-09-2007 pneumococcal polysaccharide vaccine, 23 valent Richard Schneider DO Work Phone: [facility] Work Phone: Payers Date Payer Category Payer Self-pay [id number] 2021 Medicare AETNA MEDICARE A ETNA MEDICARE PPO [id number] 2021-Present [phone] [address] [place] [address] PPO [id number] 2021 Medicare AETNA MEDICARE A ETNA MEDICARE PPO [id number] 2021-Present [phone] [address] [place] [address] PPO [id number] 2021 Medicare (Managed Care) [employer] [place] [id number] 2021 Private Health Insurance [facility] [id number] Medicare [id number] Private Health Insurance [facility] [id number] Unknown [id number] Unknown [id number] Unknown [id number] Unknown [id number] Social History Date Type Detail Facility Start: 06-16-2022 End: 07-26-2024 Tobacco smoking status NHIS Ex-smoker [facility] Work Phone: Start: 06-28-1993 End: 06-28-2013 History of tobacco use Current smoker [facility] Work Phone: Start: 06-28-1993 End: 06-28-2013 History of tobacco use Cigarette Smoker [facility] Work Phone: Start: 01-07-2022 End: 01-24-2025 Alcohol intake Current drinker of alcohol (finding) [facility] Start: 1945 Sex Assigned At Not on file [facility] Start: 12-28-2021 End: 07-08-2022 Exposure to SARS-CoV-2 (event) Not sure [facility] Work Phone: Start: 02-18-2018 End: 09-23-2022 Tobacco smoking status VTIS Unknown if ever smoked [facility] Start: 1945 Sex Assigned At Male W [facility] Start: 06-16-2022 End: 04-07-2023 Cigarettes smoked current (pack per day) - Reported 0.5 [facility] Start: 06-16-2022 End: 07-26-2024 Tobacco use and exposure Smokeless tobacco non-user [facility] Start: 01-05-2023 History SDOH Alcohol Frequency 1 [facility] Start: 01-05-2023 History SDOH Alcohol Std Drinks 0 [facility] Start: 01-05-2023 History SDOH Social Connections Phone 5 [facility] Start: 01-05-2023 History SDOH Social Connections Membership 2 [facility] Start: 01-05-2023 End: 04-07-2023 Social connection and isolation panel [facility] Do you belong to any clubs or organizations such as anabaptist groups, unions, fraternal or athletic groups, or school groups? No [facility] Are you now , , , , never or living with a partner? [facility] How often to you hav e a drink containing alcohol? Never [facility] Start: 09-18-[address] inks containing alcohol do you have on a typical day? Patient does not drink [facility] (I/We) worried eliza er (my/our) food would run out before (I/we) got money to buy more. Never true [facility] Start: 01-16-2025 Sex Male (finding) [facility] Clinical Notes 07-19-2017 to 06-21-2025 Telephone Encounter - Tiffanie Hannah MA - 06/21/2025 3:56 PM EDTTelephone Encounter - Tiffanie Hannah MA - 06/21/2025 3:56 PM EDTTelephone Encounter - Moon Clarke RN - 06/21/2025 12:54 PM EDT Note Date & Type Note Facility 06-21-2025 Telephone encounter Note Form atting of this note might be different from the original. Faxed and confirmation received [facility] 06-21-2025 Miscellaneous Notes Formattin g of this note might be different from the original. Faxed and confirmation received Voicemail received June 21, 2025 [address] with [employer] requesting last OV notes to be faxed to [phone]. Also asking if Dr. Issa will follow and sign for home care. Call back number is [phone] documented in this encounter [facility] 06-21-2025 Telephone encounter Note Form atting of this note might be different from the original. Voicemail received June 21, 2025 [address] with [employer] requesting last OV notes to be faxed to [phone]. Also asking if Dr. Issa will follow and sign for home care. Call back number is [phone] [facility] 06-13-2025 Telephone encounter Note Form atting of this note might be different from the original. Received rehab discharge summary from [facility]. Placed on Dr. Hansel neville for review [facility] 06-13-2025 Miscellaneous Notes Formattin g of this note might be different from the original. Received rehab discharge summary from [facility]. Placed on Dr. Hansel neville for review documented in this encounter [facility] 06-12-2025 Discharge summary Note Date/Time June 12, 2025 11:59am [facility] Physical Therapy Health[address] [place] [address] / REHABILITATION SERVICES DISCHARGE SUMMARY MR#: [id number] Acct: [id number] Name: ALEXIS KRAMER Rep #: [id number] : 1945 80 From: Trena Dent Referring Dr.: Dr. Gila Issa MD Status: REG R Insurance: [facility] SELF PAY INSURANCE Patient Information Patient Information: ALEXIS KRAMER was seen in my office for initial evaluation on 12/20/24. The following Plan of Care was established for this patient: POC Established Initial Frequency: 1-2x /Week Initial Duration: 3 Months Anticipated Interventions Patient/Client Instruction: Educate patient on: Condition and Plan of Care For the Purpose of:: To improve muscle performance and motor function, To improve ability to perform ADL's, To increase tolerance to activity/condition/position, To improve performance and independence with ADL's,To decrease level of supervision to perform tasks, To improve ability of physical actions for home/community/work/leisure, To improve gait and locomotor functions, To improve health of tissue, To increase flexibility/ROM, To improve endurance, To improve balance, To improve safety with gait and To improve safety Therapeutic Exercise to Include: Strength training, Endurance training, Balance training, Postural training, Gait and locomotor training, Neuromotor developmentand Active ROM For the Purpose of:: To improve muscle performance and motor function, To improve ability to perform ADL's, To increase tolerance to activity/condition/position, To improve performance and independence with ADL's,To decrease level of supervision to perform tasks, To improve ability of physical actions for home/community/work/leisure, To improve gait and locomotor functions, To improve health of tissue, To decrease soft tissue restriction, To increase flexibility/ROM, To improve endurance, To improve balance and To improve safety with gait Functional Training to Include: Gait training For the Purpose of:: To improve gait and locomotor functions and To improve safety with gait Last Seen Last Seen: This patient was last seen in our office 04/24/25. Pertinent comments regardingtheir Physical therapy will appear below: BOB PT. Pt was going to take a month off and call back and he didn't call back and will be discharged. At this point I will be discontinuing this patient from physical therapy. I would be happy to see this patient again in the future if found appropriate by the physician. Thank you! SUNSHINE Santos Balance/Gait/Functional tests Balance/Special Test Scores Lower Extremity Functional Score: 14 <Electronically signed by Trena Hernandez MPT> 06/12/25 1159 CC: Dr. Richard Schneider DO; Dr. Gila Issa MD ~ Signed [facility] Work Phone: 1(620) 347-633708-26-2025 Discharge summary [facility] Physical Therapy Health[address] [place] [address] / REHABILITATION SERVICES DISCHARGE SUMMARY MR#: [id number] Acct: [id number] Name: ALEXIS KRAMER Rep #: [id number] : 1945 80 From: Trena Dent Referring Dr.: Dr. Gila Issa MD Status: REG RCR Insurance: [facility] SELF PAY INSURANCE Patient Information Patient Information: ALEXIS KRAMER was seen in my office for initial evaluation on 12/20/24. The following Plan of Care was established for this patient: POC Established Initial Frequency: 1-2x /Week Initial Duration: 3 Months Anticipated Interventions Patient/Client Instruction: Educate patient on: Condition and Plan of Care For the Purpose of:: To improve muscle performance and motor function, To improve ability to perform ADL's, To increase tolerance to activity/condition/position, To improve performance and independence with ADL's,To decrease level of supervision to perform tasks, To improve ability of physical actions for home/community/work/leisure, To improve gait and locomotor functions, To improve health of tissue, To increase flexibility/ROM, To improve endurance, To improve balance, To improve safety withgait and To improve safety Therapeutic Exercise to Include: Strength training, Endurance training, Balance training, Postural training, Gait and locomotor training, Neuromotor developmentand Active ROM For the Purpose of:: To improve muscle performance and motor function, To improve ability to perform ADL's, To increase tolerance to activity/condition/position, To improve performance and independence with ADL's,To decrease level of supervision to perform tasks, To improve ability of physical actions for home/community/work/leisure, To improve gait and locomotor functions, To improve health of tissue, To decrease soft tissue restriction, To increase flexibility/ROM, To improve endurance, To improve balance and To improve safety with gait Functional Training to Include: Gait training For the Purpose of:: To improve gait and locomotor functions and To improve safety with gait Last Seen Last Seen: This patient was last seen in our office 04/24/25. Pertinent comments regardingtheir Physical therapy will appear below: DC PT. Pt was going to take a month off and call back and he didn't call back and will be discharged. At this point I will be discontinuing this patient from physical therapy. I would be happy to see this patient again in the future if found appropriate by the physician. Thank you! Trena Hernandez, SUNSHINE Balance/Gait/Functional tests Balance/Special Test Scores Lower Extremity Functional Score: 14 06/12/25 1159 CC: Dr. Richard Schneider DO; Dr. Gila Issa MD ~ Signed [facility]07-08-2025 Telephone encounter Note* Telephone Encounter - Tiffanie Hannah MA - 04/24/2025 2:04 PM EDT Faxed back and confirmation received [facility]07-08-2025 Miscellaneous Notes* Telephone Encounter - Tiffanie Hannah MA - 04/24/2025 2:04 PM EDT Faxed back and confirmation received * Telephone Encounter - Tiffanie Hannah MA - 04/24/2025 12:35 PM EDT Received PT recertification letter from [facility]. Placed on Dr. Hansel neville for review and signature [facility] Telephone encounter Note * Telephone Encounter - Tiffanie Hannah MA - 04/24/2025 12:35 PM EDT Received PT recertification letter from [facility]. Placed on Dr. Hansel neville for review and signature [facility]06-19-2025 Telephone encounter Note* Telephone Encounter - Kavita Mcgarry APRN.CNP - 04/05/2025 4:40 PM EDT Orders signed and in fax bin for staff to send back. If clonazepam was ordered by neurologist, theyshould sign for the med and provide scripts. If he's no longer seeing the neurologist then we can manage. Thank you [facility]06-19-2025 Miscellaneous Notes* Telephone Encounter - Kavita Mcgarry APRN.CNP - 04/05/2025 4:40 PM EDT Orders signed and in fax bin for staff to send back. If clonazepam was ordered by neurologist, theyshould sign for the med and provide scripts. If he's no longer seeing the neurologist then we can manage. Thank you * Addendum Note - Kavita Mcgarry APRN.CNP - 04/05/2025 4:39 PM EDTAddended by: KAVITA MCGARRY on: 04/05/2025 04:39 PM Modules accepted: Orders * Telephone Encounter - Kavita Mcgarry APRN.CNP - 04/05/2025 4:21 PM EDT I will get the orders for [facility] signed and returned, thank you * Telephone Encounter - Jerrica Mehta RN - 04/05/2025 12:56 PM EDT Trisha AVILES with [facility] calls to let provider know that they are switching pharmacies and need medication orders resigned. Forms were faxed a week ago and not received back. Trisha re faxing forms and asking if SUPPORT TECHNICIAN can sign them since Dr. Schneider is out. Jerrica Mehta RN documented in this [facility] Note* Addendum Note - Kavita Mcgarry APRN.CNP - 04/05/2025 4:39 PM EDTAddended by: KAVITA MCGARRY on: 04/05/2025 04:39 PM Modules accepted: Orders [facility]06-19-2025 Telephone encounter Note* Telephone Encounter - Kavita Mcgarry APRN.CNP - 04/05/2025 4:21 PM EDT I will get the orders for [facility] patients signed and returned, thank you [facility]06-19-2025 Telephone encounter Note* Telephone Encounter - Jerrica Mehta RN - 04/05/2025 12:56 PM EDT Trisha AVILES with [facility] calls to let provider know that they are switching pharmacies and need medication orders resigned. Forms were faxed a week ago and not received back. Trisha re faxing forms and asking if SUPPORT TECHNICIAN can sign them since Dr. Schneider is out. Jerrica Mehta RN [facility]05-12-2025 Telephone encounter Note* Telephone Encounter - Tiffanie Hannah MA - 02/26/2025 9:10 AM EDT Faxed back and confirmation received [facility]05-12-2025 Miscellaneous Notes* Telephone Encounter - Tiffanie Hannah MA - 02/26/2025 9:10 AM EDT Faxed back and confirmation received * Telephone Encounter - Tiffanie Hannah MA - 02/21/2025 2:15 PM EDT Received Initial eval for PT from [facility]. Placed on Dr. Hansel neville for reviewand signature documented in this encounterOhiohealth [facility]05-07-2025 Telephone encounter Note * Telephone Encounter - Tiffanie Hannah MA - 02/21/2025 2:15 PM EDT Received Initial eval for PT from [facility]. Placed on Dr. Hansel neville for reviewand signature [facility]04-11-2025 Telephone encounter Note* Telephone Encounter - Tiffanie Hannah MA - 01/26/2025 8:58 AM EDT Faxed back and confirmation received [facility]04-11-2025 Miscellaneous Notes* Telephone Encounter - Tiffanie Hannah MA - 01/26/2025 8:58 AM EDT Faxed back and confirmation received * Telephone Encounter - Tiffanie Hannah MA - 01/17/2025 1:49 PM EDT Received Re-evaluation from [facility]. Placed on Dr. Hansel neville for review and signature documented in this encounterOhiohealth Arthur [facility]04-09-2025 NoteHNO ID: [id number] Author: RICHARD SCHNEIDER, DO Service: ? Author Type: Physician Type: Progress Notes Filed: 01/24/2025 20:01 Note Text: CC: Alexis Kramer is a 79 year old male who presents to the office for follow up HPI: Appetite has been good Parkinson's disease, taking medications as prescribed, seeing Neurologist Dr. Holm regularly, no recent medication changes. daughter Sis has noticed some slight decline in memory and weakening of his voice and he is no longer able to write. He has some bad days in which he is not able to walk at all. CKD stage 3, has been improved Creatinine at this time in 1.08 No recent falls, using his wheelchair/walker Cough is resolved. No wheezing or shortness of breath or hemoptysis. Did have a normal CXR per [facility] orders. No distress. No chest pain. No hx of CHF or asthma Dry mouth and dry lips, creates a mucous like film which bothers him. Has been tried on multiple different medications and supplements without benefit. Neurologist thinks this is about his Parkinson's disease. Has lost about 12 lbs in the last 6 months. Unintentional. 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 CKD (chronic kidney disease) stage 3, GFR 30-59 ml/min ([facility]) 04/2016 Depressive disorder 12/24/2021 GERD (gastroesophageal reflux disease) Hypertension IFG (impaired fasting glucose) 10/2019 5.7% at diagnosis Kidney stone Mixed hyperlipidemia Parkinson disease ([facility]) 07/2014 PAST SURGICAL HISTORY Procedure Laterality Date COLONOSCOPY FLX DX W/COLLJ SPEC WHEN PFRMD 07/18/2018 Colonoscopy EKG HEART SURGERY HX KIDNEY SURGERY HX basket extraction of kidney stone PAST SURGICAL HISTORY OF 04/2002 cardiac bypass x 5 PAST SURGICAL HISTORY OF 05/2015 kidney stone removed [facility] N/CARPAL TUNNEL SURG Left 11/24/2023 Left carpal tunnel release Current Outpatient Medications Medication Sig sertraline (ZOLOFT) 50 mg tablet Take 1 tablet by mouth once daily. Add to 100 mg tablet to total 150 mg a day sertraline (ZOLOFT) 100 mg tablet Take 1 tablet by mouth once daily. In the bedtime, for mood albuterol (PROVENTIL) 2.5 mg /3 mL (0.083 %) nebulizer solution Use 3 mL via nebulizer two times a day. Use over 5-15minutes. carbidopa-levodopa (SINEMET 25-100) 25-100 mg per tablet Take 2 tablets by mouth four times daily. Ibuprofen 200 mg cap Take by mouth. omeprazole (PRILOSEC) 40 mg capsule Take 1 [...] daily with meals. (Patient taking differently: Dissolve 1,000 mcg under the tongue two times a day with meals. 2 tab once a day) acetaminophen (TYLENOL) 500 mg tablet Take 500 mg by mouth every 8 hours as needed. ondansetron (ZOFRAN) 4 mg tablet every 8 hours as needed. MEDICATION, NON-DATABASE Standard Wheel Chair Dx Parkinson's Disease No current facility-administered medications for this visit. ALLERGIES Allergen Reactions Bactrim [Sulfametho* Unknown Narcotics [Opioids * GI Upset vomiting with an oral pain med-has taken morphine without problems Social History Tobacco Use Smoking status: Former Current packs/day: 0.00 Average packs/day: 0.5 packs/day for 20.0 years (10.0 ttl pk-yrs) Types: Cigarettes Start date: 06/28/1993 Quit date: 06/28/2013 Years since quittin.5 Smokeless tobacco: Never Vaping Use Vaping status: Never Used Substance Use Topics Alcohol use: Yes Comment: occasionally Drug use: No ROS: See HPI PE: BP 100/60 Pulse 64 Temp (Src) 97 (Left Tympanic) Resp 20 Wt 184 lb (83.5kg) Gen: AANDO, NAD, non-toxic appearing, Pleasant, cooperative HEENT: NT/AC, PERRLA, EOMs intact b/l, nares clear and patent b/l, pharynx without erythema, exudate or lesions. Uvula midline. MMM, EACs without erythema or debris. TMs pearly dunlap with intact landmarks b/l. Neck: supple, No cervical LAD, no thyromegaly, no carotid bruits CV: RRR, normal S1 and S2, 1/6 HSM RUSB soft blowing murmurs, no gallops, no rubs, Pulses 2+ and symmetric in UE and LE b/l Lungs: normal respiratory effort, CTA b/l, no wheezing or rhonchi or rales Abd: soft, NT, ND, +BS, no hepatosplenomegaly MS: gait impaired, sitting in wheelchair Neuro: CN II (more content not included)...[facility]04-09-2025 History of Present illness Narrative* Richard Schneider, DO - 01/24/2025 10:21 AM EDT CC: Alexis Kramer is a 79 year old male who presents to the office for follow up HPI: Appetite has been good Parkinson's disease, taking medications as prescribed, seeing Neurologist Dr. Holm regularly, no recent medication changes. daughter Sis has noticed some slight decline in memory and weakening of his voice and he is no longer able to write. He has some bad days in which he is not able to walk at all. CKD stage 3, has been improved Creatinine at this time in 1.08 No recent falls, using his wheelchair/walker Cough is resolved. No wheezing or shortness of breath or hemoptysis. Did have a normal CXR per ECF orders. No distress. No chest pain. No hx of CHF or asthma Dry mouth and dry lips, creates a mucous like film which bothers him. Has been tried on multiple different medications and supplements without benefit. Neurologist thinks this is about his Parkinson's disease. Has lost about 12 lbs in the last 6 months. Unintentional. 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 Add to 100 mg tablet to total 150 mg a day sertraline (ZOLOFT) 100 mg tablet Take 1 tablet by mouth once daily. In the bedtime, for mood albuterol (PROVENTIL) 2.5 mg /3 mL (0.083 %) nebulizer solution Use 3 mL via nebulizer two times a day. Use over 5-15minutes. carbidopa-levodopa (SINEMET 25-100) 25-100 mg per tablet Take 2 tablets by mouth four times daily. Ibuprofen 200 mg cap Take by mouth. omeprazole (PRILOSEC) 40 mg capsule Take 1 [...] daily with meals. (Patient taking differently: Dissolve 1,000 mcg under the tongue two times a day with meals. 2 tab once a day) acetaminophen (TYLENOL) 500 mg tablet Take 500 mg by mouth every 8 hours as needed. ondansetron (ZOFRAN) 4 mg tablet every 8 hours as needed. MEDICATION, NON-DATABASE Standard Wheel Chair Dx Parkinson's Disease No current facility-administered medications for this visit. ALLERGIES Allergen Reactions Bactrim [Sulfametho* Unknown Narcotics [Opioids * GI Upset vomiting with an oral pain med-has taken morphine without problems Social History Tobacco Use Smoking status: Former Current packs/day: 0.00 Average packs/day: 0.5 packs/day for 20.0 years (10.0 ttl pk-yrs) Types: Cigarettes Start date: 06/28/1993 Quit date: 06/28/2013 Years since quittin.5 Smokeless tobacco: Never Vaping Use Vaping status: Never Used Substance Use Topics Alcohol use: Yes Comment: occasionally Drug use: No ROS: See HPI PE: BP 100/60 Pulse 64 Temp (Src) 97 (Left Tympanic) Resp 20 Wt 184 lb (83.5kg) Gen: A&O, NAD, non-toxic appearing, Pleasant, cooperative HEENT: NT/AC, PERRLA, EOMs intact b/l, nares clear and patent b/l, pharynx without erythema, exudate or lesions. Uvula midline. MMM, EACs without erythema or debris. TMs pearly dunlap with intact landmarks b/l. Neck: supple, No cervical LAD, no thyromegaly, no carotid bruits CV: RRR, normal S1 and S2, 1/6 HSM RUSB soft blowing murmurs, no gallops, no rubs, Pulses 2+ and symmetric in UE and LE b/l Lungs: normal respiratory effort, CTA b/l, no wheezing or rhonchi or rales Abd: soft, NT, ND, +BS, no hepatosplenomegaly MS: gait impaired, sitting in wheelchair Neuro: CN II-XII intact b/l, strength 5/5 b/l UE and LE, DTRs 2/4 UE and LE, sensation abnormal left hand Skin: warm, dry, intact, No rashes or lesions on exposed skin. Leg edema 1+ b/l symmetric, normal pulses ASSESSMENT/PLAN: 1. IFG (impaired fasting glucose) - ICD9: 790.21, ICD10: R73.01 (primary diagnosis) Diet controlled Stable, A1c is at 5.6% 2. Balance disorder - ICD9: 781.99, ICD10: R26.89 Secondary to Parkinson's disease 3. Hypertension, essential - ICD9: 401.9, ICD10: I10 - Controlled - Continue current medications - Recommend home blood pressure monitoring, to bring results to next visit - Encouraged sodium restriction, DASH or Mediterranean diet - Recommend regular aerobic exercise 4. Short-term memory loss - ICD9: 780.93, ICD10: R41.3 Secondary to Parkinson's disease 5. Stage 3a chronic kidney disease (HCC) - ICD9: 585.3, ICD10: N18.31 - eGFR: Stable - Counseled on avoiding NSAIDs, adequate hydration - Counseled on low sodium diet 6. Parkinson's disease with dyskinesia and fluctuating manifestations (HCC) - ICD9: 332.0, ICD10: G20.B2 Slowly worsening Continue same medications F/u with Neurologist 7. Pure hypercholesterolemia - ICD9: 272.0, ICD10: E78.00 Stable, chronic. 8. Vitamin B12 deficiency - ICD9: 266.2, ICD10: E53.8 Continue supplement 9. Bilateral leg edema - ICD9: 782.3, ICD10: R60.0 Continue lasix 20 mg in the AM 10. Weight loss - ICD9: 783.21, ICD10: R63.4 Check weekly weights at [facility] and will monitor Needs to increase protein intake Check additional labs in 2 weeks Recent lab results reviewed with Alexis and daughter Sis Richard Schneider DO I spent 45 minutes in the visit, with more than 50% of the total laee-th-nomh time of the visit in counseling / coordination of care. Return if no improvement. Follow up with Richard Schneider DO. To ER if develops chest pain, shortness of breath. Discussed risks, benefits, alternatives, and potential side effects of medications. Patient/Guardian expressed understanding and agreed with the plan. See patient instructions. Richard Schneider DO [address] [place] [address] documented in this encounterOhiohealth [facility]04-02-2025 Telephone encounter Note * Telephone Encounter - Tiffanie Hannah MA - 01/17/2025 1:49 PM EDT Received Re-evaluation from [facility]. Placed on Dr. Issa desk for review and signature [facility]03-07-2025 Telephone encounter Note* Telephone Encounter - Tiffanie Hannah MA - 12/22/2024 8:54 AM EST Faxed back and confirmation received [facility]03-07-2025 Miscellaneous Notes* Telephone Encounter - Tiffanie Hannah MA - 12/22/2024 8:54 AM EST Faxed back and confirmation received * Telephone Encounter - Tiffanie Hannah MA - 12/21/2024 2:58 PM EST Received Rehab eval from [facility]. Placed on Dr. Hansel neville for signature documented in this encounterOhiohealth Arthur [facility]03-06-2025 Telephone encounter Note * Telephone Encounter - Tiffanie Hannah MA - 12/21/2024 2:58 PM EST Received Rehab eval from [facility]. Placed on Dr. Hansel neville for signature [facility]03-06-2025 Telephone encounter Note* Telephone Encounter - Vivien Martinez MA - 12/21/2024 1:55 PM EST Sis notified Vivien Martinez MA [facility]03-06-2025 Miscellaneous Notes* Telephone Encounter - Vivien Martinez MA - 12/21/2024 1:55 PM EST Sis notified Vivien Martinez MA * Telephone Encounter - Rob Copeland APRN.CNP - 12/21/2024 1:53 PM EST The following approved medication requests have been transmitted electronically. Requested Prescriptions Signed Prescriptions Disp Refills sertraline (ZOLOFT) 50 mg tablet 90 tablet 1 Sig: Take 1 tablet by mouth once daily. Add to 100 mg tablet to total 150 mg a day Authorizing Provider: RICHARD SCHNEIDER Ordering User: ROB COPELAND sertraline (ZOLOFT) 100 mg tablet 90 tablet 3 Sig: Take 1 tablet by mouth once daily. In the bedtime, for mood Authorizing Provider: RICHARD SCHNEIDER Ordering User: ROB COPELAND APRN.CNP * Telephone Encounter - Vivien Martinez MA - 12/21/2024 1:48 PM EST Scripts pended. See note from [facility] in your box. Vivien Martinez MA documented in this encounterOhiohealth Arthur [facility]. [facility]03-06-2025 Telephone encounter Note * Telephone Encounter - Rob Copeland APRN.CNP - 12/21/2024 1:53 PM EST The following approved medication requests have been transmitted electronically. Requested Prescriptions Signed Prescriptions Disp Refills sertraline (ZOLOFT) 50 mg tablet 90 tablet 1 Sig: Take 1 tablet by mouth once daily. Add to 100 mg tablet to total 150 mg a day Authorizing Provider: RICHARD SCHNEIDER Ordering User: ROB COPELAND sertraline (ZOLOFT) 100 mg tablet 90 tablet 3 Sig: Take 1 tablet by mouth once daily. In the bedtime, for mood Authorizing Provider: RICHARD SCHNEIDER Ordering User: ROB COPELAND APRN.SENIOR ETL DEVELOPER [facility] Work Phone: [phone]) 679-667403-06-2025 Telephone encounter Note* Telephone Encounter - Vivien Martinez MA - 12/21/2024 1:48 PM EST Scripts pended. See note from [facility] in your box. Vivien Martinez MA [facility]03-05-2025 Telephone encounter Note* Telephone Encounter - Jerrica Mehta RN - 12/20/2024 11:18 AM EST Daughter (Sis) calls to request the order for increased Zoloft be sent to [facility] so they have it for their files as well. Faxed order to [phone] per request. Jerrica Mehta RN [facility]03-05-2025 Miscellaneous Notes* Telephone Encounter - Jerrica Mehta RN - 12/20/2024 11:18 AM EST Daughter (Sis) calls to request the order for increased Zoloft be sent to [facility] so they have it for their files as well. Faxed order to [phone] per request. Jerrica Mehta RN * Telephone Encounter - Sabrina Kay LPN - 12/20/2024 9:01 AM EST Sis informed. * Telephone Encounter - Richard Schneider DO - 12/19/2024 4:21 PM EST Please let Sis know, okay to increase zoloft to 150 mg a day Richard Schneider DO The following approved medication requests have been transmitted electronically. Requested Prescriptions Signed Prescriptions Disp Refills sertraline (ZOLOFT) 50 mg tablet 90 tablet 1 Sig: Take 1 tablet by mouth once daily. Add to 100 mg tablet to total 150 mg a day Authorizing Provider: RICHARD SCHNEIDER DO * Telephone Encounter - Ольга Young MA - 12/18/2024 1:51 PM EST Message sent in pt's daughter with update. Please review and advise. Ольга Young MA Pt message: Hello. Dad is having increased difficulty with walking and even being able to get out of bed without assistance is sometimes impossible. He s feeling very weak and I m noticing that he seems depressed. Wondering if maybe an increase dose of his depression medicine could help some? I m taking him to [facility] er this Wednesday, December 20 for a physical therapy evaluation, as suggested by Dr issa. He s still trying to walk, but it s becoming more and more difficult. So I don t think he s giving up but he s definitely depressed. The staff at [facility] have also noticed. Thank you! Sis documented in this encounterOhiohealth Arthur [facility]03-05-2025 Telephone encounter Note * Telephone Encounter - Sabrina Kay LPN - 12/20/2024 9:01 AM EST Sis informed. [facility]03-04-2025 Telephone encounter Note* Telephone Encounter - Richard Schneider DO - 12/19/2024 4:21 PM EST Please let Sis know, okay to increase zoloft to 150 mg a day Richard Schneider DO The following approved medication requests have been transmitted electronically. Requested Prescriptions Signed Prescriptions Disp Refills sertraline (ZOLOFT) 50 mg tablet 90 tablet 1 Sig: Take 1 tablet by mouth once daily. Add to 100 mg tablet to total 150 mg a day Authorizing Provider: RICHARD SCHNEIDER DO [facility]03-03-2025 Telephone encounter Note* Telephone Encounter - Ольга Young MA - 12/18/2024 1:52 PM EST Started TE and routed to PCP to advise. Ольга Young MA [facility]03-03-2025 Miscellaneous Notes* Telephone Encounter - Ольга Young MA - 12/18/2024 1:52 PM EST Started TE and routed to PCP to advise. Ольга Young MA documented in this encounterOhiohealth Arthur [facility]03-03-2025 Telephone encounter Note * Telephone Encounter - Ольга Young MA - 12/18/2024 1:51 PM EST Message sent in pt's daughter with update. Please review and advise. Ольга Young MA Pt message: Hello. Dad is having increased difficulty with walking and even being able to get out of bed without assistance is sometimes impossible. He s feeling very weak and I m noticing that he seems depressed. Wondering if maybe an increase dose of his depression medicine could help some? [facility] for a physical therapy evaluation, as suggested by Dr issa. He s still trying to walk, but it s becoming more and more difficult. So I don t think he s giving up but he s definitely depressed. The staff at [facility] have also noticed. Thank you! Sis [facility]02-17-2025 Telephone encounter Note* Telephone Encounter - Tiffanie Hannah MA - 12/04/2024 9:07 AM EST Order faxed and confirmation received [facility]02-17-2025 Miscellaneous Notes* Telephone Encounter - Tiffanie Hannah MA - 12/04/2024 9:07 AM EST Order faxed and confirmation received * Telephone Encounter - Gila Issa MD - 12/04/2024 8:41 AM EST Done and in outbox. documented in this encounterOhiohealth Arthur [facility]02-17-2025 Telephone encounter Note * Telephone Encounter - Gila Issa MD - 12/04/2024 8:41 AM EST Done and in outbox. [facility]12-30-2024 Telephone encounter Note* Telephone Encounter - Sabrina Kay LPN - 10/16/2024 4:22 PM EST Pt's daughter informed. [facility]12-30-2024 Miscellaneous Notes* Telephone Encounter - Sabrina Valdez LPN - 10/16/2024 4:22 PM EST Pt's daughter informed. * Telephone Encounter - Richard Schneider DO - 10/16/2024 4:18 PM EST Only other option would be to see Digital Data Analyst. I don't have any other options to use other than trialof an antihistamine such as Claritin or Angie or Zyrtec Richard Schneider DO * Telephone Encounter - Amita Bojorquez RN - 10/16/2024 9:36 AM EST Pts josselin Alegre called in and reports Pt has been using the nebulizer for a week or so, and hasn't noticed that it has helped much with his phlegm. She states [facility] is going to keep giving them to him until the provider tells them not to. She is asking if there is anything else the provider would recommend for the Pt to help him get rid of the phlegm. She said or is this just his new normal after the Parkinson's and he is just going to have to get used to it. Please call Pts josselin back. documented in this encounterOhiohealth Arthur [facility]12-30-2024 Telephone encounter Note * Telephone Encounter - Richard Schneider DO - 10/16/2024 4:18 PM EST Only other option would be to see Digital Data Analyst. I don't have any other options to use other than trialof an antihistamine such as Claritin or Angie or Zyrtec Richard Schneider DO [facility]12-30-2024 Telephone encounter Note* Telephone Encounter - Amita Bojorquez RN - 10/16/2024 9:36 AM EST Pts josselin Alegre called in and reports Pt has been using the nebulizer for a week or so, and hasn't noticed that it has helped much with his phlegm. She states [facility] is going to keep giving them to him until the provider tells them not to. She is asking if there is anything else the provider would recommend for the Pt to help him get rid of the phlegm. She said or is this just his new normal after the Parkinson's and he is just going to have to get used to it. Please call Pts niece back. [facility]12-20-2024 Telephone encounter Note* Telephone Encounter - Amelia Goldberg RN - 10/06/2024 10:46 AM EST Priya from [facility] calling and states that [facility] [place] to face office notes and diagnosis codes for pt's nebulizer. [facility] [place] [phone]. Sent 08/30/[address] Issa neurologist, phone encounter from 09/22/24 and order that has dx codes on it for nebulizer. Faxed copies to both [facility] and to [facility] for them to have on file in case they need it again. [facility]12-20-2024 Miscellaneous Notes* Telephone Encounter - Amelia Goldberg RN - 10/06/2024 10:46 AM EST Priya from [facility] calling and states that [facility] [place] requesting face to face office notes and diagnosis codes for pt's nebulizer. [facility] fax [phone]. Sent 08/30/[address] Issa neurologist, phone encounter from 09/22/24 and order that has dx codes on it for nebulizer. Faxed copies to both [facility] and to [facility] for them to have on file in case they need it again. documented in this encounterOhiohealth Arthur [facility]12-18-2024 Telephone encounter Note * Telephone Encounter - Liliya Patel MA - 10/04/2024 4:18 PM EST Faxed as requested. Liliya Patel MA [facility]12-18-2024 Miscellaneous Notes* Telephone Encounter - Liliya Patel MA - 10/04/2024 4:18 PM EST Faxed as requested. Liliya Patel MA * Telephone Encounter - Richard Schneider DO - 10/04/2024 4:16 PM EST Please fax rx Richard Schneider DO' * Telephone Encounter - Liliya Patel MA - 10/04/2024 1:53 PM EST Order for Albuterol was faxed to on 09/29. Reordered and pended along with order for nebulizer. Please sign. Orders will need to be faxed. Liliya Patel MA * Telephone Encounter - Lynn Gray LPN - 10/04/2024 11:35 AM EST Padmini with [facility] reports they have sent several faxes regarding Nebulizer solution and also needs an order for the machine. They will try to order from [employer]. Please fax orders to [facility] FAX: [phone]. They never received anything earlier. 1)orders for nebulizer solution 2)order for machine. Lynn Gray LPN documented in this encounterOhiohealth Arthur G.[facility]. [facility]12-18-2024 Telephone encounter Note * Telephone Encounter - Richard Schneider DO - 10/04/2024 4:16 PM EST Please fax rx Richard Schneider DO' [facility]12-18-2024 Telephone encounter Note* Telephone Encounter - Liliya Patel MA - 10/04/2024 1:53 PM EST Order for Albuterol was faxed to on 09/29. Reordered and pended along with order for nebulizer. Please sign. Orders will need to be faxed. Liliya Patel MA [facility]12-18-2024 Telephone encounter Note* Telephone Encounter - Lynn Gray LPN - 10/04/2024 11:35 AM EST Padmini with [facility] reports they have sent several faxes regarding Nebulizer solution and also needs an order for the machine. They will try to order from [employer]. Please fax orders to [facility] FAX: [phone]. They never received anything earlier. 1)orders for nebulizer solution 2)order for machine. Lynn Gray LPN [facility]12-13-2024 Telephone encounter Note* Telephone Encounter - Sabrina Kay LPN - 09/29/2024 1:16 PM EST Order faxed. [facility]12-13-2024 Miscellaneous Notes* Telephone Encounter - Sabrina Valdez LPN - 09/29/2024 1:16 PM EST Order faxed. * Telephone Encounter - Richard Schneider DO - 09/29/2024 1:08 PM EST rx signed Richard Schneider DO * Telephone Encounter - Radha Carpio LPN - 09/28/2024 10:27 AM EST Script is not signed placed back in your box for signature. * Telephone Encounter - Richard Schneider DO - 09/27/2024 8:14 PM EST Please fax script and notify Richard Schneider DO * Telephone Encounter - Amita Bojorquez RN - 09/27/2024 10:35 AM EST Pts daughter called and is notified of providers message. She voices understanding and states Pt lives at [facility], so they would have to help him. Valerie nurse with [facility] called and askedif they would help Pt with albuterol nebulizer, and she states they help him with medications already. She states they would help with the administration. Please fax orders to [facility] at fax # [phone]. Amita Bojorquez RN * Telephone Encounter - Richard Schneider DO - 09/27/2024 7:47 AM EST See below Could consider trying to do albuterol nebulizer twice a day to see if this helps him break up the mucous if patient/daughter are willing Richard Schneider DO * Telephone Encounter - Gila Issa MD - 09/27/2024 7:31 AM EST No additional recommendations from me. I defer to Dr. Schneider for opinion on what options could work better for him. * Telephone Encounter - Richard Schneider DO - 09/26/2024 4:29 PM EST Please call the daughter and let her know that we are going to have to get an opinion from Neurologist to know what to try next since the Mucinex isn't helping him and likely it is related to weakness of respiratory muscles related to his Parkinson's disease Richard Schneider DO * Telephone Encounter - Vianca Howe LPN - 09/26/2024 9:57 AM EST Daughter is calling to check on status of message. Daughter reports pt is getting frustrated. Daughter reports pt is at [facility]. Daughter is asking for a call along with [facility] with dr's message. Vianca Howe LPN * Telephone Encounter - Amita Bojorquez RN - 09/22/2024 10:48 AM EST Flory Soni with [facility] (this was a mistake I had [facility] written down, but typed in the wrong place) called in and reports Pt was put on Mucinex 600 mg take 2 tablets po BID on August 10. She states the Pt is not having any improvement he is still not able to get up the phlegm. He has a weak cough and cannot clear the phlegm. She states he uses cough drops as well. Pt was asking if there was anything else he could try to help with this. Please call Chelsi back so they can let Pt knowand [facility]. documented in this [facility] Telephone encounter Note * Telephone Encounter - Richard Schneider DO - 09/29/2024 1:08 PM EST rx signed Richard Schneider DO [facility]12-12-2024 Telephone encounter Note* Telephone Encounter - Radha Carpio LPN - 09/28/2024 10:27 AM EST Script is not signed placed back in your box for signature. [facility]12-11-2024 Telephone encounter Note* Telephone Encounter - Richard Schneider DO - 09/27/2024 8:14 PM EST Please fax script and notify Richard Schneider DO [facility]12-11-2024 Telephone encounter Note* Telephone Encounter - Amita Bojorquez RN - 09/27/2024 10:35 AM EST Pts daughter called and is notified of providers message. She voices understanding and states Pt lives at [facility], so they would have to help him. Valerie nurse with [facility] called and askedif they would help Pt with albuterol nebulizer, and she states they help him with medications already. She states they would help with the administration. Please fax orders to [facility] at fax # [phone]. Amita Bojorquez RN [facility]12-11-2024 Telephone encounter Note* Telephone Encounter - Richard Schneider DO - 09/27/2024 7:47 AM EST See below Could consider trying to do albuterol nebulizer twice a day to see if this helps him break up the mucous if patient/daughter are willing Richard Schneider DO [facility]12-11-2024 Telephone encounter Note* Telephone Encounter - Gila Issa MD - 09/27/2024 7:31 AM EST No additional recommendations from me. I defer to Dr. Schneider for opinion on what options could work better for him. [facility] Work Phone: [phone] Telephone encounter Note* Telephone Encounter - Richard Schneider DO - 09/26/2024 4:29 PM EST Please call the daughter and let her know that we are going to have to get an opinion from Neurologist to know what to try next since the Mucinex isn't helping him and likely it is related to weakness of respiratory muscles related to his Parkinson's disease Richard Schneider DO [facility]12-10-2024 Telephone encounter Note* Telephone Encounter - Vianca Howe LPN - 09/26/2024 9:57 AM EST Daughter is calling to check on status of message. Daughter reports pt is getting frustrated. Daughter reports pt is at [facility]. Daughter is asking for a call along with [facility] with dr's message. Vianca Howe LPN [facility]12-06-2024 Telephone encounter Note* Telephone Encounter - Amita Bojorquez RN - 09/22/2024 10:48 AM EST Flory Soni with [facility] (this was a mistake I had [facility] written down, but typed in the wrong place) called in and reports Pt was put on Mucinex 600 mg take 2 tablets po BID on August 10. She states the Pt is not having any improvement he is still not able to get up the phlegm. He has a weak cough and cannot clear the phlegm. She states he uses cough drops as well. Pt was asking if there was anything else he could try to help with this. Please call Chelsi back so they can let Pt knowand send Rx to [facility]. [facility]11-22-2024 Telephone encounter Note* Telephone Encounter - Amelia Goldberg RN - 09/08/2024 10:50 AM EST Called daughter and notified of Dr. Schneider's instructions. Daughter says pt is at [facility] and the order for the med would need to be faxed over to them. Noted in another encounter that prescription was already sent to [facility] pharmacy per Rob Copeland. Called and spoke with nurse Rico at [facility]. Trisha asking about Mucinex directions of taking 2tablets by mouth 2 times per day. Since it is a 12 hour tablet, should it be 1 tablet by mouth 2 times a day? If so, can a new script be sent in? [facility]11-22-2024 Miscellaneous Notes* Telephone Encounter - Amelia Goldberg RN - 09/08/2024 10:50 AM EST Called daughter and notified of Dr. Schneider's instructions. Daughter says pt is at [facility] and the order for the med would need to be faxed over to them. Noted in another encounter that prescription was already sent to [facility] pharmacy per Rob Copeland. Called and spoke with nurse Rico at [facility]. Trisha asking about Mucinex directions of taking 2tablets by mouth 2 times per day. Since it is a 12 hour tablet, should it be 1 tablet by mouth 2 times a day? If so, can a new script be sent in? * Telephone Encounter - Richard Schneider DO - 09/08/2024 9:38 AM EST Noted, yes okay to trial on Mucinex 600 mg 2 times a day to see if this helps his symptoms Richard Schneider DO * Telephone Encounter - Misty Hopkins RN - 09/08/2024 8:37 AM EST Patients daughter is calling in due to patient saw neurology (Dr. Issa) on 08/30/24 and she informed them that she was going to send a staff messages to pcp to see if pcp thought it would be ok for patient to start mucinex treatment and they have not heard anything back from either office. Please review and advise and contact patients daughter back with information documented in this encounterOhio[facility]24 Telephone encounter Note * Telephone Encounter - Richard Schneider DO - 09/08/2024 9:38 AM EST Noted, yes okay to trial on Mucinex 600 mg 2 times a day to see if this helps his symptoms Richard Schneider DO [facility]11-22-2024 Telephone encounter Note* Telephone Encounter - Misty Hopkins RN - 09/08/2024 8:37 AM EST Patients daughter is calling in due to patient saw neurology (Dr. Issa) on 08/30/24 and she informed them that she was going to send a staff messages to pcp to see if pcp thought it would be ok for patient to start mucinex treatment and they have not heard anything back from either office. Please review and advise and contact patients daughter back with information [facility]11-13-2024 NoteHNO ID: [id number] Author: GILA ISSA MD Service: ? Author Type: Physician Type: Progress Notes Filed: 08/30/2024 12:58 Note Text: [facility] - FOLLOW UP EVALUATION Richard Schneider DO [address] [facility] [address] I had the pleasure of seeing Mr. Kramer for follow up today. He is a 79 year old right-handed male with a history of Parkinson's disease since 2009. He is seen with a daughter. Subjective Previous Plan-02/23/2024 Visit: Continue your medications as you have been taking them. We are not making any changes today. If you feel you are not tolerating them or your symptoms are changing before your next appointment, please feel free to send me a [employer] message or contact the office - Continue exercise - Interval History: Good and bad times. Hard to see patterns. Thick secretions. [place] his mouth and bothersome. PCP suggested lemon drops about a week ago so unclear how helpful so far. More slurred speech. Worse in the evening. More freezing. Multiple times per day. Not linked to bad/off times. No PT lately. Hasn't found therapy helpful- Parkinson's specific and not. One fall since last visit but he was half asleep and hit his face. Parkinson's Medication Schedule - as of the start of the visit: Medications 730 1130 430 HS Sinemet 25/100mg 2 2 2 2 Sertraline 100 mg 1 Prior Anti-Parkinson Therapies Amantadine IR Carbidopa/Levodopa didn't tolerate trazodone Questionnaires In addition, the following areas that may be affected by abnormal involuntary movements were evaluated: Daily activities Difficulties with eating: Yes (mild) Difficulties in dressing: Yes (slight) Difficulties with hygiene activities: Yes (slight) Difficulties with handwriting: Yes (mild) Difficulties with doing hobbies and other activities: Yes (mild) Difficulties turning in bed: Yes (severe) Difficulties getting out of bed, car or chair: Yes (moderate) Tremors/Gait/Balance Shaking or tremors: Yes (slight) Walking and balance problems: Yes (moderate) Number of falls in the Last Month: 0 Gait freezing: Yes (severe) Autonomic/Pain Lightheadeness on standin (none) Urinary problems: 0 (none) Constipation problems: Yes (slight) Pain and other sensations: 0 (none) Speech/Swallowing Speech problems: Yes (moderate) Drooling: Yes (mild) Chewing and swallowing problems: 0 (none) Sleep/Fatigue Sleep problems: Yes (mild) Daytime sleepiness: Yes (mild) Fatigue: 0 (none) Mood/Behavior Depression: PHQ-9 Score: 0 usually representing no significant (0-4) depression. Anxiety: GANGA-7 Total Score: 0 usually representing no significant (0-4) anxiety. Finally, the following table shows the patient's overall global physical and mental health using the PROMIS scale: PROMIS-10 Flowsheet Row Office Visit from 08/30/2024 in Neurology Office Visit from 02/23/2024 in Neurology Global Physical Health T Score 39.8 44.9 Global Mental Health T Score 48.3 50.8 0-10 Standard Pain Scale 5 5 *PROMIS-10 scoring scale: mean = 50, over 50 is above average, under 50 is below average ALLERGIES Allergen Reactions Bactrim [Sulfametho* Unknown Narcotics [Opioids * GI Upset vomiting with an oral pain med-has taken morphine without problems Current Outpatient Medications Medication Sig carbidopa-levodopa (SINEMET 25-100) 25-100 mg per tablet Take 2 tablets by mouth four times daily. Ibuprofen 200 mg cap Take by mouth. omeprazole (PRILOSEC) 40 mg capsule Take 1 [...] daily with meals. (Patient taking differently: Dissolve 1,000 mcg under the tongue two times a day with meals. 2 tab once a day) acetaminophen (TYLENOL) 500 mg tablet Take 500 mg by mouth every 8 hours as needed. ondansetron (ZOFRAN) 4 mg tablet every 8 hours as needed. MEDICATION, NON-DATABASE Standard Wheel Chair Dx Parkinson's Disease No current facility-administered medications for this visit. Objective Vital Signs: Wt 86.1 kg (189 lb 13.1 oz) SpO2 97% BMI 28.86 kg/m? Orthostatic Vitals: Sitting: BP 111/67 Pulse 51 Weight: 86.1 kg (189 lb 13.1 oz) No LMP for male patient. Body mass index is 28.86 kg/m?. General Physical Examination: General: Awake, alert, interactive (more content not included)...[facility]11-13-2024 History of Present illness Narrative* Gila Issa MD - 08/30/2024 12:51 PM EST [facility] - FOLLOW UP EVALUATION Richard Schneider, [address] [facility] [id number] I had the pleasure of seeing Mr. Kramer for follow up today. He is a 79 year old right-handed male with a history of Parkinson's disease since 2009. He is seen with a daughter. Subjective Previous Plan-02/23/2024 Visit: Continue your medications as you have been taking them. We are not making any changes today. If youfeel you are not tolerating them or your symptoms are changing before your next appointment, pleasefeel free to send me a [employer] message or contact the office - Continue exercise - Interval History: Good and bad times. Hard to see patterns. Thick secretions. [place] his mouth and bothersome. PCP suggested lemon drops about a week ago so unclear how helpful so far. More slurred speech. Worse in the evening. More freezing. Multiple times per day. Not linked to bad/off times. No PT lately. Hasn't found therapy helpful- Parkinson's specific and not. One fall since last visit but he was half asleep and hit his face. Parkinson's Medication Schedule - as of the start of the visit: Medications 730 1130 430 HS Sinemet 25/100mg 2 2 2 2 Sertraline 100 mg 1 Prior Anti-Parkinson Therapies Amantadine IR Carbidopa/Levodopa didn't tolerate trazodone Questionnaires In addition, the following areas that may be affected by abnormal involuntary movements were evaluated: Daily activities Difficulties with eating: Yes (mild) Difficulties in dressing: Yes (slight) Difficulties with hygiene activities: Yes (slight) Difficulties with handwriting: Yes (mild) Difficulties with doing hobbies and other activities: Yes (mild) Difficulties turning in bed: Yes (severe) Difficulties getting out of bed, car or chair: Yes (moderate) Tremors/Gait/Balance Shaking or tremors: Yes (slight) Walking and balance problems: Yes (moderate) Number of falls in the Last Month: 0 Gait freezing: Yes (severe) Autonomic/Pain Lightheadeness on standin (none) Urinary problems: 0 (none) Constipation problems: Yes (slight) Pain and other sensations: 0 (none) Speech/Swallowing Speech problems: Yes (moderate) Drooling: Yes (mild) Chewing and swallowing problems: 0 (none) Sleep/Fatigue Sleep problems: Yes (mild) Daytime sleepiness: Yes (mild) Fatigue: 0 (none) Mood/Behavior Depression: PHQ-9 Score: 0 usually representing no significant (0-4) depression. Anxiety: GANGA-7 Total Score: 0 usually representing no significant (0-4) anxiety. Finally, the following table shows the patient's overall global physical and mental health using the PROMIS scale: PROMIS-10 Flowsheet Row Office Visit from 08/30/2024 in Neurology Office Visit from 02/23/2024 in Neurology Global Physical Health T Score 39.8 44.9 Global Mental Health T Score 48.3 50.8 0-10 Standard Pain Scale 5 5 *PROMIS-10 scoring scale: mean = 50, over 50 is above average, under 50 is below average ALLERGIES Allergen Reactions Bactrim [Sulfametho* Unknown Narcotics [Opioids * GI Upset vomiting with an oral pain med-has taken morphine without problems Current Outpatient Medications Medication Sig carbidopa-levodopa (SINEMET 25-100) 25-100 mg per tablet Take 2 tablets by mouth four times daily. Ibuprofen 200 mg cap Take by mouth. omeprazole (PRILOSEC) 40 mg capsule Take 1 [...] daily with meals. (Patient taking differently: Dissolve 1,000 mcg under the tongue two times a day with meals. 2 tab once a day) acetaminophen (TYLENOL) 500 mg tablet Take 500 mg by mouth every 8 hours as needed. ondansetron (ZOFRAN) 4 mg tablet every 8 hours as needed. MEDICATION, NON-DATABASE Standard Wheel Chair Dx Parkinson's Disease No current facility-administered medications for this visit. Objective Vital Signs: Wt 86.1 kg (189 lb 13.1 oz) SpO2 97% BMI 28.86 kg/m Orthostatic Vitals: Sitting: BP 111/67 Pulse 51 Weight: 86.1 kg (189 lb 13.1 oz) No LMP for male patient. Body mass index is 28.86 kg/m . General Physical Examination: General: Awake, [...] Left N/A MDS-UPDRS Motor subscale scores Speech 2-Mild. Loss of modulation, diction, or volume, with a few words unclear, but the overall sentences easy to follow. Facial Expression 1-Slight. Minimal masked facies manifested only by decreased frequency of blinking. Rigidity Neck 0-Normal. No rigidity. Rigidity Right Upper Extremity 0-Normal. No rigidity. Rigidity Left Upper Extremity 2-Mild. Rigidity detected without the activation maneuver, but full range of motion is easily achieved. Rigidity Right Lower Extremity 0-Normal. No rigidity. Rigidity Left Lower Extremity 1-Slight. Rigidity only detected with activation maneuver. Finger Taps Right 2-Mild. a) 3 to 5 interruptions during tapping, b) mild slowing, c) the amplitudedecrements midway in the 10-tap sequence. Finger Taps Left 3-Moderate. a) more than [...] end of the task. Hand Movements Left 0-Normal. No problem. (pain) Arm Movements Right 0-Normal. No problems. Arm Movements Left 0-Normal. No problems. Toe Taps Right 0-Normal. No problem. Toe Taps Left 2-Mild. a) 3 to 5 interruptions during the tapping movements, b) mild slowing, c) theamplitude decrements midway in the task. Leg Agility Right 0-Normal. No problems. Leg Agility Left 0-Normal. No problems. Arise From Chair 0-Normal. No problems. Able to arise quickly without hesitation. Gait 2-Mild. Independent walking but with substantial gait impairment. Gait Freezing 3-Moderate. Freezes once during straight walking. Posture Stability 0-Normal. No problems: recovers with one or two steps. Posture 1-Slight. Not quite erect, but posture could be normal for older person. Body Bradykinesia 1-Slight. Slight global slowness and [...] tremor. MDS-UPDRS Motor subscale totals Left Total 8 Right Total 3 Midline Total 10 Tremor Total / 10 0 PIGD Total / 3 5 Overall Total 21 Change Better/Worse Better % Change Compared to Last Filed Total -48.78 Pertinent Studies Brain MRI 02/04/22 There is [...] abnormal enhancement. Assessment and Plan: Assessment Mr. Kramer is a right-handed 79 year old year old male with Parkinson's disease. Has developed cognitive impairment and moved into assisted living early 2021 since didn't feel safe caring for himself alone. Still with good and bad days but not obvious fluctuations related to Sinemet doses. Freezes often. Best remedy is PT which he hasn't found to be helpful in the past whether it was Parkinson's-specific or not. He doesn't want to do any more therapy at this time. Discussed the U-step walker and daughter will see if insurance will cover. Bothered by thick secretions. This sounds more like phlegm than sialorrhea. Reducing saliva production could make the phlegm thicker. Agree with use of lemon drops, etc suggested by PCP. Will discussuse of Mucinex or something similar with PCP. The following are the current problems noted and addressed during this visit: Parkinson's disease with dyskinesia and fluctuating manifestations (hcc) Plan 08/30/2024 Visit: For Parkinson's - no change to medications today For walking/freezing - consider Parkinson's specific therapy at [facility]. Seeing therapy at [facility] when you come for a Dr. Issa visit is always an option. Consider U-step walker. [employer] For the phlegm - continue with the lemon drops. I will message Dr. Schneider about something to thinout the phlegm - Patient's perception of importance for healthcare provider to let them know of research trials for which they may be eligible? Somewhat important Interested in clinical research? Not discussed Updated Movement Disorders Medication Schedule: Medications 730 1130 430 HS Sinemet 25/100mg 2 2 2 2 Sertraline 100 mg 1 Return at or around: 02/27/25 Level of service : 29716 (40-68 min). Time spent 40 min on the day of service, which included preparing to see the patient, [id number] patient care, completing clinical documentation, obtaining and/or reviewing separately obtained history, performing a medically appropriate examination, and counseling and educating the patient/family/caregiver. Thank you for allowing me to be part of the clinical care of this patient! I look forward to continued participation in the patient s care with you. Please do not hesitate to call with any questions. Sincerely, Gila Issa MD documented in this encounterOhiohealth [facility]11-13-2024 Instructions* Patient Instructions* Gila Issa MD - 08/30/2024 10:18 AM EST It was a pleasure to see you today. We addressed the following diagnoses: Parkinson's disease with dyskinesia and fluctuating manifestations (hcc) My recommendations are as follows: For Parkinson's - no change to medications today For walking/freezing - consider Parkinson's specific therapy at [facility]. Seeing therapy at [facility] when you come for a Dr. Issa visit is always an option. Consider U-step walker. [employer] For the phlegm - continue with the lemon drops. I will message Dr. Schneider about something to thinout the phlegm Movement Disorders Medication Schedule: Medications 730 1130 430 HS Sinemet 25/100mg 2 2 2 2 Sertraline 100 mg 1 No follow-ups on file. If there are any concerns before your next visit, please call or you can send a message through [employer]. You can also now schedule and select appointments through [employer]. Gila Issa MD documented in this encounterOhiohealth [facility]10-09-2024 NoteHNO ID: [id number] Author: RICHARD SCHNEIDER, DO Service: ? Author Type: Physician Type: Progress Notes Filed: 07/26/2024 12:01 Note Text: CC: Alexis Kramer is a 79 year old male who presents to the office for follow up HPI: Appetite has been good Parkinson's disease, taking medications as prescribed, seeing Neurologist Dr. Holm regularly, no recent medication changes. daughter Sis has noticed some slight decline in memory CKD stage 3, has been improved Creatinine at this time in 1.12 No recent falls Cough is resolved. No wheezing or shortness of breath or hemoptysis. Did have a normal CXR per [facility] orders. No distress. No chest pain. 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 CKD (chronic kidney disease) stage 3, GFR 30-59 ml/min ([facility]) 04/2016 Depressive disorder 12/24/2021 GERD (gastroesophageal reflux disease) Hypertension IFG (impaired fasting glucose) 10/2019 5.7% at diagnosis Kidney stone Mixed hyperlipidemia Parkinson disease ([facility]) 07/2014 PAST SURGICAL HISTORY Procedure Laterality Date COLONOSCOPY FLX DX W/COLLJ SPEC WHEN PFRMD 07/18/2018 Colonoscopy EKG HEART SURGERY HX KIDNEY SURGERY HX basket extraction of kidney stone PAST SURGICAL HISTORY OF 04/2002 cardiac bypass x 5 PAST SURGICAL HISTORY OF 05/2015 kidney stone removed [facility] N/CARPAL TUNNEL SURG Left 11/24/2023 Left carpal tunnel release Current Outpatient Medications Medication Sig carbidopa-levodopa (SINEMET 25-100) 25-100 mg per tablet Take 2 tablets by mouth four times daily. Ibuprofen 200 mg cap Take by mouth. omeprazole (PRILOSEC) 40 mg capsule Take 1 capsule by mouth once daily. metoprolol succinate ER (TOPROL XL) 25 mg 24 hr tablet Take 1 tablet by mouth once daily. (Patient not taking: Reported on 02/22/2024) simvastatin (ZOCOR) 80 mg tablet Take 1 [...] topical gel 2 times daily as needed (Patient not taking: Reported on 02/22/2024) ondansetron (ZOFRAN) 4 mg tablet every 8 hours as needed. mupirocin (BACTROBAN) 2 % ointment Apply to affected area once daily. (Patient not taking: Reported on 02/22/2024) MEDICATION, NON-DATABASE Standard Wheel Chair Dx Parkinson's Disease No current facility-administered medications for this visit. ALLERGIES Allergen Reactions Bactrim [Sulfametho* Unknown Narcotics [Opioids * GI Upset vomiting with an oral pain med-has taken morphine without problems Social History Tobacco Use Smoking status: Former Current packs/day: 0.00 Average packs/day: 0.5 packs/day for 20.0 years (10.0 ttl pk-yrs) Types: Cigarettes Start date: 06/28/1993 Quit date: 06/28/2013 Years since quittin.0 Smokeless tobacco: Never Vaping Use Vaping status: Never Used Substance Use Topics Alcohol use: Yes Comment: occasionally Drug use: No ROS: See HPI PE: BP 110/60 Pulse 60 Temp (Src) 97 (Left Tympanic) Resp 20 Wt 191 lb (86.6kg) Gen: AANDO, NAD, non-toxic appearing, Pleasant, cooperative HEENT: NT/AC, PERRLA, EOMs intact b/l, nares clear and patent b/l, pharynx without erythema, exudate or lesions. Uvula midline. MMM, EACs without erythema or debris. TMs pearly dunlap with intact landmarks b/l. Neck: supple, No cervical LAD, no thyromegaly, no carotid bruits CV: RRR, normal S1 and S2, 1/6 HSM RUSB soft blowing murmurs, no gallops, no rubs, Pulses 2+ and symmetric in UE and LE b/l Lungs: normal respiratory effort, CTA b/l, no wheezing or rhonchi or rales Abd: soft, NT, ND, +BS, no hepatosplenomegaly MS: gait impaired, sitting in wheelchair Neuro: CN II-XII intact b/l, strength 5/5 b/l UE and LE, DTRs 2/4 UE and LE, sensation abnormal left hand Skin: warm, dry, intact, No rashes or lesions on exposed skin. No edema, normal pulses ASSESSMENT/PLAN: 1. Parkinson's disease with dyskinesia and fluctuating manifestations (HCC) - ICD9: 332.0, ICD10: G20.B2 (primary diagnosis) Stable Consider other options to help s (more content not included)...[facility]10-09-2024 History of Present illness Narrative* Richard Schneider, DO - 07/26/2024 11:57 AM EDT CC: Alexis Kramer is a 79 year old male who presents to the office for follow up HPI: Appetite has been good Parkinson's disease, taking medications as prescribed, seeing Neurologist Dr. Hlom regularly, no recent medication changes. daughter Sis has noticed some slight decline in memory CKD stage 3, has been improved Creatinine at this time in 1.12 No recent falls Cough is resolved. No wheezing or shortness of breath or hemoptysis. Did have a normal CXR per ECF orders. No distress. No chest pain. 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 Ibuprofen 200 mg cap Take by mouth. omeprazole (PRILOSEC) 40 mg capsule Take 1 capsule by mouth once daily. metoprolol succinate ER (TOPROL XL) 25 mg 24 hr tablet Take 1 tablet by mouth once daily. (Patient not taking: Reported on 02/22/2024) simvastatin (ZOCOR) 80 mg tablet Take 1 [...] topical gel 2 times daily as needed (Patient not taking: Reported on 02/22/2024) ondansetron (ZOFRAN) 4 mg tablet every 8 hours as needed. mupirocin (BACTROBAN) 2 % ointment Apply to affected area once daily. (Patient not taking: Reportedon 02/22/2024) MEDICATION, NON-DATABASE Standard Wheel Chair Dx Parkinson's Disease No current facility-administered medications for this visit. ALLERGIES Allergen Reactions Bactrim [Sulfametho* Unknown Narcotics [Opioids * GI Upset vomiting with an oral pain med-has taken morphine without problems Social History Tobacco Use Smoking status: Former Current packs/day: 0.00 Average packs/day: 0.5 packs/day for 20.0 years (10.0 ttl pk-yrs) Types: Cigarettes Start date: 06/28/1993 Quit date: 06/28/2013 Years since quittin.0 Smokeless tobacco: Never Vaping Use Vaping status: Never Used Substance Use Topics Alcohol use: Yes Comment: occasionally Drug use: No ROS: See HPI PE: BP 110/60 Pulse 60 Temp (Src) 97 (Left Tympanic) Resp 20 Wt 191 lb (86.6kg) Gen: A&O, NAD, non-toxic appearing, Pleasant, cooperative HEENT: NT/AC, PERRLA, EOMs intact b/l, nares clear and patent b/l, pharynx without erythema, exudate or lesions. Uvula midline. MMM, EACs without erythema or debris. TMs pearly dunlap with intact landmarks b/l. Neck: supple, No cervical LAD, no thyromegaly, no carotid bruits CV: RRR, normal S1 and S2, 1/6 HSM RUSB soft blowing murmurs, no gallops, no rubs, Pulses 2+ and symmetric in UE and LE b/l Lungs: normal respiratory effort, CTA b/l, no wheezing or rhonchi or rales Abd: soft, NT, ND, +BS, no hepatosplenomegaly MS: gait impaired, sitting in wheelchair Neuro: CN II-XII intact b/l, strength 5/5 b/l UE and LE, DTRs 2/4 UE and LE, sensation abnormal left hand Skin: warm, dry, intact, No rashes or lesions on exposed skin. No edema, normal pulses ASSESSMENT/PLAN: 1. Parkinson's disease with dyskinesia and fluctuating manifestations (HCC) - ICD9: 332.0, ICD10: G20.B2 (primary diagnosis) Stable Consider other options to help salivary concerns- will be following up with Neurologist soon - CARBIDOPA 25 MG-LEVODOPA 100 MG TABLET 2. Need for influenza vaccination - ICD9: V04.81, ICD10: Z23 - INFLUENZA VACCINE, PRSV FREE, AGE 65+ YR, HIGH DOSE, TRIVALENT (FLUZONE HIGH-DOSE) 3. Hypertension, essential - ICD9: 401.9, ICD10: I10 - Controlled - Continue current medications - Recommend home blood pressure monitoring, to bring results to next visit - Encouraged sodium restriction, DASH or Mediterranean diet - Recommend regular aerobic exercise - Discussed need for and benefit of weight loss. BMI 29.04 kg/(m^2) 4. Balance disorder - ICD9: 781.99, ICD10: R26.89 Use of walker and wheelchair as needed 5. Stage 3a chronic kidney disease (HCC) - ICD9: 585.3, ICD10: N18.31 - eGFR: Stable - Counseled on avoiding NSAIDs, adequate hydration - Counseled on low sodium diet 6. IFG (impaired fasting glucose) - ICD9: 790.21, ICD10: R73.01 stable 7. Pure hypercholesterolemia - ICD9: 272.0, ICD10: E78.00 stable 8. Short-term memory loss - ICD9: 780.93, ICD10: R41.3 stable Richard Schneider DO Return if no improvement. Follow up with Richard Schneider DO. To ER if develops chest pain, shortness of breath. Discussed risks, benefits, alternatives, and potential side effects of medications. Patient/Guardian expressed understanding and agreed with the plan. See patient instructions. Richard Schneider DO [address] [place] [address] documented in this encounterOhio[facility] History of Present illness Narrative* Richard Schneider DO - 05/10/2024 1:14 PM EDT CC: Alexis Kramer is a 79 year old male who presents to the office for follow up HPI: At OFFICE VISIT on 10/13/2023 Leg edema, completely controlled now that wound [...] which is what he has been using. At last OFFICE VISIT on 01/12/2024 Left hand carpal tunnel syndrome, diagnosed in the last 3 months and had surgery about 1 month ago,tolerated procedure well. Healing well. Still using brace on hand- pain has mostly resolved. Stinging has resolved. Just some mild numbess still Appetite has been good Parkinson's disease, taking medications as prescribed, seeing Neurologist Dr. Holm regularly, no recent medication changes. daughter Sis has noticed some slight decline in memory CKD stage 3, has been improved Creatinine at this time in 1.07 Currently Left hand carpal tunnel syndrome, diagnosed in the last 6 months and had surgery in Nov 2023, tolerated procedure well. Healing well. Still using brace on hand- pain has mostly resolved. Stinging hasresolved. Just some mild numbess still Appetite has been good Parkinson's disease, taking medications as prescribed, seeing Neurologist Dr. Holm regularly, no recent medication changes. daughter Sis has noticed some slight decline in memory CKD stage 3, has been improved Creatinine at this time in 1.07 He did slide out of bed and fell, hit his face. Was having some brusiing and bleeding on his face. Was taken to [facility] and evaluated. No fractures. This has improved. Occasional mucous like cough. No wheezing or shortness of breath or hemoptysis. Did have a normal CXR per ECF orders. No distress. No chest pain. 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 CKD (chronic kidney disease) stage 3, GFR 30-59 ml/min ([facility]) 04/2016 Depressive disorder 12/24/2021 GERD (gastroesophageal reflux [...] SURGICAL HISTORY OF 05/2015 kidney stone removed [facility] N/CARPAL TUNNEL SURG Left 11/24/2023 Left carpal tunnel release Social History: Social History Tobacco Use Smoking status: Former Packs/day: 0.50 Years: 20.00 Additional pack years: 0.00 Total pack years: 10.00 Types: Cigarettes Quit date: 06/28/2013 Years since quittin.8 Smokeless tobacco: Never Vaping Use Vaping Use: [...] COPD No Family History Current Outpatient prescriptions: Ibuprofen 200 mg cap Take by mouth. carbidopa-levodopa (SINEMET 25-100) 25-100 mg per tablet Take 2 tablets by mouth four times daily. omeprazole (PRILOSEC) 40 mg capsule Take 1 capsule by mouth once daily. metoprolol succinate ER (TOPROL XL) 25 mg 24 hr tablet Take 1 tablet by mouth once daily. (Patient not taking: Reported on 02/22/2024) simvastatin (ZOCOR) 80 mg tablet Take 1 [...] topical gel 2 times daily as needed (Patient not taking: Reported on 02/22/2024) ondansetron (ZOFRAN) 4 mg tablet every 8 hours as needed. mupirocin (BACTROBAN) 2 % ointment Apply to affected area once daily. (Patient not taking: Reportedon 02/22/2024) MEDICATION, NON-DATABASE Standard Wheel Chair Dx Parkinson's Disease Allergies: ALLERGIES Allergen Reactions Bactrim [Sulfametho* Unknown Narcotics [Opioids * GI Upset vomiting with an oral pain med-has taken morphine without problems ROS: See HPI PE: 05/10/24 1049 BP: 110/60 Pulse: 60 Temp: (!) 35.9 C (96.6 F) TempSrc: Left Tympanic Weight: 86.6 kg (191 lb) Gen: A&O, NAD, non-toxic appearing, Pleasant, cooperative HEENT: NT/AC, PERRLA, EOMs intact b/l, nares clear and patent b/l, pharynx without erythema, exudate or lesions. Uvula midline. MMM, EACs without erythema or debris. TMs pearly dunlap with intact landmarks b/l. Neck: supple, No cervical LAD, no thyromegaly, no carotid bruits CV: RRR, normal S1 and S2, 1/6 HSM RUSB soft blowing murmurs, no gallops, no rubs, Pulses 2+ and symmetric in UE and LE b/l Lungs: normal respiratory effort, CTA b/l, no wheezing or rhonchi or rales Abd: soft, NT, ND, +BS, no hepatosplenomegaly MS: gait impaired, sitting in wheelchair Neuro: CN II-XII intact b/l, strength 5/5 b/l UE and LE, DTRs 2/4 UE and LE, sensation abnormal left hand Skin: warm, dry, intact, No rashes or lesions on exposed skin. No edema, normal pulses ASSESSMENT/PLAN: 1. Hypertension, essential - ICD9: 401.9, ICD10: I10 (primary diagnosis) - Controlled - Continue current medications - Recommend home blood pressure monitoring, to bring results to next visit - Encouraged sodium restriction, DASH or Mediterranean diet - Recommend regular aerobic exercise 2. SOB (shortness of breath) - ICD9: 786.05, ICD10: R06.02 ECHO as ordered CXR was normal Labs were stable Consider deep breathing exercises as well as increased exercise and consider adding on mucinex oncea day prn - ECHO - PERFLUTREN LIPID MICROSPHERES 1.1 MG/ML INJECTION IN NS 10 ML - SODIUM CHLORIDE 0.9 % (FLUSH) INJECTION SYRINGE 3. Parkinson's disease with dyskinesia and fluctuating manifestations (HCC) - ICD9: 332.0, ICD10: G20.B2 See above, stable 4. IFG (impaired fasting glucose) - ICD9: 790.21, ICD10: R73.01 Diet controlled. 5. Stage 3a chronic kidney disease (HCC) - ICD9: 585.3, ICD10: N18.31 - eGFR: Stable - Counseled on avoiding NSAIDs, adequate hydration 6. Balance disorder - ICD9: 781.99, ICD10: R26.89 See HPI He is overall doing well. One fall out of bed, otherwise no other falls or head injuries. 7. Subacute cough - ICD9: 786.2, ICD10: R05.2 ECHO as ordered CXR was normal Labs were stable Consider deep breathing exercises as well as increased exercise and consider adding on mucinex oncea day prn Richard Schneider DO To ER if develops chest pain, shortness of breath, or severe worsening of symptoms. Discussed risks, benefits, alternatives, and potential side effects of medications. Patient expressed understanding and agreed with the plan. Richard Schneider DO [address] [place] [address] documented in this encounterOhiohealth [facility]07-11-2024 Telephone encounter Note * Telephone Encounter - Amelia Goldberg RN - 04/27/2024 4:56 PM EDT Called [facility] and spoke with Pratima and received fax number for [facility] in [place]. . Lab orders faxed as requested. [facility]07-11-[facility]24 Miscellaneous Notes* Telephone Encounter - Amelia Goldberg RN - 04/27/2024 4:56 PM EDT Called [facility] and spoke with Pratima and received fax number for [facility] in [place]. . Lab orders faxed as requested. * Telephone Encounter - Jing Snow RN - 04/27/2024 4:32 PM EDT Patient's daughter returned call. Please fax orders to [facility] in [place] so they can draw labs. Jing Snow RN * Telephone Encounter - Radha Carpio LPN - 04/27/2024 3:58 PM EDT Left message as to this . Asked to call back let us know what wants done with order. * Telephone Encounter - Radha Carpio LPN - 04/27/2024 3:56 PM EDT Ok will let her know. * Telephone Encounter - Marta Thomson APRN.CNP - 04/27/2024 3:46 PM EDT I understand that. I saw these labs and figured he should have the below labs completed prior to appointment based on that. Thank you, Marta Thomson APRN.SENIOR ETL DEVELOPER * Telephone Encounter - Radha Carpio LPN - 04/27/2024 3:39 PM EDT Spoke with daughter she states this is not what asked she states [facility] did a bunch of labs in February she was asking if there were any others that the doctor may want other than those completed. Theyare in scanned docs. Please advise. Daughter states if ones he had completed are good enough she isnot wanting him to get anymore. * Telephone Encounter - Marta Thomson APRN.CNP - 04/27/2024 3:32 PM EDT Lab work is ordered. Thank you, Marta Thomson APRN.SENIOR ETL DEVELOPER * Telephone Encounter - Sis Herbert LPN - 04/25/2024 8:40 AM EDT Has appt 05/10/24, asking if he is due for labs prior to that appt? Pt lives at [facility]. Sis Herbert LPN documented in this encounterOhiohealth [facility]07-11-2024 Telephone encounter Note * Telephone Encounter - Jing Snow RN - 04/27/2024 4:32 PM EDT Patient's daughter returned call. Please fax orders to [facility] in [place] so they can draw labs. Jing Snow RN [facility]07-11-2024 Telephone encounter Note* Telephone Encounter - Radha Carpio LPN - 04/27/2024 3:58 PM EDT Left message as to this . Asked to call back let us know what wants done with order. [facility]07-11-[facility] Telephone encounter Note* Telephone Encounter - Radha Carpio LPN - 04/27/2024 3:56 PM EDT Ok will let her know. [facility]07-11-20[facility] Telephone encounter Note* Telephone Encounter - Marta Thomson APRN.CNP - 04/27/2024 3:46 PM EDT I understand that. I saw these labs and figured he should have the below labs completed prior to appointment based on that. Thank you, Marta Thomson APRN.LACY [facility]07-11-2024 Telephone encounter Note* Telephone Encounter - Radha Carpio LPN - 04/27/2024 3:39 PM EDT Spoke with daughter she states this is not what asked she states [facility] did a bunch of labs in February she was asking if there were any others that the doctor may want other than those completed. Theyare in scanned docs. Please advise. Daughter states if ones he had completed are good enough she isnot wanting him to get anymore. [facility]-11-[facility] Telephone encounter Note* Telephone Encounter - Marta Thomson APRN.CNP - 04/27/2024 3:32 PM EDT Lab work is ordered. Thank you, Marta Thomson APRN.SENIOR ETL DEVELOPER [facility]07-09-2024 Telephone encounter Note* Telephone Encounter - Sis Herbert LPN - 04/25/2024 8:40 AM EDT Has appt 05/10/24, asking if he is due for labs prior to that appt? Pt lives at [facility]. Sis Herbert LPN [facility]05-21-2024 Telephone encounter Note* Telephone Encounter - Sabrina Kay LPN - 03/07/2024 2:23 PM EDT Orders received. signed and faxed back. [facility]05-21-2024 Miscellaneous Notes* Telephone Encounter - Sabrina Valdez LPN - 03/07/2024 2:23 PM EDT Orders received. signed and faxed back. * Telephone Encounter - Lynn Gray LPN - 03/07/2024 2:09 PM EDT Trisha with [facility] calling to let you know she had 1)faxed a UA on 03-02-24. Needs response back 2) family concern that pt may have pneumonia. Family hears rattling. [facility] requesting a chest x-ray there. Please watch for fax and get back to Trisha. Lynn Gray LPN documented in this encounterOhiohealth Arthur [facility]05-21-2024 Telephone encounter Note * Telephone Encounter - Lynn Gray LPN - 03/07/2024 2:09 PM EDT Trisha with [facility] calling to let you know she had 1)faxed a UA on 03-02-24. Needs response back 2) family concern that pt may have pneumonia. Family hears rattling. [facility] requesting a chest x-ray there. Please watch for fax and get back to Trisha. Lynn Gray LPN [facility]05-08-2024 Instructions* Patient Instructions* Gila Issa MD - 02/23/2024 10:07 AM EDT It was a pleasure to see you today. We addressed the following diagnoses: Parkinson's disease with dyskinesia and fluctuating manifestations (hcc) (primary encounter diagnosis) My recommendations are as follows: Continue your medications as you have been taking them. We are not making any changes today. If youfeel you are not tolerating them or your symptoms are changing before your next appointment, pleasefeel free to send me a [employer] message or contact the office - Continue exercise - Movement Disorders Medication Schedule: Medications [id number] [id number] 430 HS Sinemet 25/100mg 2 2 2 2 Sertraline 100 mg 1 Return at or around: 08/25/24 If there are any concerns before your next visit, please call or you can send a message through [employer]. You can also now schedule and select appointments through [employer]. Gila Issa MD documented in this encounterOhiohealth Arthur [facility]05-08-2024 History of Present illness Narrative* Gila Issa MD - 02/23/2024 9:43 AM EDT [facility] - FOLLOW UP EVALUATION Richard Schneider, DO [address] [facility] [id number] I had the pleasure of seeing Mr. Kramer for follow up today. He is a 78 year old right-handed male with a history of Parkinson's disease since 2009. He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 encounter (statuses as of 01/20/2024) [facility]Evaluation [facility]* Diagnosis Parkinson's disease (HCC)- Primary Paralysis [...] Other B-complex deficiencies documented in this encounter [facility] CenterEvaluation noteNo assessment information availableWBlanchard Valley [facility] Work Phone: Evaluation note* Diagnosis Cognitive impairment, mild, so stated Mild cognitive impairment, so stated Parkinson's disease (HCC) Paralysis agitans Aphasia Dysphasia Other speech disturbance documented in this encounter [facility] CenterEvalumiddletown emergency [facility] note* Diagnosis Elevated PSA- Primary Elevated prostate specific antigen (PSA) Parkinson's disease (HCC) Paralysis agitans Balance disorder Other symptoms involving nervous and musculoskeletal systems Microscopic hematuria Pure hypercholesterolemia IFG (impaired fasting glucose) Impaired fasting glucose Stage 3a chronic kidney disease (HCC) Vitamin D deficiency Unspecified vitamin D deficiency Vitamin B12 deficiency Other B-complex deficiencies documented in this encounter [facility] CenterEvaluation [facility]* Diagnosis Parkinson's disease (HCC)- Primary Paralysis [...] cerumen Impacted cerumen documented in this encounter [facility] CenterEvaluation [facility]* Diagnosis Chronic ulcer of right leg, [...] Unspecified essential hypertension documented in this encounter [facility] CenterEvalumiddletown emergency department note* Diagnosis Onset Date Resolution Status Abnormal skin morphology determined by biopsy acute Nonhealing nonsurgical wound acute CAD (coronary artery disease) [facility] Work Phone: Evaluation note* Diagnosis Bilateral leg edema Edema Chronic ulcer of right leg, limited to breakdown of skin ([facility]) [facility]* Diagnosis Parkinson's disease (HCC)- Primary Paralysis agitans [facility] Diagnosis Gastroesophageal reflux disease without esophagitis Esophageal reflux Parkinson's disease (HCC) Paralysis agitans Hypertension, essential Unspecified essential hypertension Pure hypercholesterolemia Parkinson disease (HCC) Paralysis agitans Bilateral leg edema Edema Chronic ulcer of right leg, limited to breakdown of skin (HCC) [facility] Diagnosis Parkinson's disease (HCC)- Primary Paralysis agitans Chronic ulcer of right leg, limited to breakdown of skin (HCC) Chronic kidney disease, stage 3a (HCC) Hypertension, essential Unspecified essential hypertension Pure hypercholesterolemia Bilateral leg edema Edema IFG (impaired fasting glucose) Impaired fasting glucose Vitamin D deficiency Unspecified vitamin D deficiency [facility] Diagnosis Leg wound, right, initial encounter- Primary Chronic ulcer of right leg, limited to breakdown of skin (HCC) Chronic kidney disease, stage 3a (HCC) Parkinson's disease (HCC) Paralysis agitans Hypertension, essential Unspecified essential hypertension Pure hypercholesterolemia Bilateral leg edema Edema IFG (impaired fasting glucose) Impaired fasting glucose [facility] Diagnosis Pure hypercholesterolemia- Primary IFG (impaired fasting glucose) Impaired fasting glucose [facility] Diagnosis Parkinson's disease with dyskinesia and fluctuating manifestations- Primary [facility] Diagnosis Carpal tunnel syndrome, left Carpal tunnel syndrome [facility] Diagnosis Left carpal tunnel syndrome- Primary Carpal tunnel syndrome [facility] Diagnosis Left carpal tunnel syndrome- Primary Carpal tunnel syndrome [facility] Diagnosis Parkinson's disease with dyskinesia and fluctuating manifestations (HCC)- Primary [facility] Diagnosis Parkinson's disease with dyskinesia and fluctuating manifestations (HCC)- Primary Hypertension, essential Unspecified essential hypertension IFG (impaired fasting glucose) Impaired fasting glucose [facility] Diagnosis Hypertension, essential- Primary Unspecified essential hypertension SOB (shortness of breath) Shortness of breath Parkinson's disease with dyskinesia and fluctuating manifestations (HCC) IFG (impaired fasting glucose) Impaired fasting glucose Stage 3a chronic kidney disease (HCC) Balance disorder Other symptoms involving nervous and musculoskeletal systems Subacute cough Cough [facility] Parkinson's disease with dyskinesia and fluctuating manifestations (HCC)- Primary Need for influenza vaccination Need for prophylactic vaccination and inoculation against influenza Hypertension, essential Unspecified essential hypertension Balance disorder Other symptoms involving nervous and musculoskeletal systems Stage 3a chronic kidney disease (HCC) IFG (impaired fasting glucose) Impaired fasting glucose Pure hypercholesterolemia Short-term memory loss Memory loss [facility] Diagnosis Parkinson's disease with dyskinesia and fluctuating manifestations (HCC) [facility] Diagnosis Wheezing- Primary Chest congestion Other symptoms involving respiratory system and chest documented [facility] Diagnosis SOB (shortness of breath)- Primary Shortness of breath Wheezing Chest congestion Other symptoms involving respiratory system and chest documented [facility] Diagnosis Parkinson's disease with dyskinesia and fluctuating manifestations (HCC)- Primary [facility] Diagnosis Parkinson's disease with dyskinesia and fluctuating manifestations (HCC)- Primary [facility]* Diagnosis IFG (impaired fasting glucose)- Primary Impaired fasting glucose Balance disorder Other symptoms involving nervous and musculoskeletal systems Hypertension, essential Unspecified essential hypertension Short-term memory loss Memory loss Stage 3a chronic kidney disease (HCC) Parkinson's disease with dyskinesia and fluctuating manifestations (HCC) Pure hypercholesterolemia Vitamin B12 deficiency Other B-complex deficiencies Bilateral leg edema Edema Weight loss Loss of weight documented in this encounter [facility] for referral (narrative)* Outpatient Procedure (Routine) - Authorized Specialty Diagnoses / Procedures Referred By Contac t Referred To [facility] Diagnoses SOB (shortness of breath) Procedures ECHO ECHO TTHRC R-T 2D W/WOM-MODE COMPL SPEC&COLR D Richard Schneider DO [address] [place] [address] [facility] [address] [place] [id number] Referral ID Status Reason Start Date Expiration Date Visits Requested Visits Authorized [id number] Authorized Auto-Generat ed Referral 05/10/2024 05/10/2025 1 1 [facility] for referral (narrative)No reason for referral information availableW[facility]: Advance Directives No Advanced Directives Records FoundDocuments on File Type Date Recorded 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 Advance Directive(s) 11/20/2020 6:33 PM Advance Directive(s) 07/18/2018 8:31 AM Advance Directive Response Recorded Date/ Time Living Will Yes February 18, 2018 3: 59am Power of Founder & Ceo Yes February 18, 2018 3:59am Documents on File Type Date Recorded 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 Advance Directive(s) 11/20/2020 6:33 PM Advance Directive(s) 07/18/2018 8:31 AM Documents on File Type Date 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 Advance Directive(s) 11/20/2020 6:33 PM Documents on File Type Date Recorded 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 Advance Directive(s) 11/20/2020 6:33 PM Advance Directive Response Recorded Date/ Time Living Will Yes February 18, 2018 2: 59am Power of Founder & Ceo Yes February 18, 2018 2:59am Chief Complaint and Reason for Visit Chief Complaint SP Chief Complaint [facility] K Chief Complaint [facility] K wound wound [facility] WORK Reason for Visit Abnormal skin morpho logy determined by biopsy Nonhealing nonsurgical wound CAD (coronary artery disease) Chief Complaint [facility] K wound wound [facility] WORK [facility] Reason for Visit Abnormal skin morpho logy determined by biopsy Nonhealing nonsurgical wound CAD (coronary artery disease) Chief Complaint wound wound [facility] WORK [facility] Reason for Visit Abnormal skin morpho logy determined by biopsy Nonhealing nonsurgical wound CAD (coronary artery disease) Chief Complaint [facility] WOR K [facility] Chief Complaint [facility] N/T LT HAND, PAIN LT HAND N/T LT HAND, PAIN LT HAND [facility] WORK Chief Complaint Admit Date [facility] WORK January 11, 2025 4 :00am PD W/DYSKINESIA/RX HERE January 12, 2025 9:00am Chief Complaint Admit Date PD W/DYSKINESIA/RX HERE April 24, 2025 9 :30am Reason for Referral Specialty Diagnoses / Procedures Referred By Raul t Referred To Contact [facility] IMAG[facility] Diagnoses Cognitive impairment, mild, so stated Parkinson's disease (HCC) Aphasia Dysphasia Procedures MRI BRAIN WO/W IVCON MRI BRAIN BRAIN STEM W/O W/CONTRAST MATERIAL Richard Schneider L, DO [address] [place] [address] Mr Imaging Referral ID Status Reason Start Date Expiration Date V isits Requested Visits Authorized [id number] Closed Auto-Generate d Referral 12/24/2021 01/23/2023 1 1 Specialty Diagnoses / Procedures Referred By Contac t Referred To Contact Podiatry Diagnoses Onychomycosis Bunion Procedures CONSULT TO PODIATRY OFFICE/OUTPATIENT NEW HIGH MDM 60-74 MINUTES Richard Schneider, DO [address] [place] [address] Referral ID Status Reason Start Date Expiration Date Visits Requested Visits Authorized [id number] Pending Review PCP Requested Referral 07/08/2022 07/08/2023 1 1 Specialty Diagnoses / Procedures Referred By Contac t Referred To Contact Diagnoses Parkinson's disease (HCC) Procedures PROVIDER ORDERED FOLLOW UP OFFICE/OUTPATIENT NEW HIGH MDM 60-74 MINUTES Gila Issa MD [address] [phone] Referral ID Status Reason Start Date Expiration Date Visits Requested Visits Authorized [id number] Pending Review PCP Requested Referral 12/16/2022 03/16/2023 1 1 Specialty Diagnoses / Procedures Referred By Contac t Referred To Contact Diagnoses Parkinson's disease with dyskinesia and fluctuating manifestations Procedures PROVIDER ORDERED FOLLOW UP OFFICE/OUTPATIENT NEW HIGH MDM 60-74 MINUTES Gila Issa MD [address] [place] [address] Referral ID Status Reason Start Date Expiration Date Visits Requested Visits Authorized [id number] Pending Review PCP Requested Referral 08/18/2023 11/16/2023 1 1 Specialty Diagnoses / Procedures Referred By Contac t Referred To Contact Diagnoses Parkinson's disease with dyskinesia and fluctuating manifestations (HCC) Procedures PROVIDER ORDERED FOLLOW UP OFFICE/OUTPATIENT NEW HIGH MDM 60 MINUTES Gila Issa MD [address] [phone] Referral ID Status Reason Start Date Expiration Date Visits Requested Visits Authorized [id number] Authorized PCP Requested Referral 02/23/2024 05/23/2024 1 1 Referral ID Status Reason Start Date Expiration Date Visits Requested Visits Authorized [id number] Authorized PCP Requested Referral 11/28/2024 1 1 Specialty Diagnoses / Procedures Referred By Contac t Referred To Contact Diagnoses Wheezing Chest congestion Richard Schneider, DO [address] [place] [address] Referral ID Status Reason Start Date Expiration Date Visits Re quested Visits Authorized [id number] Closed 1 1 Referral ID Status Reason Start Date Expiration Date Visits Re quested Visits Authorized [id number] Closed 1 1 Summary Purpose Family History No Family History Records FoundNo Family History Records FoundNo Family History Records Found Additional Source Comments Source Comments (unrecognize d section and content) In the event this informatio n is protected by the Federal Confidentiality of Alcohol and Drug Abuse Patient Records regulations: The Federal rules restrict any use of the information to criminally investigate or prosecute any alcohol or drug abuse patient.[facility] Center[facility] the event this information is protected by the Federal Confidentiality of Alcohol and Drug Abuse Patient Records regulations: The Federal rules restrict any use of the information to criminally investigate or prosecute any alcohol or drug abuse patient.[facility] Center[facility] the event this information is protected by the Federal Confidentiality of Alcohol and Drug Abuse Patient Records regulations: The Federal rules restrict any use of the information to criminally investigate or prosecute any alcohol or drug abuse patient.[facility] CenterIn the event this information is protected by the Federal Confidentiality of Alcohol and Drug Abuse Patient Records regulations: The Federal rules restrict any use of the information to criminally investigate or prosecute any alcohol or drug abuse patient.[facility] CenterIn the event this information is protected by the Federal Confidentiality of Alcohol and Drug Abuse Patient Records regulations: The Federal rules restrict any use of the information to criminally investigate or prosecute any alcohol or drug abuse patient.[facility] CenterIn the event this information is protected by the Federal Confidentiality of Alcohol and Drug Abuse Patient Records regulations: The Federal rules restrict any use of the information to criminally investigate or prosecute any alcohol or drug abuse patient.[facility] CenterIn the event this information is protected by the Federal Confidentiality of Alcohol and Drug Abuse Patient Records regulations: The Federal rules restrict any use of the information to criminally investigate or prosecute any alcohol or drug abuse patient.[facility] CenterIn the event this information is protected by the Federal Confidentiality of Alcohol and Drug Abuse Patient Records regulations: The Federal rules restrict any use of the information to criminally investigate or prosecute any alcohol or drug abuse patient.[facility] CenterIn the event this information is protected by the Federal Confidentiality of Alcohol and Drug Abuse Patient Records regulations: The Federal rules restrict any use of the information to criminally investigate or prosecute any alcohol or drug abuse patient.[facility] CenterIn the event this information is protected by the Federal Confidentiality of Alcohol and Drug Abuse Patient Records regulations: The Federal rules restrict any use of the information to criminally investigate or prosecute any alcohol or drug abuse patient.[facility] CenterIn the event this information is protected by the Federal Confidentiality of Alcohol and Drug Abuse Patient Records regulations: The Federal rules restrict any use of the information to criminally investigate or prosecute any alcohol or drug abuse patient.[facility] CenterIn the event this information is protected by the Federal Confidentiality of Alcohol and Drug Abuse Patient Records regulations: The Federal rules restrict any use of the information to criminally investigate or prosecute any alcohol or drug abuse patient.[facility] CenterIn the event this information is protected by the Federal Confidentiality of Alcohol and Drug Abuse Patient Records regulations: The Federal rules restrict any use of the information to criminally investigate or prosecute any alcohol or drug abuse patient.[facility] CenterIn the event this information is protected by the Federal Confidentiality of Alcohol and Drug Abuse Patient Records regulations: The Federal rules restrict any use of the information to criminally investigate or prosecute any alcohol or drug abuse patient.[facility] CenterIn the event this information is protected by the Federal Confidentiality of Alcohol and Drug Abuse Patient Records regulations: The Federal rules restrict any use of the information to criminally investigate or prosecute any alcohol or drug abuse patient.[facility] CenterIn the event this information is protected by the Federal Confidentiality of Alcohol and Drug Abuse Patient Records regulations: The Federal rules restrict any use of the information to criminally investigate or prosecute any alcohol or drug abuse patient.[facility] CenterIn the event this information is protected by the Federal Confidentiality of Alcohol and Drug Abuse Patient Records regulations: The Federal rules restrict any use of the information to criminally investigate or prosecute any alcohol or drug abuse patient.[facility] CenterIn the event this information is protected by the Federal Confidentiality of Alcohol and Drug Abuse Patient Records regulations: The Federal rules restrict any use of the information to criminally investigate or prosecute any alcohol or drug abuse patient.[facility] CenterIn the event this information is protected by the Federal Confidentiality of Alcohol and Drug Abuse Patient Records regulations: The Federal rules restrict any use of the information to criminally investigate or prosecute any alcohol or drug abuse patient.[facility] CenterIn the event this information is protected by the Federal Confidentiality of Alcohol and Drug Abuse Patient Records regulations: The Federal rules restrict any use of the information to criminally investigate or prosecute any alcohol or drug abuse patient.[facility] CenterIn the event this information is protected by the Federal Confidentiality of Alcohol and Drug Abuse Patient Records regulations: The Federal rules restrict any use of the information to criminally investigate or prosecute any alcohol or drug abuse patient.[facility] CenterIn the event this information is protected by the Federal Confidentiality of Alcohol and Drug Abuse Patient Records regulations: The Federal rules restrict any use of the information to criminally investigate or prosecute any alcohol or drug abuse patient.[facility] CenterIn the event this information is protected by the Federal Confidentiality of Alcohol and Drug Abuse Patient Records regulations: The Federal rules restrict any use of the information to criminally investigate or prosecute any alcohol or drug abuse patient.[facility] CenterIn the event this information is protected by the Federal Confidentiality of Alcohol and Drug Abuse Patient Records regulations: The Federal rules restrict any use of the information to criminally investigate or prosecute any alcohol or drug abuse patient.[facility] CenterIn the event this information is protected by the Federal Confidentiality of Alcohol and Drug Abuse Patient Records regulations: The Federal rules restrict any use of the information to criminally investigate or prosecute any alcohol or drug abuse patient.[facility] CenterIn the event this information is protected by the Federal Confidentiality of Alcohol and Drug Abuse Patient Records regulations: The Federal rules restrict any use of the information to criminally investigate or prosecute any alcohol or drug abuse patient.[facility] CenterIn the event this information is protected by the Federal Confidentiality of Alcohol and Drug Abuse Patient Records regulations: The Federal rules restrict any use of the information to criminally investigate or prosecute any alcohol or drug abuse patient.[facility] CenterIn the event this information is protected by the Federal Confidentiality of Alcohol and Drug Abuse Patient Records regulations: The Federal rules restrict any use of the information to criminally investigate or prosecute any alcohol or drug abuse patient.[facility] CenterIn the event this information is protected by the Federal Confidentiality of Alcohol and Drug Abuse Patient Records regulations: The Federal rules restrict any use of the information to criminally investigate or prosecute any alcohol or drug abuse patient.[facility] CenterIn the event this information is protected by the Federal Confidentiality of Alcohol and Drug Abuse Patient Records regulations: The Federal rules restrict any use of the information to criminally investigate or prosecute any alcohol or drug abuse patient.[facility] CenterIn the event this information is protected by the Federal Confidentiality of Alcohol and Drug Abuse Patient Records regulations: The Federal rules restrict any use of the information to criminally investigate or prosecute any alcohol or drug abuse patient.[facility] CenterIn the event this information is protected by the Federal Confidentiality of Alcohol and Drug Abuse Patient Records regulations: The Federal rules restrict any use of the information to criminally investigate or prosecute any alcohol or drug abuse patient.[facility] CenterIn the event this information is protected by the Federal Confidentiality of Alcohol and Drug Abuse Patient Records regulations: The Federal rules restrict any use of the information to criminally investigate or prosecute any alcohol or drug abuse patient.[facility] CenterIn the event this information is protected by the Federal Confidentiality of Alcohol and Drug Abuse Patient Records regulations: The Federal rules restrict any use of the information to criminally investigate or prosecute any alcohol or drug abuse patient.[facility] CenterIn the event this information is protected by the Federal Confidentiality of Alcohol and Drug Abuse Patient Records regulations: The Federal rules restrict any use of the information to criminally investigate or prosecute any alcohol or drug abuse patient.[facility] CenterIn the event this information is protected by the Federal Confidentiality of Alcohol and Drug Abuse Patient Records regulations: The Federal rules restrict any use of the information to criminally investigate or prosecute any alcohol or drug abuse patient.[facility] CenterIn the event this information is protected by the Federal Confidentiality of Alcohol and Drug Abuse Patient Records regulations: The Federal rules restrict any use of the information to criminally investigate or prosecute any alcohol or drug abuse patient.[facility] CenterIn the event this information is protected by the Federal Confidentiality of Alcohol and Drug Abuse Patient Records regulations: The Federal rules restrict any use of the information to criminally investigate or prosecute any alcohol or drug abuse patient.[facility] CenterIn the event this information is protected by the Federal Confidentiality of Alcohol and Drug Abuse Patient Records regulations: The Federal rules restrict any use of the information to criminally investigate or prosecute any alcohol or drug abuse patient.[facility] CenterIn the event this information is protected by the Federal Confidentiality of Alcohol and Drug Abuse Patient Records regulations: The Federal rules restrict any use of the information to criminally investigate or prosecute any alcohol or drug abuse patient.[facility] CenterIn the event this information is protected by the Federal Confidentiality of Alcohol and Drug Abuse Patient Records regulations: The Federal rules restrict any use of the information to criminally investigate or prosecute any alcohol or drug abuse patient.[facility] CenterIn the event this information is protected by the Federal Confidentiality of Alcohol and Drug Abuse Patient Records regulations: The Federal rules restrict any use of the information to criminally investigate or prosecute any alcohol or drug abuse patient.[facility] CenterIn the event this information is protected by the Federal Confidentiality of Alcohol and Drug Abuse Patient Records regulations: The Federal rules restrict any use of the information to criminally investigate or prosecute any alcohol or drug abuse patient.[facility] CenterIn the event this information is protected by the Federal Confidentiality of Alcohol and Drug Abuse Patient Records regulations: The Federal rules restrict any use of the information to criminally investigate or prosecute any alcohol or drug abuse patient.[facility] Cancer CenterIn the event this information is protected by the Federal Confidentiality of Alcohol and Drug Abuse Patient Records regulations: The Federal rules restrict any use of the information to criminally investigate or prosecute any alcohol or drug abuse patient.[facility] Cancer CenterIn the event this information is protected by the Federal Confidentiality of Alcohol and Drug Abuse Patient Records regulations: The Federal rules restrict any use of the information to criminally investigate or prosecute any alcohol or drug abuse patient.[facility], [facility] CenterIn the event this information is protected by the Federal Confidentiality of Alcohol and Drug Abuse Patient Records regulations: The Federal rules restrict any use of the information to criminally investigate or prosecute any alcohol or drug abuse patient.[facility], [facility] CenterIn the event this information is protected by the Federal Confidentiality of Alcohol and Drug Abuse Patient Records regulations: The Federal rules restrict any use of the information to criminally investigate or prosecute any alcohol or drug abuse patient.[facility] CenterIn the event this information is protected by the Federal Confidentiality of Alcohol and Drug Abuse Patient Records regulations: The Federal rules restrict any use of the information to criminally investigate or prosecute any alcohol or drug abuse patient.[facility] CenterIn the event this information is protected by the Federal Confidentiality of Alcohol and Drug Abuse Patient Records regulations: The Federal rules restrict any use of the information to criminally investigate or prosecute any alcohol or drug abuse patient.[facility] CenterIn the event this information is protected by the Federal Confidentiality of Alcohol and Drug Abuse Patient Records regulations: The Federal rules restrict any use of the information to criminally investigate or prosecute any alcohol or drug abuse patient.[facility] CenterIn the event this information is protected by the Federal Confidentiality of Alcohol and Drug Abuse Patient Records regulations: The Federal rules restrict any use of the information to criminally investigate or prosecute any alcohol or drug abuse patient.[facility] CenterIn the event this information is protected by the Federal Confidentiality of Alcohol and Drug Abuse Patient Records regulations: The Federal rules restrict any use of the information to criminally investigate or prosecute any alcohol or drug abuse patient.[facility] CenterIn the event this information is protected by the Federal Confidentiality of Alcohol and Drug Abuse Patient Records regulations: The Federal rules restrict any use of the information to criminally investigate or prosecute any alcohol or drug abuse patient.[facility] CenterIn the event this information is protected by the Federal Confidentiality of Alcohol and Drug Abuse Patient Records regulations: The Federal rules restrict any use of the information to criminally investigate or prosecute any alcohol or drug abuse patient.[facility] CenterIn the event this information is protected by the Federal Confidentiality of Alcohol and Drug Abuse Patient Records regulations: The Federal rules restrict any use of the information to criminally investigate or prosecute any alcohol or drug abuse patient.[facility] Reason for Visit (unrecogniz ed section and content) Reason Comments Parkinson's Disease Specialty Diagnoses / Procedures Referred By Contac t Referred To Contact Diagnoses Parkinson's disease Procedures PROVIDER ORDERED FOLLOW UP OFFICE/OUTPATIENT NEW HIGH MDM 60-74 MINUTES Gila Issa MD [address] [facility] [address] [place] [address] Referral ID Status Reason Start Date Expiration Date V isits Requested Visits Authorized [id number] Closed PCP Requested Referral 12/16/2022 03/16/2023 1 1 Reason Comments Follow Up 6 months Reason Comments Refill Request Specialty Diagnoses / Procedures Referred By Contac t Referred To Contact MR IMAGING Diagnoses Cognitive impairment, mild, so stated Parkinson's disease (HCC) Aphasia Dysphasia Procedures MRI BRAIN WO/W IVCON MRI BRAIN BRAIN STEM W/O W/CONTRAST MATERIAL Richard Schneider, DO [address] [place] [address] Mr Imaging Referral ID Status Reason Start Date Expiration Date V isits Requested Visits Authorized [id number] Closed Auto-Generate d Referral 12/24/2021 01/23/2023 1 1 Reason Comments Results Reason Comments Faxed to [employer] [facility] Reason Comments Follow for PT Reason Comments Other Falls on Amantadine Reason Comments Patient Update Reason Onset Date Comments Refill Request 02/27/2022 Refill Request 03/17/2022 Reason Comments PT plan of care Reason Comments Orders Reason Comments Follow Up 3 months Reason Comments Other Ella Peguero Physician Provider Order Reason Comments request for medication being faxed Reason Onset Date Comments F/U 3 Month Immunizations 07/08/2022 Flu vaccination Reason Onset Date Comments Refill Request 11/10/2022 Reason Onset Date Comments Refill Request 12/23/2022 Reason Comments 6 Month Exam Reason Comments F/U 3 Month Reason Comments Lab Orders Reason Comments Patient Question Reason Comments New Pain Specialty Diagnoses / Procedures Referred By Contac t Referred To Contact Orthopedics Diagnoses Carpal tunnel syndrome, left Procedures CONSULT TO ORTHOPAEDICS OFFICE/OUTPATIENT NEW HIGH MDM 60 MINUTES Richard Schneider, DO [address] [place] [address] Referral ID Status Reason Start Date Expiration Date V isits Requested Visits Authorized [id number] Closed PCP Requested Referral 11/06/2023 11/05/2024 1 1 Reason Comments Established Patient Post Op Specialty Diagnoses / Procedures Referred By Contac t Referred To Contact Diagnoses Parkinson's disease with dyskinesia and fluctuating manifestations (HCC) Procedures PROVIDER ORDERED FOLLOW UP OFFICE/OUTPATIENT NEW HIGH MDM 60-74 MINUTES Gila Issa MD [address] [address] Referral ID Status Reason Start Date Expiration Date V isits Requested Visits Authorized [id number] Closed PCP Requested Referral 08/18/2023 11/16/2023 1 1 Reason Comments Malone faxing request for orders Reason Comments Orders Due for labs? Reason Comments F/U 3 Month Reason Onset Date Comments F/U 3 Month Immunizations 07/26/2024 Flu vaccination Specialty Diagnoses / Procedures Referred By Contac t Referred To Contact Diagnoses Parkinson's disease with dyskinesia and fluctuating manifestations (HCC) Procedures PROVIDER ORDERED FOLLOW UP OFFICE/OUTPATIENT NEW HIGH MDM 60 MINUTES Gila Issa MD [address] [address] Referral ID Status Reason Start Date Expiration Date V isits Requested Visits Authorized [id number] Closed PCP Requested Referral 02/23/2024 05/23/2024 1 1 Reason Comments Patient Question Medication Question Reason Comments Patient Question Medication Request Reason Comments Orders Reason Comments Information needed for [employer] company for n ebulizer Reason Onset Date Comments Orders 02/21/2025 Reason Comments Forms Care Teams (unrecognized sec tion and content) Carpet Inspector Finished Relationship Specialty Start Date End Date Richard Schneider DO [address] [place] [address] PCP - General Family Practice 05/04/16 Carpet Inspector Finished Relationship Specialty Start Date End Date Richard Schneider DO [address] [place], [place] [id number] PCP - General Family Practice 05/04/16 Carpet Inspector Finished Relationship Specialty Start Date End Date Richard Schneider DO [address] [place], [place] [id number] PCP - General Family Practice 05/04/16 Carpet Inspector Finished Relationship Specialty Start Date End Date Richard Schneider, DO [address] [place] [address] PCP - General Family Practice 05/04/16 Carpet Inspector Finished Relationship Specialty Start Date End Date Richard Schneider, DO [address] [place] [address] PCP - General Family Practice 05/04/16 Carpet Inspector Finished Relationship Specialty Start Date End Date Richard Schneider, DO [address] [place] [address] PCP - General Family Practice 05/04/16 Carpet Inspector Finished Relationship Specialty Start Date End Date Richard Schneider, DO [address] [place] [address] PCP - General Family Practice 05/04/16 Carpet Inspector Finished Relationship Specialty Start Date End Date Richard Schneider, DO [address] [place] [address] PCP - General Family Practice 05/04/16 Carpet Inspector Finished Relationship Specialty Start Date End Date Richard Schneider, DO [address] [place] [address] PCP - General Family Practice 05/04/16 Carpet Inspector Finished Relationship Specialty Start Date End Date Richard Schneider, DO [address] [place] [address] PCP - General Family Practice 05/04/16 Carpet Inspector Finished Relationship Specialty Start Date End Date Richard Schneider, DO [address] [place] [address] PCP - General Family Practice 05/04/16 Carpet Inspector Finished Relationship Specialty Start Date End Date Richard Schneider, DO [address] [place] [address] PCP - General Family Medicine 05/04/16 Carpet Inspector Finished Relationship Specialty Start Date End Date Richard Schneider, DO [address] [place] [address] PCP - General Family Medicine 05/04/16 Nery Snyder, HATCHERY HELPER.SENIOR ETL DEVELOPER [address] [place] [address] Specialty Alumni Relations Manager Neurology 08/05/22 Carpet Inspector Finished Relationship Specialty Start Date End Date Richard Schneider, DO [address] [place] [address] PCP - General Family Medicine 05/04/16 Nery Snyder, HATCHERY HELPER.SENIOR ETL DEVELOPER [address] [place] [address] Specialty Alumni Relations Manager Neurology 08/05/22 Carpet Inspector Finished Relationship Specialty Start Date End Date Richard Schneider, DO [address] [place] [address] PCP - General Family Medicine 05/04/16 Nery Snyder, HATCHERY HELPER.SENIOR ETL DEVELOPER [address] [place] [address] Specialty Alumni Relations Manager Neurology 08/05/22 Liz Johnson, HATCHERY HELPER.SENIOR ETL DEVELOPER [address] [place] [address] Specialty Alumni Relations Manager Neurology 11/02/22 Carpet Inspector Finished Relationship Specialty Start Date End Date Richard Schneider, DO [address] [place] [address] PCP - General Family Medicine 05/04/16 Nery Snyder, HATCHERY HELPER.SENIOR ETL DEVELOPER [address] [place] [address] Specialty Alumni Relations Manager Neurology 08/05/22 Liz Johnson, HATCHERY HELPER.SENIOR ETL DEVELOPER [address] [place] [address] Specialty Alumni Relations Manager Neurology 11/02/22 Carpet Inspector Finished Relationship Specialty Start Date End Date Richard Schneider, DO [address] [place] [address] PCP - General Family Medicine 05/04/16 Nery Snyder, HATCHERY HELPER.SENIOR ETL DEVELOPER [address] [place] [address] Specialty Alumni Relations Manager Neurology 08/05/22 Liz Johnson, HATCHERY HELPER.SENIOR ETL DEVELOPER [address] [facility] [place] [address] Specialty Alumni Relations Manager Neurology 11/02/22 Carpet Inspector Finished Relationship Specialty Start Date End Date Richard Schneider, DO [address] [place] [address] PCP - General Family Medicine 05/04/16 Nery Snyder, HATCHERY HELPER.SENIOR ETL DEVELOPER [address] [place] [address] Specialty Alumni Relations Manager Neurology 08/05/22 Liz Johnson, HATCHERY HELPER.SENIOR ETL DEVELOPER [address] [place] [address] Specialty Alumni Relations Manager Neurology 11/02/22 Carpet Inspector Finished Relationship Specialty Start Date End Date Richard Schneider, DO [address] [place] [address] PCP - General Family Medicine 05/04/16 Nery Snyder, HATCHERY HELPER.SENIOR ETL DEVELOPER [address] [place] [address] Specialty Alumni Relations Manager Neurology 08/05/22 Liz Johnson, HATCHERY HELPER.SENIOR ETL DEVELOPER [address] [place] [address] Specialty Alumni Relations Manager Neurology 11/02/22 Team Status: Active Member Role Status Dates Dr. Richard Schneider , Family Provider Active Dr. Richard Schneider DO Primary Care Provider Active Team Status: Active Member Role Status Dates Dr. Richard Schneider DO Primary Care Provider Active Edna Cabello SUPPORT TECHNICIAN, SUPPORT TECHNICIAN-C Attending Provider, Other Pro vider Active Team Status: Inactive Member Role Status Dates Dr. Richard Schneider , DO Primary Care Provider Active Edna Cabello SUPPORT TECHNICIAN, SUPPORT TECHNICIAN-C Attending Provider Active Team Status: Inactive Member Role Status Dates Dr. Richard Schneider , Primary Care Provider, Attend ing Provider Active Richard BOUDREAUX Referring Provider Active Team Status: Inactive Member Role Status Dates Dr. Richard Schneider DO Primary Care Provider Active Richard BOUDREAUX Attending Provider Active Carpet Inspector Finished Relationship Specialty Start Date End Date Richard Schneider DO [address] [place] [address] PCP - General Family Medicine 05/04/16 Nery Snyder, HATCHERY HELPER.SENIOR ETL DEVELOPER [address] [place], [place] [id number] Specialty Alumni Relations Manager Neurology 08/05/22 Liz Johnson, HATCHERY HELPER.SENIOR ETL DEVELOPER [address] [place] [address] Specialty Alumni Relations Manager Neurology 11/02/22 Carpet Inspector Finished Relationship Specialty Start Date End Date Richard Schneider DO [address] [place], [place] [address] PCP - General Family Medicine 05/04/16 Nery Snyder, HATCHERY HELPER.SENIOR ETL DEVELOPER [address] [place], [place] [id number] Specialty Alumni Relations Manager Neurology 08/05/22 Lzi Johnson, HATCHERY HELPER.SENIOR ETL DEVELOPER [address] [place] [address] Specialty Alumni Relations Manager Neurology 11/02/22 Carpet Inspector Finished Relationship Specialty Start Date End Date Richard Schneider DO [address] [place] [address] PCP - General Family Medicine 05/04/16 Nery Snyder, HATCHERY HELPER.SENIOR ETL DEVELOPER [address] [place] [address] Specialty Alumni Relations Manager Neurology 08/05/22 Liz Johnson, HATCHERY HELPER.SENIOR ETL DEVELOPER [address] [place] [address] Specialty Alumni Relations Manager Neurology 11/02/22 Carpet Inspector Finished Relationship Specialty Start Date End Date Richard Schneider DO [address] [place], [place] [address] PCP - General Family Medicine 05/04/16 Nery Snyder, HATCHERY HELPER.SENIOR ETL DEVELOPER [address] [place] [address] Specialty Alumni Relations Manager Neurology 08/05/22 Liz Johnson, HATCHERY HELPER.SENIOR ETL DEVELOPER [address] [place] [address] Specialty Alumni Relations Manager Neurology 11/02/22 Gila Issa MD [address] [place] [address] Specialty Alumni Relations Manager Neurology 10/06/23 Carpet Inspector Finished Relationship Specialty Start Date End Date Richard Schneider DO [address] [place] [address] PCP - General Family Medicine 05/04/16 Nery Snyder, HATCHERY HELPER.SENIOR ETL DEVELOPER [address] [place] [address] Specialty Alumni Relations Manager Neurology 08/05/22 Liz Johnson, HATCHERY HELPER.SENIOR ETL DEVELOPER [address] [place] [address] Specialty Alumni Relations Manager Neurology 11/02/22 Gila Issa MD [address] [phone] Specialty Alumni Relations Manager Neurology 10/06/23 Carpet Inspector Finished Relationship Specialty Start Date End Date Richard Schneider DO [address] [place] [address] PCP - General Family Medicine 05/04/16 Nery Snyder, HATCHERY HELPER.SENIOR ETL DEVELOPER [address] [place] [address] Specialty Alumni Relations Manager Neurology 08/05/22 Liz Johnson, HATCHERY HELPER.SENIOR ETL DEVELOPER [address] [place] [address] Specialty Alumni Relations Manager Neurology 11/02/22 Gila Issa MD [address] [phone] Specialty Alumni Relations Manager Neurology 10/06/23 Team Status: Active Member Role Status Dates Dr. Richard Schneider , DO Primary Care Pr ovider, Referring Provider, Other Provider Active Dr. Bruno Zarate MD Attending Provider Active Team Status: Inactive Member Role Status Dates Dr. Richard Schneider , DO Primary Care Pr ovider, Attending Provider, Referring Provider Active Team Status: Inactive Member Role Status Dates Dr. Richard Schneider DO Primary Care Provider Active Richard BOUDREAUX Attending Provider, Referring Prov ider Active Carpet Inspector Finished Relationship Specialty Start Date End Date Richard Schneider DO [address] [place] [address] PCP - General Family Medicine 05/04/16 Nery Snyder, HATCHERY HELPER.SENIOR ETL DEVELOPER [address] [place] [address] Specialty Alumni Relations Manager Neurology 08/05/22 Liz Johnson APRN.SENIOR ETL DEVELOPER [address] [place] [address] Specialty Alumni Relations Manager Neurology 11/02/22 Gila Issa MD [address] [place] [phone] Specialty Alumni Relations Manager Neurology 10/06/23 Carpet Inspector Finished Relationship Specialty Start Date End Date Richard Schneider DO [address] [place] [address] PCP - General Family Medicine 05/04/16 Nery Snyder, HATCHERY HELPER.SENIOR ETL DEVELOPER [address] [place] [address] Specialty Alumni Relations Manager Neurology 08/05/22 Liz Johnson HATCHERY HELPER.SENIOR ETL DEVELOPER [address] [place] [address] Specialty Alumni Relations Manager Neurology 11/02/22 Gila Issa MD [address] [phone] Specialty Alumni Relations Manager Neurology 10/06/23 Carpet Inspector Finished Relationship Specialty Start Date End Date Richard Schneider DO [address] [place] [address] PCP - General Family Medicine 05/04/16 Nery Snyder, HATCHERY HELPER.SENIOR ETL DEVELOPER [address] [place] [address] Specialty Alumni Relations Manager Neurology 08/05/22 Liz Johnson, HATCHERY HELPER.SENIOR ETL DEVELOPER [address] [place], [place] [id number] Specialty Alumni Relations Manager Neurology 11/02/22 Gila Issa MD [address] [place] [phone] Specialty Alumni Relations Manager Neurology 10/06/23 Carpet Inspector Finished Relationship Specialty Start Date End Date Richard Schneider DO [address] [place] [address] PCP - General Family Medicine 05/04/16 Nery Snyder, HATCHERY HELPER.SENIOR ETL DEVELOPER [address] [place] [address] Specialty Alumni Relations Manager Neurology 08/05/22 Liz Johnson, HATCHERY HELPER.SENIOR ETL DEVELOPER [address] [place] [address] Specialty Alumni Relations Manager Neurology 11/02/22 Gila Issa MD [address] [phone] Specialty Alumni Relations Manager Neurology 10/06/23 Carpet Inspector Finished Relationship Specialty Start Date End Date Richard Schneider DO [address] [place] [address] PCP - General Family Medicine 05/04/16 Nery Snyder, HATCHERY HELPER.SENIOR ETL DEVELOPER [address] [place] [address] Specialty Alumni Relations Manager Neurology 08/05/22 Liz Johnson, HATCHERY HELPER.SENIOR ETL DEVELOPER [address] [place] [address] Specialty Alumni Relations Manager Neurology 11/02/22 Gila Issa MD [address] [place] [phone] Specialty Alumni Relations Manager Neurology 10/06/23 Carpet Inspector Finished Relationship Specialty Start Date End Date Richard Schneider DO [address] [place] [address] PCP - General Family Medicine 05/04/16 Nery Snyder, HATCHERY HELPER.SENIOR ETL DEVELOPER [address] [place] [address] Specialty Alumni Relations Manager Neurology 08/05/22 Liz Johnson, HATCHERY HELPER.SENIOR ETL DEVELOPER [address] [place] [address] Specialty Alumni Relations Manager Neurology 11/02/22 Gila Issa MD [address] [place] [address] Specialty Alumni Relations Manager Neurology 10/06/23 Carpet Inspector Finished Relationship Specialty Start Date End Date Richard Schneider DO [address] [place] [address] PCP - General Family Medicine 05/04/16 Nery Snyder, HATCHERY HELPER.SENIOR ETL DEVELOPER [address] [place] [address] Specialty Alumni Relations Manager Neurology 08/05/22 Liz Johnson, HATCHERY HELPER.SENIOR ETL DEVELOPER [address] [place], [place] [id number] Specialty Alumni Relations Manager Neurology 11/02/22 Gila Issa MD [address] [phone] Specialty Alumni Relations Manager Neurology 10/06/23 Carpet Inspector Finished Relationship Specialty Start Date End Date Richard Schneider DO [address] [place] [address] PCP - General Family Medicine 05/04/16 Nery Snyder, HATCHERY HELPER.SENIOR ETL DEVELOPER [address] [place], [place] [id number] Specialty Alumni Relations Manager Neurology 08/05/22 Liz Johnson, HATCHERY HELPER.SENIOR ETL DEVELOPER [address] [place], [place] [id number] Specialty Alumni Relations Manager Neurology 11/02/22 Gila Issa MD [address] [phone] Specialty Alumni Relations Manager Neurology 10/06/23 Carpet Inspector Finished Relationship Specialty Start Date End Date Richard Schneider DO [address] [place] [address] PCP - General Family Medicine 05/04/16 Nery Snyder, HATCHERY HELPER.SENIOR ETL DEVELOPER [address] [place] [address] Specialty Alumni Relations Manager Neurology 08/05/22 Liz Johnson, HATCHERY HELPER.SENIOR ETL DEVELOPER [address] [place] [address] Specialty Alumni Relations Manager Neurology 11/02/22 Gila Issa MD [address] [place] [address] [phone] Specialty Alumni Relations Manager Neurology 10/06/23 Marta Thomson, HATCHERY HELPER.SENIOR ETL DEVELOPER [address] [place] [address] Steaming Cabinet Tender Family Medicine 09/24/24 Rob Copeland, HATCHERY HELPER.SENIOR ETL DEVELOPER [address] [place] [address] Steaming Cabinet Tender Family [facility] 09/24/24 Carpet Inspector Finished Relationship Specialty Start Date End Date Richard Schneider DO [address] [place] [address] PCP - General Family Medicine 05/04/16 Nery Snyder, HATCHERY HELPER.SENIOR ETL DEVELOPER [address] [place] [address] Specialty Alumni Relations Manager Neurology 08/05/22 Liz Johnson HATCHERY HELPER.SENIOR ETL DEVELOPER [address] [place], [place] [id number] Specialty Alumni Relations Manager Neurology 11/02/22 Gila Issa MD [address] [phone] Specialty Alumni Relations Manager Neurology 10/06/23 Marta Thomson, HATCHERY HELPER.SENIOR ETL DEVELOPER [address] [place] [address] [facility] Rob Copeland, HATCHERY HELPER.SENIOR ETL DEVELOPER [address] [place] [address] [facility]/24 Carpet Inspector Finished Relationship Specialty Start Date End Date Richard Schneider DO [address] [place], [place] [address] PCP - General Family Medicine 05/04/16 Nery Snyder, HATCHERY HELPER.SENIOR ETL DEVELOPER [address] [place] [address] Specialty Alumni Relations Manager Neurology 08/05/22 Liz Johnson, HATCHERY HELPER.SENIOR ETL DEVELOPER [address] [place] [address] Specialty Alumni Relations Manager Neurology 11/02/22 Gila Issa MD [address] [phone] Specialty Alumni Relations Manager Neurology 10/06/23 Marta Thomson, HATCHERY HELPER.SENIOR ETL DEVELOPER [address] [place] [address] [facility] 09/24/24 Rob Copeland, HATCHERY HELPER.SENIOR ETL DEVELOPER [address] [place] [address] [facility]ly [facility] 09/24/24 Carpet Inspector Finished Relationship Specialty Start Date End Date Richard Schneider DO [address] [place] [address] PCP - General Family Medicine 05/04/16 Nery Snyder, HATCHERY HELPER.SENIOR ETL DEVELOPER [address], [place] [phone] Specialty Alumni Relations Manager Neurology 08/05/22 Liz Johnson, HATCHERY HELPER.SENIOR ETL DEVELOPER [address] [place], [place] [phone] Specialty Alumni Relations Manager Neurology 11/02/22 Gila Issa MD [address] [place] [address] [phone] Specialty Alumni Relations Manager Neurology 10/06/23 Marta Thomson, HATCHERY HELPER.SENIOR ETL DEVELOPER [address] [place] [address] Steaming Cabinet Tender Family Medicine 09/24/24 Rob Copeland, HATCHERY HELPER.SENIOR ETL DEVELOPER [address] [place] [address] Steaming Cabinet Tender Family Medicine 09/24/24 Carpet Inspector Finished Relationship Specialty Start Date End Date Richard Schneider DO [address] [place] [address] PCP - General Family Medicine 05/04/16 Nery Snyder, HATCHERY HELPER.SENIOR ETL DEVELOPER [address] [place], [place] [id number] Specialty Alumni Relations Manager Neurology 08/05/22 Liz Johnson, HATCHERY HELPER.SENIOR ETL DEVELOPER [address] [place], [place] [phone] Specialty Alumni Relations Manager Neurology 11/02/22 Gila Issa MD [address] [phone] Specialty Alumni Relations Manager Neurology 10/06/23 Marta Thomson, HATCHERY HELPER.SENIOR ETL DEVELOPER [address] [place], [place] [id number] Formerly [facility], [facility] 09/24/24 Rob Copeland HATCHERY HELPER.SENIOR ETL DEVELOPER [address] [place] [address] Formerly [facility], [facility] 09/24/24 Carpet Inspector Finished Relationship Specialty Start Date End Date Richard Schneider DO [address] [place], [place] [phone] PCP - General Family Medicine 05/04/16 Nery Snyder, HATCHERY HELPER.SENIOR ETL DEVELOPER [address] [place], [place] [phone] Specialty Alumni Relations Manager Neurology 08/05/22 Liz Johnson, HATCHERY HELPER.SENIOR ETL DEVELOPER [address] [place], [place] [phone] Specialty Alumni Relations Manager Neurology 11/02/22 Gila Issa MD [address] [address] Specialty Alumni Relations Manager Neurology 10/06/23 Marta Thomson, HATCHERY HELPER.SENIOR ETL DEVELOPER [address] [place] [address] Formerly [facility], [facility] 09/24/24 Rob Copeland, HATCHERY HELPER.SENIOR ETL DEVELOPER [address] [place] [address] Steaming Cabinet Tender [facility] 09/24/24 Carpet Inspector Finished Relationship Specialty Start Date End Date Richard Schneider DO [address] [place] [address] PCP - General Family Medicine 05/04/16 Nery Snyder, HATCHERY HELPER.SENIOR ETL DEVELOPER [address] [place] [address] [phone] Specialty Alumni Relations Manager Neurology 08/05/22 Liz Johnson, HATCHERY HELPER.SENIOR ETL DEVELOPER [address] [place] [address] [phone] Specialty Alumni Relations Manager Neurology 11/02/22 Gila Issa MD [address] [place] [address] [phone] Specialty Alumni Relations Manager Neurology 10/06/23 Marta Thomson, HATCHERY HELPER.SENIOR ETL DEVELOPER [address] [place] [address] Steaming Cabinet Tender [facility] 09/24/24 Rob Copeland, HATCHERY HELPER.SENIOR ETL DEVELOPER [address] [place] [address] Steaming Cabinet Tender [facility] 09/24/24 Carpet Inspector Finished Relationship Specialty Start Date End Date Richard Schneider DO [address] [place] [address] PCP - General Family Medicine 05/04/16 Nery Snyder, HATCHERY HELPER.SENIOR ETL DEVELOPER [facility] [place], [place] [phone] Specialty Alumni Relations Manager Neurology 08/05/22 Liz Johnson, HATCHERY HELPER.SENIOR ETL DEVELOPER [address] [place], [place] [phone] Specialty Alumni Relations Manager Neurology 11/02/22 Gila Issa MD [address] [phone] Specialty Alumni Relations Manager Neurology 10/06/23 Marta Thomson, HATCHERY HELPER.SENIOR ETL DEVELOPER [address] [place] [address] Formerly [facility], [facility] 09/24/24 Rob Copeland, HATCHERY HELPER.SENIOR ETL DEVELOPER [address] [place] [address] Formerly [facility], [facility] 09/24/24 Carpet Inspector Finished Relationship Specialty Start Date End Date Richard Schneider DO [address] [place], [place] [phone] PCP - General Family Medicine 05/04/16 Nery Snyder, HATCHERY HELPER.SENIOR ETL DEVELOPER [address] [place], [place] [phone] Specialty Alumni Relations Manager Neurology 08/05/22 Liz Johnson, HATCHERY HELPER.SENIOR ETL DEVELOPER [address] [place] [address] Specialty Alumni Relations Manager Neurology 11/02/22 Gila Issa MD [address] [address] Specialty Alumni Relations Manager Neurology 10/06/23 Marta Thomson, HATCHERY HELPER.SENIOR ETL DEVELOPER [address] [place] [address] Steaming Cabinet Tender [facility] 09/24/24 Rob Copeland, HATCHERY HELPER.SENIOR ETL DEVELOPER [address] [place] [address] [facility]24 Carpet Inspector Finished Relationship Specialty Start Date End Date Richard Schneider DO [address] [place], [place] [phone] PCP - General Family Medicine 05/04/16 Nery Snyder, HATCHERY HELPER.SENIOR ETL DEVELOPER [address] [place] [address] [phone] Specialty Alumni Relations Manager Neurology 08/05/22 Liz Johnson, HATCHERY HELPER.SENIOR ETL DEVELOPER [address] [place] [phone] Specialty Alumni Relations Manager Neurology 11/02/22 Gila Issa MD [address] [place] [address] [phone] Specialty Alumni Relations Manager Neurology 10/06/23 Marta Thomson, HATCHERY HELPER.SENIOR ETL DEVELOPER [address] [place], [place] [phone] Steaming Cabinet Tender [facility] 09/24/24 Rob Copeland, HATCHERY HELPER.SENIOR ETL DEVELOPER [address] [place], [place] [phone] Formerly [facility], [facility] 09/24/24 Team Status: Active Member Role Status Dates Dr. Richard Schneider DO Primary Care Provider Active Team Status: Inactive Member Role Status Dates Dr. Richard Schneider DO Primary Care Provider Active Start: January 11, 2025 End: January 11, 2025 Richard BOUDREAUX Attending Provider Active St art: January 11, 2025 End: January 11, 2025 Richard BOUDREAUX Referring Provider Active St art: January 11, 2025 End: January 11, 2025 Team Status: Active Member Role Status Dates Dr. Richard Schneider DO Primary Care Provider Active Start: January 12, 2025 Dr. Gila Issa MD Attending Provider Active Start: January 12, 2025 Dr. Gila Issa MD Referring Provider Active Start: January 12, 2025 Carpet Inspector Finished Relationship Specialty Start Date End Date Richard Schneider DO [address] [place], [place] [id number] PCP - General Family Medicine 05/04/16 Nery Snyder, HATCHERY HELPER.SENIOR ETL DEVELOPER [address] [place] [address] Specialty Alumni Relations Manager Neurology 08/05/22 Liz Johnson, HATCHERY HELPER.SENIOR ETL DEVELOPER [address] [place] [address] Specialty Alumni Relations Manager Neurology 11/02/22 Gila Issa MD [address] [address] Specialty Alumni Relations Manager Neurology 10/06/23 Rob Copeland, HATCHERY HELPER.SENIOR ETL DEVELOPER [address] [place] [address] Steaming Cabinet Tender [facility] 09/24/24 Carpet Inspector Finished Relationship Specialty Start Date End Date Richard Schneider DO [address] [place] [address] PCP - General Family Medicine 05/04/16 Nery Snyder, HATCHERY HELPER.SENIOR ETL DEVELOPER [address] [place] [address] Specialty Alumni Relations Manager Neurology 08/05/22 Liz Johnson HATCHERY HELPER.SENIOR ETL DEVELOPER [address] [place] [address] Specialty Alumni Relations Manager Neurology 11/02/22 Gila Issa MD [address] [phone] Specialty Alumni Relations Manager Neurology 10/06/23 Rob Copeland, HATCHERY HELPER.SENIOR ETL DEVELOPER [address] [place] [address] Formerly [facility] 09/24/24 Carpet Inspector Finished Relationship Specialty Start Date End Date Richard Schneider DO [address] [place], [place] [id number] PCP - General Family Medicine 05/04/16 Nery Snyder, HATCHERY HELPER.SENIOR ETL DEVELOPER [address] [place] [address] Specialty Alumni Relations Manager Neurology 08/05/22 Liz Johnson HATCHERY HELPER.SENIOR ETL DEVELOPER [address] [place] [address] Specialty Alumni Relations Manager Neurology 11/02/22 Gila Issa MD [address] [phone] Specialty Alumni Relations Manager Neurology 10/06/23 Rob Copeland, HATCHERY HELPER.SENIOR ETL DEVELOPER [address] [place], [place] [phone] Formerly [facility], [facility] 09/24/24 Kavita Mcgarry, HATCHERY HELPER.SENIOR ETL DEVELOPER [address] [place], [place] 256731 Formerly [facility], [facility] 04/02/25 Carpet Inspector Finished Relationship Specialty Start Date End Date Richard Schneider DO [address] [place], [place] [phone] PCP - General Family Medicine 05/04/16 Nery Snyder, HATCHERY HELPER.SENIOR ETL DEVELOPER [address] [place], [place] [phone] Specialty Alumni Relations Manager Neurology 08/05/22 Liz Johnson, HATCHERY HELPER.SENIOR ETL DEVELOPER [address] [place], [place] [phone] Specialty Alumni Relations Manager Neurology 11/02/22 Gila Issa MD [address] [phone] Specialty Alumni Relations Manager Neurology 10/06/23 Rob Copeland, HATCHERY HELPER.SENIOR ETL DEVELOPER [address] [place], [place] 363481 Formerly [facility] 09/24/24 Kavita Mcgarry, HATCHERY HELPER.SENIOR ETL DEVELOPER [address] [place], [place] [phone] Formerly [facility], [facility] 04/02/25 Team Status: Active Member Role/Relationship Status Dates Dr. Richard Schneider DO Primary Care Provider Active Team Status: Inactive Member Role/Relationship Status Dates Dr. Richard Schneider DO Primary Care Provider Active Start: April 24, 2025 End: April 24, 2025 Dr. Gila Issa MD Attending Provider Active Start: April 24, 2025 End: April 24, 2025 Dr. Gila Issa MD Referring Provider Active Start: April 24, 2025 End: April 24, 2025 Carpet Inspector Finished Relationship Specialty Start Date End Date Richard Schneider DO [address] [place], [place] [id number] PCP - General Family Medicine 05/04/16 Nery Snyder, HATCHERY HELPER.SENIOR ETL DEVELOPER [address] [place], [place] [phone] Specialty Alumni Relations Manager Neurology 08/05/22 Liz Johnson, HATCHERY HELPER.SENIOR ETL DEVELOPER [facility] [place], [place] [phone] Specialty Alumni Relations Manager Neurology 11/02/22 Gila Issa MD [address] [place] [address] [phone] Specialty Alumni Relations Manager Neurology 10/06/23 Rob Copeland, HATCHERY HELPER.SENIOR ETL DEVELOPER [address] [place], [place] [phone] Steaming Cabinet Tender [facility] 09/24/24 Kavita Mcgarry, HATCHERY HELPER.SENIOR ETL DEVELOPER [address] [place], [place] [phone] Steaming Cabinet Tender [facility] 04/02/25 Goals (unrecognized section and content) Goals may be documented in a n alternate sectionGoals may be documented in an alternate sectionGoals may be documented in an alternate sectionGoals may be documented in an alternate sectionGoals may be documented in an alternate sectionGoals may be documented in an alternate sectionGoals may be documented in an alternate sectionGoals may be documented in an alternate sectionGoals may be documented in an alternate sectionGoals may be documented in an alternate section (unrecognized sect ion and content) No Status Records FoundNo Status Records FoundNo Status Records Found INFORMATION SOURCE (unrecogn ized section and content) DATE CREATED AUTHOR 11/25/2023 [facility] DATE CREATED AUTHOR AUTHOR'S ORGANIZ ATION 06/17/2025 [facility] DATE CREATED AUTHOR AUTHOR'S ORGANIZ ATION 06/24/2025 [facility] FOR RECORDS PERTAINING TO PATIENTS WHO ARE [...] BE BASED ON THE PRIMARY CLINICAL RECORDS. [facility] [employer] provides no warranty or guarantee of the accuracy or completeness of information in this document.
--- NOTE | 2025-06-24 07:15 | EX.ED.DYSGE1 ---
HPI History of Present Illness Chief Complaint: Fall Informant: patient and family Narrative Narrative: Patient is a 80-year-old male with history of Parkinson's disease. He lives in assisted living and is a DNR [facility] arrest. He states that last night he went to the bathroom and then as he was walking out of the bathroom lost his balance and fell down landing on his buttocks and injuring his right wrist. He denies striking his head any loss of consciousness or history of bleeding disorder or blood thinner use. He states he was able to get back up and get into bed. He states that he noticed increased pain and swelling to the right wrist this morning and with concern for injury contacted his daughter who brought him in for evaluation. Daughter states that the patient's Parkinson's is severe where he typically only gets around with a wheelchair and the fact that he fell while up walking is not abnormal. [facility] Medical History Cancer GERD (gastroesophageal reflux disease) Kidney disease Depression Hypertension Parkinson's disease Home Medications ?Medication ?Instructions ?Recorded ?Last Taken ?Type Omeprazole [Prilosec] 40 mg PO DAILY 07/07/17 Unknown History simvastatin 40 mg tablet 80 mg PO QHS 07/07/17 Unknown History metoprolol succinate 25 mg 25 mg PO DAILY 02/18/18 Unknown History tablet,extended release 24 hr aspirin 81 mg capsule 81 mg PO DAILY 09/23/22 Unknown History carbidopa 25 mg-levodopa 100 mg 2 tab PO TID 09/23/22 Unknown History tablet cholecalciferol (vitamin D3) 50 50 mcg PO DAILY 09/23/22 Unknown History mcg (2,000 unit) capsule (Vitamin D3) furosemide 20 mg tablet 20 mg PO DAILY 09/23/22 Unknown History ibuprofen 200 mg capsule 400 mg PO Q6H PRN Pain 09/23/22 Unknown History magnesium 500 mg tablet 500 mg PO DAILY 09/23/22 Unknown History sertraline 100 mg tablet 100 mg PO DAILY 09/23/22 Unknown History vitamin B12 0.5 mg-folic acid 1 mg 2 tab PO DAILY 09/23/22 Unknown History tablet Allergy/AdvReac Type Severity Reaction Status Date / Time Opioids - Morphine Analogues AdvReac Vomiting Verified 06/24/25 06:00 (narcotics) Surgical History Hx of CABG Social History household members: none housing: assisted living facility Smoking Status: Former smoker ROS ROS ED Constitutional Constitutional ED: Denies chills or fever(s) Eyes Eyes: Denies blurry vision or change in vision Cardiovascular Cardiovascular: Reports other Details: Negative syncope ; Denies chest pain, palpitations or racing heartbeat Respiratory/Chest Respiratory/Chest: Denies cough or dyspnea Gastrointestinal Gastrointestinal: Denies abdominal pain, diarrhea, nausea or vomiting Genitourinary Genitourinary ED: Denies dysuria or hematuria Musculoskeletal Musculoskeletal: Reports back pain and other Details: Positive right wrist pain and swelling ; Denies neck pain Integumentary Reports other Details: Positive swelling and bruising right wrist ; Denies rash Neurologic Neurologic: Denies headache(s) Hematologic/Lymphatic Hematologic/Lymphatic: Denies easy bleeding or easy bruising EXAM Physical Exam Const Vital Signs: 06/24/25 06:00 06/24/25 06:00 Temperature 99.1 F Temperature Source Oral Pulse Rate 53 L Respiratory Rate 16 Respiratory Effort Normal Respiratory Depth Normal Respiratory Pattern Normal Blood Pressure 143/77 H Blood Pressure Mean 99 Pulse Ox 98 Oxygen Delivery Method Room Air Room Air Positive well nourished and well developed General Appearance ED: well developed HEENT HEENT Narrative: Normocephalic atraumatic No signs of depressed or basilar skull fracture Eyes PERRL and EOMs intact bilaterally General Eye ED: Negative for scleral icterus Neck supple Neck Narrative: No bony deformity or step-off of the cervical spine; no midline tenderness to palpation Chest Wall palpation of chest normal Chest Narrative: No pain with palpation No bony deformity or subcutaneous emphysema noted Resp normal respiratory effort and clear to auscultation bilaterally Resp Narrative: Breath sounds are diminished throughout but overall clear to auscultation without signs of respiratory distress Cardio regular rhythm Rate: bradycardia and other Other Details: Mildly bradycardic rate with regular rhythm GI non-tender, non-distended and no masses GI Narrative: No voluntary guarding or rigidity or pulsatile mass No overlying abrasions or ecchymosis Auscultation: hypoactive bowel sounds Palpation: soft Back/Spine Back/Spine Narrative: No bony deformity or step-off of the thoracic or lumbar spine; no midline tenderness to palpation There is superficial abrasion and faint ecchymosis along the right lateral back beginning around rib region 10-12 and extending to roughly 3 cm above the iliac crest No active bleeding or gaping of the wound Minimal tenderness to palpation along the posterior rib cage Extremity Extremity Narrative: Pelvis is stable there is no shortening or external rotation of either lower extremity Bilateral upper extremities are neurovascularly intact; there is soft tissue swelling with faint ecchymosis to the dorsal aspect of the right wrist over top of the radius and carpal bones. No obvious bony deformity or joint effusion. No ligamentous laxity or tendon injury noted. No pain in the anatomical snuffbox Neuro oriented x3 and CN's II-XII intact bilaterally Neuro Narrative: Patient is at his baseline mental status with chronic findings associated Parkinson's disease but no new or focal findings Sensorium / Orientation: alert Psych mental status grossly normal Skin Skin Narrative: Soft tissue swelling with ecchymosis to the dorsal aspect of the right wrist as documented above MDM MDM MDM Narrative Medical decision making narrative: Patient arrived to the ER with stable vitals. He reported a mechanical fall and has a history of poor ambulation secondary to his Parkinson's and therefore felt no need for cardiac or syncope workup. He does not take blood thinners nor has a history of bleeding disorder and he did not strike his head so my concern for underlying traumatic subarachnoid and subdural hemorrhage is low and do not feel the need for head CT. In order to rule out potential pelvic fracture rib fracture or distal radius/wrist fracture I like to perform multiple x-ray. Imaging studies revealed no signs of acute trauma. By physical exam there is no ligamentous or tendon injury either. As the patient does not have pain in anatomical snuffbox concern for scaphoid fracture is low as well. Therefore this time I feel any need for Ede wrap to add compression and padding around the injured wrist but as there is no signs of other trauma there is no need for further workup or orthopedic intervention he is otherwise safe for discharge History & Record Review Discussion w/independent historian: Patient and Family Radiography Diagnostic Testing: Right wrist x-ray as interpreted by the emergency medicine physician reveals degenerative changes without acute fracture dislocation or joint effusion 1 view pelvis x-ray as interpreted by the emergency medicine physician reveals degenerative changes without acute fracture or dislocation Right rib series as interpreted by the emergency medicine physician reveals no acute rib fracture or pneumothorax or infiltrate Discharge Plan Triage Chief Complaint: Fall ED Provider: Louis Monet Dx/Rx/DC Orders Clinical Impression: Parkinson's disease, Accidental fall, Contusion of right wrist, Back contusion Instructions: Bone Contusion, ED Wrist Sprain Prescriptions: No Action simvastatin 40 MG tablet 80 mg PO QHS Omeprazole [Prilosec] 40 MG capsule 40 mg PO DAILY metoprolol succinate 25 MG tablet extended release 24 hr 25 mg PO DAILY ibuprofen 200 mg Capsule 400 mg PO Q6H PRN (Reason: Pain) furosemide 20 mg Tablet 20 mg PO DAILY carbidopa-levodopa 25-100 mg Tablet 2 tab PO TID aspirin 81 mg Capsule 81 mg PO DAILY magnesium 500 mg Tablet 500 mg PO DAILY sertraline 100 mg Tablet 100 mg PO DAILY vitamin B16-yfuyd acid 0.5-1 mg Tablet 2 tab PO DAILY cholecalciferol (vitamin D3) [Vitamin D3] 50 mcg (2,000 unit) Capsule 50 mcg PO DAILY Primary Care Provider: Richard Schneider Referrals: Richard Schneider DO [Primary Care Provider] - Activity Restrictions/Additional Instructions: Your x-rays revealed no obvious fracture or dislocation. Please ice the areas that hurt to help reduce pain and speed healing. Wear your Ede wrap to help prevent further swelling and provide padding to the injured area. Continue Tylenol and/or Motrin for pain control. Return to the ER should you have any further concerns Print Language: Kazakh Disposition Disposition: Home, Self Care
[2025-06-24 08:00] VITALS: PULSE 63; RESP 15; O2SAT 97
[2025-06-24 08:01] VITALS: BP 143/77; PULSE 63; RESP 15; TEMP 37.3; O2SAT 97
== END 2025-06-24 08:05 | disposition home or self-care (01) ==
PROVIDERS: Emergency Provider Emergency Medicine; PCP Student in an Organized Health Care Education/Training Program; Visit Provider Emergency Medicine
DX: S20.229A Contusion of unspecified back wall of thorax, initial encounter (principal); G20.A1 Parkinson's disease without dyskinesia, without mention of fluctuations; Z87.891 Personal history of nicotine dependence; S60.211A Contusion of right wrist, initial encounter; I10 Essential (primary) hypertension; Z66 Do not resuscitate; K21.9 Gastro-esophageal reflux disease without esophagitis; W19.XXXA Unspecified fall, initial encounter; Y92.129 Unspecified place in nursing home as the place of occurrence of the external cause
CPT/HCPCS: 71101; 72170; 73110; 99282

== ENCOUNTER → 2025-06-27 | Outpatient (REF) | payer MEDICARE, SELFPAY ==
--- OUTSIDE RECORDS SUMMARY | 2025-06-27 04:33 | XMS RPT_ITS | CCD ---
Author Organization [facility] Care Team Providers Care Street Photographer Name Role Phone Richard Schneider DO Primary Care Provider Richard Schneider DO Primary Care Provider Claudio PSYCHOTHERAPIST SOCIAL WORKER.Nery HOUSE Unavailable Richard Schneider DO Primary Care Provider Claudio PSYCHOTHERAPIST SOCIAL WORKER.Nery HOUSE Unavailable Alex PSYCHOTHERAPIST SOCIAL WORKER.Justine HOUSEricia Unavailable Claudio PSYCHOTHERAPIST SOCIAL WORKER.URBAN ANTHROPOLOGISTNery Unavailable Alex PSYCHOTHERAPIST SOCIAL WORKER.URBAN ANTHROPOLOGIST, Liz Unavailable ALBERTO SPENCER Attending Unavailable ALBERTO SPENCER Admitting Unavailable RICHARD SCHNEIDER Primary Care Unavailable Gila Issa MD Unavailable Dr. Richard Schneider Primary Care Provider Dr. Richard Schneider Referring Provider Dr. Richard Schneider Other Provider Dr. Bruno Zarate Attending Provider Richard Schneider DO Primary Care Provider Berto PSYCHOTHERAPIST SOCIAL WORKER.Marta HOUSE Unavailable Shai PSYCHOTHERAPIST SOCIAL WORKER.Rob HOUSE Unavailable Dr. Richard Schneider DO Primary Care Provider Richard Escudero Attending Provider UnavailRichard Seymour Referring Provider UnavailDr. Gila Keller MD Attending Provider [phone] Dr. Gila Issa MD Referring Provider Winston PSYCHOTHERAPIST SOCIAL WORKER.LACY, Kavita Keita Unavailable [phone] Dr. Richard Schneider DO Primary Care Provider Dr. Gila Issa MD Attending Provider Dr. Gila Issa MD Referring Provider SCHNEIDER, RCIHARD L Attending Unavailable SCHNEIDER, RICHARD L Primary Care Unavailable GILA ISSA Attending Unavailable GILA ISSA Referring Unavailable SCHNEIDER, RICHARD L Primary Care Unavailable SCHNEIDER, RICHARD L Attending Unavailable SCHNEIDER, RICHARD L Primary Care Unavailable Dr. Louis Monet DO Emergency Provider Schneider, Richard Primary Care Unavailable Schneider OLS, Richard Attending Unavailable Schneider OLS, Richard Referring Unavailable Schneider, Richard Primary Care Unavailable Schneider OLS, Richard Attending Unavailable Schneider, Richard Primary Care Unavailable Schneider KANIKA, Richard Attending Unavailable Schneider, Richard Primary Care Unavailable Gila Issa Attending Unavailable Gila Issa Referring Unavailable Schneider, Richrad Primary Care Unavailable Louis Monet Attending Unavailable Allergies Allergy Classification Reported Allergen(s) Allergy Type Date of Onset Reaction(s) Facility (20 sources) Morphinan opioid; Translations: [OPIOIDS - MORPHINE ANALOGUES] Drug Intolerance 05-04-20 16 GI Upset [facility] (9 sources) Opioids - Morphine Analogues Propensity to adverse reactions 09-28-20 22 Vomiting [facility] (20 sources) Sulfamethoxazole / Trimethoprim; Translations: [SULFAMETHOXAZOLE-TR IMETHOPRIM] Drug Allergy 08-18-20 23 Unknown [facility] (1 source) Opioids - Morphine Analogues Drug allergy (disorder) 06-24-20 25 [facility] Repository Medications Current Medications Medication Drug [...] as needed. albuterol 0.83 mg/ml inhalation solution (20 sources) beta2-Adrenergic Agonist Start: 09-27-2024 End: 10-04-2024 [...] Active Start: 09-23-2022 take 1 capsule by [facility] once daily Aspirin 81 mg Capsule Active 81 mg PO DAILY September 23, 2022 1:00am Start: 02-18-2018 take 325 mg by mouth once ellyn y Aspirin Active 325 MG PO DAILY February 18, 2018 4:01am Comment on above: Take 81 mg by mouth once daily. Take 1 tablet by [facility] once daily. benazepril hydrochloride 40 mg oral [...] Active Start: 09-23-2022 take 2 tablets by [facility] three times daily Carbidopa-Levodopa Active 2 TABLET PO THREE TIMES A DAY September 23, 2022 1:00am Start: 11-20-2020 End: 12-23-2023 Carbidopa-Levodopa 25-100 mg Tablet Active 2 {tbl} PO THREE TIMES A DAY September 23, 2022 1:00am Start: 07-07-2017 take 1 tablet by [facility] three times daily before mealtime Carbidopa-Levodopa Active 1 TABLET PO THREE TIMES DAILY BEFORE MEALS July 07, 2017 3:42pm Comment on above: Take 2 tablets by [facility] three times daily. Take 2 tablets by [facility] four times daily. cholecalciferol 0.05 mg oral tablet (20 sources) Vitamin D Start: 12-24-19 End: 12-24-19 take 1 tablet by mouth once daily cholecalciferol (VITAMIN D3) 50 mcg (2,000 unit) tablet Take 1 tablet by mouth once daily. 90 tablet 3 12/23/2022 Active Start: 09-23-2022 take 1 capsule by [facility] once daily Cholecalciferol (Vitamin D3) (Vitamin D3) 50 mcg (2,000 unit) Capsule Active 50 ug PO DAILY September 23, 2022 1:00am take 1 capsule by [facility] once daily Cholecalciferol, Vitamin D3, 5,000 unit cap Take 5,000 Units by mouth once daily. 0 Active Comment on above: Take 5,000 Units by mouth once daily. Take 2,000 Units by mouth once daily. Take 1 tablet by [facility] once daily. clonazePAM 0.5 mg oral tablet (5 sources) Benzodiazepine Start: End: take 0.5 tablet by mouth once daily at bedtime clonazePAM (KLONOPIN) 0.5 mg tablet Indications: Sleep disturbance , Sleep walking Take 0.5 tablets by mouth daily at bedtime for 90 days. 15 tablet 2 05/15/2025 08/13/2025 Active folic acid 1 mg / vitamin b12 0.5 mg oral tablet (9 sources) Vitamin B12 Start: 2 Vitamin Y96-Rmapt Acid 0.5-1 mg Tablet Active 2 {tbl} PO DAILY September 23, 2022 1:00am Start: 09-23-2022 take 2 tablets by [facility] once daily Vitamin Y83-Vreau Acid Active 2 TABLET PO DAILY September [...] 1 tablet by gerardo [facility] once daily. For leg swelling 12 hr guaiFENesin 600 mg extended release oral tablet (5 sources) Start: 09-08-2024 End: 10-08-2024 take 2 tablets by mouth twice daily guaiFENesin (MUCINEX) 600 mg 12 hr tablet Take 2 tablets by mouth two times a day. 120 tablet 09/08/2024 10/08/2024 Active Magnesium (9 sources) Start: 09-23-2022 take 1 tablet by [...] tablet (20 sources) beta-Adrenergic Kalee Start: 02-19-20 End: 12-24-19 23 take 1 tablet by mouth once daily metoprolol succinate ER (TOPROL XL) 25 mg 24 hr tablet Indications: Parkinson's disease (HCC) , Hypertension, essential Take 1 tablet by mouth once daily. 90 tablet 3 12/23/2022 Active Comment on above: Take 1 tablet by ger[facility] once daily. omeprazole 40 mg delayed release oral capsule (20 sources) Proton Pump Inhibitor Start: 07-07-20 End: 12-24-19 take 1 capsule by mouth once daily omeprazole (PRILOSEC) 40 mg capsule Indications: Gastroesophageal reflux disease without esophagitis Take 1 capsule by mouth once daily. 90 capsule 3 12/23/2022 Active Comment on above: Take 1 capsule by mo [facility] once daily. ondansetron 4 mg oral tablet [...] 1 tablet by [facility] once daily. In the evening, for mood Take 1 tablet by ger[facility] once daily. In the bedtime, for mood simvastatin 80 mg oral tablet (20 sources) HMG-CoA Reductase Inhibitor Start: 07-24-20 End: 12-24-19 take 1 tablet by mouth once daily at bedtime simvastatin (ZOCOR) 80 mg tablet Indications: Pure hypercholesterolemia Take 1 tablet by mouth daily at bedtime. 90 tablet 3 12/23/2022 Active Start: 07-07-2017 take 2 tablets by mo uth at bedtime Simvastatin 40 MG tablet Active [...] Start: 09-23-2022 take 2 capsules by m outh every six hours as needed for pain [...] above: Take 2 tablets by mo [facility] daily at bedtime. meloxicam 15 mg oral tablet (2 sources) Nonsteroidal Anti-inflammatory Drug Start: 08-10-20 take 1 tablet by mouth once daily for pain meloxicam (MOBIC) 15 mg tablet Take 1 tablet by mouth once daily. For hand pain, with breakfast take PO With food. 90 tablet 1 08/10/2023 Active Comment on above: Take 1 tablet by [facility] once daily. For hand pain, with breakfast [...] unspecified foot] Episodic Calculus of urinary tract (11 sources) Kidney stone; Translations: [Calculus of kidney] [...] Coronary atherosclerosis; Translations: [Atherosclerotic heart disease of rincon coronary artery without angina pectoris] Onset: 07-24-2021 07-24-2021 Chronic Diabetes mellitus without complication (20 sources) Impaired fasting glycemia; Translations: [Impaired fasting glucose] Onset: 11-08-2019 Episodic Disorders of lipid metabolism (20 sources) Pure hypercholesterolemia; Translations: [Pure hypercholesterolemia, unspecified] Onset: 05-05-2016 Chronic E Codes: Fall (1 source) Accidental fall ; Translations: [Unspecified fall, initial encounter] 06-24-2025 Episodic Esophageal disorders (20 sources) Gastroesophageal reflux disease [...] [Vitamin D deficiency, unspecified] Onset: 11-20-2020 Chronic Nutritional deficiencies (20 sources) Cobalamin deficiency; Translations: [Deficiency of other specified B group vitamins] Onset: 04-08-2022 Episodic Osteoarthritis (20 sources) Arthritis of joint of [...] conditions due to external causes (3 sources) Open wound; Translations: [Other injury of [...] weight loss] 01-24-2025 Episodic Other skin disorders (9 sources) Biopsy result abnormal; Translations: [Disorder of the skin and subcutaneous tissue, unspecified] 09-23-2022 Episodic Other skin disorders (3 sources) Disorder of the skin and subcutaneous tissue, unspecified; Translations: [Unspecified disorder of skin and subcutaneous tissue] Episodic Parkinson`s disease (20 sources) Parkinson's disease; Translations: [Parkinson's disease] Onset: 06-10-2016 Chronic Parkinson`s disease (2 sources) Parkinson`s disease; Translations: [Parkinson's disease with dyskinesia and fluctuating manifestations (HCC)] Onset: 10-13-2023 Sprains and strains (11 sources) Strain of neck muscle; Translations: [Strain of muscle, fascia and tendon at neck level, initial encounter] 02-19-2018 Episodic Superficial injury; contusion (2 sources) Contusion of back; Translations: [Contusion of unspecified back wall of thorax, initial encounter] 06-24-2025 Episodic Past or Other Problems Problem Classification Problem Date Documented Date Episodic/Chronic Fluid and electrolyte disorders (20 sources) Moderate dehydration; Translations: [Dehydration] Onset: 07-19-2017 Resolved: 01-05-2022 01-05-2022 Episodic Genitourinary symptoms and ill-defined conditions (20 sources) Microscopic hematuria; Translations: [Other microscopic hematuria] Onset: 12-24-2021 Episodic Malaise and fatigue (20 sources) Fatigue; Translations: [Other fatigue] Onset: 07-09-2021 07-09-2021 Episodic Mycoses (20 sources) Onychomycosis; Translations: [Tinea unguium] Onset: 07-08-2022 Episodic Open wounds of extremities (20 sources) Injury of lower extremity; Translations: [Unspecified open wound, right lower leg, initial encounter] Onset: 07-14-2023 Episodic Other aftercare (1 source) Other termite exterminator helper (current) drug therapy; Translations: [Other termite exterminator helper (current) drug therapy] Onset: 08-18-2024 Episodic Other [...] 05-10-2024 05-10-2024 Episodic Other lower respiratory disease (9 sources) Cough; Translations: [Subacute cough] Onset: 05-10-2024 [...] Test Name Value Interpretation Reference Range Facility Emergency Department Summary on 06-24-2025 Emergency Department Summary [facility] Medical Records Department [address] [place] [address] Emergency Department Summary 06/24/25 MR#: [id number] Acct: [id number] Name: ALEXIS KRAMER Rep #: [id number] : 1945 80 From: Louis Monet DO PCP: Dr. Richard Schneider, Status:REG ER Location: ED HPI History of Present Illness Chief Complaint: Fall Informant: patient and family Narrative Narrative: Patient is a 80-year-old male with history of Parkinson's disease. He lives in assisted living and is a DNR [facility] arrest. He states that last night he went to the bathroom and then as he was walking out of the bathroom lost his balance and fell down landing on his buttocks and injuring his right wrist. He denies striking his head any loss of consciousness or history of bleeding disorder or blood thinner use. He states he was able to get back up and get into bed. He states that he noticed increased pain and swelling to the right wrist this morning and with concern for injury contacted his daughter who brought him in for evaluation. Daughter states that the patient's Parkinson's is severe where he typically only gets around with a wheelchair and the fact that he fell while up walking is not abnormal. [facility] Medical History Cancer GERD (gastroesophageal reflux disease) Kidney disease Depression Hypertension Parkinson's disease Home Medications ???Medication ???Instructions ???Recorded ???Last Taken ???Type Omeprazole [Prilosec] 40 mg PO DAILY 07/07/17 Unknown Hi story simvastatin 40 mg tablet 80 mg PO QHS 07/07/17 Unknown Hist ory metoprolol succinate 25 mg 25 mg PO DAILY 02/18/18 Unknown Hi story tablet,extended release 24 hr aspirin 81 mg capsule 81 mg PO DAILY 09/23/22 Unknown Hi story carbidopa 25 mg-levodopa 100 mg 2 tab PO TID 09/23/22 Unknown Hist ory tablet cholecalciferol (vitamin D3) 50 50 mcg PO DAILY 09/23/22 Unknown H istory mcg (2,000 unit) capsule (Vitamin D3) furosemide 20 mg tablet 20 mg PO DAILY 09/23/22 Unknown Hi story ibuprofen 200 mg capsule 400 mg PO Q6H PRN Pain 09/23/22 Un known History magnesium 500 mg tablet 500 mg PO DAILY 09/23/22 Unknown H istory sertraline 100 mg tablet 100 mg PO DAILY 09/23/22 Unknown H istory vitamin B12 0.5 mg-folic acid 1 mg 2 tab PO DAILY 09/23/22 Unknown History tablet Allergy/AdvReac Type Severity Reaction Status Date / Time Opioids - Morphine Analogues AdvReac Vomiting Verified 06/24/25 06:00 (narcotics) Surgical History Hx of CABG Social History household members: none housing: assisted living facility Smoking Status: Former smoker ROS ROS ED Constitutional Constitutional ED: Denies chills or fever(s) Eyes Eyes: Denies blurry vision or change in vision Cardiovascular Cardiovascular: Reports other Details: Negative syncope ; Denies chest pain, palpitations or racing heartbeat Respiratory/Chest Respiratory/Chest: Denies cough or dyspnea Gastrointestinal Gastrointestinal: Denies abdominal pain, diarrhea, nausea or vomiting Genitourinary Genitourinary ED: Denies dysuria or hematuria Musculoskeletal Musculoskeletal: Reports back pain and other Details: Positive right wrist pain and swelling ; Denies neck pain Integumentary Reports other Details: Positive swelling and bruising right wrist ; Denies rash Neurologic Neurologic: Denies headache(s) Hematologic/Lymphatic Hematologic/Lymphatic: Denies easy bleeding or easy bruising EXAM Physical Exam Const Vital Signs: 06/24/25 06:00 06/24/25 06:00 Temperature 99.1 F Temperature Source Oral Pulse Rate 53 L Respiratory Rate 16 Respiratory Effort Normal Respiratory Depth Normal Respiratory Pattern Normal Blood Pressure 143/77 H Blood Pressure Mean 99 Pulse Ox 98 Oxygen Delivery Method Room Air Room Air Positive well nourished and well developed General Appearance ED: well developed HEENT HEENT Narrative: Normocephalic atraumatic No signs of depressed or basilar skull fracture Eyes PERRL and EOMs intact bilaterally General Eye ED: Negative for scleral icterus Neck supple Neck Narrative: No bony deformity or step-off of the cervical spine; no midline tenderness to palpation Chest Wall palpation of chest normal Chest Narrative: No pain with palpation No bony deformity or subcutaneous emphysema noted Resp normal respiratory effort and clear to auscultation bilaterally Resp Narrative: Breath sounds are diminished throughout but overall clear to auscultation without signs of respiratory distress Cardio regular rhythm Rate: bradycardia and other Other De (more content not included)... Normal [facility] Pelvis 1 or 2 Viewson 2024 Pelvis 1 or 2 Views [facility] Imaging Services [address] [place] [address] [id number] Pelvis 1 or 2 Views MR#: [id number] Acct: [id number] Name: ALEXIS KRAMER Rep #: [id number] : 1945 M 80 From: De Suggs MD PCP: Dr. Richard Schneider DO Status: REG ER Study: Pelvis 1 or 2 Views Date of Exam: 06/24/25 Exam# [id number] Ordering Dr: Louis Monet DO PROCEDURE: PELVIS 1 OR 2 VIEWS 06/24/2025 REASON FOR EXAM: FALL TECHNIQUE: Procedure Code: RADPEL Modality: DX Procedure: PELVIS 1 OR 2 VIEWS COMPARISON: None FINDINGS: CR pelvis/hips: Bones: Mild marginal osteophyte formation both hips. Bony pelvis intact with no fractures. Right proximal femur otherwise negative. Left proximal femur otherwise negative. Joints: Age-appropriate degenerative changes of the hips and pelvis. Soft tissues: Moderate vascular calcifications abdominal aortic branches. Adjacent soft tissues otherwise negative. Other: Remainder of exam negative. RAD/Pelvis 1 or 2 Views IMPRESSION: Negative for acute abnormality of the bony pelvis. Reading Location: [id number] CC: Dr. Richard Schneider DO; Louis Monet DO Signal Engineer: Signed Normal [facility] Ribs Uni Min 3V w/PA Cheston 06-24-2025 Ribs Uni Min 3V w/PA Chest [facility] Imaging Services [address] [place] [address] [id number] Ribs Uni Min 3V w/PA Chest MR#: [id number] Acct: [id number] Name: ALEXIS KRAMER Rep #: [id number] : 1945 M 80 From: De Suggs MD PCP: Dr. Richard Schneider DO Status: REG ER Study: Ribs Uni Min 3V w/PA Chest Date of Exam: 06/24 Exam# [id number] Ordering Dr: oLuis Monet DO PROCEDURE: RIBS UNI MIN 3V W/PA CHEST 06/24/2025 REASON FOR EXAM: FALL TECHNIQUE: Procedure Code: RADRIB Modality: DX Procedure: RIBS UNI MIN 3V W/PA CHEST COMPARISON: None. FINDINGS: Hardware and support lines: Sternotomy wires in place. Mediastinal clips in place. Heart: Negative. Lungs: Negative for infiltrates, or pulmonary edema. Pleura: No pleural thickening. No pleural effusion. Negative from the thorax. Mediastinum and aorta: Negative for hilar adenopathy. Mildly tortuous thoracic aorta. Bones: Additional right-sided rib images show no rib fracture. Age-appropriate degenerative changes of the spine. Other: Remainder of the exam negative. RAD/Ribs Uni Min 3V w/PA Chest IMPRESSION: Negative for acute cardiopulmonary disease Negative for right-sided rib fracture. Reading Location: [id number] CC: Dr. Richard Schneider DO; Louis Monet DO Signal Engineer: Signed Normal [facility] Wrist min 3 Viewson 06-24-20 Wrist min 3 Views [facility] Imaging Services [address] [place] [address] Wrist min 3 Views MR#: [id number] Acct: [id number] Name: KIRILL KRAMERKE DEMOND Rep #: [id number] : 1945 M 80 From: De Suggs MD PCP: Dr. Richard Schneider DO Status: REG ER Study: Wrist min 3 Views Date of Exam: 06/24/25 Exam# [id number] Ordering Dr: Louis Monet DO PROCEDURE: WRIST MIN 3 VIEWS 06/24/2025 REASON FOR EXAM: PAIN TECHNIQUE: Procedure Code: RADWR Modality: DX Procedure: WRIST MIN 3 VIEWS Laterality: Right COMPARISON: None. FINDINGS: Bones: Moderate degenerative changes in the triscaphe joint. Old probable 5th metacarpal fracture. Healed. Distal radius and ulna otherwise negative. Carpals and metacarpals otherwise negative. Negative for fracture. Joints: Moderate degenerative changes of the triscaphe joint. Soft tissues: Adjacent soft tissues otherwise negative. Negative for soft tissue swelling. Other: Remainder of exam negative. RAD/Wrist min 3 Views IMPRESSION: Negative for acute abnormality of the right wrist. Reading Location: [id number] CC: Dr. Richard Schneider DO; Louis Monet DO Signal Engineer: Signed Normal [facility]21-20[facility] KIRILL KRAMERKE ([id number]) 1945 M Date Time Provider Department 06/21/25 GILA ISSA During your visit today, we recorded the following information about you: Moon Clarke RN 06/21/2025 1:35 PM Signed Voicemail received June 21, 2025 1119 [address] with [facility] requesting last OV notes to be faxed to [phone]. Also asking if Dr. Issa will follow and sign for home care. Call back number is [phone] Tiffanie Hannah MA 06/21/2025 3:56 PM Signed [...] Fatigue [R53.83] 07/09/2021 Coronary artery disease involving rincon turcios*07/24/2021 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] 07/24/2021 [...] 05/10/2024 Encoun (more content not included)... Normal [facility] CNPNon 06-13-2025 CNPN Telephone (NRMDN) ALXEIS KRAMER ([id number]) 1945 Date Time Provider Department 06/13/25 GIAL ISSA During your visit today, we recorded the following information about you: Tiffanie Hannah MA 06/13/2025 2:33 PM Signed Received rehab discharge summary from [facility]. Placed on Dr. Issa desk for [...] Fatigue [R53.83] 07/09/2021 Coronary artery disease involving rincon turcios*07/24/2021 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] 07/24/2021 [...] Encounter Status:Closed by TIFFANIE HANNAH on 06/13/25 [facility] 04-24-2025 [facility] Telephone (VELVET) ALEXIS KRAMER ([id number]) 1945 M Date Time Provider Department 04/24/25 GILA ISSA During your visit today, we recorded the following information about you: Tiffanie Hannah MA 04/24/2025 12:37 PM Signed Received PT recertification letter from [facility]. Placed on Dr. Issa dessarai for review and signature Tiffanie Hannah MA [...] Fatigue [R53.83] 07/09/2021 Coronary artery disease involving rincon turcios*07/24/2021 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] 07/24/2021 [...] Status:Closed by TIFFANIE HANNAH on 04/24/25 Normal [facility] Re-Evaluation - PT (1)on Re-Evaluation - PT (1) [facility] Physical Therapy [facility] [address] [place] [address]. [address] [place] [address] / REEVALUATION / MEDICARE RECERTIFICATION PHYSICAL THERAPY MR#: [id number] Acct: [id number] Name: ALEXIS KRAMER Rep #: [id number] : 1945 79 From: Trena GONSALEZ Referring Dr.: Dr. Gila Issa MD Status:REG RCR Insurance: [employer] [facility] SELF PAY INSURANCE Re-Evaluation Intro: Dr. [...] little better. He is up walking at [place] 3-4x/ week and he tries to find [...] report improvement with his walking at the [facility] Goal Time Frame: 6-8 Weeks Goal Progress: [...] do not hesitate to contact me at [phone] by phone or if you have questions or concerns regarding this new plan of care! Sincerely, Trena Hernandez, MPT 04/24/25 1126 CC: Dr. Richard Schneider DO; Dr. Gila Issa MD Signed For Medicare only, by signing this I certify the plan of care. Physicians Signatur (more content not included)... Normal [facility] Telephone (FAMPWS) ALEXIS KRAMER ([id number]) 1945 M Date Time Provider Department 04/05/25 [facility] During your visit today, we recorded the following information about you: Jerrica Mehta RN 04/05/2025 12:59 PM Signed Trisha AVILES with [facility] calls to let provider know that they are switching pharmacies and need medication orders resigned. Forms were faxed a week ago and not received back. Trisha re faxing forms and asking if CASH REGISTER MECHANIC can sign them since Dr. Schneider is out. KACIE Villanueva Miranda Jean, APRN.[facility] 04/05/2025 4:21 PM Signed I will get the orders for [facility] patients signed and returned, thank you Kavita Mcgarry APRN.[facility] 04/05/2025 4:39 PM Signed Addended by: KAVITA MCGARRY on: 04/05/2025 04:39 PM Modules accepted: Orders Kavita Mcgarry APRN.[facility] 04/05/2025 4:41 PM Addendum Orders signed and [...] to get filled through pcp. Kavita Mcgarry APRN.[facility] 04/06/2025 8:24 AM Signed Per daughter/facility, this [...] notes t (more content not included)... Normal [facility] Inital Evaluation (1) - PTon 02-21-2025 Inital Evaluation (1) - PT [facility] Physical [facility] [address] [place] [address]. [address] [place] [address] / REHABILITATION SERVICES INITIAL EVALUATION MR#: [id number] Acct: [id number] Name: ALEXIS KRAMER Rep #: [id number] : 1945 79 From: Trena Hernandez [facility] Referring Dr.: Dr. Gila Issa MD Status: REG RCR Insurance: [facility] SELF PAY INSURANCE Patient's Visit [...] it for 15 years. He lives at [facility] for 3 years. He was able [...] chair...takes very small steps and does not cloth picker his feet much. Nu-step L1 X [...] report improvement with his walking at the therapist's assistant [facility] facility Goal Time Frame: 6-8 Weeks Goal 5:: [...] opportunity to eval (more content not included)... Normal [facility] CNOVon 01-24-2025 [facility] Office Visit (FAMPWS ) ALEXIS KRAMER ([id number]) 1945 M Date Time Provider Department 01/24/25 10:00 AM [facility] During your visit today, we recorded the following information about you: Temperature Pulse Respiration Blood pressure 97 degrees 64/minute 20/minute 100/60 Weight 83.5 kg Richard Schneider DO 01/24/2025 8:01 PM Signed CC: Alexis Kramer [...] kidney disease) stage 3, GFR 30-59 ml/min ([facility]) 04/2016 Depressive disorder 12/24/2021 GERD (gastroesophageal reflux disease) Hypertension IFG (impaired fasting glucose) 10/2019 5.7% at diagnosis Kidney stone Mixed hyperlipidemia Parkinson disease ([facility]) 07/2014 PAST SURGICAL HISTORY Procedure [...] RRR, n (more content not included)... Normal [facility] CNPNon 01-17-2025 CNPN Telephone (VAZQUEZMDN) ALEXIS KRAMER ([id number]) 1945 M Date Time Provider Department 01/17/25 GILA ISSA During your visit today, we recorded the following information about you: Tiffanie Hannah MA 01/17/2025 1:50 PM Signed Received Re-evaluation from [facility]. Placed on Dr. Issa desk for [...] Fatigue [R53.83] 07/09/2021 Coronary artery disease involving rincon turcios*07/24/2021 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] 07/24/2021 [...] Status:Closed by TIFFANIE HANNAH on 01/26/25 Normal [facility] Re-Evaluation - PT (1)on Re-Evaluation - PT (1) [facility] Physical Therapy [facility] [address] [place] [address] [address] [place] [address] / REEVALUATION / MEDICARE RECERTIFICATION PHYSICAL THERAPY MR#: [id number] Acct: [id number] Name: ALEXIS KRAMER Rep #: [id number] : 1945 79 From: Trena Hernandez MPT Referring Dr.: Dr. Gila Issa MD Status:REG RCR Insurance: [facility] SELF PAY INSURANCE Re-Evaluation Intro: Dr. Gila Issa MD, It has been my pleasure to treat ALEXIS KRAMER over the last 8 visits for PD [...] report improvement with his walking at the therapist's assistant living facility Goal Time Frame: 6-8 [...] do not hesitate to contact me at [phone] by phone or if you have questions or concerns regarding this new plan of care! Sincerely, Trenaallison Hernandez, SUNSHINE 01/17/25 1056 CC: Dr. Richard Schneider DO; Dr. Gila Issa MD Signed For Medicare only, by signing this I certify the plan of care. Physicians Signature Date Normal [facility] Absolute neutrophil countOrd ered By: Richard Schneider on 01-11-2025 Neutrophils (Bld) [#/Vol] 4.5 10*3/uL 2.0-7.7 [facility] Anion gap in Serum or Plasma Ordered By: Richard Schneider on 01-11-2025 Anion gap [Moles/Vol] 12 mmol/L 5-15 [facility] BUN/creatinine ratioOrdered By: Richard Schneider on 01-11-2025 Urea nitrogen/Creatinine [Mass ratio] 19.4 mg/mg 10-20 [facility] Basophil percentageOrdered B y: Richard Schneider on 01-11-2025 Basophils/100 WBC (Bld) 0.5 % 0-1 [facility] Bilirubin, totalOrdered By: Richard Schneider on 01-11-2025 Bilirubin [Mass/Vol] 0.55 mg/dL 0.00-1.30 [facility] Carbon dioxide, total [Moles /volume] in Central venous bloodOrdered By: Richard Schneider on 01-11-2025 CO2 [Moles/Vol] 26.9 mmol/L 21.0-32.0 [facility] Chloride assayOrdered By: Iram Schneider on 01-11-2025 Chloride [Moles/Vol] 102 mmol/L 98-108 [facility] Eosinophil percentageOrdered By: Richard Schneider on 01-11-2025 Eosinophils/100 WBC (Bld) 4.4 % 0-5 [facility] Erythrocyte distribution wid th ratioOrdered By: Richard Schneider on 01-11-2025 Erythrocyte distribution width (RBC) [Ratio] 12.5 % 11.6-14.6 [facility] Erythrocyte distribution wid th standard deviationOrdered By: Richard Schneider on 01-11-2025 Erythrocyte distribution width (RBC) [Entitic vol] 44.7 fL High 35.1-43.9 [facility] GFR/1.73 sq M.predicted domo g non-blacks MDRD (S/P/Bld) [Vol rate/Area]Ordered By: Richard Schneider on 01-11-2025 Estimated GFR (MDRD) Non-Af Amer 70 >60 [facility] Comment on above: mL/min/1.73m2 CKD-EP I Creatinine Equation (2020) Hematocrit Auto (Bld) [Volum e fraction]Ordered By: Richard Schneider on 01-11-2025 Hematocrit (Bld) [Volume fraction] 44.1 % 40-54 [facility] Hemoglobin A1c percentageOrd ered By: Richard Schneider on 01-11-2025 HbA1c (Bld) [Mass fraction] 5.6 % Low >5.7 [facility] Hemoglobin measurementOrdere d By: Richard Schneider on 01-11-2025 Hemoglobin (Bld) [Mass/Vol] 14.5 g/dL 13.0-16.5 [facility] Immature granulocytes/100 WB C Auto (Bld)Ordered By: Richard Schneider on 01-11-2025 Immature granulocytes/100 WBC (Bld) 0.300 % 0.0-0.9 [facility] Comment on above: IG% - Immature Granu locytes (promyelocytes, myelocytes and metamyelocytes) > 1% indicates that a LEFT SHIFT is Present. Laboratory - Chemistry and C hemistry - challengeOrdered By: Richard Schneider on 01-11-2025 AST [Catalytic activity/Vol] 30 U/L <38 [facility] Lymphocytes Auto (Unsp spec) [#/Vol]Ordered By: Richard Schneider on 01-11-2025 Lymphocytes (Bld) [#/Vol] 1.07 10*3/uL 0.83-4.51 [facility] Lymphocytes/100 WBC Auto (Un sp spec)Ordered By: Richard Schneider on 01-11-2025 Lymphocytes/100 WBC (Bld) 16.8 % Low 19-41 [facility] MCV (mean corpuscular volume ) determinationOrdered By: Richard Schneider on 01-11-2025 MCV (RBC) [Entitic vol] 96.7 fL High 80-94 [facility] Mean corpuscular hemoglobin (MCH) determinationOrdered By: Richard Schneider on 01-11-2025 MCH (RBC) [Entitic mass] 31.8 pg 27.0-32.0 [facility] Mean corpuscular hemoglobin concentration (MCHC) determinationOrdered By: Richard Schneider on 01-11-2025 MCHC (RBC) [Mass/Vol] 32.9 g/dL 32-36 [facility] Mean platelet volume determi nationOrdered By: Richadr Schneider on 01-11-2025 Platelet mean volume (Bld) [Entitic vol] 12.3 fL High 6.2-12.0 [facility] Monocyte percentageOrdered B y: Richard Schneider on 01-11-2025 Monocytes/100 WBC (Bld) 6.9 % 0-10 [facility] Neutrophil percentageOrdered By: Richard Schneider on 01-11-2025 Neutrophils/100 WBC (Bld) 71.1 % High 47-70 [facility] Nucleated red blood cell per centageOrdered By: Richard Schneider on 01-11-2025 Nucleated RBC/100 WBC (Bld) [Ratio] 0 % 0-5 [facility] Platelet countOrdered By: Iram Schneider on 01-11-2025 Platelets (Bld) [#/Vol] 189 10*3/uL 150-450 [facility] Potassium (Unsp spec) [Mass/ Vol]Ordered By: Richard Schneider on 01-11-2025 Potassium [Moles/Vol] 4.4 mmol/L 3.3-5.1 [facility] RBC Auto (Bld) [#/Vol]Ordere d By: Richard Schneider on 01-11-2025 RBC (Bld) [#/Vol] 4.56 10*6/uL Low 4.6-6.2 [facility] Serum creatinine measurement (mass/volume)Ordered By: Richard Schneider on 01-11-2025 Creatinine [Mass/Vol] 1.08 mg/dL 0.70-1.20 [facility] Serum globulin measurementOr dered By: Richard Schneider on 01-11-2025 Globulin (S) [Mass/Vol] 1.2 g/dL Low 2.2-4.2 [facility] Serum glucose measurement (m ass/volume)Ordered By: Richard Schneider on 01-11-2025 Glucose [Mass/Vol] 84 mg/dL 70-99 [facility] Serum or plasma alanine watters otransferase (ALT) measurementOrdered By: Richard Schneider on 01-11-2025 ALT [Catalytic activity/Vol] 15 U/L <47 [facility] Serum or plasma albumin nelia urement (mass/volume)Ordered By: Richard Schneider on 01-11-2025 Albumin [Mass/Vol] 4.7 g/dL 3.4-4.8 [facility] Serum or plasma albumin/glob ulin mass ratioOrdered By: Richard Schneider on 01-11-2025 Albumin/Globulin [Mass ratio] 4.0 {ratio} High 0.9-2.4 [facility] Serum or plasma alkaline bianka sphatase measurementOrdered By: Richard Schneider on 01-11-2025 ALP [Catalytic activity/Vol] 90 U/L 40-129 [facility] Serum or plasma calcium nelia urement (mass/volume)Ordered By: Richard Schneider on 01-11-2025 Calcium [Mass/Vol] 9.3 mg/dL 7.6-11.0 [facility] Serum or plasma urea nitroge n measurement (mass/volume)Ordered By: Richard Schneider on 01-11-2025 Urea nitrogen [Mass/Vol] 21 mg/dL High 4-19 [facility] Sodium levelOrdered By: Patricia Schneider on 01-11-2025 Sodium [Moles/Vol] 141 mmol/L 133-145 [facility] Total proteinOrdered By: Jason Schneider on 01-11-2025 Protein [Mass/Vol] 5.9 g/dL 5.9-8.4 [facility] Vitamin B12 ser/plasOrdered By: Richard Schneider on 01-11-2025 Cobalamin (Vitamin B12) [Mass/Vol] 1876 pg/mL High 180-914 [facility] Vitamin D, 25-hydroxyOrdered By: Richard Schneider on 01-11-2025 Vitamin D 25-Hydroxy 46.9 ng/mL 30-100 [facility] Comment on above: Vitamin D StatusDefi ciency: <20 ng/mL (50nmol/L)Insufficiency: 20-30 ng/mL (50-75 nmol/L)Sufficiency: 30-100 ng/mL (75-250 nmol/L)Toxicity: >100 ng/mL (>250 nmol/L) White blood cell (WBC) count Ordered By: Richard Schneider on 01-11-2025 WBC (Bld) [#/Vol] 6.4 10*3/uL 4.4-11.0 [facility] Telephone (FAMPWS) ALEXIS KRAMER ([id number]) 1945 M Date Time Provider Department 12/21/24 [facility]ARD SCHNEIDER [facility] During your visit today, we recorded the following information about you: Vivien Martinez MA 12/21/2024 1:49 PM Signed Scripts pended. See note from [facility] in your box. EMILY Noe Rebekah, APRN.[facility] 12/21/2024 1:53 PM Signed The following approved [...] Fatigue [R53.83] 07/09/2021 Coronary artery disease involving rincon turcios*07/24/2021 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] 07/24/2021 [...] [M19.011] 07/15/2022 (more content not included)... Normal [facility] CNPN Telephone (NRMDN) ALEXIS KRAMER ([id number]) 1945 M Date Time Provider Department 12/21/24 GILA ISSA During your visit today, we recorded the following information about you: Tiffanie Hannah MA 12/21/2024 2:59 PM Signed Received Rehab eval from [facility]. Placed on Dr. Issa desk for [...] Fatigue [R53.83] 07/09/2021 Coronary artery disease involving rincon turcios*07/24/2021 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] 07/24/2021 [...] Status:Closed by TIFFANIE HANNAH on 12/22/24 Normal [facility] Inital Evaluation (1) - PTon 12-20-2024 Inital Evaluation (1) - PT [facility] [address] [place] [address] [address] [place] [address] / REHABILITATION SERVICES INITIAL EVALUATION MR#: [id number] Acct: [id number] Name: ALEXIS KRAMER Rep #: [id number] : 1945 79 From: Trena GONSALEZ Referring Dr.: Dr. Gila Issa MD Status: REG R Insurance: [facility] SELF PAY INSURANCE Patient's Visit [...] it for 15 years. He lives at [facility] for 3 years. He was able [...] chair...takes very small steps and does not cloth picker his feet much. Nu-step L1 X [...] report improvement with his walking at the therapist's [facility] living facility Goal Time Frame: 6-8 [...] to be FAXED BACK to us at [phone] for Medicare purposes. For Medicare only, by signing this I certify the plan of care. Please let me know if there are questions or concerns regarding this plan of care. Physician Signature: Date: 12/20/24 1250 CC: Dr. Richard Schneider DO; Dr. Gila Issa MD Signed Normal [facility] 12-18-2024 [facility] ALEX[facility] KRAMER ([id number]) 1945 M Date Time Provider Department 12/18/24 [facility] SCHNE[facility] During your visit today, we recorded the [...] but he?s definitely depressed. The staff at [facility] have also noticed. Thank you! Richard Gerard DO 12/19/2024 4:21 PM Signed Please let [...] order for increased Zoloft be sent to [facility] so they have it for their files as well. Faxed order to [phone] per request. Jerrica Mehta RN Allergies As of Date: 12/18/2024 Noted Allergy Reaction BACTRIM (SULFAMETHOXAZOLE-TRIME TH*08/18/2023 16 - Unknown NARCOTICS (OPIOIDS - MORPHINE RICARDO*2016 8 - GI Upset Comments: vomiting with an oral pain med-has taken morphine without problems Date Reviewed: 08/30/2024 Reviewed by: [place], Gila, MD - Fully Assessed Reason for Visit: [...] Fatigue [R53.83] 07/09/2021 Coronary artery disease involving rincon turcios*07/24/2021 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] 07/24/2021 Dysphasia [R47.02] 12/24/2021 Aphasia [R47.01] 12/24/2021 Cognitive impairment, mild, so stated [G31.84] 12/24/2021 [place] (more content not included)... Normal [facility] 10-16-2024 [facility] (FAMWS[facility] ALEXIS KRAMER ([id number]) 1945 M Date Time Provider Department 10/16/24 [facility] During your visit today, we recorded the following information about you: Amita Bojorquez RN 10/16/2024 9:46 AM Signed Pts aparnaviri Yooi called in and reports Pt has been [...] to it. Please call Pts niece back. Richard Schneider DO 10/16/2024 4:18 PM Signed Only other option would be to see [facility]. I don't have any other options to [...] Assessed Reason for Visit: Patient Question [1477] Prescriptions as of 10/16/2024 - albuterol (PROVENTIL) [...] Fatigue [R53.83] 07/09/2021 Coronary artery disease involving rincon turcios*07/24/2021 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] 07/24/2021 [...] [R20.0, R20.*12 (more content not included)... [facility] Telephone (FAMWS) ALEXIS KRAMER ([id number]) 1945 M Date Time Provider Department 10/06/24 [facility] During your visit today, we recorded the following information about you: Amelia Goldberg RN 10/06/2024 11:06 AM Signed Priya from [facility] calling and states that [facility] is requesting face to face office notes and diagnosis codes for pt's nebulizer. [facility] fax [phone]. Sent 08/30/[address] Issa neurologist, phone encounter from 09/22/24 and order that has dx codes on it for nebulizer. Faxed copies to both [facility] and to Priya at [facility] for them to have on file in [...] Fatigue [R53.83] 07/09/2021 Coronary artery disease involving rincon turcios*07/24/2021 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] 07/24/2021 [...] Encounter Status:Closed by AMELIA GOLDBERG on 10/06/24 [facility] Telephone (BRENDAWS) ALEXIS KRAMER ([id number]) 1945 M Date Time Provider Department 10/04/24 [facility] During your visit today, we recorded the following information about you: Lynn Gray LPN 10/04/2024 11:40 AM Signed Padmini with [facility] reports they have sent several faxes regarding Nebulizer solution and also needs an order for the machine. They will try to order from [employer] Please fax orders to [facility] FAX: [phone]. They never received anything earlier. 1)orders for [...] Visit Diagnoses:Wheezing [R06.2] Chest congestion [R09.89] Order(s):NEBULIZER [[id number]] Order #: [id number] albuterol (PROVENTIL) 2.5 mg /3 mL (0.083 [...] Fatigue [R53.83] 07/09/2021 Coronary artery disease involving rincon turcios*07/24/2021 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] 07/24/2021 [...] [M19.011] 07/15 (more content not included)... Normal [facility] CNPMeghana 09-22-2024 CNPN Telephone (FAMPWS) ALEXIS KRAMER ([id number]) 1945 M Date Time Provider Department 09/22/24 RICHARD SCHNEIDER During your visit today, we recorded the following information about you: Amita Bojorquez, KACIE 09/26/2024 10:24 AM Addendum Flory Soni with [facility] (this was a mistake I had [facility] [...] let Pt know and send Rx to [facility] CHRIS. Vianca Howe LPN 09/26/2024 10:00 AM Signed Daughter is calling to check on status of message. Daughter reports pt is getting frustrated. Daughter reports pt is at [facility]-not [facility]. Daughter is asking for a call along [...] voices understanding and states Pt lives at [facility], so they would have to help him. Valerie nurse with [facility] called and asked if they would help Pt with albuterol nebulizer, and she states they help him with medications already. She states they would help with the administration. Please fax orders to [facility] at fax # [phone]. KACIE Teague Jordan L, DO 09/27/2024 8:14 PM Signed Please fax script and notify DO Shirin Morales Linda M, LPN 09/28/2024 10:28 AM [...] 09/22/2024 Note (more content not included)... [facility]RADHA[facility] ALEXIS KRAMER ([id number]) 1945 M Date Time Provider Department 09/08/24 [...] helps his symptoms DO Deysi Morales Barbara, KACIE 09/08/2024 11:06 AM Addendum Called daughter and notified of Dr. Schneider's instructions. Daughter says pt is at [facility] and the order for the med would need to be faxed over to them. Noted in another encounter that prescription was already sent to [facility] pharmacy per Rob Copeland. Called and spoke with nurse Trisha at [facility]. Trisha asking about Mucinex directions of taking 2 tablets by mouth 2 times per day. Since it is a 12 hour tablet, should it be 1 tablet by mouth 2 times a day? If so, can a new script be sent in? Richard Schneider DO 09/11/2024 7:55 AM Signed Mucinex should be as below 600 mg twice a day Richard Schneider DO Allergies As of Date: 09/08/2024 Noted [...] Fatigue [R53.83] 07/09/2021 Coronary artery disease involving rincon turcios*07/24/2021 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] 07/24/2021 [...] to breakdow*07/08/2022 (more content not included)... [facility] ALEXIS KRAMER ([id number]) 1945 M Date Time Provider Department 09/08/24 ROB COPELAND [facility] During your visit today, we recorded the [...] Fatigue [R53.83] 07/09/2021 Coronary artery disease involving rincon turcios*07/24/2021 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] 07/24/2021 [...] Encounter Status:Closed by ROB COPELAND on 09/08/24 [facility] CNOVon 08-30-2024 CNOV Office Visit (NRMDN) ALEXIS KRAMER ([id number]) 1945 M Date Time Provider Department 08/30/24 9:30 AM GILA ISSA NRN During your visit today, we recorded the following information about you: Weight 86.1 kg Gila Issa MD 08/30/2024 10:19 AM Addendum It was a pleasure to see you today. We addressed the following diagnoses: Parkinson's disease with dyskinesia and fluctuating manifestations (hcc) My recommendations are as follows: For Parkinson's - no change to medications today For walking/freezing - consider Parkinson's specific therapy at [facility]. Seeing therapy at [place] when you come for a Dr. Issa visit is always an option. Consider U-step walker. Flowgram For the phlegm - continue with the lemon drops. I will message Dr. Schneider about something to thin out the phlegm Movement Disorders Medication Schedule: Medications [id number] [id number] 430 HS Sinemet 25/100mg 2 2 2 2 Sertraline 100 mg 1 No follow-ups on file. If there are any concerns before your next visit, please call or you can send a message through [facility]. You can also now schedule and select appointments through [facility]. MD Hansel Figueredo Kristin, MD 08/30/2024 12:58 PM Signed [facility] - FOLLOW UP EVALUATION Richard Schneider, DO [address] [facility] [id number] I had the pleasure of seeing Mr. [...] please feel free to send me a [employer]iva message or contact the office - Continue exercise - Interval History: Good and bad times. Hard to see patterns. Thick secretions. [place] his mouth and bothersome. PCP suggested lemon [...] Take 1 (more content not included)... Normal [facility] KARELYOVedna 07-26-2024 CNOV Office Visit (FAMPWS ) ALEXIS KRAMER ([id number]) 1945 M Date Time Provider Department 07/26/24 10:00 AM RICHARD SCHNEIDER FAMPWS During your visit today, we recorded the following information about you: Temperature Pulse Respiration Blood pressure 97 degrees 60/minute 20/minute 110/60 Weight 86.6 kg Richard Schneider, 07/26/2024 12:01 PM Signed CC: Alexis Kramer [...] kidney disease) stage 3, GFR 30-59 ml/min ([facility]) 04/2016 Depressive disorder 12/24/2021 GERD [...] LE, sensation (more content not included)... Normal [facility] [place] Basophil percentageOrdered B y: Richard Schneider on 12-29-2023 Bilirubin [Mass/Vol] 0.60 mg/dL 0.20-1.00 [facility] Comment on above: For patients on eltr ombopag therapy, use of Dimension [place] TBIL is not recommended. Chloride [Moles/Vol] 106 mmol/L 98-107 [facility] Glucose [Mass/Vol] 100 mg/dL 74-106 [facility] Comment on above: Fasting Glucose resu lt from 100 to 125 mg/dL suggests IMPAIRED HOMEOSTASIS per A.D.A. criteria. Hemoglobin (Bld) [Mass/Vol] 12.9 g/dL 13.0-16.5 [facility] Potassium [Moles/Vol] 4.6 mmol/L 3.5-5.1 [facility] Protein [Mass/Vol] 6.8 g/dL 6.4-8.2 [facility] Sodium [Moles/Vol] 142 mmol/L 136-145 [facility] WBC (Bld) [#/Vol] 6.1 10*3/uL 4.4-11.0 [facility] Determination of erythrocyte mean corpuscular volume (MCV)Ordered By: Richard Schneider on 12-29-2023 MCV (RBC) [Entitic vol] 98.3 fL 80-94 [facility] Erythrocyte distribution wid th ratioOrdered By: Richard Schneider on 12-29-2023 Erythrocyte distribution width (RBC) [Ratio] 12.1 % 11.6-14.6 [facility] Erythrocyte distribution wid th standard deviationOrdered By: Richard Schneider on 12-29-2023 Erythrocyte distribution width (RBC) [Entitic vol] 44.2 fL 35.1-43.9 [facility] Hematocrit Auto (Bld) [Volum e fraction]Ordered By: Richard Schneider on 12-29-2023 Hematocrit (Bld) [Volume fraction] 40.1 % 40-54 [facility] Laboratory - Chemistry and C hemistry - challengeOrdered By: Richard Schneider on 12-29-2023 Albumin/Globulin [Mass ratio] 1.3 {ratio} 0.9-2.4 [facility] ALP [Catalytic activity/Vol] 73 U/L 45-117 [facility] ALT [Catalytic activity/Vol] 14 U/L 16-61 [facility] CO2 [Moles/Vol] 31.0 mmol/L 21.0-32.0 [facility] Cobalamin (Vitamin B12) [Mass/Vol] 1377 pg/mL 211-911 [facility] Globulin (S) [Mass/Vol] 3.0 g/dL 2.2-4.2 [facility] Magnesium [Mass/Vol] 2.5 mg/dL 1.6-2.6 [facility] Urea nitrogen/Creatinine [Mass ratio] 22.6 mg/mg 10-20 [facility] Laboratory - Hematology and Cell countsOrdered By: Richard Schneider on 12-29-2023 MCH (RBC) [Entitic mass] 31.6 pg 27.0-32.0 [facility] MCHC (RBC) [Mass/Vol] 32.2 g/dL 32-36 [facility] Platelet mean volume (Bld) [Entitic vol] 12.5 fL 6.2-12.0 [facility] Platelets (Bld) [#/Vol] 172 10*3/uL 150-450 [facility] No Panel InformationOrdered By: Richard Schneider on 12-29-2023 Estimated GFR (MDRD) Amer 87 mL/min >60 [facility] Comment on above: GFR Calc Estimated GFR (MDRD) Non-Af Amer 72 mL/min >60 [facility] Comment on above: Non- GFR Calc RBC Auto (Bld) [#/Vol]Ordere d By: Richard Schneider on 12-29-2023 RBC (Bld) [#/Vol] 4.08 10*6/uL 4.6-6.2 [facility] Serum or plasma calcium nelia urement (mass/volume)Ordered By: Richard Schneider on 12-29-2023 Calcium [Mass/Vol] 8.8 mg/dL 8.5-10.1 [facility] Serum or plasma creatinine m easurement (mass/volume)Ordered By: Richard Schneider on 12-29-2023 Creatinine [Mass/Vol] 1.06 mg/dL 0.70-1.30 [facility] Comment on above: The validity of the calculated GFR & GFRAA in patients over 70 years has not been determined. Clinical correlation is essential. Serum or plasma urea nitroge n measurement (mass/volume)Ordered By: Richard Schneider on 12-29-2023 Urea nitrogen [Mass/Vol] 24 mg/dL 7-18 [facility] Thin prep Papanicolaou smear with manual screeningOrdered By: Richard Schneider on 12-29-2023 Thin prep Papanicolaou smear with manual screening 3.8 g/dL 3.2-5.0 [facility] Thin prep Papanicolaou smear with manual screening 23 U/L 15-37 [facility] Thin prep Papanicolaou smear with manual screening 5 5-15 [facility] NURSING PROGon 11-24-2023 NURSING PROG HNO ID: [id number] Author: MARVEL SINGH RN Service: ? Author Type: Registered Nurse Type: Nursing Progress Note Filed: 11/24/2023 16:50 Note Text: Dr. Spencer at bedside for Ultrasound guided Left local block. RN at bedside, pt monitored throughout, BP 126/60 Temp 37.1 ?C (98.8 ?F) (Temporal) Resp 16 Ht 172.7 cm (5' 8") Wt 88 kg (194 lb) SpO2 98% BMI 29.50 kg/m? . Pt medicated with 15cc of local anesthetic. Pt tolerated procedure without difficulty. Family called to bedside at completion of procedure. [facility] OPERATIVE NOon 11-24-2023 OPERATIVE NO HNO ID: [id number] Author: ALBERTO SPENCER MD Service: Orthopaedic Surgery Author Type: Physician Type: Operative Report Filed: 11/24/2023 17:26 Note Text: OPERATIVE/PROCEDURE REPORT LOG ID: [id number] Surgery/Procedure Date: 11/24/2023 Incision/Procedure Start Time: 5:02 PM Incision Close/Procedure End Time: 5:21 PM Surgeon(s)/Proceduralis t(s) and Structural Iron Worker(s): Surgeon(s) and Role: * Alberto Spencer MD - Primary Physician Structural Iron Worker: Tonya Gray PA-C Procedure(s): OPERATION: Left carpal [...] of the transverse carpal ligament until a "flash of fat" was noted. I directly divided distal edge [...] resistance. Subsequently, I selected a mini meniscotome Dousman blade and slid this in the protective guide, completely dividing the transverse carpal ligament. Kvng rakes were used to view up the wound to visualize for complete release and a Grulla elevator was used to palpatefor complete release. [...] 24, 2023 TIME: 5:25 PM PAGER/CONTACT #: [facility] Basophil percentageOrdered B y: Richard Schneider on 10-12-2023 Bilirubin [Mass/Vol] 0.50 mg/dL 0.20-1.00 [facility] Comment on above: For patients on eltr ombopag therapy, use of Dimension [place] TBIL is not recommended. Chloride [Moles/Vol] 107 mmol/L 98-107 [facility] Glucose [Mass/Vol] 101 mg/dL 74-106 [facility] Comment on above: Fasting Glucose resu lt from 100 to 125 mg/dL suggests IMPAIRED HOMEOSTASIS per A.D.A. criteria. Potassium [Moles/Vol] 4.5 mmol/L 3.5-5.1 [facility] Protein [Mass/Vol] 7.7 g/dL 6.4-8.2 [facility] Sodium [Moles/Vol] 139 mmol/L 136-145 [facility] WBC (Bld) [#/Vol] 7.6 10*3/uL 4.4-11.0 [facility] Blood erythrocytes count (nu mber/volume)Ordered By: Richard Schneider on 10-12-2023 RBC (Bld) [#/Vol] 4.28 10*6/uL 4.6-6.2 [facility] Blood hemoglobin measurement (mass/volume)Ordered By: Richard Schneider on 10-12-2023 Hemoglobin (Bld) [Mass/Vol] 13.2 g/dL 13.0-16.5 [facility] Blood platelet mean volumeOr dered By: Richard Schneider on 10-12-2023 Platelet mean volume (Bld) [Entitic vol] 12.8 fL 6.2-12.0 [facility] Determination of erythrocyte mean corpuscular volume (MCV)Ordered By: Richard Schneider on 10-12-2023 MCV (RBC) [Entitic vol] 99.3 fL 80-94 [facility] Hematocrit Auto (Bld) [Volum e fraction]Ordered By: Richard Schneider on 10-12-2023 Hematocrit (Bld) [Volume fraction] 42.5 % 40-54 [facility] Laboratory - Chemistry and C hemistry - challengeOrdered By: Richard Schneider on 10-12-2023 ALP [Catalytic activity/Vol] 74 U/L 45-117 [facility] ALT [Catalytic activity/Vol] 15 U/L 16-61 [facility] CO2 [Moles/Vol] 29.0 mmol/L 21.0-32.0 [facility] Cobalamin (Vitamin B12) [Mass/Vol] 1628 pg/mL 211-911 [facility] Globulin (S) [Mass/Vol] 3.5 g/dL 2.2-4.2 [facility] Magnesium [Mass/Vol] 2.6 mg/dL 1.6-2.6 [facility] Urea nitrogen/Creatinine [Mass ratio] 23.2 mg/mg 10-20 [facility] Laboratory - Hematology and Cell countsOrdered By: Richard Schneider on 10-12-2023 Erythrocyte distribution width (RBC) [Entitic vol] 46.0 fL 35.1-43.9 [facility] Erythrocyte distribution width (RBC) [Ratio] 12.6 % 11.6-14.6 [facility] MCH (RBC) [Entitic mass] 30.8 pg 27.0-32.0 [facility] MCHC Auto (RBC) [Mass/Vol]Or dered By: Richard Schneider on 10-12-2023 MCHC (RBC) [Mass/Vol] 31.1 g/dL 32-36 [facility] No Panel InformationOrdered By: Richard Schneider on 10-12-2023 Estimated GFR (MDRD) Amer 58 mL/min >60 [facility] Comment on above: GFR Calc Estimated GFR (MDRD) Non-Af Amer 48 mL/min >60 [facility] Comment on above: Non- GFR Calc Vitamin D 25-Hydroxy 54.4 ng/mL [facility] Comment on above: Vitamin D 25(OH) Sta tus Range Deficiency <20 ng/mL (50nmol/L) Insufficiency 20 - 30 ng/mL (50 - 75 nmol/L) Sufficiency 30 - 100 ng/mL (75 - 250 nmol/L) Toxicity >100 ng/mL (>250 nmol/L) Platelets bldOrdered By: Jason Schneider on 10-12-2023 Platelets (Bld) [#/Vol] 211 10*3/uL 150-450 [facility] Serum or plasma albumin nelia urement (mass/volume)Ordered By: Richard Schneider on 10-12-2023 Albumin [Mass/Vol] 4.2 g/dL 3.2-5.0 [facility] Serum or plasma albumin/glob ulin mass ratioOrdered By: Richard Schneider on 10-12-2023 Albumin/Globulin [Mass ratio] 1.2 {ratio} 0.9-2.4 [facility] Serum or plasma calcium nelia urement (mass/volume)Ordered By: Richard Schneider on 10-12-2023 Calcium [Mass/Vol] 9.2 mg/dL 8.5-10.1 [facility] Serum or plasma creatinine m easurement (mass/volume)Ordered By: Richard Schneider on 10-12-2023 Creatinine [Mass/Vol] 1.51 mg/dL 0.70-1.30 [facility] Comment on above: The validity of the calculated GFR & GFRAA in patients over 70 years has not been determined. Clinical correlation is essential. Serum or plasma urea nitroge n measurement (mass/volume)Ordered By: Richard Schneider on 10-12-2023 Urea nitrogen [Mass/Vol] 35 mg/dL 7-18 [facility] Thin prep Papanicolaou smear with manual screeningOrdered By: Richard Schneider on 10-12-2023 Thin prep Papanicolaou smear with manual screening 20 U/L 15-37 [facility] Thin prep Papanicolaou smear with manual screening 3 5-15 [facility] Absolute lymphocyte countOrd ered By: Richard Schneider on 06-24-2023 Lymphocytes Auto (Unsp spec) [#/Vol] 1.15 10*3/uL 0.83-4.51 [facility] Basophil percentageOrdered B y: Richard Schneider on 06-24-2023 Basophils/100 WBC (Bld) 0.7 % 0-1 [facility] Bilirubin [Mass/Vol] 0.80 mg/dL 0.20-1.00 [facility] Comment on above: For patients on eltr ombopag therapy, use of Dimension [place] TBIL is not recommended. Chloride [Moles/Vol] 105 mmol/L 98-107 [facility] Cholesterol [Mass/Vol] 136 mg/dL <200 [facility] Comment on above: <200 mg/dL Desirable 200-240 mg/dL Borderline >240 mg/dL High Risk Eosinophils/100 WBC (Bld) 5.7 % 0-5 [facility] Glucose [Mass/Vol] 90 mg/dL 74-106 [facility] Neutrophils (Bld) [#/Vol] 4.0 10*3/uL 2.0-7.7 [facility] Neutrophils/100 WBC (Bld) 64.9 % 47-70 [facility] Potassium [Moles/Vol] 4.2 mmol/L 3.5-5.1 [facility] Protein [Mass/Vol] 7.5 g/dL 6.4-8.2 [facility] Sodium [Moles/Vol] 139 mmol/L 136-145 [facility] Triglyceride [Mass/Vol] 121 mg/dL <199 [facility] Comment on above: The drugs N-Acetylcy steine and Metamizole may falsely depress this assay.Serum Triglycerides Reference Interval Normal <150 mg/dL Borderline high 150 - 199 mg/dL High 200 - 499 mg/dL Very High > or = 500 mg/dL WBC (Bld) [#/Vol] 6.1 10*3/uL 4.4-11.0 [facility] Blood erythrocytes count (nu mber/volume)Ordered By: Richard Schneider on 06-24-2023 RBC (Bld) [#/Vol] 4.65 10*6/uL 4.6-6.2 [facility] Blood hemoglobin measurement (mass/volume)Ordered By: Richard Schneider on 06-24-2023 Hemoglobin (Bld) [Mass/Vol] 14.3 g/dL 13.0-16.5 [facility] Blood lymphocytes/100 leukoc ytesOrdered By: Richard Schneider on 06-24-2023 Lymphocytes/100 WBC (Bld) 18.7 % 19-41 [facility] Blood monocytes/100 leukocyt esOrdered By: Richard Schneider on 06-24-2023 Monocytes/100 WBC (Bld) 9.0 % 0-10 [facility] Blood platelet mean volumeOr dered By: Richard Schneider on 06-24-2023 Platelet mean volume (Bld) [Entitic vol] 12.4 fL 6.2-12.0 [facility] Determination of erythrocyte mean corpuscular volume (MCV)Ordered By: Richard Schneider on 06-24-2023 MCV (RBC) [Entitic vol] 94.2 fL 80-94 [facility] Hematocrit Auto (Bld) [Volum e fraction]Ordered By: Richard Schneider on 06-24-2023 Hematocrit (Bld) [Volume fraction] 43.8 % 40-54 [facility] Laboratory - Chemistry and C hemistry - challengeOrdered By: Richard Schneider on 06-24-2023 ALP [Catalytic activity/Vol] 81 U/L 45-117 [facility] ALT [Catalytic activity/Vol] 23 U/L 16-61 [facility] CO2 [Moles/Vol] 28.0 mmol/L 21.0-32.0 [facility] Globulin (S) [Mass/Vol] 3.5 g/dL 2.2-4.2 [facility] Urea nitrogen/Creatinine [Mass ratio] 19.5 mg/mg 10-20 [facility] Laboratory - Hematology and Cell countsOrdered By: Richard Schneider on 06-24-2023 Erythrocyte distribution width (RBC) [Entitic vol] 43.6 fL 35.1-43.9 [facility] Erythrocyte distribution width (RBC) [Ratio] 12.5 % 11.6-14.6 [facility] Immature granulocytes/100 WBC (Bld) 1.000 % 0.0-0.9 [facility] Comment on above: IG% - Immature Granu locytes (promyelocytes, myelocytes and metamyelocytes) > 1% indicates that a LEFT SHIFT is Present. MCH (RBC) [Entitic mass] 30.8 pg 27.0-32.0 [facility] Nucleated RBC/100 WBC (Bld) [Ratio] 0 % 0-5 [facility] MCHC Auto (RBC) [Mass/Vol]Or dered By: Richard Schneider on 06-24-2023 MCHC (RBC) [Mass/Vol] 32.6 g/dL 32-36 [facility] No Panel InformationOrdered By: Richard Schneider on 06-24-2023 Estimated GFR (MDRD) Amer 81 mL/min >60 [facility] Comment on above: GFR Calc Estimated GFR (MDRD) Non-Af Amer 67 mL/min >60 [facility] Comment on above: Non- GFR Calc Thyroid Stimulating Hormone (TSH) 3.05 uIU/mL 0.358-3.74 [facility] Platelets bldOrdered By: Jason Schneider on 06-24-2023 Platelets (Bld) [#/Vol] 183 10*3/uL 150-450 [facility] Serum or plasma albumin nelia urement (mass/volume)Ordered By: Richard Schneider on 06-24-2023 Albumin [Mass/Vol] 4.0 g/dL 3.2-5.0 [facility] Serum or plasma albumin/glob ulin mass ratioOrdered By: Richard Schneider on 06-24-2023 Albumin/Globulin [Mass ratio] 1.1 {ratio} 0.9-2.4 [facility] Serum or plasma calcium nelia urement (mass/volume)Ordered By: Richard Schneider on 06-24-2023 Calcium [Mass/Vol] 8.8 mg/dL 8.5-10.1 [facility] Serum or plasma cholesterol in HDL measurement (mass/volume)Ordered By: Richard Schneider on 06-24-2023 Cholesterol in HDL [Mass/Vol] 45 mg/dL >40 [facility] Comment on above: The drugs N-Acetylcy steine and Metamizole may falsely depress this assay. Reference Range HDL <40 mg/dL Low HDL Cholesterol HDL >or= 60 mg/dL High HDL Cholesterol Serum or plasma cholesterol in VLDL measurement (mass/volume)Ordered By: Richard Schneider on 06-24-2023 Cholesterol in VLDL [Mass/Vol] 24 mg/dL 5-40 [facility] Serum or plasma creatinine m easurement (mass/volume)Ordered By: Richard Schneider on 06-24-2023 Creatinine [Mass/Vol] 1.13 mg/dL 0.70-1.30 [facility] Comment on above: The validity of the calculated GFR & GFRAA in patients over 70 years has not been determined. Clinical correlation is essential. Serum or plasma low density lipoprotein (LDL) cholesterol measurement (mass/volume)Ordered By: Richard Schneider on 06-24-2023 Cholesterol in LDL [Mass/Vol] 67 mg/dL 0-130 [facility] Serum or plasma urea nitroge n measurement (mass/volume)Ordered By: Richard Schneider on 06-24-2023 Urea nitrogen [Mass/Vol] 22 mg/dL 7-18 [facility] Thin prep Papanicolaou smear with manual screeningOrdered By: Richard Schneider on 06-24-2023 Thin prep Papanicolaou smear with manual screening 21 U/L 15-37 [facility] Thin prep Papanicolaou smear with manual screening 6 5-15 [facility] Whole blood hemoglobin A1c/t otal hemoglobin ratio (mass fraction)Ordered By: Richard Schneider on 06-24-2023 HbA1c (Bld) [Mass fraction] 5.7 % 3.8-5.6 [facility] Comment on above: Normal < 5.7 % Predi abetic 5.7 - 6.4 % Diabetic >or= 6.5 % Please note range changes. Basophil percentageOrdered B y: Richard Schneider on 12-24-2022 Bilirubin [Mass/Vol] 0.70 mg/dL 0.20-1.[address] [facility] Comment on above: For patients on eltr ombopag therapy, use of Dimension [place] TBIL is not recommended. Chloride [Moles/Vol] 102 mmol/L 98-107 [facility] Glucose [Mass/Vol] 98 mg/dL 74-106 [facility] Potassium [Moles/Vol] 4.2 mmol/L 3.5-5.1 [facility] Protein [Mass/Vol] 7.3 g/dL 6.4-8.2 [facility] Sodium [Moles/Vol] 137 mmol/L 136-145 [facility] WBC (Bld) [#/Vol] 6.0 10*3/uL 4.4-11.0 [facility] Blood erythrocytes count (nu mber/volume)Ordered By: Richard Schneider on 12-24-2022 RBC (Bld) [#/Vol] 4.54 10*6/uL 4.6-6.2 [facility] Blood hemoglobin measurement (mass/volume)Ordered By: Richard Schneider on 12-24-2022 Hemoglobin (Bld) [Mass/Vol] 14.1 g/dL 13.0-16.5 [facility] Blood platelet mean volumeOr dered By: Richard Schneider on 12-24-2022 Platelet mean volume (Bld) [Entitic vol] 12.1 fL 6.2-12.0 [facility] Determination of erythrocyte mean corpuscular volume (MCV)Ordered By: Richard Schneider on 12-24-2022 MCV (RBC) [Entitic vol] 96.5 fL 80-94 [facility] Hematocrit Auto (Bld) [Volum e fraction]Ordered By: Richard Schneider on 12-24-2022 Hematocrit (Bld) [Volume fraction] 43.8 % 40-54 [facility] Laboratory - Chemistry and C hemistry - challengeOrdered By: Richard Schneider on 12-24-2022 ALP [Catalytic activity/Vol] 77 U/L 45-117 [facility] ALT [Catalytic activity/Vol] 28 U/L 16-61 [facility] CO2 [Moles/Vol] 31.0 mmol/L 21.0-32.0 [facility] Globulin (S) [Mass/Vol] 3.5 g/dL 2.2-4.2 [facility] Urea nitrogen/Creatinine [Mass ratio] 16.7 mg/mg 10-20 [facility] Laboratory - Hematology and Cell countsOrdered By: Richard Schneider on 12-24-2022 Erythrocyte distribution width (RBC) [Entitic vol] 46.5 fL 35.1-43.9 [facility] Erythrocyte distribution width (RBC) [Ratio] 13.0 % 11.6-14.6 [facility] MCH (RBC) [Entitic mass] 31.1 pg 27.0-32.0 [facility] MCHC Auto (RBC) [Mass/Vol]Or dered By: Richard Schneider on 12-24-2022 MCHC (RBC) [Mass/Vol] 32.2 g/dL 32-36 [facility] No Panel InformationOrdered By: Richard Schneider on 12-24-2022 Estimated GFR (MDRD) Amer 85 mL/min >60 [facility] Comment on above: GFR Calc Estimated GFR (MDRD) Non-Af Amer 71 mL/min >60 [facility] Comment on above: Non- GFR Calc Platelets bldOrdered By: Jason Schneider on 12-24-2022 Platelets (Bld) [#/Vol] 206 10*3/uL 150-450 [facility] Serum or plasma albumin nelia urement (mass/volume)Ordered By: Richard Schneider on 12-24-2022 Albumin [Mass/Vol] 3.8 g/dL 3.2-5.0 [facility] Serum or plasma albumin/glob ulin mass ratioOrdered By: Richard Schneider on 12-24-2022 Albumin/Globulin [Mass ratio] 1.1 {ratio} 0.9-2.4 [facility] Serum or plasma calcium nelia urement (mass/volume)Ordered By: Richard Schneider on 12-24-2022 Calcium [Mass/Vol] 8.9 mg/dL 8.5-10.1 [facility] Serum or plasma creatinine m easurement (mass/volume)Ordered By: Richard Schneider on 12-24-2022 Creatinine [Mass/Vol] 1.08 mg/dL 0.70-1.30 [facility] Comment on above: The validity of the calculated GFR & GFRAA in patients over 70 years has not been determined. Clinical correlation is essential. Serum or plasma urea nitroge n measurement (mass/volume)Ordered By: Richard Schneider on 12-24-2022 Urea nitrogen [Mass/Vol] 18 mg/dL 7-18 [facility] Thin prep Papanicolaou smear with manual screeningOrdered By: Richard Schneider on 12-24-2022 Thin prep Papanicolaou smear with manual screening 29 U/L 15-37 [facility] Thin prep Papanicolaou smear with manual screening 4 5-15 [facility] Whole blood hemoglobin A1c/t otal hemoglobin ratio (mass fraction)Ordered By: Richard Schneider on 12-24-2022 HbA1c (Bld) [Mass fraction] 5.6 % 3.8-5.6 [facility] Comment on above: Normal < 5.7 % Predi abetic 5.7 - 6.4 % Diabetic >or= 6.5 % Please note range changes. Basophil percentageOrdered B y: Richard Schneider on 10-22-2022 Bilirubin [Mass/Vol] 0.50 mg/dL 0.20-1.00 [facility] Comment on above: For patients on eltr ombopag therapy, use of Dimension [place] TBIL is not recommended. Chloride [Moles/Vol] 103 mmol/L 98-107 [facility] Glucose [Mass/Vol] 106 mg/dL 74-106 [facility] Comment on above: Fasting Glucose resu lt from 100 to 125 mg/dL suggests IMPAIRED HOMEOSTASIS per A.D.A. criteria. Potassium [Moles/Vol] 4.1 mmol/L 3.5-5.1 [facility] Protein [Mass/Vol] 6.8 g/dL 6.4-8.2 [facility] Sodium [Moles/Vol] 140 mmol/L 136-145 [facility] Laboratory - Chemistry and C hemistry - challengeOrdered By: Richard Schneider on 10-22-2022 ALP [Catalytic activity/Vol] 74 U/L 45-117 [facility] ALT [Catalytic activity/Vol] 18 U/L 16-61 [facility] CO2 [Moles/Vol] 31.0 mmol/L 21.0-32.0 [facility] Globulin (S) [Mass/Vol] 3.4 g/dL 2.2-4.2 [facility] Urea nitrogen/Creatinine [Mass ratio] 17.4 mg/mg 10-20 [facility] No Panel InformationOrdered By: Richard Schneider on 10-22-2022 Estimated GFR (MDRD) Amer 75 mL/min >60 [facility] Comment on above: GFR Calc Estimated GFR (MDRD) Non-Af Amer 62 mL/min >60 [facility] Comment on above: Non- GFR Calc Serum or plasma albumin nelia urement (mass/volume)Ordered By: Richard Schneider on 10-22-2022 Albumin [Mass/Vol] 3.4 g/dL 3.2-5.0 [facility] Serum or plasma albumin/glob ulin mass ratioOrdered By: Richard Schneider on 10-22-2022 Albumin/Globulin [Mass ratio] 1.0 {ratio} 0.9-2.4 [facility] Serum or plasma calcium nelia urement (mass/volume)Ordered By: Richard Schneider on 10-22-2022 Calcium [Mass/Vol] 8.7 mg/dL 8.5-10.1 [facility] Serum or plasma creatinine m easurement (mass/volume)Ordered By: Richard Schneider on 10-22-2022 Creatinine [Mass/Vol] 1.21 mg/dL 0.70-1.30 [facility] Comment on above: The validity of the calculated GFR & GFRAA in patients over 70 years has not been determined. Clinical correlation is essential. Serum or plasma urea nitroge n measurement (mass/volume)Ordered By: Richard Schneider on 10-22-2022 Urea nitrogen [Mass/Vol] 21 mg/dL 7-18 [facility] Thin prep Papanicolaou smear with manual screeningOrdered By: Richard Schneider on 10-22-2022 Thin prep Papanicolaou smear with manual screening 25 U/L 15-37 [facility] Thin prep Papanicolaou smear with manual screening 6 5-15 [facility] No Panel InformationOrdered By: Dr. Schneider on 09-27-2022 Influenza Types A,B Direct FA (YOLA) [facility] Basophil percentageon 2021 Bilirubin [Mass/Vol] 0.50 mg/dL 0.20-1.00 [facility] Work Phone: [phone] Comment on above: For patients on eltr ombopag therapy, use of Dimension [place] TBIL is not recommended. Chloride [Moles/Vol] 104 mmol/L 98-107 [facility] Work Phone: [phone] Glucose [Mass/Vol] 118 mg/dL 74-106 [facility] Work Phone: [phone] Comment on above: Fasting Glucose resu lt from 100 to 125 mg/dL suggests IMPAIRED HOMEOSTASIS per A.D.A. criteria. Potassium [Moles/Vol] 4.2 mmol/L 3.5-5.1 [facility] Work Phone: [phone] Protein [Mass/Vol] 6.6 g/dL 6.4-8.2 [facility] Work Phone: [phone] Sodium [Moles/Vol] 140 mmol/L 136-145 [facility] Work Phone: [phone] WBC (Bld) [#/Vol] 7.1 10*3/uL 4.4-11.0 [facility] Work Phone: [phone] Blood erythrocytes count (nu mber/volume)on 07-18-2022 RBC (Bld) [#/Vol] 4.39 10*6/uL 4.6-6.2 [facility] Work Phone: [phone] Blood hemoglobin measurement (mass/volume)on 07-18-2022 Hemoglobin (Bld) [Mass/Vol] 13.9 g/dL 13.0-16.5 [facility] Work Phone: [phone] Blood platelet mean volumeon 07-18-2022 Platelet mean volume (Bld) [Entitic vol] 12.2 fL 6.2-12.0 [facility] Work Phone: [phone] Determination of erythrocyte mean corpuscular volume (MCV)on 07-18-2022 MCV (RBC) [Entitic vol] 99.3 fL 80-94 [facility] Work Phone: [phone] Hematocrit Auto (Bld) [Volum e fraction]on 07-18-2022 Hematocrit (Bld) [Volume fraction] 43.6 % 40-54 [facility] Work Phone: [phone] Laboratory - Chemistry and C hemistry - challengeon 07-18-2022 ALP [Catalytic activity/Vol] 69 U/L 45-117 [facility] Work Phone: [phone] ALT [Catalytic activity/Vol] 17 U/L 16-61 [facility] Work Phone: [phone] CO2 [Moles/Vol] 29.0 mmol/L 21.0-32.0 [facility] Work Phone: [phone] Globulin (S) [Mass/Vol] 3.2 g/dL 2.2-4.2 [facility] Work Phone: [phone] Urea nitrogen/Creatinine [Mass ratio] 18.4 mg/mg 10-20 [facility] Work Phone: [phone] Laboratory - Hematology and Cell countson 07-18-2022 Erythrocyte distribution width (RBC) [Entitic vol] 45.3 fL 35.1-43.9 [facility] Work Phone: [phone] Erythrocyte distribution width (RBC) [Ratio] 12.3 % 11.6-14.6 [facility] Work Phone: [phone] MCH (RBC) [Entitic mass] 31.7 pg 27.0-32.0 [facility] Work Phone: [phone] MCHC Auto (RBC) [Mass/Vol]on 07-18-2022 MCHC (RBC) [Mass/Vol] 31.9 g/dL 32-36 [facility] Work Phone: [phone] No Panel Informationon 07-18 Estimated GFR (MDRD) Amer 72 mL/min >60 [facility] Work Phone: [phone] Comment on above: GFR Calc Estimated GFR (MDRD) Non-Af Amer 60 mL/min >60 [facility] Work Phone: [phone] Comment on above: Non- GFR Calc Platelets bldon 10-01-2022 Platelets (Bld) [#/Vol] 172 10*3/uL 150-450 [facility] Work Phone: [phone] Serum or plasma albumin nelia urement (mass/volume)on 07-18-2022 Albumin [Mass/Vol] 3.4 g/dL 3.2-5.0 [facility] Work Phone: [phone] Serum or plasma albumin/glob ulin mass ratioon 07-18-2022 Albumin/Globulin [Mass ratio] 1.1 {ratio} 0.9-2.4 [facility] Work Phone: [phone] Serum or plasma calcium nelia urement (mass/volume)on 07-18-2022 Calcium [Mass/Vol] 8.7 mg/dL 8.5-10.1 [facility] Work Phone: [phone] Serum or plasma creatinine m easurement (mass/volume)on 07-18-2022 Creatinine [Mass/Vol] 1.25 mg/dL 0.70-1.30 [facility] Work Phone: Comment on above: The validity of the calculated GFR & GFRAA in patients over 70 years has not been determined. Clinical correlation is essential. Serum or plasma urea nitroge n measurement (mass/volume)on 07-18-2022 Urea nitrogen [Mass/Vol] 23 mg/dL 7-18 [facility] Work Phone: [phone] Thin prep Papanicolaou smear with manual screeningon 07-18-2022 Thin prep Papanicolaou smear with manual screening 22 U/L 15-37 [facility] Work Phone: [phone] Thin prep Papanicolaou smear with manual screening 7 5-15 [facility] Work Phone: [phone] MRI BRAIN WO/W IVCONon 02-04 [facility] Gram stain for investigation of transfusion reaction Microscopic observation Gram stain Nom (Unsp spec) [facility] Work Phone: No Panel Information Influenza Types A,B Direct FA (YOLA) [facility] Work Phone: [phone] Routine wound culture Bacteria identified Cx Nom (Wound) No growth aerobically. [facility] Work Phone: Vital Signs Date Time Vital Sign Value Performing Clinician Facility 06-24-2025 08:01-0400 Body temperature 99.1 [degF] Dr. Richard Schneider DO Work Phone: [facility] 06-24-2025 08:01-0400 Diastolic blood pressure 77 mm[Hg] Dr. Richard Schneider DO Work Phone: [facility] 06-24-2025 08:01-0400 Heart rate 63 /min Dr. Richard Schneider DO Work Phone: [facility] 06-24-2025 08:01-0400 Respiratory rate 15 /min Dr. Richard Schneider DO Work Phone: [facility] 06-24-2025 08:01-0400 SaO2% (BldA) [Mass fraction] 97 % Dr. Richard Schneider DO Work Phone: [facility] 06-24-2025 08:01-0400 Systolic blood pressure 143 mm[Hg] Dr. Richard Schneider DO Work Phone: [facility] 06-24-2025 06:00-0400 Body height 172.[address] Richard Schneider DO Work Phone: [facility] 06-24-2025 06:00-0400 Body mass index (BMI) [Ratio] 29.1 kg/m2 Dr. Richard Schneider DO Work Phone: [facility] 06-24-2025 06:00-0400 Body weight [address] Richard Schneider DO Work Phone: [facility] 01-24-2025 09:53-0400 Body mass index (BMI) [Ratio] 27.98 kg/m2 Richard Schneider DO Work Phone: [facility] 01-24-2025 09:53-0400 Body temperature 97 [degF] Richard Schneider DO Work Phone: [facility] 01-24-2025 09:53-0400 Body weight 83.46 kg Richard Schneider DO Work Phone: [facility] 01-24-2025 09:53-0400 Diastolic blood pressure 60 mm[Hg] Richard Schneider DO Work Phone: [facility] 01-24-2025 09:53-0400 Heart rate 64 /min Richard Schneider DO Work Phone: [facility] 01-24-2025 09:53-0400 Respiratory rate 20 /min Richard Schneider DO Work Phone: [facility] 01-24-2025 09:53-0400 Systolic blood pressure 100 mm[Hg] Richard Schneider DO Work Phone: [facility] 08-30-2024 09:26-0500 Body mass index (BMI) [Ratio] 28.86 kg/m2 Gila Issa MD Work Phone: [facility] 08-30-2024 09:26-0500 Body weight 86.1 kg Gila Issa MD Work Phone: [facility] 08-30-2024 09:26-0500 SaO2% (BldA) [Mass fraction] 97 % Gila Issa MD Work Phone: [facility] 07-26-2024 09:46-0400 Body mass index (BMI) [Ratio] 29.04 kg/m2 Richard Schneider DO Work Phone: [facility] 07-26-2024 09:46-0400 Body temperature 97 [degF] Richard Schneider DO Work Phone: [facility] 07-26-2024 09:46-0400 Body weight 86.64 kg Richard Schneider DO Work Phone: [facility] 07-26-2024 09:46-0400 Diastolic blood pressure 60 mm[Hg] Richard Schneider DO Work Phone: [facility] 07-26-2024 09:46-0400 Heart rate 60 /min Richard Schneider DO Work Phone: [facility] 07-26-2024 09:46-0400 Respiratory rate 20 /min Richard Schneider DO Work Phone: [facility] 07-26-2024 09:46-0400 Systolic blood pressure 110 mm[Hg] Richard Schneider DO Work Phone: [facility] 05-10-2024 10:49-0400 Body mass index (BMI) [Ratio] 29.04 kg/m2 Richard Schneider DO Work Phone: [facility] 05-10-2024 10:49-0400 Body temperature 96.6 [degF] Richard Schneider DO Work Phone: [facility] 05-10-2024 10:49-0400 Body weight 86.64 kg Richard Schneider DO Work Phone: [facility] 05-10-2024 10:49-0400 Diastolic blood pressure 60 mm[Hg] Richard Schneider DO Work Phone: [facility] 05-10-2024 10:49-0400 Heart rate 60 /min Richard Schneider DO Work Phone: [facility] 05-10-2024 10:49-0400 Systolic blood pressure 110 mm[Hg] Richard Schneider DO Work Phone: [facility] 02-23-2024 09:30-0400 Body height 172.7 cm Gila Issa MD Work Phone: [facility] 02-23-2024 09:30-0400 Body mass index (BMI) [Ratio] 29.3 kg/m2 Gila Issa MD Work Phone: [facility] 02-23-2024 09:30-0400 Body weight 87.4 kg Gila Issa MD Work Phone: [facility] 02-23-2024 09:30-0400 Diastolic blood pressure 58 mm[Hg] Gila Issa MD Work Phone: [facility] 02-23-2024 09:30-0400 Heart rate 51 /min Gila Issa MD Work Phone: [facility] 02-23-2024 09:30-0400 SaO2% (BldA) [Mass fraction] 95 % Gila Issa MD Work Phone: [facility] 02-23-2024 09:30-0400 Systolic blood pressure 123 mm[Hg] Gila Issa MD Work Phone: [facility] 08-18-2023 09:27-0400 Body height 172.7 cm Gila Issa MD Work Phone: [facility] 08-18-2023 09:27-0400 Body weight 91.17 kg Gila Issa MD Work Phone: [facility] 08-18-2023 09:27-0400 SaO2% (BldA) [Mass fraction] 96 % Gila Issa MD Work Phone: [facility] 04-07-2023 09:53-0400 Body temperature 97 [degF] Richard Schneider DO Work Phone: [facility] 04-07-2023 09:53-0400 Body weight 91.63 kg Richard Schneider DO Work Phone: [facility] 04-07-2023 09:53-0400 Diastolic blood pressure 60 mm[Hg] Richard Schneider DO Work Phone: [facility] 04-07-2023 09:53-0400 Heart rate 64 /min Richard Schneider DO Work Phone: [facility] 04-07-2023 09:53-0400 Respiratory rate 20 /min Richard Schneider DO Work Phone: [facility] 04-07-2023 09:53-0400 Systolic blood pressure 90 mm[Hg] Richard Schneider DO Work Phone: [facility] 01-06-2023 10:31-0400 Body temperature 96.4 [degF] Richard Schneider DO Work Phone: [facility] 01-06-2023 10:31-0400 Body weight 92.99 kg Richard Schneider DO Work Phone: [facility] 01-06-2023 10:31-0400 Diastolic blood pressure 82 mm[Hg] Richard Schneider DO Work Phone: [facility] 01-06-2023 10:31-0400 Heart rate 60 /min Richard Schneider DO Work Phone: [facility] 01-06-2023 10:31-0400 Respiratory rate 20 /min Richard Schneider DO Work Phone: [facility] 01-06-2023 10:31-0400 Systolic blood pressure 124 mm[Hg] Richard Schneider DO Work Phone: [facility] 12-16-2022 10:47-0500 Body height 172.7 cm Gila Issa MD Work Phone: [facility] 12-16-2022 10:47-0500 Body weight 93.67 kg Gila Issa MD Work Phone: [facility] 12-16-2022 10:47-0500 SaO2% (BldA) [Mass fraction] 95 % Gila Issa MD Work Phone: [facility] 09-23-2022 09:46-0500 Body height 172.72 cm [facility] 09-23-2022 09:46-0500 Body mass index (BMI) [Ratio] 29.9 kg/m2 [facility] 09-23-2022 09:46-0500 Body temperature 95.9 [degF] [facility] 09-23-2022 09:46-0500 Body weight 89.35 kg [facility] 09-23-2022 09:46-0500 Diastolic blood pressure 45 mm[Hg] [facility] 09-23-2022 09:46-0500 Heart rate 53 /min [facility] 09-23-2022 09:46-0500 Respiratory rate 16 /min [facility] 09-23-2022 09:46-0500 Systolic blood pressure 107 mm[Hg] [facility] 07-08-2022 10:19-0400 Body temperature 97 [degF] Richard Scnheider DO Work Phone: [facility] 07-08-2022 10:19-0400 Body weight 91.63 kg Richard Schneider DO Work Phone: [facility] 07-08-2022 10:19-0400 Diastolic blood pressure 60 mm[Hg] Richard Schneider DO Work Phone: [facility] 07-08-2022 10:19-0400 Heart rate 64 /min Richard Schneider DO Work Phone: [facility] 07-08-2022 10:19-0400 Respiratory rate 20 /min Richard Schneider DO Work Phone: [facility] 07-08-2022 10:19-0400 Systolic blood pressure 110 mm[Hg] Richard Schneider DO Work Phone: [facility] 04-08-2022 10:03-0400 Body temperature 97 [degF] Richard Schneider DO Work Phone: [facility] 04-08-2022 10:03-0400 Body weight 86.64 kg Richard Schneider DO Work Phone: [facility] 04-08-2022 10:03-0400 Diastolic blood pressure 60 mm[Hg] Richard Schneider DO Work Phone: [facility] 04-08-2022 10:03-0400 Heart rate 64 /min Richard Schneider DO Work Phone: [facility] 04-08-2022 10:03-0400 Respiratory rate 16 /min Richard Schneider DO Work Phone: [facility] 04-08-2022 10:03-0400 Systolic blood pressure 90 mm[Hg] Richard Schneider DO Work Phone: [facility] 01-07-2022 08:44-0400 Body temperature 96.01 [degF] Richard Schneider DO Work Phone: [facility] 01-07-2022 08:44-0400 Body weight 79.38 kg Richard Wyatt DO Work Phone: [facility] 01-07-2022 08:44-0400 Diastolic blood pressure 50 mm[Hg] Richard Gaitanrison DO Work Phone: [facility] 01-07-2022 08:44-0400 Heart rate 60 /min Richard Gaitanrison DO Work Phone: [facility] 01-07-2022 08:44-0400 Respiratory rate 16 /min Richard Gaitanrison DO Work Phone: [facility] 01-07-2022 08:44-0400 Systolic blood pressure 107 mm[Hg] Richard Huntleyon DO Work Phone: [facility] Encounters Encounter Date Encounter Type Care Provider Facility Start: 06-25-2025 End: 06-25-2025 ambulatory Richard Huntleyedna KHANNA Work Phone: [facility] Comment on above: bloodwork for upcomi ng appt Start: 06-25-2025 End: 06-26-2025 Telephone encounter Richard Huntleyon DO Work Phone: [facility] Comment on above: Lab Orders Start: 06-24-2025 End: 06-24-2025 Emergency department patient visit Dr. Richard Schneider DO Work Phone: -Emergency Department Work Phone: Start: 06-21-2025 End: 06-21-2025 Telephone encounter Gila [...] Telephone encounter Richard Schneider DO Work Phone: [facility] Comment on above: Forms Start: 02-21-2025 End: 02-26-2025 Refill Gila Issa MD Work Phone: Neurology Comment on above: Orders Start: 02-07-2025 ambulatory Richard Schneider Facilit y:[facility] Start: 01-24-2025 End: 01-24-2025 ambulatory RICHARD SCHNEIDER Facility:[facility] Start: 01-24-2025 End: 01-24-2025 Patient encounter procedure Richard Schneider DO Work Phone: [facility] Comment on above: IFG (impaired fastin g [...] ambulatory Dr. Richard Schneider DO Work Phone: [facility] Work Phone: Start: 01-11-2025 End: 01-11-2025 Departed Referred Richard Schneider -Stefani [facility] Work Phone: Start: 01-11-2025 End: 01-11-2025 ambulatory Richard BOUDREAUX Facility:[facility] Start: 12-21-2024 End: 12-22-2024 Telephone encounter Richard Schneider DO Work Phone: [facility] Comment on above: Orders Start: 12-18-2024 End: 12-20-2024 Telephone encounter Richard Schneider DO Work Phone: [facility] Comment on above: Patient Update Start: 12-15-2024 End: 12-18-2024 ambulatory Richard Schneider DO Work Phone: [facility] Comment on above: Dad declining and de pression Start: 12-08-2024 End: 12-12-2024 ambulatory Gila Issa MD Work Phone: Neurology Comment on above: Dads parkinsons issu es Start: 12-01-2024 End: 12-04-2024 ambulatory Gila Issa MD Work Phone: Neurology Comment on above: MIKE Walker Start: 10-16-2024 End: 10-16-2024 Telephone encounter Richard Schneider DO Work Phone: [facility] Comment on above: Patient Question Start: 10-06-2024 End: 10-06-2024 Telephone encounter Richard Schneider DO Work Phone: [facility] Comment on above: Information needed f or DME company for nebulizer Start: 10-04-2024 End: 10-04-2024 Telephone encounter Richard Schneider DO Work Phone: [facility] [place] Comment on above: Orders Start: 09-22-2024 End: 09-29-2024 Telephone encounter Richard Schneider DO Work Phone: [facility] Comment on above: Patient Question; Me dication Request Start: 09-08-2024 End: 09-08-2024 Telephone encounter Rob Copeland APRN.CNP Work Phone: [facility] Comment on above: Orders Patient Question; Me dication Question Start: 08-30-2024 End: 08-30-2024 ambulatory GILA ISSA Facility:[facility] Start: 08-30-2024 End: 08-30-2024 Office outpatient visit 40 minutes Gila Issa MD Work Phone: Neurology Comment on above: Parkinson's disease with dyskinesia and fluctuating manifestations (HCC) Start: 07-26-2024 End: 07-26-2024 ambulatory RICHARD SCHNEIDER Facility:[facility] Start: 07-26-2024 End: 07-26-2024 Patient encounter procedure Richard Schneider DO Work Phone: [facility] Comment on above: Parkinson's disease with dyskinesia and fluctuating manifestations (HCC) (Primary Dx); Need for influenza vaccination; Hypertension, essential; Balance disorder; Stage 3a chronic kidney disease (HCC); IFG (impaired fasting glucose); Pure hypercholesterolemia; Short-term memory loss Start: 07-25-2024 End: 07-25-2024 ambulatory Richard Schneider Facility:[facility] Start: 05-10-2024 End: 05-10-2024 Patient encounter procedure Richard Schneider DO Work Phone: [facility] Comment on above: Hypertension, essent ial (Primary Dx); SOB (shortness of breath); Parkinson's disease with dyskinesia and fluctuating manifestations (HCC); IFG (impaired fasting glucose); Stage 3a chronic kidney disease (HCC); Balance disorder; Subacute cough Start: 04-25-2024 Telephone encounter Richard montoya DO Work Phone: [facility] Comment on above: Orders (Due for labs ?/) Start: 03-07-2024 Telephone encounter Richard montoya DO Work Phone: [facility] Comment on above: Stefani packer for orders Start: 02-23-2024 End: 02-23-2024 Patient encounter procedure Gila Issa MD Work Phone: Neurology Comment on above: Parkinson's disease with dyskinesia and fluctuating manifestations (HCC) (Primary Dx) Start: 01-19-2024 End: 01-19-2024 Patient encounter procedure Tonya Gray PA-C Work Phone: Orthopaedics Comment on above: Left carpal tunnel s yndrome (Primary Dx) Start: 12-29-2023 End: 12-29-[address] Richard Schneider Work Phone: [facility] Work Phone: Start: 12-29-2023 End: 12-29-[address] Richard Schneider Work Phone: [facility] Work Phone: Start: 12-22-2023 Telephone encounter Richard montoya DO Work Phone: [facility] Comment on above: Lab Orders Start: 12-06-2023 End: 12-06-2023 Patient encounter procedure Tonya Gray PA-C Work Phone: Orthopaedics Comment on above: Left carpal tunnel s yndrome (Primary Dx) Start: 11-24-2023 End: 11-24-2023 ambulatory ALBERTO SPENCER Facility:[facility] Start: 11-09-2023 End: 11-09-2023 Patient encounter procedure Alberto Spencer MD Work Phone: Orthopaedics Comment on above: Carpal tunnel syndro me, left Start: 11-03-2023 Non-patient / Non-visit Dr. Iram Schneider Work Phone: [facility] Start: 11-03-2023 End: 11-03-[address] Richard Schneider Work Phone: [facility]Neurology Work Phone: Start: 10-12-2023 End: 10-12-2023 ambulatory [facility] Work Phone: Start: 10-12-2023 End: 10-12-2023 Departed Referred [facility] Work Phone: Start: 09-06-2023 Telephone encounter Richard montoya DO Work Phone: [facility] Comment on above: Patient Update Start: 08-18-2023 End: 08-18-2023 Office outpatient visit 25 minutes Gila Issa MD Work Phone: Neurology Comment on above: Parkinson's disease with dyskinesia and fluctuating manifestations (Primary Dx) Start: 08-02-2023 Telephone encounter Richard montoya DO Work Phone: [facility] [place] Comment on above: Patient Question Start: 06-24-2023 End: 06-24-2023 ambulatory [facility] Work Phone: Start: 06-24-2023 End: 06-24-2023 Departed Referred [facility] Work Phone: Start: 06-23-2023 Telephone encounter Richard montoya DO Work Phone: [facility] [place] Comment on above: Lab Orders Start: 04-07-2023 End: 04-07-2023 Patient encounter procedure Richard Schneider DO Work Phone: [facility] [place] Comment on above: Leg wound, right, in itial encounter (Primary Dx); Chronic ulcer of right leg, limited to breakdown of skin (HCC); Chronic kidney disease, stage 3a (HCC); Parkinson's disease (HCC); Hypertension, essential; Pure hypercholesterolemia; Bilateral leg edema; IFG (impaired fasting glucose) Start: 01-06-2023 End: 01-06-2023 Patient encounter procedure Richard Schneider DO Work Phone: [facility] [place] Comment on above: Parkinson's disease (HCC) (Primary Dx); Chronic ulcer of right leg, limited to breakdown of skin (HCC); Chronic kidney disease, stage 3a (HCC); Hypertension, essential; Pure hypercholesterolemia; Bilateral leg edema; IFG (impaired fasting glucose); Vitamin D deficiency Start: 12-24-2022 End: 12-24-2022 [facility] Work Phone: Start: 12-24-2022 End: 12-24-2022 Departed Referred [facility] Start: 12-23-2022 Telephone encounter Marta brower PSYCHOTHERAPIST SOCIAL WORKER.[employer] ANTHROPOLOGIST Work Phone: [facility] Comment on above: Results Refill Request Start: 12-16-2022 End: 12-16-2022 Patient encounter procedure Gila Issa MD Work Phone: Neurology Comment on above: Parkinson's disease (HCC) (Primary Dx) Start: 11-10-2022 Refill Richard brower DO Work Phone: [facility] Comment on above: Refill Request Start: 10-22-2022 End: 10-22-2022 ambulatory [facility] Work Phone: Start: 10-22-2022 End: 10-22-2022 Departed Referred [facility] Start: 10-08-[address] norberto GARCES Work Phone: [facility] Comment on above: Results Start: 09-27-2022 End: 09-27-2022 Departed Referred [facility] Start: 09-27-2022 Registered Referred [facility] Start: 09-23-2022 Non-patient / Non-visit [facility] Start: 09-23-2022 End: 10-17-2022 ambulatory [facility] Work Phone: Start: 09-23-2022 End: 10-17-2022 Discharged Recurring [facility] Start: 07-29-2022 Telephone encounter Richard montoya DO Work Phone: [facility] Comment on above: Patient Update Start: 07-18-2022 End: 07-18-2022 ambulatory [facility] Work Phone: Start: 07-18-2022 End: 07-18-2022 Departed Referred [facility] Start: 07-08-2022 End: 07-08-2022 Patient encounter procedure Richard Schneider DO Work Phone: [facility] Comment on above: Chronic ulcer of rig ht leg, limited to breakdown of skin (HCC) (Primary Dx); Need for influenza vaccination; Onychomycosis; Bunion; Bilateral leg edema; IFG (impaired fasting glucose); Stage 3a chronic kidney disease (HCC); Balance disorder; Parkinson disease (HCC); Hypertension, essential Start: 04-17-2022 Telephone encounter Richard montoya DO Work Phone: [facility] Comment on above: request for medicati on being faxed Start: 04-16-2022 Telephone encounter Gila dejesus MD Work Phone: Neurology Comment on above: Other (Ella Peguero ysician Provider Order) Start: 04-08-2022 End: 04-08-2022 Patient encounter procedure Richard Dariana Schneider DO Work Phone: [facility] Comment on above: Parkinson's disease (HCC) (Primary Dx); Elevated PSA; Balance disorder; Microscopic hematuria; Pure hypercholesterolemia; IFG (impaired fasting glucose); Stage 3a chronic kidney disease (HCC); Vitamin D deficiency; Vitamin B12 deficiency; Gait disorder; Muscle weakness; Depressive disorder; Chronic right shoulder pain; Bilateral impacted cerumen Start: 03-25-2022 Telephone encounter Richard montoya DO Work Phone: [facility] Comment on above: Orders Start: 02-27-2022 Telephone encounter Gila dejesus MD Work Phone: [facility] Comment on above: Refill Request; Refi ll Request Start: 02-26-2022 Telephone encounter Gila dejesus MD Work Phone: Neurology Comment on above: Other (Falls on Brijesh tadine ) Patient Update Start: 02-20-2022 Telephone encounter Richard montoya DO Work Phone: [facility] Comment on above: PT plan of care Start: 02-16-2022 Telephone encounter Richard montoya DO Work Phone: [facility] Comment on above: Follow for PT Start: 02-13-2022 Telephone encounter Richard montoya DO Work Phone: [facility] Comment on above: Faxed to [facility] Start: 02-04-2022 Telephone encounter Richard montoya DO Work Phone: [facility] [place] Comment on above: Results Start: 02-04-2022 End: 02-04-2022 Subsequent hospital visit by physician [facility] (I-Stat/1.5t) Work Phone: Radiology Comment on above: Cognitive impairment , mild, so stated [G31.84] Start: 01-07-2022 End: 01-07-2022 Patient encounter procedure Richard Schneider DO Work Phone: [facility] Comment on above: Parkinson's disease (HCC) (Primary Dx); Balance disorder; Muscle weakness; Gait disorder; Microscopic hematuria; Elevated PSA; Pure hypercholesterolemia; Hypertension, essential; Depressive disorder; IFG (impaired fasting glucose); 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 Richard Schneider DO Work Phone: Start: 06-24-2025 Plain x-ray of wrist Dr Latonya Schneider DO Work Phone: Start: 06-24-2025 X-ray of chest posteroanterior view Dr. Richard Schneider DO Work Phone: Start: 09-23-2022 Plain X-ray of tibia and fibula Start: 07-08-2022 INFLUENZA SEASONAL QUADRIVALENT HIGH DOSE AGE 65+ Richard Schneider DO Work Phone: Start: 02-04-2022 Mri brain brain stem w/o w/contrast material Richard Schneider DO Work Phone: Start: 07-24-2021 History of coronary artery bypass grafting S/P CABG x 5 Richard Schneider DO Work Phone: Start: 07-18-2018 Colonoscopy Richard hart DO Work Phone: Influenza Types A,B Direct FA ([facility]) Influenza Types A,B Direct FA ([facility]) Investigation of tra nsfusion reaction Microbial culture, routine Plan of Treatment Date Care Activity Detail Author Start: 07-18-2028 Colonoscopy COLONOSCOPY [facility] Start: 07-18-2028 COLORECTAL CANCER SCREENING COLORECTAL CANCER SCREENING [facility] Start: 03-27-2027 LIPID SCREEN LIPID SCREEN [facility] Start: 11-04-2026 LIPID SCREEN LIPID SCREEN [facility] Start: 01-24-2026 Annual PCP Team Chronic Disease Visit Annual PCP Team Chronic Disease Visit [facility] Start: 01-24-2026 BP Controlled (<130/80) BP Controlled (<130/80) [facility] Start: 10-07-2025 DIABETES SCREEN DIABETES SCREEN [facility] Start: 10-07-2025 Diabetes Screening Diabetes Screening [facility] Start: 07-26-2025 Annual PCP Team Chronic Disease Visit Annual PCP Team Chronic Disease Visit [facility] Start: 07-26-2025 BP Controlled (<130/80) BP Controlled (<130/80) [facility] in Start: 07-26-2025 Covid-19 Vaccine ( season) Covid-19 Vaccine () [facility] Comment on above: Postponed from 06/18/2024 (Declined at t his time) Start: 07-18-2025 End: 07-18-2025 Patient encounter procedure 07/18/2025 10:00 AM EDT Office Visit [facility] [address] [place] [address] Richard Schneider DO [address] [place] [address] 6 month follow up [facility] Comment on above: 6 month follow up Start: 07-04-2025 End: 07-04-2025 Patient encounter procedure 07/04/2025 9:30 AM EDT Office Visit Neurology [address] [address] Gila Issa MD [address] [place] [id number] Follow up Neurology Comment on above: Follow up Start: 06-26-2025 End: 09-25-2025 25-hydroxyvitamin D3 [Mass/volume] in Serum or Plasma VITAMIN D 25 HYDROXY Lab Routine Vitamin D deficiency Expected: 06/26/2025, Expires: 09/25/2025 [facility] Comment on above: Expected: 06/26/2025, Expires: Start: 06-26-2025 End: 09-25-2025 C reactive protein [Mass/volume] in Serum or Plasma C-REACTIVE PROTEIN Lab Routine Parkinson's disease with dyskinesia and fluctuating manifestations (HCC) Expected: 06/26/2025, Expires: 09/25/2025 [facility] Comment on above: Expected: 06/26/2025, Expires: Start: 06-26-2025 End: 09-25-2025 CBC W Auto Differential panel - Blood COMPLETE BLOOD COUNT AND DIFFERENTIAL Lab Routine Hypertension, essential Parkinson's disease with dyskinesia and fluctuating manifestations (HCC) Expected: 06/26/2025, Expires: 09/25/2025 [facility] Work Phone: Comment on above: Expected: 06/26/2025, Expires: Start: 06-26-2025 End: 09-25-2025 Cobalamin (Vitamin B12) [Mass/volume] in Serum or Plasma VITAMIN B12 Lab Routine IFG (impaired fasting glucose) Vitamin B12 deficiency Expected: 06/26/2025, Expires: 09/25/2025 [facility] Comment on above: Expected: 06/26/2025, Expires: Start: 06-26-2025 End: 09-25-2025 Comprehensive metabolic 2000 panel - Serum or Plasma COMPREHENSIVE METABOLIC PANEL Lab Routine Hypertension, essential Parkinson's disease with dyskinesia and fluctuating manifestations (HCC) Expected: 06/26/2025, Expires: 09/25/2025 [facility] Comment on above: Expected: 06/26/2025, Expires: Start: 06-26-2025 End: 09-25-2025 Hemoglobin A1c in Blood HEMOGLOBIN A1C Lab Routine IFG (impaired fasting glucose) Expected: 06/26/2025, Expires: 09/25/2025 [facility] Comment on above: Expected: 06/26/2025, Expires: Start: 06-26-2025 End: 09-25-2025 Lipid 1996 panel - Serum or Plasma LIPID PANEL, FASTING Lab Routine Dyslipidemia Expected: 06/26/2025, Expires: 09/25/2025 [facility] Comment on above: Expected: 06/26/2025, Expires: Start: 06-26-2025 End: 09-25-2025 Thyrotropin [Units/volume] in Serum or Plasma THYROID STIMULATING HORMONE Lab Routine Vitamin B12 deficiency Expected: 06/26/2025, Expires: 09/25/2025 [facility] Comment on above: Expected: 06/26/2025, Expires: Start: 06-18-2025 Influenza vaccination [facility] Start: 05-10-2025 Annual PCP Team Chronic Disease Visit Annual PCP Team Chronic Disease Visit [facility] Start: 04-11-2025 End: 04-11-2025 Patient encounter procedure 04/11/2025 9:30 AM EDT Office Visit Neurology [address] [address] Gila Issa MD [address] [address] Follow up Neurology Comment on above: Follow up Start: 03-07-2025 End: 03-07-2025 Patient encounter procedure 03/07/2025 9:30 AM EDT Office Visit Neurology [address] [address] Gila Issa MD [address] [address] 6 month follow up Neurology Comment on above: 6 month follow up Start: 02-22-2025 BP Controlled (<130/80) BP Controlled (<130/80) [facility] in Start: 01-24-2025 End: 01-24-2025 Patient encounter procedure 01/24/2025 10:00 AM EDT Office Visit [facility] [place] [address] [place] [address] Richard Shcneider DO [address] [facility] [place] [address] 6 month follow up Family [facility] Comment on above: 6 month follow up Start: 01-11-2025 Annual PCP Team Chronic Disease Visit Annual PCP Team Chronic Disease Visit [facility] Start: 01-11-2025 BP Controlled (<130/80) BP Controlled (<130/80) [facility] in Start: 12-18-2024 DIABETES SCREEN DIABETES SCREEN [facility] Start: 10-18-2024 Medicare Advantage Annual Wellness Visit Medicare [facility] Annual Wellness Visit [facility] Start: 10-13-2024 Annual PCP Team Chronic Disease Visit Annual PCP Team Chronic Disease Visit [facility] Start: 10-13-2024 BP Controlled (<130/80) BP Controlled (<130/80) [facility] Start: 08-30-2024 End: 08-30-2024 Patient encounter procedure 08/30/2024 9:30 AM EST Office Visit Neurology [address] [address] Gila Issa MD [address] [address] Return in about 6 months (around 08/25/2024). Neurology Comment on above: Return in about 6 months (around 08/25/20 24). Start: 07-26-2024 End: 07-26-2024 Patient encounter procedure 07/26/2024 10:00 AM EDT Office Visit [facility] [address] [place] [address] Richard Schneider DO [address] [place] [address] 3 month follow up Family [facility] Comment on above: 3 month follow up Start: 07-14-2024 Annual PCP Team Chronic Disease Visit Annual PCP Team Chronic Disease Visit [facility] Start: 07-14-2024 BP Controlled (<130/80) BP Controlled (<130/80) [facility] Start: 06-18-2024 Influenza vaccination Influenza Vaccine (#1) [facility] Start: 05-25-2024 End: 05-25-2024 Patient encounter procedure 05/25/2024 10:30 AM EDT Office Visit Cardiology [address] [place] [address] SOB (shortness of breath) [R06.02] Cardiology Comment on above: SOB (shortness of breath) [R06.02] Start: 05-10-2024 End: 05-10-2024 Patient encounter procedure 05/10/2024 10:20 AM EDT Office Visit [facility] [place] [address] [facility] [place], [place] [id number] Richard Schneider DO [address] [facility] [place] [address] 3 month follow up [facility] [place] Comment on above: 3 month follow up Start: 04-27-2024 End: 07-27-2024 CBC W Auto Differential panel - Blood COMPLETE BLOOD COUNT AND DIFFERENTIAL Lab Routine Parkinson's disease with dyskinesia and fluctuating manifestations (HCC) Hypertension, essential Expected: 04/27/2024, Expires: 07/27/2024 [facility] Comment on above: Expected: 04/27/2024, Expires: Start: 04-27-2024 End: 07-27-2024 Cobalamin (Vitamin B12) [Mass/volume] in Serum or Plasma VITAMIN B12 Lab Routine Parkinson's disease with dyskinesia and fluctuating manifestations (HCC) Hypertension, essential Expected: 04/27/2024, Expires: 07/27/2024 [facility] Comment on above: Expected: 04/27/2024, Expires: Start: 04-27-2024 End: 07-27-2024 Comprehensive metabolic 2000 panel - Serum or Plasma COMPREHENSIVE METABOLIC PANEL Lab Routine Parkinson's disease with dyskinesia and fluctuating manifestations (HCC) Hypertension, essential Expected: 04/27/2024, Expires: 07/27/2024 [facility] Work Phone: Comment on above: Expected: 04/27/2024, Expires: Start: 04-27-2024 End: 07-27-2024 Hemoglobin A1c in Blood HEMOGLOBIN A1C Lab Routine IFG (impaired fasting glucose) Expected: 04/27/2024, Expires: 07/27/2024 [facility] Comment on above: Expected: 04/27/2024, Expires: Start: 04-07-2024 ANNUAL PCP TEAM CHRONIC DISEASE VISIT ANNUAL PCP TEAM CHRONIC DISEASE VISIT [facility] Start: 04-07-2024 BP CONTROLLED (<130/80) BP CONTROLLED (<130/80) [facility] Start: 01-07-2024 ANNUAL PCP TEAM CHRONIC DISEASE VISIT ANNUAL PCP TEAM CHRONIC DISEASE VISIT [facility] Start: 12-22-2023 End: 03-22-2024 CBC W Auto Differential panel - Blood CBC + DIFF Lab Routine Hypertension, essential Expected: 12/22/2023, Expires: 03/22/2024 [facility] Work Phone: Comment on above: Expected: 12/22/2023, Expires: Start: 12-22-2023 End: 03-22-2024 Comprehensive metabolic 2000 panel - Serum or Plasma COMP METABOLIC PANEL Lab Routine Hypertension, essential Stage 3a chronic kidney disease (HCC) Expected: 12/22/2023, Expires: 03/22/2024 [facility] Work Phone: Comment on above: Expected: 12/22/2023, Expires: Start: 12-22-2023 End: 03-22-2024 Hemoglobin A1c in Blood HGB A1C Lab Routine IFG (impaired fasting glucose) Expected: 12/22/2023, Expires: 03/22/2024 [facility] Work Phone: Comment on above: Expected: 12/22/2023, Expires: Start: 12-22-2023 End: 03-22-2024 Lipid 1996 panel - Serum or Plasma LIPID PANEL BASIC Lab Routine Hypertension, essential Expected: 12/22/2023, Expires: 03/22/2024 [facility] Work Phone: Comment on above: Expected: 12/22/2023, Expires: Start: 10-07-2023 ANNUAL PCP TEAM CHRONIC DISEASE VISIT ANNUAL PCP TEAM CHRONIC DISEASE VISIT [facility] Start: 10-07-2023 BP CONTROLLED (<130/80) BP CONTROLLED (<130/80) [facility] Start: 10-07-2023 Complete blood count Hemoglobin/Hematocrit [facility] Start: 10-07-2023 Creatinine measurement Serum Creatinine [facility] Start: 10-07-2023 HEMOGLOBIN/HEMATOCRIT HEMOGLOBIN/HEMATOCRIT [facility] Start: 10-07-2023 SERUM CREATININE SERUM CREATININE [facility] Start: 07-08-2023 ANNUAL PCP TEAM CHRONIC DISEASE VISIT ANNUAL PCP TEAM CHRONIC DISEASE VISIT [facility] Start: 07-08-2023 BP CONTROLLED (<130/80) BP CONTROLLED (<130/80) [facility] Start: 06-23-2023 End: 08-23-2023 CBC W Auto Differential panel - Blood CBC + DIFF Lab Routine Pure hypercholesterolemia Expected: 06/23/2023, Expires: 08/23/2023 [facility] Work Phone: Comment on above: Expected: 06/23/2023, Expires: 3 Start: 06-23-2023 End: 08-23-2023 Comprehensive metabolic 2000 panel - Serum or Plasma COMP METABOLIC PANEL Lab Routine Pure hypercholesterolemia IFG (impaired fasting glucose) Expected: 06/23/2023, Expires: 08/23/2023 [facility] Work Phone: Comment on above: Expected: 06/23/2023, Expires: 3 Start: 06-23-2023 End: 08-23-2023 Hemoglobin A1c in Blood HGB A1C Lab Routine IFG (impaired fasting glucose) Expected: 06/23/2023, Expires: 08/23/2023 [facility] Work Phone: Comment on above: Expected: 06/23/2023, Expires: 3 Start: 06-23-2023 End: 08-23-2023 Lipid 1996 panel - Serum or Plasma LIPID PANEL BASIC Lab Routine Pure hypercholesterolemia Expected: 06/23/2023, Expires: 08/23/2023 [facility] Work Phone: Comment on above: Expected: 06/23/2023, Expires: 3 Start: 06-23-2023 End: 08-23-2023 Thyrotropin [Units/volume] in Serum or Plasma TSH BLD Lab Routine Pure hypercholesterolemia IFG (impaired fasting glucose) Expected: 06/23/2023, Expires: 08/23/2023 [facility] Work Phone: Comment on above: Expected: 06/23/2023, Expires: 3 Start: 06-18-2023 Covid-19 Vaccine () Covid-19 Vaccine () [facility] Start: 06-18-2023 Influenza vaccination INFLUENZA (#1) [facility] Start: 04-08-2023 ANNUAL PCP TEAM CHRONIC DISEASE VISIT ANNUAL PCP TEAM CHRONIC DISEASE VISIT [facility] Start: 04-08-2023 BP CONTROLLED (<130/80) BP CONTROLLED (<130/80) [facility] Start: 02-11-2023 BP CONTROLLED (<130/80) BP CONTROLLED (<130/80) [facility] Start: 01-07-2023 ANNUAL PCP TEAM CHRONIC DISEASE VISIT ANNUAL PCP TEAM CHRONIC DISEASE VISIT [facility] Start: 01-07-2023 BP CONTROLLED (<130/80) BP CONTROLLED (<130/80) [facility] Start: 12-18-2022 HEMOGLOBIN/HEMATOCRIT HEMOGLOBIN/HEMATOCRIT [facility] Start: 12-18-2022 SERUM CREATININE SERUM CREATININE [facility] Start: 11-04-2022 Hepatitis B surface antibody level LDL CHOLESTEROL [facility] Start: 10-22-2022 End: 12-22-2022 Comprehensive metabolic 2000 panel - Serum or Plasma COMP METABOLIC PANEL Lab Routine Stage 3a chronic kidney disease (HCC) LFT elevation Expected: 10/22/2022, Expires: 12/22/2022 [facility] Work Phone: Comment on above: Expected: 10/22/2022, Expires: 3 Start: 10-18-2022 ADVANCE DIRECTIVE DISCUSSION ADVANCE DIRECTIVE DISCUSSION [facility] Start: 06-18-2022 Influenza vaccination INFLUENZA (#1) [facility] Start: 03-25-2022 End: 05-25-2022 CBC W Auto Differential panel - Blood CBC + DIFF Lab Routine Stage 3a chronic kidney disease (HCC) Expected: 03/25/2022, Expires: 05/25/2022 [facility] Work Phone: Comment on above: Expected: 03/25/2022, Expires: 2 Start: 03-25-2022 End: 05-25-2022 Comprehensive metabolic 2000 panel - Serum or Plasma COMP METABOLIC PANEL Lab Routine Stage 3a chronic kidney disease (HCC) Expected: 03/25/2022, Expires: 05/25/2022 [facility] Work Phone: Comment on above: Expected: 03/25/2022, Expires: 2 Start: 03-25-2022 End: 05-25-2022 LIPID PANEL BASIC LIPID PANEL BASIC Lab Routine Pure hypercholesterolemia Expected: 03/25/2022, Expires: 05/25/2022 [facility] Work Phone: Comment on above: Expected: 03/25/2022, Expires: 2 Start: 03-25-2022 End: 05-25-2022 Prostate specific Ag [Mass/volume] in Serum or Plasma PSA/PROSTSPECAG DIAG Lab Routine Elevated PSA Expected: 03/25/2022, Expires: 05/25/2022 [facility] Work Phone: Comment on above: Expected: 03/25/2022, Expires: 2 Start: 03-25-2022 End: 05-25-2022 Urinalysis complete panel - Urine URINALYSIS, WITH MICROSCOPIC Lab Routine Microscopic hematuria Stage 3a chronic kidney disease (HCC) Expected: 03/25/2022, Expires: 05/25/2022 [facility] Work Phone: Comment on above: Expected: 03/25/2022, Expires: 2 Start: 03-25-2022 End: 05-25-2022 VITAMIN B12 BLOOD VITAMIN B12 BLOOD Lab Routine Vitamin B12 deficiency Expected: 03/25/2022, Expires: 05/25/2022 [facility] Work Phone: Comment on above: Expected: 03/25/2022, Expires: 2 Start: 03-25-2022 End: 05-25-2022 VITAMIN D 25 HYDROXY VITAMIN D 25 HYDROXY Lab Routine Vitamin D deficiency Expected: 03/25/2022, Expires: 05/25/2022 [facility] Work Phone: Comment on above: Expected: 03/25/2022, Expires: 2 Start: 01-07-2022 End: 03-09-2022 Urinalysis complete panel - Urine [facility] Work Phone: Comment on above: Expected: 01/07/2022, Expires: 2 Start: 10-18-2021 ADVANCE DIRECTIVE DISCUSSION ADVANCE DIRECTIVE DISCUSSION [facility] Start: 05-30-2021 COVID-19 VACCINE (2 - Booster for Eloina series) COVID-19 VACCINE (2 - Booster for Eloina series) [facility] Start: 2021 RSV Vaccine (1 - 1-dose 75+ series) RSV Vaccine (1 - 1-dose 75+ series) [facility] Start: 07-16-2018 PNEUMOCOCCAL: 65+ (#3) PNEUMOCOCCAL: 65+ (#3) [facility] Start: 07-16-2018 PNEUMOCOCCAL: 65+ (2 - PPSV23 or PCV20) PNEUMOCOCCAL: 65+ (2 - PPSV23 or PCV20) [facility] Start: 07-16-2018 PNEUMOCOCCAL: 65+ (3 - PPSV23 if available, else PCV20) PNEUMOCOCCAL: 65+ (3 - PPSV23 if available, else PCV20) [facility] Start: 07-16-2018 PNEUMOCOCCAL: 65+ (3 - PPSV23 or PCV20) PNEUMOCOCCAL: 65+ (3 - PPSV23 or PCV20) [facility] Start: 11-09-2012 PNEUMOVAX AGE 65 AND OVER WITH 5YR LOOKBACK (#1) PNEUMOVAX AGE 65 AND OVER WITH 5YR LOOKBACK (#1) [facility] Start: 2006 RSV Vaccine (1 - 1-dose 60+ series) RSV Vaccine (1 - 1-dose 60+ series) [facility] Start: 1991 [facility] Start: [address] COLONOGRAPHY [facility] Start: 1991 FECAL OCCULT BLOOD FECAL OCCULT BLOOD [facility] Start: 1991 SIGMOIDOSCOPY SIGMOIDOSCOPY [facility] Start: 1965 Urine microalbumin profile [facility] Start: 1964 Anxiety Screening Anxiety Screening [facility] Start: 1964 BP CONTROLLED (<130/80) BP CONTROLLED (<130/80) [facility] Start: 1964 HEPATITIS C SCREENING HEPATITIS C SCREENING [facility] Start: 1964 Hepatitis C screening Hepatitis C Screening [facility] End: 05-10-2025 Echocardiography ECHO Cardiology Routine SOB (shortness of breath) 1 Occurrences starting 05/10/2024 until 05/10/2025 [facility] Work Phone: Comment on above: 1 Occurrences starting 05/10/2024 until 05/10/2025 Patient Education Bone Contusion ED Wrist Sprain [facility] Work Phone: [facility] Immunizations Immunization Date Immunization Notes Care Provider Ant lawler 07-26-2024 influenza, high dose seasonal, preservative-free Richard Schneider DO Work Phone: [facility] 07-26-2024 influenza virus vacc ine, unspecified formulation Gila Issa MD Work Phone: [facility] 07-14-2023 influenza (HD-IIV4) vaccine, age 65+ yr, high dose, quadrivalent, PF (FLUZONE HIGH-DOSE) Richard Schneider DO Work Phone: [facility] Work Phone: 07-14-2023 pneumococcal (PCV20) vaccine, 20 valent (PREVNAR 20) Richard Schneider DO Work Phone: [facility] Work Phone: 07-14-2023 influenza virus vacc ine, unspecified formulation Richard Schneider DO Work Phone: [facility] 07-08-2022 influenza, high-dose , quadrivalent vaccine (FLUZONE HIGH DOSE QUADRIVALENT) Richard Schneider DO Work Phone: [facility] Work Phone: 07-09-2021 influenza, high-dose , quadrivalent vaccine (FLUZONE HIGH DOSE QUADRIVALENT) Richard Schneider DO Work Phone: [facility] Work Phone: 07-19-2020 influenza, high dose seasonal, preservative-free Richard Schneider DO Work Phone: [facility] 08-10-2019 influenza, high dose seasonal, preservative-free Richard Schneider DO Work Phone: [facility] 06-28-2019 zoster vaccine recombinant Richard Schneider DO Work Phone: [facility] 03-26-2019 zoster vaccine recombinant Richard Schneider DO Work Phone: [facility] 08-09-2018 influenza, high dose seasonal, preservative-free Richard Schneider DO Work Phone: [facility] 08-09-2018 influenza, injectabl e, quadrivalent, preservative free Richard Schneider DO Work Phone: [facility] 07-16-2017 influenza, high dose seasonal, preservative-free Richard Schneider DO Work Phone: [facility] Work Phone: 07-16-2017 pneumococcal conjuga te vaccine, 13 valent Richard Schneider DO Work Phone: [facility] Work Phone: 07-25-2016 influenza, high dose seasonal, preservative-free Richard Schneider DO Work Phone: [facility] Work Phone: 11-09-2007 pneumococcal polysaccharide vaccine, 23 valent Richard Schneider DO Work Phone: [facility] Work Phone: Payers Date Payer Category Payer Self-pay [id number] 2021 Medicare AETNA MEDICARE A ETNA MEDICARE PPO [id number] 2021-Present [phone] [address] [place] [address] PPO [id number] 2021 Medicare AETNA MEDICARE A ETNA MEDICARE PPO [id number] 2021-Present [phone] [address] [place] [address] PPO [id number] 2021 Medicare (Managed Care) AETNA [facility] [id number] 2021 Private Health Insurance [id number] Medicare [id number] Private Health Insurance [facility] [id number] Unknown [id number] Unknown [id number] Unknown [id number] Unknown [id number] Unknown [id number] Social History Date Type Detail Facility Start: 06-16-2022 End: 07-26-2024 Tobacco smoking status NHIS Ex-smoker [facility] Work Phone: Start: 06-28-1993 End: 06-28-2013 History of tobacco use Current smoker [facility] Work Phone: Start: 06-28-1993 End: 06-28-2013 History of tobacco use Cigarette Smoker [facility] Work Phone: Start: 01-07-2022 End: 01-24-2025 Alcohol intake Current drinker of alcohol (finding) [facility] Start: 1945 Sex Assigned At Not on file [facility] Start: 12-28-2021 End: 07-08-2022 Exposure to SARS-CoV-2 (event) Not sure [facility] Work Phone: Start: 02-18-2018 End: 09-23-2022 Tobacco smoking status [facility] Unknown if ever smoked [facility] Start: 1945 Sex Assigned At Male [facility] Start: 06-16-2022 End: 04-07-2023 Cigarettes smoked current (pack per day) - Reported 0.5 [facility] Start: 06-16-2022 End: 07-26-2024 Tobacco use and exposure Smokeless tobacco non-user [facility] Start: 01-05-2023 History SDOH Alcohol Frequency 1 [facility] Start: 01-05-2023 History SDOH Alcohol Std Drinks 0 [facility] [facility] Start: 01-05-2023 History SDOH Social Connections Phone 5 [facility] Start: 01-05-2023 History SDOH Social Connections Membership 2 [facility] Start: 01-05-2023 End: 04-07-2023 Social connection and isolation panel [facility] Do you belong to any clubs or organizations such as zoroastrian groups, unions, fraternal or athletic groups, or school groups? No [facility] Are you now , , , , never or living with a partner? [facility] How often to you hav e a drink containing alcohol? Never [facility] Start: 09-18-[address]ks containing alcohol do you have on a typical day? Patient does not drink [facility] (I/We) worried whemeka er (my/our) food would run out before (I/we) got money to buy more. Never true [facility] Start: 01-16-2025 Sex Male (finding) [facility] Clinical Notes 07-19-2017 to 06-26-2025 Telephone Encounter - Sabrina Kay LPN - 06/26/2025 4:48 PM EDTTelephone Encounter - Sabrina Kay LPN - 06/26/2025 4:48 PM EDT Note Date & Type Note Facility 06-26-2025 Telephone encounter Note Orders faxed as below. Stefani informed [facility] 06-26-2025 Miscellaneous Notes Orders faxed as below. [facility] informed Orders placed for labs Please fax Rihcard Schneider DO Trisha calls back and reports they do not have lab orders on file. Requests lab orders be sent to [facility]. Pended orders as specified below. Needs diagnosis. Trisha asking if patient needs any of the inflammatory markers completed? Requests orders be faxed to [facility] at [phone] and call to [facility] at [phone] as there fax machine is currently not working. Jerrica Mehta, RN Trisha nurse with [facility] called and is notified of providers message. She states she is going to go over to that building after her shift is over and will make sure they have the labs. She states if they don't she will call back. She reports that is her usual floor. Amita Bojorquez RN Please call [facility] and make sure labs for CMP, CBC, TSH, A1c, vit d, vitamin b12 and lipid panel will be checked as an AM blood draw this week or next week for upcoming appt Richard Schneider DO hello ! I just wanted to check to see if bloodwork orders have been sent to [facility] in [place] for my dad ( alexis ) for his appointment on jul 18 with you? Thanks! Sis Medina documented in this encounter [facility] 06-26-2025 Telephone encounter Note Orders placed for labs Please fax Richard Schneider DO [facility] 06-26-2025 Telephone encounter Note Trisha calls back and reports they do not have lab orders on file. Requests lab orders be sent to [facility]. Pended orders as specified below. Needs diagnosis. Trisha asking if patient needs any of the inflammatory markers completed? Requests orders be faxed to [facility] at [phone] and call to [place] at [phone] as there fax machine is currently not working. Jerrica Mehta RN [facility] 06-25-2025 Telephone encounter Note Trisha nurse with [facility] called and is notified of providers message. She states she is going to go over to that building after her shift is over and will make sure they have the labs. She states if they don't she will call back. She reports that is her usual floor. Amita Bojorquez RN [facility] 06-25-2025 Telephone encounter Note Please call [facility] and make sure labs for CMP, CBC, TSH, A1c, vit d, vitamin b12 and lipid panel will be checked as an AM blood draw this week or next week for upcoming appt Richard Schneider DO [facility] 06-25-2025 Telephone encounter Note hello ! I just wanted to check to see if bloodwork orders have been sent to [facility] in [place] for my dad ( alexis ) for his appointment on jul 18 with you? Thanks! Sis Medina [facility] 06-25-2025 Telephone encounter Note hello ! I just wanted to check to see if bloodwork orders have been sent to [facility] in [place] for my dad ( alexis ) for his appointment on jul 18 with you? Thanks! Sis Medina [facility] 09-08-2025 Miscellaneous Notes hello ! I just wanted to check to see if bloodwork orders have [facility] in [place] for my dad ( alexis ) for his appointment on jul 18 with you? Thanks! Sis Medina documented in this encounter [facility] 06-24-2025 Radiology Diagnostic study note [facility] Imaging Services [address] [place] [address] Ribs Uni Min 3V w/PA Chest MR#: [id number] Acct: [id number] Name: ALEXIS KRAMER Rep #: [id number] : 1945 M 80 From: Yola Suggs MD PCP: Dr. Richard Schneider DO Status: RE G ER Study:Ribs Uni Min 3V w/PA Chest Date of Exam : 06/24/25 Exam# [id number] Ordering Dr: Mitra Monet DO PROCEDURE: RIBS UNI MIN 3V W/PA CHEST 06/24/2025 REASON FOR EXAM: FALL TECHNIQUE: Procedure Code: RADRIB Modality: DX Procedure: RIBS UNI MIN 3V W/PA CHEST COMPARISON: None. FINDINGS: Hardware and support lines: Sternotomy wires in place. Mediastinal clips in place. Heart: Negative. Lungs: Negative for infiltrates, or pulmonary edema. Pleura: No pleural thickening. No pleural effusion. Negative from the thorax. Mediastinum and aorta: Negative for hilar adenopathy. Mildly tortuous thoracic aorta. Bones: Additional right-sided rib images show no rib fracture. Age-appropriate degenerative changes of the spine. Other: Remainder of the exam negative. RAD/Ribs Uni Min 3V w/PA Chest IMPRESSION: Negative for acute cardiopulmonary disease Negative for right-sided rib fracture. Reading Location: [id number] CC: Dr. Richard Schneider DO; Louis Monet DO ~ Signal Engineer: Signed [facility] 06-24-2025 Radiology Diagnostic study note [facility] Imaging Services [address] [place] [address] Pelvis 1 or 2 Views MR#: [id number] Acct: [id number] Name: ALEXIS KRAMER Rep #: [id number] : 1945 M 80 From: Yola Suggs MD PCP: Dr. Richard Schneider DO Status: RE G ER Study:Pelvis 1 or 2 Views Date of Exam: 06/24/25 Exam# [id number] Ordering Dr: Mitra Monet DO PROCEDURE: PELVIS 1 OR 2 VIEWS 06/24/2025 REASON FOR EXAM: FALL TECHNIQUE: Procedure Code: RADPEL Modality: DX Procedure: PELVIS 1 OR 2 VIEWS COMPARISON: None FINDINGS: CR pelvis/hips: Bones: Mild marginal osteophyte formation both hips. Bony pelvis intact with nofractures. Right proximal femur otherwise negative. Left proximal femur otherwise negative. Joints: Age-appropriate degenerative changes of the hips and pelvis. Soft tissues: Moderate vascular calcifications abdominal aortic branches. Adjacent soft tissues otherwise negative. Other: Remainder of exam negative. RAD/Pelvis 1 or 2 Views IMPRESSION: Negative for acute abnormality of the bony pelvis. Reading Location: [id number] CC: Dr. Richard Schneider DO; Louis Monet DO ~ Signal Engineer: Signed [facility] 06-24-2025 Radiology Diagnostic study note [facility] Imaging Services [address] [place] [address] Wrist min 3 Views MR#: [id number] Acct: [id number] Name: ALEXIS KRAMER Rep #: [id number] : 1945 M 80 From: Yola Suggs MD PCP: Dr. Richard Schneider DO Status: RE G ER Study:Wrist min 3 Views Date of Exam: Exam# [id number] Ordering Dr: Mitra Monet DO PROCEDURE: WRIST MIN 3 VIEWS 06/24/2025 REASON FOR EXAM: PAIN TECHNIQUE: Procedure Code: RADWR Modality: DX Procedure: WRIST MIN 3 VIEWS Laterality: Right COMPARISON: None. FINDINGS: Bones: Moderate degenerative changes in the triscaphe joint. Old probable 5th metacarpal fracture. Healed. Distal radius and ulna otherwise negative. Carpals and metacarpals otherwise negative. Negativefor fracture. Joints: Moderate degenerative changes of the triscaphe joint. Soft tissues: Adjacent soft tissues otherwise negative. Negative for soft tissue swelling. Other: Remainder of exam negative. RAD/Wrist min 3 Views IMPRESSION: Negative for acute abnormality of the right wrist. Reading Location: [id number] CC: Dr. Richard Schneider DO; Louis Monet DO ~ Signal Engineer: Signed [facility] 06-24-2025 Discharge summary [facility] 06-21-2025 Telephone encount er Note Faxed and confirmation received [facility] 06-21-2025 Miscellaneous Notes Formattin g of this note might be different from the original. Faxed and confirmation received Voicemail received June 21, 2025 1119 [place] with [employer] requesting last OV notes to be faxed to [phone]. Also asking if Dr. Issa will follow and sign for home care. Call back number is [phone] documented in this encounter [facility] 06-21-2025 Telephone encount er Note Voicemail received June 21, 2025 1110 Watson with [employer] requesting last OV notes to be faxed to [phone]. Also asking if Dr. Issa will follow and sign for home care. Call back number is [phone] [facility] 06-13-2025 Telephone encount er Note Received rehab discharge summary from [facility]. Placed on Dr. Hansel neville for review [facility] 06-13-2025 Miscellaneous Notes Formattin g of this note might be different from the original. Received rehab discharge summary from [facility]. Placed on Dr. Hansel neville for review documented in this encounter [facility] 06-12-2025 Discharge summary Note Date/Time June 12, 2025 11:59am [facility] Physical Therapy [facility] [address] [facility] [place] [address] / REHABILITATION SERVICES DISCHARGE SUMMARY MR#: [id number] Acct: [id number] Name: ALEXIS KRAMER Rep #: [id number] : 1945 80 From: Trena Hernandez MP T Referring Dr.: Dr. Gila Issa MD Status: REG [facility] Insurance: [facility] [employer] PA[employer] INSURANCE Patient Information Patient [...] DO; Dr. Gila Issa MD ~ Signed [facility] Work Phone: [phone] 991-193908-26-2025 Discharge summary [facility] [address] [place] [address] [address] [place] [address] / REHABILITATION SERVICES DISCHARGE SUMMARY MR#: [id number] Acct: [id number] Name: ALEXIS KRAMER Rep #: [id number] : 1945 80 From: Trena Hernandez MP T Referring Dr.: Dr. Gila Issa MD Status: REG [facility] Insurance: [facility] [employer]EL[employer] PA[employer] INSURANCE Patient Information Patient [...] DO; Dr. Gila Issa MD ~ Signed [facility]07-08-2025 Telephone encounter Note* Telephone Encounter - Tiffanie Hannah MA - 04/24/2025 2:04 PM EDT Faxed back and confirmation received [facility]07-08-2025 Miscellaneous Notes* Telephone Encounter - Tiffanie Hannah MA - 04/24/2025 2:04 PM EDT Faxed back and confirmation received * Telephone Encounter - Tiffanie Hannah MA - 04/24/2025 12:35 PM EDT Received PT recertification letter from [facility]. Placed on Dr. Hansel neville for review and signature [facility] Telephone encounter Note * Telephone Encounter - Tiffanie Hannah MA - 04/24/2025 12:35 PM EDT Received PT recertification letter from [facility]. Placed on Dr. Hansel neville for review and signature [facility]06-19-2025 Telephone encounter Note* Telephone Encounter - Kavita Mcgarry APRN.CNP - 04/05/2025 4:40 PM EDT Orders signed and in fax bin for staff to send back. If clonazepam was ordered by neurologist, theyshould sign for the med and provide scripts. If he's no longer seeing the neurologist then we can manage. Thank you [facility]06-19-2025 Miscellaneous Notes* Telephone Encounter - Kavita Mcgarry [...] EDT I will get the orders for [facility] patients signed and returned, thank you * Telephone Encounter - Jerrica Mehta RN - 04/05/2025 12:56 PM EDT Trisha AVILES with [facility] calls to let provider know that they are switching pharmacies and need medication orders resigned. Forms were faxed a week ago and not received back. Trisha re faxing forms and asking if CASH REGISTER MECHANIC can sign them since Dr. Schneider is out. Jerrica Mehta, RN documented [facility] Note* Addendum Note - Kavita Mcgarry APRN.CNP - 04/05/2025 4:39 PM EDTAddended by: KAVITA MCGARRY on: 04/05/2025 04:39 PM Modules accepted: Orders [facility]06-19-2025 Telephone encounter Note* Telephone Encounter - Kavita Mcgarry APRN.LACY - 04/05/2025 4:21 PM EDT I will get the orders for [place] patients signed and returned, thank you [facility]06-19-2025 Telephone encounter Note* Telephone Encounter - Jerrica Mehta RN - 04/05/2025 12:56 PM EDT Trisha AVILES with [facility] calls to let provider know that they are switching pharmacies and need medication orders resigned. Forms were faxed a week ago and not received back. Trisha re faxing forms and asking if CASH REGISTER MECHANIC can sign them since Dr. Schneider is out. Jerrica Mehta RN [facility]05-12-2025 Telephone encounter Note* Telephone Encounter - Tiffanie Hannah MA - 02/26/2025 9:10 AM EDT Faxed back and confirmation received [facility]05-12-2025 Miscellaneous Notes* Telephone Encounter - Tiffanie Hannah MA - 02/26/2025 9:10 AM EDT Faxed back and confirmation received * Telephone Encounter - Tiffanie Hannah MA - 02/21/2025 2:15 PM EDT Received Initial eval for PT from [facility]. Placed on Dr. Issa dessarai for reviewand signature documented [facility] Telephone encounter Note * Telephone Encounter - Tiffanie Hannah MA - 02/21/2025 2:15 PM EDT Received Initial eval for PT from [facility]. Placed on Dr. Hansel neville for reviewand signature [facility]04-11-2025 Telephone encounter Note* Telephone Encounter - Tiffanie Hannah MA - 01/26/2025 8:58 AM EDT Faxed back and confirmation received [facility]04-11-2025 Miscellaneous Notes* Telephone Encounter - Tiffanie Hannah MA - 01/26/2025 8:58 AM EDT Faxed back and confirmation received * Telephone Encounter - Tiffanie Hannah MA - 01/17/2025 1:49 PM EDT Received Re-evaluation from [facility]. Placed on Dr. Hansel neville for review and signature documented [facility]-2025 NoteHNO ID: [id number] Author: RICHARD SCHNEIDER, DO Service: ? Author [...] kidney disease) stage 3, GFR 30-59 ml/min ([facility]) 04/2016 Depressive disorder 12/24/2021 GERD (gastroesophageal reflux disease) Hypertension IFG (impaired fasting glucose) 10/2019 5.7% at diagnosis Kidney stone Mixed hyperlipidemia Parkinson disease ([facility]) 07/2014 PAST SURGICAL HISTORY Procedure [...] wheelchair Neuro: CN II (more content not included)...[facility]04-09-2025 History of Present illness Narrative* Richard Schneider, [...] 783.21, ICD10: R63.4 Check weekly weights at [place] and will monitor Needs to increase protein intake Check additional labs in 2 weeks Recent lab results reviewed with Alexis and daughter Sis Richard Schneider DO I spent 45 minutes in the visit, with more than 50% of the total [id number] time of the visit in counseling / coordination of care. Return if no improvement. Follow up with Richard Schneider DO. To ER if develops chest pain, shortness of breath. Discussed risks, benefits, alternatives, and potential side effects of medications. Patient/Guardian expressed understanding and agreed with the plan. See patient instructions. Richard Schneider DO [address] [place] [address] documented in [facility] Telephone encounter Note * Telephone Encounter - Tiffanie Hannah MA - 01/17/2025 1:49 PM EDT Received Re-evaluation from [facility]. Placed on Dr. Issa desk for review and signature [facility]03-07-2025 Telephone encounter Note* Telephone Encounter - Tiffanie Hannah MA - 12/22/2024 8:54 AM EST Faxed back and confirmation received [facility]03-07-2025 Miscellaneous Notes* Telephone Encounter - Tiffanie Hannah MA - 12/22/2024 8:54 AM EST Faxed back and confirmation received * Telephone Encounter - Tiffanie Hannah MA - 12/21/2024 2:58 PM EST Received Rehab eval from [facility]. Placed on Dr. Hansel neville for signature documented in this encounter[facility] Telephone encounter Note * Telephone Encounter - Tiffanie Hannah MA - 12/21/2024 2:58 PM EST Received Rehab eval from [facility]. Placed on Dr. Hansel neville for signature [facility]03-06-2025 Telephone encounter Note* Telephone Encounter - Vivien Martinez MA - 12/21/2024 1:55 PM EST Sis notified Vivien Martinez MA [facility]03-06-2025 Miscellaneous Notes* Telephone Encounter - Vivien Martinez [...] box. Vivien Martinez MA documented in this encounter[facility] Telephone encounter Note * Telephone Encounter - [...] RICHARD SCHNEIDER Ordering User: ROB COPELAND APRN.CNP [facility] Work Phone: [phone]) 637-607603-06-2025 Telephone encounter Note* Telephone Encounter - Vivien Martinez MA - 12/21/2024 1:48 PM EST Scripts pended. See note from [facility] in your box. Vivien Martinez MA [facility]03-05-2025 Telephone encounter Note* Telephone Encounter - Jerrica Mehta RN - 12/20/2024 11:18 AM EST Daughter (Sis) calls to request the order for increased Zoloft be sent to [place] so they have it for their files as well. Faxed order to [phone] per request. Jerrica Mehta RN [facility]03-05-2025 Miscellaneous Notes* Telephone Encounter - Jerrica Mehta RN - 12/20/2024 11:18 AM EST Daughter (Sis) calls to request the order for increased Zoloft be sent to [place] so they have it for their files as well. Faxed order to [phone] per request. Jerrica Mehta RN * Telephone [...] help some? I m taking him to [facility] this Wednesday, December 20 for a physical therapy evaluation, as suggested by Dr issa. He s still trying to walk, but it s becoming more and more difficult. So I don t think he s giving up but he s definitely depressed. The staff at [facility] have also noticed. Thank you! Sis " documented [facility] Telephone encounter Note * Telephone Encounter - Sabrina Kay LPN - 12/20/2024 9:01 AM EST Sis informed. [facility]03-04-2025 Telephone encounter Note* Telephone Encounter - Richard [...] a day Authorizing Provider: RICHARD SCHNEIDER DO [facility]03-03-2025 Telephone encounter Note* Telephone Encounter - Ольга Young MA - 12/18/2024 1:52 PM EST Started TE and routed to PCP to advise. Ольга Young MA [facility]03-03-2025 Miscellaneous Notes* Telephone Encounter - Ольга Young MA - 12/18/2024 1:52 PM EST Started TE and routed to PCP to advise. Ольга Young MA documented in [facility] encounter[facility]25 Telephone encounter Note * Telephone Encounter - [...] m [facility] physical therapy evaluation, as suggested by Dr issa. He s still trying to walk, but it s becoming more and more difficult. So I don t think he s giving up but he s definitely depressed. The staff at [place] have also noticed. Thank you! Sis " [facility]02-17-2025 Telephone encounter Note* Telephone Encounter - Tiffanie Hannah MA - 12/04/2024 9:07 AM EST Order faxed and confirmation received [facility]02-17-2025 Miscellaneous Notes* Telephone Encounter - Tiffanie Hannah MA - 12/04/2024 9:07 AM EST Order faxed and confirmation received * Telephone Encounter - Gila Issa MD - 12/04/2024 8:41 AM EST Done and in outbox. documented in this encounter[facility]-2025 Telephone encounter Note * Telephone Encounter - Gila Issa MD - 12/04/2024 8:41 AM EST Done and in outbox. [facility]12-30-2024 Telephone encounter Note* Telephone Encounter - Sabrina Kay LPN - 10/16/2024 4:22 PM EST Pt's daughter informed. [facility]12-30-2024 Miscellaneous Notes* Telephone Encounter - Sabrina Valdez LPN - 10/16/2024 4:22 PM EST Pt's daughter informed. * Telephone Encounter - Richard Schneider DO - 10/16/2024 4:18 PM EST Only other option would be to see Floor Helper. I don't have any other options to [...] call Pts josselin back. documented in this encounterSelect [facility]12-[facility]-2024 Telephone encounter Note * Telephone Encounter - Richard Schneider DO - 10/16/2024 4:18 PM EST Only other option would be to see Floor Helper. I don't have any other options to use other than trialof an antihistamine such as Claritin or Angie or Zyrtec Richard Schneider DO [facility]12-30-2024 Telephone encounter Note* Telephone Encounter - Amita [...] to it. Please call Pts josselin back. [facility]12-20-2024 Telephone encounter Note* Telephone Encounter - Amelia Goldberg RN - 10/06/2024 10:46 AM EST Priya from [place] calling and states that [facility] is requesting face to face office notes and diagnosis codes for pt's nebulizer. [facility] fax [phone]. Sent 08/30/[address] Issa neurologist, phone encounter from 09/22/24 and order that has dx codes on it for nebulizer. Faxed copies to both [facility] and to Priya at [place] for them to have on file in case they need it again. [facility]12-20-2024 Miscellaneous Notes* Telephone Encounter - Amelia Goldberg RN - 10/06/2024 10:46 AM EST Priya from [place] calling and states that [facility] is requesting face to face office notes and diagnosis codes for pt's nebulizer. [facility] fax [phone]. Sent 08/30/[address] Issa neurologist, phone encounter from 09/22/24 and order that has dx codes on it for nebulizer. Faxed copies to both [facility] and to Priya [facility] for them to have on file in case they need it again. documented in this encounter[facility] Telephone encounter Note * Telephone Encounter - Liliya Patel MA - 10/04/2024 4:18 PM EST Faxed as requested. Liliya Patel MA [facility]12-18-2024 Miscellaneous Notes* Telephone Encounter - Liliya Patel [...] machine. They will try to order from [employer] Please fax orders to [facility] FAX: [phone]. They never received anything earlier. 1)orders for nebulizer solution 2)order for machine. Lynn Gray LPN documented in this encounter[facility]12[facility]24 Telephone encounter Note * Telephone Encounter - Richard Schneider DO - 10/04/2024 4:16 PM EST Please fax rx Richard Schneider DO' [facility]12-18-2024 Telephone encounter Note* Telephone Encounter - Liliya Patel MA - 10/04/2024 1:53 PM EST Order for Albuterol was faxed to on 09/29. Reordered and pended along with order for nebulizer. Please sign. Orders will need to be faxed. Liliya Patel MA [facility]12-18-2024 Telephone encounter Note* Telephone Encounter - Lynn Gray LPN - 10/04/2024 11:35 AM EST Padmini with [facility] reports they have sent several faxes regarding Nebulizer solution and also needs an order for the machine. They will try to order from [employer] Please fax orders to [facility] FAX: [phone]. They never received anything earlier. 1)orders for nebulizer solution 2)order for machine. Lynn Gray LPN [facility]12-13-2024 Telephone encounter Note* Telephone Encounter - Sabrina Kay LPN - 09/29/2024 1:16 PM EST Order faxed. [facility]12-13-2024 Miscellaneous Notes* Telephone Encounter - Sabrina Valdez [...] voices understanding and states Pt lives at [place], so they would have to help him. Valerie nurse with [facility] called and askedif they would help Pt with albuterol nebulizer, and she states they help him with medications already. She states they would help with the administration. Please fax orders to [facility] at fax # [phone]. Amita Bojorquez RN * Telephone Encounter - [...] getting frustrated. Daughter reports pt is at [place]-not [place]. Daughter is asking for a call along with [facility] with 's message. Vianca Howe LPN * Telephone Encounter - Amita Bojorquez RN - 09/22/2024 10:48 AM EST Flory Soni with [facility] (this was a [...] can let Pt knowand send Rx to [facility]. documented in this encounterSelect [facility]12-13-2024 Telephone encounter Note * Telephone Encounter - Richard Schneider DO - 09/29/2024 1:08 PM EST rx signed Richard Schneider DO [facility]12-12-2024 Telephone encounter Note* Telephone Encounter - Radha Carpio LPN - 09/28/2024 10:27 AM EST Script is not signed placed back in your box for signature. [facility]12-11-2024 Telephone encounter Note* Telephone Encounter - Richard Schneider DO - 09/27/2024 8:14 PM EST Please fax script and notify Richard Schneider DO [facility]12-11-2024 Telephone encounter Note* Telephone Encounter - Amita Bojorquez RN - 09/27/2024 10:35 AM EST Pts daughter called and is notified of providers message. She voices understanding and states Pt lives at [place], so they would have to help him. Valerie nurse with [facility] called and askedif they would help Pt with albuterol nebulizer, and she states they help him with medications already. She states they would help with the administration. Please fax orders to [facility] at fax # [phone]. Amita Bojorquez RN [facility]12-11-2024 Telephone encounter Note* Telephone Encounter - Richard Schneider DO - 09/27/2024 7:47 AM EST See below Could consider trying to do albuterol nebulizer twice a day to see if this helps him break up the mucous if patient/daughter are willing Richard Schneider DO [facility]12-11-2024 Telephone encounter Note* Telephone Encounter - Gila Issa MD - 09/27/2024 7:31 AM EST No additional recommendations from me. I defer to Dr. Schneider for opinion on what options could work better for him. [facility] Work Phone: [phone] 640-524412-10-2024 Telephone encounter Note* Telephone Encounter - Richard [...] to his Parkinson's disease Richard Schneider DO [facility]12-10-2024 Telephone encounter Note* Telephone Encounter - Vianca Howe LPN - 09/26/2024 9:57 AM EST Daughter is calling to check on status of message. Daughter reports pt is getting frustrated. Daughter reports pt is at [place]-not [place]. Daughter is asking for a call along with [facility] with dr's message. Vianca Howe LPN [facility]12-06-2024 Telephone encounter Note* Telephone Encounter - Amita Bojorquez RN - 09/22/2024 10:48 AM EST Flory Soni with [facility] (this was a [...] can let Pt knowand send Rx to [facility]. [facility]11-22-2024 Telephone encounter Note* Telephone Encounter - Amelia Goldberg RN - 09/08/2024 10:50 AM EST Called daughter and notified of Dr. Schneider's instructions. Daughter says pt is at [place] and the order for the med would need to be faxed over to them. Noted in another encounter that prescription was already sent to [facility] pharmacy per [facility] Shai. Called and spoke with nurse Rico at [facility]. Trisha asking about Mucinex directions of taking 2tablets by mouth 2 times per day. Since it is a 12 hour tablet, should it be 1 tablet by mouth 2 times a day? If so, can a new script be sent in? [facility]11-22-2024 Miscellaneous Notes* Telephone Encounter - Amelia Goldberg RN - 09/08/2024 10:50 AM EST Called daughter and notified of Dr. Schneider's instructions. Daughter says pt is at [place] and the order for the med would need to be faxed over to them. Noted in another encounter that prescription was already sent to [facility] pharmacy per [facility]. Called and spoke with nurse Rico at [facility]. Trisha asking about Mucinex directions of taking [...] daughter back with information documented in this encounterSelect [facility]11-22-2024 Telephone encounter Note * Telephone Encounter - Richard Schneider DO - 09/08/2024 9:38 AM EST Noted, yes okay to trial on Mucinex 600 mg 2 times a day to see if this helps his symptoms Richard Schneider DO [facility]11-22-2024 Telephone encounter Note* Telephone Encounter - Misty [...] and contact patients daughter back with information [facility]11-13-2024 NoteHNO ID: [id number] Author: GILA ISSA MD Service: ? Author Type: Physician Type: Progress Notes Filed: 08/30/2024 12:58 Note Text: [facility] - FOLLOW UP EVALUATION Richard Schneider DO [address] [facility] [address] I had the pleasure of seeing Mr. [...] please feel free to send me a [employer] message or contact the office - Continue exercise - Interval History: Good and bad times. Hard to see patterns. Thick secretions. [place] his mouth and bothersome. PCP suggested lemon [...] General: Awake, alert, interactive (more content not included)...[facility]11-13-2024 History of Present illness Narrative* Gila Issa MD - 08/30/2024 12:51 PM EST [facility] - FOLLOW UP EVALUATION iRchard Schneider, [address] [place] [address] I had the pleasure of seeing Mr. [...] appointment, pleasefeel free to send me a Affectiva message or contact the office - Continue exercise - Interval History: Good and bad times. Hard to see patterns. Thick secretions. [place] his mouth and bothersome. PCP suggested lemon [...] walking/freezing - consider Parkinson's specific therapy at [facility]. Seeing therapy at [place] when you come for a Dr. Issa visit is always an option. Consider U-step walker. Flowgram For the phlegm - continue with the [...] or around: 02/27/25 Level of service : 15182 (40-68 min). Time spent 40 min on the day of service, which included preparing to see the patient, [id number] patient care, completing clinical documentation, obtaining and/or [...] Sincerely, Gila Issa MD documented in this encounterSelect [facility]11-13-2024 Instructions* Patient Instructions* Gila Issa MD - 08/30/2024 10:18 AM EST It was a pleasure to see you today. We addressed the following diagnoses: Parkinson's disease with dyskinesia and fluctuating manifestations (hcc) My recommendations are as follows: For Parkinson's - no change to medications today For walking/freezing - consider Parkinson's specific therapy at [facility]. Seeing therapy at [place] when you come for a Dr. Issa visit is always an option. Consider U-step walker. Flowgram For the phlegm - continue with the lemon drops. I will message Dr. Schneider about something to thinout the phlegm Movement Disorders Medication Schedule: Medications 730 1130 430 HS Sinemet 25/100mg 2 2 2 2 Sertraline 100 mg 1 No follow-ups on file. If there are any concerns before your next visit, please call or you can send a message through SSEV. You can also now schedule and select appointments through SSEV. Gila Issa MD documented in this encounterSelect [facility]10-09-2024 NoteHNO ID: [id number] Author: RICHARD SCHNEIDER, DO Service: ? Author [...] kidney disease) stage 3, GFR 30-59 ml/min ([facility]) 04/2016 Depressive disorder 12/24/2021 GERD (gastroesophageal reflux disease) Hypertension IFG (impaired fasting glucose) 10/2019 5.7% at diagnosis Kidney stone Mixed hyperlipidemia Parkinson disease ([facility]) 07/2014 PAST SURGICAL HISTORY Procedure [...] options to help s (more content not included)...[facility]10-09-2024 History of Present illness Narrative* Richard Schneider, [...] plan. See patient instructions. Richard Schneider DO [address] [place] [address] documented in this encounterSelect [facility]07-24-2024 History of Present illness Narrative* Richard Schneider [...] bleeding on his face. Was taken to [facility] and evaluated. No fractures. This has improved. [...] kidney disease) stage 3, GFR 30-59 ml/min ([facility]) 04/2016 Depressive disorder 12/24/2021 GERD [...] with the plan. Richard Schneider DO [address] [place] [address] documented in this encounterSelect [facility]07-11-2024 Telephone encounter Note * Telephone Encounter - Amelia Goldberg RN - 04/27/2024 4:56 PM EDT Called [facility] and spoke with Pratima and received fax number for [facility] in [place]. . Lab orders faxed as requested. [facility]07-11-2024 Miscellaneous Notes* Telephone Encounter - Amelia Goldberg RN - 04/27/2024 4:56 PM EDT Called [facility] and spoke with Pratima and received fax number for [facility] in [place]. . Lab orders faxed as requested. * Telephone Encounter - Jing Snow RN - 04/27/2024 4:32 PM EDT Patient's daughter returned call. Please fax orders to [facility] in [place] so they can draw labs. Jing Snow RN * Telephone Encounter - Rahda Carpio LPN - 04/27/2024 3:58 PM EDT [...] on that. Thank you, Marta Thomson APRN.LACY * Telephone Encounter - Radha Carpio LPN [...] anymore. * Telephone Encounter - Marta Thomson APRN.URBAN ANTHROPOLOGIST - 04/27/2024 3:32 PM EDT Lab work is ordered. Thank you, Marta Thomson APRN.URBAN ANTHROPOLOGIST * Telephone Encounter - Sis Herbert LPN - 04/25/2024 8:40 AM EDT Has appt 05/10/24, asking if he is due for labs prior to that appt? Pt lives at [place]. Sis Herbert LPN documented in this encounterSelect [facility]07-11-2024 Telephone encounter Note * Telephone Encounter - Jing Snow RN - 04/27/2024 4:32 PM EDT Patient's daughter returned call. Please fax orders to [facility] in [place] so they can draw labs. Jing Snow RN [facility]07-11-2024 Telephone encounter Note* Telephone Encounter - Radha Carpio LPN - 04/27/2024 3:58 PM EDT Left message as to this . Asked to call back let us know what wants done with order. [facility]07-11-2024 Telephone encounter Note* Telephone Encounter - Radha Carpio LPN - 04/27/2024 3:56 PM EDT Ok will let her know. [facility]07-11-2024 Telephone encounter Note* Telephone Encounter - Marta Thomson APRN.LACY - 04/27/2024 3:46 PM EDT I understand that. I saw these labs and figured he should have the below labs completed prior to appointment based on that. Thank you, Marta Thomson APRN.URBAN ANTHROPOLOGIST [facility]07-11-2024 Telephone encounter Note* Telephone Encounter - Radha [...] she isnot wanting him to get anymore. [facility]07-11-2024 Telephone encounter Note* Telephone Encounter - Marta Thomson APRN.LACY - 04/27/2024 3:32 PM EDT Lab work is ordered. Thank you, Marta Thomson APRN.URBAN ANTHROPOLOGIST [facility]07-09-2024 Telephone encounter Note* Telephone Encounter - Sis Herbert LPN - 04/25/2024 8:40 AM EDT Has appt 05/10/24, asking if he is due for labs prior to that appt? Pt lives at [place]. Sis Herbert LPN [facility]05-21-2024 Telephone encounter Note* Telephone Encounter - Sabrina Kay LPN - 03/07/2024 2:23 PM EDT Orders received. signed and faxed back. [facility]05-21-2024 Miscellaneous Notes* Telephone Encounter - Sabrina Valdez [...] Trisha. Lynn Gray LPN documented in this encounterSelect Medical [facility]05-21-2024 Telephone encounter Note * Telephone Encounter - Lynn Gray LPN - 03/07/2024 2:09 PM EDT Trisha with [facility] calling to let you know she had 1)faxed a UA on 03-02-24. Needs response back 2) family concern that pt may have pneumonia. Family hears rattling. [facility] requesting a chest x-ray there. Please watch for fax and get back to Trisha. Lynn Gray LPN [facility]05-08-2024 Instructions* Patient Instructions* Gila Issa MD - [...] appointment, pleasefeel free to send me a Affectiva message or contact the office - Continue exercise - Movement Disorders Medication Schedule: Medications 730 1130 430 HS Sinemet 25/100mg 2 2 2 2 Sertraline 100 mg 1 Return at or around: 08/25/24 If there are any concerns before your next visit, please call or you can send a message through SSEV. You can also now schedule and select appointments through SSEV. Gila Issa MD documented in this encounterSelect [facility]05-08-2024 History of Present illness Narrative* Gila Issa MD - 02/23/2024 9:43 AM EDT [facility] - FOLLOW UP EVALUATION Richard Schneider, DO [address] [facility] [address] I had the pleasure of seeing Mr. [...] Pulse (!) 51 Ht 172.7 cm (5' 8") Wt 87.4 kg (192 lb 10.9 oz) SpO2 95% BMI 29.30 kg/m Orthostatic Vitals: None for this encounter Weight: 87.4 kg (192 lb 10.9 oz) Height: 172.7 cm (5' 8") No LMP for male patient. Body mass [...] appointment, pleasefeel free to send me a Affectiva message or contact the office - Continue exercise - Updated Movement Disorders Medication Schedule: Medications 730 1130 430 HS Sinemet 25/100mg 2 2 2 2 Sertraline 100 mg 1 Return at or around: 08/25/24 Level of service : 27789 ( 30-39 min). Time spent 30 min on the day of service, which included preparing to see the patient, aimp-fi-irol patient care, completing clinical documentation, performing amedically appropriate examination, and counseling and educating the patient/family/caregiver. Thank you for allowing me to be part of the clinical care of this patient! I look forward to continued participation in the patient s care with you. Please do not hesitate to call with any questions. Sincerely, Gila Issa MD documented in this encounterSelect [facility]04-03-2024 History of Present illness Narrative* Tonya Gray PA-C - 01/19/2024 2:03 PM EDT Tonya Vetovitz, PA-C Department of Orthopaedics Orthopaedics [address] [place] [address] Dept: [phone] Dept January 19, 2024 CHIEF COMPLAINT: No [...] Analogues] This note was partially generated using [email or web address] voice recognition system, and there may be some incorrect words, spellings, and punctuation that were not noted in checking the note before saving. Tonya Gray PA-C * Adelaide Diego MA - 01/19/2024 1:35 PM EDT AMB ROOMING INTAKE FLOWSHEET DATA Pain Pain Level: 4 Pain Location: Hand-Left Description: Numbness Duration Amount of Time: (post op) Frequency: Intermittent Intervention/Comfort measure: Splinting documented in this encounterSelect Medical [facility]03-06-2024 Miscellaneous Notes* Telephone Encounter - Sabrina Kay LPN - 12/22/2023 5:55 PM EST Lab orders faxed to [facility]. * Telephone Encounter - Marta Thomson APRN.CNP - 12/22/2023 5:27 PM EST Labs are placed -- should have these done fasting and just a few days prior to appointment . Pleasefax. Thank you, Marta Thomson APRN.URBAN ANTHROPOLOGIST * Telephone Encounter - Adenike Oliva LPN - 12/22/2023 12:42 PM EST Patient daughter Sis Medina calling asking if father needs any lab work done prior to his appt on 01/12/2024 with PCP. If so can fax order to [facility] and can be drawn there. Computer shows last labswere done 06/2023. Pending orders if wanted, needs diagnosis. Please advise documented in this encounterSelect [facility]03-06-2024 Evaluation note* Diagnosis Hypertension, essential- Primary Unspecified essential hypertension Stage 3a chronic kidney disease (HCC) IFG (impaired fasting glucose) Impaired fasting glucose documented in this encounter [facility] History of Present illness Narrative* Tonya Gray PA-C - 12/06/2023 9:11 AM EST Tonya Gray PA-C Department of Orthopaedics Orthopaedics [address] [place] [address] Dept: [phone] Dept December 06, 2023 CHIEF COMPLAINT: Established [...] Analogues] This note was partially generated using [email or web address] voice recognition system, and there may be [...] anything for pain relief. documented in this encounterSelect [facility]01-23-2024 History of Present illness Narrative* Alberto Spencer MD - 11/09/2023 2:11 PM EST Alberto Spencer MD Department of Orthopaedics Orthopaedics [address] [place] [address] Dept: [phone] November 09, 2023 CHIEF COMPLAINT: New and Pain of the Left Hand HPI Patient here today from [facility] for left hand numbness, tingling and swelling. The thumb, index and middle fingers involved. He uses a walker when at the nursing facility. Had EMG completed at [facility] on 11/03/2023. Report here for review. Right [...] x 3, good mood and affect. Musculoskeletal: \\Are noted from his Parkinson's. Good range of [...] kidney disease) stage 3, GFR 30-59 ml/min ([facility]) 04/2016 Depressive disorder 12/24/2021 GERD [...] letterto requesting physician via US mail. Richard Schneider DO [address] [facility] [address] Alberto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 Acute on chronic renal insufficiency 07/19/2017 01/05/2022 Dehydration, moderate 07/19/2017 01/05/2022 Parkinson disease 06/10/2016 01/05/2022 Essential hypertension 05/05/2016 1 documented as of this encounter (statuses as of 03/18/2022) [facility] History of Past illness Narrative* Problem Noted Date Resolved Date Acute on chronic renal insufficiency 07/19/2017 01/05/2022 Dehydration, moderate 07/19/2017 01/05/2022 Parkinson disease 06/10/2016 01/05/2022 Essential hypertension 05/05/2016 1 documented as of this encounter (statuses as of 03/26/2022) [facility] History of Past illness Narrative* Problem Noted Date Resolved Date Acute on chronic renal insufficiency 07/19/2017 01/05/2022 Dehydration, moderate 07/19/2017 01/05/2022 Parkinson disease 06/10/2016 01/05/2022 Essential hypertension 05/05/2016 1 documented as of this encounter (statuses as of 04/09/2022) [facility] History of Past illness Narrative* Problem Noted Date Resolved Date Acute on chronic renal insufficiency 07/19/2017 01/05/2022 Dehydration, moderate 07/19/2017 01/05/2022 Parkinson disease 06/10/2016 01/05/2022 Essential hypertension 05/05/2016 1 documented as of this encounter (statuses as of 04/16/2022) [facility] of Past illness Narrative* Problem Noted Date Resolved Date Acute on chronic renal insufficiency 07/19/2017 01/05/2022 Dehydration, moderate 07/19/2017 01/05/2022 Parkinson disease 06/10/2016 01/05/2022 Essential hypertension 05/05/2016 1 documented as of this encounter (statuses as of 04/30/2022) [facility] History of Past illness Narrative* Problem Noted Date Resolved Date Acute on chronic renal insufficiency 07/19/2017 01/05/2022 Dehydration, moderate 07/19/2017 01/05/2022 Essential hypertension 05/05/2016 1 documented as of this encounter (statuses as of 07/08/2022) [facility] of Past illness Narrative* Problem Noted Date Resolved Date Acute on chronic renal insufficiency 07/19/2017 01/05/2022 Dehydration, moderate 07/19/2017 01/05/2022 Essential hypertension 05/05/2016 1 documented as of this encounter (statuses as of 08/11/2022) [facility] History of Past illness Narrative* Problem Noted Date Resolved Date Acute on chronic renal insufficiency 07/19/2017 01/05/2022 Dehydration, moderate 07/19/2017 01/05/2022 Essential hypertension 05/05/2016 1 documented as of this encounter (statuses as of 10/09/2022) [facility] of Past illness Narrative* Problem Noted Date Resolved Date Acute on chronic renal insufficiency 07/19/2017 01/05/2022 Dehydration, moderate 07/19/2017 01/05/2022 Essential hypertension 05/05/2016 1 documented as of this encounter (statuses as of 11/11/2022) [facility] History of Past illness Narrative* Problem Noted Date Resolved Date Acute on chronic renal insufficiency 07/19/2017 01/05/2022 Dehydration, moderate 07/19/2017 01/05/2022 Essential hypertension 05/05/2016 1 documented as of this encounter (statuses as of 12/17/2022) [facility]2017 History of Past illness Narrative* Problem Noted Date Resolved Date Acute on chronic renal insufficiency 07/19/2017 01/05/2022 Dehydration, moderate 07/19/2017 01/05/2022 Essential hypertension 05/05/2016 1 documented as of this encounter (statuses as of 12/24/2022) [facility]2017 History of Past illness Narrative* Problem Noted Date Resolved Date Acute on chronic renal insufficiency 07/19/2017 01/05/2022 Dehydration, moderate 07/19/2017 01/05/2022 Essential hypertension 05/05/2016 1 documented as of this encounter (statuses as of 12/24/2022) [facility]2017 History of Past illness Narrative* Problem Noted Date Resolved Date Acute on chronic renal insufficiency 07/19/2017 01/05/2022 Dehydration, moderate 07/19/2017 01/05/2022 Essential hypertension 05/05/2016 1 documented as of this encounter (statuses as of 01/06/2023) [facility]2017 History of Past illness Narrative* Problem Noted Date Resolved Date Acute on chronic renal insufficiency 07/19/2017 01/05/2022 Dehydration, moderate 07/19/2017 01/05/2022 Essential hypertension 05/05/2016 1 documented as of this encounter (statuses as of 04/07/2023) [facility]2017 History of Past illness Narrative* Problem Noted Date Diagnosed Date Resolved Date Acute on chronic renal insufficiency 07/19/2017 01/05/2022 Dehydration, moderate 07/19/20172021 Essential hypertension 05/05/201607/24 documented as of this encounter (statuses as of 06/23/2023) [facility] History of Past illness Narrative* Problem Noted Date Diagnosed Date Resolved Date Acute on chronic renal insufficiency 07/19/2017 01/05/2022 Dehydration, moderate 07/19/20172021 Essential hypertension 05/05/201607/24 documented as of this encounter (statuses as of 08/11/2023) [facility] History of Past illness Narrative* Problem Noted Date Diagnosed Date Resolved Date Acute on chronic renal insufficiency 07/19/2017 01/05/2022 Dehydration, moderate 07/19/20172021 Essential hypertension 05/05/201607/24 documented as of this encounter (statuses as of 08/23/2023) [facility] History of Past illness Narrative* Problem Noted Date Diagnosed Date Resolved Date Acute on chronic renal insufficiency 07/19/2017 01/05/2022 Dehydration, moderate 07/19/20172021 Essential hypertension 05/05/201607/24 documented as of this encounter (statuses as of 09/08/2023) [facility] History of Past illness Narrative* Problem Noted Date Diagnosed Date Resolved Date Acute on chronic renal insufficiency 07/19/2017 01/05/2022 Dehydration, moderate 07/19/20172021 Essential hypertension 05/05/201607/24 documented as of this encounter (statuses as of 11/30/2023) [facility] History of Past illness Narrative* Problem Noted Date Diagnosed Date Resolved Date Acute on chronic renal insufficiency 07/19/2017 01/05/2022 Dehydration, moderate 07/19/20172021 Essential hypertension 05/05/201607/24 documented as of this encounter (statuses as of 12/06/2023) [facility] History of Past illness Narrative* Problem Noted Date Diagnosed Date Resolved Date Acute on chronic renal insufficiency 07/19/2017 01/05/2022 Dehydration, moderate 07/19/20172021 Essential hypertension 05/05/201607/24 documented as of this encounter (statuses as of 12/23/2023) [facility] History of Past illness Narrative* Problem Noted Date Diagnosed Date Resolved Date Acute on chronic renal insufficiency 07/19/2017 01/05/2022 Dehydration, moderate 07/19/20172021 Essential hypertension 05/05/201607/24 documented as of this encounter (statuses as of 01/20/2024) [facility] Author Louis Monet [facility] Note Date/Time June 24, 2025 7:30am [facility] Medical Records Department [address] [place] [address] Emergency Department Summary 06/24/25 MR#: [id number] Acct: [id number] Name: ALEXIS KRAMER Rep #:[id number] : 1945 80 From: Louis Monet DO PCP: Dr. Richard Schneider DO Status:RE G ER Location: ED HPI History of Present Illness Chief Complaint: Fall Informant: patient and family Narrative Narrative: Patient is a 80-year-old male with history of Parkinson's disease. He lives in assisted living and is a DNR Comfort Care arrest. He states that last night he went to the bathroom and then as he was walking out of the bathroom lost his balance and fell down landing on his buttocks and injuring his right wrist. He denies striking his head any loss of consciousness or history of bleeding disorder or blood thinner use. He states he was able to get back up and get into bed. He states that he noticed increased pain and swelling to the right wrist this morning and with concern for injury contacted his daughter who brought him in for evaluation. Daughter states that the patient's Parkinson's is severe where he typically onlygets around with a wheelchair and the fact that he fell while up walking is not abnormal. [facility] Medical History Cancer GERD (gastroesophageal reflux disease) Kidney disease Depression Hypertension Parkinson's disease Home Medications ?Medication ?Instructions ?Recorded ?Last Taken ?Type Omeprazole [Prilosec] 40 mg PO DAILY 07/07/17 Unkn own History simvastatin 40 mg tablet 80 mg PO QHS 07/07/17 Unknow n History metoprolol succinate 25 mg 25 mg PO DAILY 02/18/18 Unk nown History tablet,extended release 24 hr aspirin 81 mg capsule 81 mg PO DAILY 09/23/22 Unkn own History carbidopa 25 mg-levodopa 100 mg 2 tab PO TID 09/23/22 Unknown History tablet cholecalciferol (vitamin D3) 50 50 mcg PO DAILY Unknown History mcg (2,000 unit) capsule (Vitamin D3) furosemide 20 mg tablet 20 mg PO DAILY 09/23/22 Unkn own History ibuprofen 200 mg capsule 400 mg PO Q6H PRN Pain 09/23 Unknown History magnesium 500 mg tablet 500 mg PO DAILY 09/23/22 Unk nown History sertraline 100 mg tablet 100 mg PO DAILY 09/23/22 Unk nown History vitamin B12 0.5 mg-folic acid 1 mg 2 tab PO DAILY 05/08 Unknown History tablet Allergy/AdvReac Type Severity Reaction Status Date / Time Opioids - Morphine Analogues AdvReac Vomiting Verified 06/24/25 06:00 (narcotics) Surgical History Hx of CABG Social History household members: none housing: assisted living facility Smoking Status: Former smoker ROS ROS ED Constitutional Constitutional ED: Denies chills or fever(s) Eyes Eyes: Denies blurry vision or change in vision Cardiovascular Cardiovascular: Reports other Details: Negative syncope ; Denies chest pain, palpitations or racing heartbeat Respiratory/Chest Respiratory/Chest: Denies cough or dyspnea Gastrointestinal Gastrointestinal: Denies abdominal pain, diarrhea, nausea or vomiting Genitourinary Genitourinary ED: Denies dysuria or hematuria Musculoskeletal Musculoskeletal: Reports back pain and other Details: Positive right wrist pain and swelling ; Denies neck pain Integumentary Reports other Details: Positive swelling and bruising right wrist ; Denies rash Neurologic Neurologic: Denies headache(s) Hematologic/Lymphatic Hematologic/Lymphatic: Denies easy bleeding or easy bruising EXAM Physical Exam Const Vital Signs: 06/24/25 06:00 06/24/25 06:00 Temperature 99.1 F Temperature Source Oral Pulse Rate 53 L Respiratory Rate 16 Respiratory Effort Normal Respiratory Depth Normal Respiratory Pattern Normal Blood Pressure 143/77 H Blood Pressure Mean 99 Pulse Ox 98 Oxygen Delivery Method Room Air Room Air Positive well nourished and well developed General Appearance ED: well developed HEENT HEENT Narrative: Normocephalic atraumatic No signs of depressed or basilar skull fracture Eyes PERRL and EOMs intact bilaterally General Eye ED: Negative for scleral icterus Neck supple Neck Narrative: No bony deformity or step-off of the cervical spine; no midline tenderness to palpation Chest Wall palpation of chest normal Chest Narrative: No pain with palpation No bony deformity or subcutaneous emphysema noted Resp normal respiratory effort and clear to auscultation bilaterally Resp Narrative: Breath sounds are diminished throughout but overall clear to auscultation without signs of respiratory distress Cardio regular rhythm Rate: bradycardia and other Other Details: Mildly bradycardic rate with regular rhythm GI non-tender, non-distended and no masses GI Narrative: No voluntary guarding or rigidity or pulsatile mass No overlying abrasions or ecchymosis Auscultation: hypoactive bowel sounds Palpation: soft Back/Spine Back/Spine Narrative: No bony deformity or step-off of the thoracic or lumbar spine; no midline tenderness to palpation There is superficial abrasion and faint ecchymosis along the right lateral back beginning around rib region 10-12 and extending to roughly 3 cm above the iliac crest No active bleeding or gaping of the wound Minimal tenderness to palpation along the posterior rib cage Extremity Extremity Narrative: Pelvis is stable there is no shortening or external rotation of either lower extremity Bilateral upper extremities are neurovascularly intact; there is soft tissue swelling with faint ecchymosis to the dorsal aspect of the right wrist over top of the radius and carpal bones. No obvious bony deformity or joint effusion. No ligamentous laxity or tendon injury noted. No pain in the anatomical snuffbox Neuro oriented x3 and CN's II-XII intact bilaterally Neuro Narrative: Patient is at his baseline mental status with chronic findings associated Parkinson's disease but no new or focal findings Sensorium / Orientation: alert Psych mental status grossly normal Skin Skin Narrative: Soft tissue swelling with ecchymosis to the dorsal aspect of the right wrist as documented above MDM MDM MDM Narrative Medical decision making narrative: Patient arrived to the ER with stable vitals. He reported a mechanical fall and has a history of poor ambulation secondary to his Parkinson's and therefore felt no need for cardiac or syncope workup. He does not take blood thinners nor has a history of bleeding disorder and he did not strike his head so my concern for underlying traumatic subarachnoid and subdural hemorrhage is low and do not feel the need for head CT. In order to rule out potential pelvic fracture rib fracture or distal radius/wrist fracture I like to perform multiple x-ray. Imaging studies revealed no signs of acute trauma. By physical exam there is no ligamentous or tendon injury either. As the patient does not have pain in anatomical snuffbox concern for scaphoid fracture is low as well. Therefore this time I feel any need for Ede wrap to add compression and padding around the injured wrist but as there is no signs of other trauma there is no need for further workup or orthopedic intervention he is otherwise safe for discharge History & Record Review Discussion w/independent historian: Patient and Family Radiography Diagnostic Testing: Right wrist x-ray as interpreted by the emergency medicine physician reveals degenerative changes without acute fracture dislocation or joint effusion 1 view pelvis x-ray as interpreted by the emergency medicine physician reveals degenerative changes without acute fracture or dislocation Right rib series as interpreted by the emergency medicine physician reveals no acute rib fracture or pneumothorax or infiltrate Discharge Plan Triage Chief Complaint: Fall ED Provider: Louis Monet Dx/Rx/DC Orders Clinical Impression: Parkinson's disease, Accidental fall, Contusion of right wrist, Back contusion Instructions: Bone Contusion, ED Wrist Sprain Prescriptions: No Action simvastatin 40 MG tablet 80 mg PO QHS Omeprazole [Prilosec] 40 MG capsule 40 mg PO DAILY metoprolol succinate 25 MG tablet extended release 24 hr 25 mg PO DAILY ibuprofen 200 mg Capsule 400 mg PO Q6H PRN (Reason: Pain) furosemide 20 mg Tablet 20 mg PO DAILY carbidopa-levodopa 25-100 mg Tablet 2 tab PO TID aspirin 81 mg Capsule 81 mg PO DAILY magnesium 500 mg Tablet 500 mg PO DAILY sertraline 100 mg Tablet 100 mg PO DAILY vitamin [id number] acid 0.5-1 mg Tablet 2 tab PO DAILY cholecalciferol (vitamin D3) [Vitamin D3] 50 mcg (2,000 unit) Capsule 50 mcg PO DAILY Primary Care Provider: Richard Schneider Referrals: Richard Schneider DO [Primary Care Provider] - Activity Restrictions/Additional Instructions: Your x-rays revealed no obvious fracture or dislocation. Please ice the areas that hurt to help reduce pain and speed healing. Wear your Ede wrap to help prevent further swelling and provide padding to the injured area. Continue Tylenol and/or Motrin for pain control. Return to the ER should you have any further concerns Print Language: Paraguayan Disposition Disposition: Home, Self Care What to do if you have Problems For any increased pain, shortness of breath, bleeding, nausea or vomiting, chestpain, or any unexpected problems, contact your Primary Care Provider. Call [facility] ([phone]) or report to the closest Emergency Room. Call 911 if necessary. 06/24/25 0730 <Electronically signed by Louis Monet DO> Cosigner Signature (if applicable): CC: Dr. Richard Schneider DO ~ Signed [facility] Work Phone: Evaluation note* Diagnosis Parkinson's disease (HCC)- Primary Paralysis [...] Other B-complex deficiencies documented [facility] this encounter [facility] noteNo assessment information availableWChillicothe [facility] Work Phone: Evaluation note* Diagnosis Cognitive impairment, mild, so stated Mild cognitive impairment, so stated Parkinson's disease (HCC) Paralysis agitans Aphasia Dysphasia Other speech disturbance [facility] this encounter [facility]* Diagnosis Elevated PSA- Primary Elevated prostate specific antigen (PSA) Parkinson's disease (HCC) Paralysis agitans Balance disorder Other symptoms involving nervous and musculoskeletal systems Microscopic hematuria Pure hypercholesterolemia IFG (impaired fasting glucose) Impaired fasting glucose Stage 3a chronic kidney disease (HCC) Vitamin D deficiency Unspecified vitamin D deficiency Vitamin B12 deficiency Other B-complex deficiencies documented [facility] this [facility]* Diagnosis Parkinson's disease (HCC)- Primary Paralysis [...] cerumen Impacted cerumen [facility]* Diagnosis Chronic ulcer of right leg, [...] Unspecified essential hypertension documented [facility] this encounter [facility] Diagnosis Onset Date Resolution Status Abnormal skin morphology determined by biopsy acute Nonhealing nonsurgical wound acute CAD (coronary artery disease) chronic [facility] Work Phone: Evaluation note* Diagnosis Bilateral leg edema Edema Chronic ulcer of right leg, limited to breakdown of skin (HCC) [facility] Parkinson's disease (HCC)- Primary Paralysis agitans [facility]* Diagnosis Gastroesophageal reflux disease without esophagitis Esophageal reflux Parkinson's disease (HCC) Paralysis agitans Hypertension, essential Unspecified essential hypertension Pure hypercholesterolemia Parkinson disease (HCC) Paralysis agitans Bilateral leg edema Edema Chronic ulcer of right leg, limited to breakdown of skin (HCC) [facility] Diagnosis Parkinson's disease (HCC)- Primary Paralysis agitans Chronic ulcer of right leg, limited to breakdown of skin (HCC) Chronic kidney disease, stage 3a (HCC) Hypertension, essential Unspecified essential hypertension Pure hypercholesterolemia Bilateral leg edema Edema IFG (impaired fasting glucose) Impaired fasting glucose Vitamin D deficiency Unspecified vitamin D deficiency [facility] Leg wound, right, initial encounter- Primary Chronic ulcer of right leg, limited to breakdown of skin (HCC) Chronic kidney disease, stage 3a (HCC) Parkinson's disease (HCC) Paralysis agitans Hypertension, essential Unspecified essential hypertension Pure hypercholesterolemia Bilateral leg edema Edema IFG (impaired fasting glucose) Impaired fasting glucose [facility] Diagnosis Pure hypercholesterolemia- Primary IFG (impaired fasting glucose) Impaired fasting glucose [facility] Diagnosis Parkinson's disease with dyskinesia and fluctuating manifestations- Primary [facility] Diagnosis Carpal tunnel syndrome, left Carpal tunnel syndrome [facility] Diagnosis Left carpal tunnel syndrome- Primary Carpal tunnel syndrome [facility] Diagnosis Left carpal tunnel syndrome- Primary Carpal tunnel syndrome [facility] Diagnosis Parkinson's disease with dyskinesia and fluctuating manifestations (HCC)- Primary [facility] Diagnosis Parkinson's disease with dyskinesia and fluctuating manifestations (HCC)- Primary Hypertension, essential Unspecified essential hypertension IFG (impaired fasting glucose) Impaired fasting glucose [facility] Diagnosis Hypertension, essential- Primary Unspecified essential hypertension SOB (shortness of breath) Shortness of breath Parkinson's disease with dyskinesia and fluctuating manifestations (HCC) IFG (impaired fasting glucose) Impaired fasting glucose Stage 3a chronic kidney disease (HCC) Balance disorder Other symptoms involving nervous and musculoskeletal systems Subacute cough Cough [facility] Diagnosis Parkinson's disease with dyskinesia and fluctuating manifestations (HCC)- Primary Need for influenza vaccination Need for prophylactic vaccination and inoculation against influenza Hypertension, essential Unspecified essential hypertension Balance disorder Other symptoms involving nervous and musculoskeletal systems Stage 3a chronic kidney disease (HCC) IFG (impaired fasting glucose) Impaired fasting glucose Pure hypercholesterolemia Short-term memory loss Memory loss [facility] Diagnosis Parkinson's disease with dyskinesia and fluctuating manifestations (HCC) [facility] Diagnosis Wheezing- Primary Chest congestion Other symptoms involving respiratory system and chest [facility] Diagnosis SOB (shortness of breath)- Primary Shortness of breath Wheezing Chest congestion Other symptoms involving respiratory system and chest [facility] Diagnosis Parkinson's disease with dyskinesia and fluctuating manifestations (HCC)- Primary [facility] Diagnosis Parkinson's disease with dyskinesia and fluctuating manifestations (HCC)- Primary [facility] Diagnosis IFG (impaired fasting glucose)- Primary [...] Loss of weight [facility] Diagnosis Hypertension, essential- Primary Unspecified essential hypertension Parkinson's disease with dyskinesia and fluctuating manifestations (HCC) Stage 3a chronic kidney disease (HCC) IFG (impaired fasting glucose) Impaired fasting glucose Vitamin B12 deficiency Other B-complex deficiencies Vitamin D deficiency Unspecified vitamin D deficiency Dyslipidemia Other and unspecified hyperlipidemia [facility] instructionsAdditional Instructions Your x-rays revealed no obvious fracture or dislocation. Please ice the areas that hurt to help reduce pain and speed healing. Wear your Ede wrap to help prevent further swelling and provide padding to the injured area. Continue Tylenol and/or Motrin for pain control. Return to the ER should you have any further concernsWChillicothe Hospital Work Phone: Reason for referral (narrative)* Outpatient Procedure (Routine) - Authorized Specialty Diagnoses / Procedures Referred By Contac t Referred To [facility] Diagnoses SOB (shortness of breath) Procedures ECHO ECHO TTHRC R-T 2D W/WOM-MODE COMPL SPEC&COLR D Richard Schneider DO [address] [place] [address] [facility] [address] [place] [address] Referral ID Status Reason Start Date Expiration Date Visits Requested Visits Authorized [id number] Authorized Auto-Generat ed Referral 05/10/2024 05/10/2025 1 1 [facility] for referral (narrative)No reason for referral information availableWChillicothe Hospital Work Phone: Advance Directives Documents on File Type Date Recorded Patient Traveling Electrician Expl anation Advance Directive(s) 11/20/2020 6:33 PM Advance Directive(s) 07/18/2018 8:31 AM Advance Directive Response Recorded Date/ Time Living Will Yes February 18, 2018 3: 59am Power of Ball Truing Machine Operator Yes February 18, 2018 3:59am Documents on File Type Date Recorded 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 Traveling Electrician Expl anation Advance Directive(s) 11/20/2020 6:33 PM Advance Directive(s) 07/18/2018 8:31 AM Documents on File Type Date Recorded Patient Traveling Electrician Expl anation Advance Directive(s) 11/20/2020 6:33 PM Documents on File Type Date Recorded Patient Traveling Electrician Expl anation Advance Directive(s) 11/20/2020 6:33 PM Advance Directive Response Recorded Date/ Time Living Will Yes February 18, 2018 2: 59am Power of Ball Truing Machine Operator Yes February 18, 2018 2:59am Advance Directive Response Recorded Date/ Time Do you have a Healthcare Power of Ball Truing Machine Operator? Yes June 24, 2025 6:00am Chief Complaint and Reason for Visit Chief Complaint SP Chief Complaint LONG TERM LAB WOR K Chief Complaint LONG TERM LAB WOR K wound wound LONG TERM LAB WORK Reason for Visit Abnormal skin morpho logy determined by biopsy Nonhealing nonsurgical wound CAD (coronary artery disease) Chief Complaint LONG TERM LAB WOR K wound wound LONG TERM LAB WORK LONG TERM LABWORK Reason for Visit Abnormal skin morpho logy determined by biopsy Nonhealing nonsurgical wound CAD (coronary artery disease) Chief Complaint wound wound LONG TERM LAB WORK LONG TERM LABWORK LONG TERM LABWORK Reason for Visit Abnormal skin morpho logy determined by biopsy Nonhealing nonsurgical wound CAD (coronary artery disease) Chief Complaint LONG TERM LAB WOR K LONG TERM LABWORK Chief Complaint LONG TERM LABWORK N/T LT HAND, PAIN LT HAND N/T LT HAND, PAIN LT HAND LONG TERM LAB WORK Chief Complaint Admit Date LONG TERM LAB WORK January 11, 2025 4 :00am PD W/DYSKINESIA/RX HERE January 12, 2025 9:00am Chief Complaint Admit Date PD W/DYSKINESIA/RX HERE April 24, 2025 9 :30am Chief Complaint Admit Date PD W/DYSKINESIA/RX HERE April 24, 2025 9 :30am fall June 24, 2025 5:59am Reason for Referral Specialty Diagnoses / Procedures Referred By Raul wild Referred To Contact MR IMAGING Diagnoses Cognitive impairment, mild, so stated Parkinson's disease (HCC) Aphasia Dysphasia Procedures MRI BRAIN WO/W IVCON MRI BRAIN BRAIN STEM W/O W/CONTRAST MATERIAL Richard Schneider, DO [address] [place] [address] Mr Imaging Referral ID Status Reason Start Date Expiration Date V isits Requested Visits Authorized [id number] Closed Auto-Generate d Referral 12/24/2021 01/23/2023 1 1 Specialty Diagnoses / Procedures Referred By Raul wild Referred To Contact Podiatry Diagnoses Onychomycosis Bunion Procedures CONSULT TO PODIATRY OFFICE/OUTPATIENT [facility] 60-74 MINUTES Richard Schneider, DO [address] [place] [address] Referral ID Status Reason Start Date Expiration Date Visits Requested Visits Authorized [id number] Pending Review PCP Requested Referral 07/08/2022 07/08/2023 1 1 Specialty Diagnoses / Procedures Referred By Contac t Referred To Contact Diagnoses Parkinson's disease (HCC) Procedures PROVIDER ORDERED FOLLOW UP OFFICE/OUTPATIENT NEW HIGH MDM 60-74 MINUTES Gila Issa MD [address] [address] Referral ID Status Reason Start Date Expiration Date Visits Requested Visits Authorized [id number] Pending Review PCP Requested Referral 12/16/2022 03/16/2023 1 1 Specialty Diagnoses / Procedures Referred By Contac t Referred To Contact Diagnoses Parkinson's disease with dyskinesia and fluctuating manifestations Procedures PROVIDER ORDERED FOLLOW UP OFFICE/OUTPATIENT NEW HIGH MDM 60-74 MINUTES Gila Issa MD [address] [address] Referral ID Status Reason Start Date Expiration Date Visits Requested Visits Authorized [id number] Pending Review PCP Requested Referral 08/18/2023 11/16/2023 1 1 Specialty Diagnoses / Procedures Referred By Contac t Referred To Contact Diagnoses Parkinson's disease with dyskinesia and fluctuating manifestations (HCC) Procedures PROVIDER ORDERED FOLLOW UP OFFICE/OUTPATIENT NEW HIGH MDM 60 MINUTES Gila Issa MD [address] [address] Referral ID Status Reason Start Date Expiration Date Visits Requested Visits Authorized [id number] Authorized PCP Requested Referral 02/23/2024 05/23/2024 1 1 Referral ID Status Reason Start Date Expiration Date Visits Requested Visits Authorized [id number] Authorized PCP Requested Referral 11/28/2024 1 1 Specialty Diagnoses / Procedures Referred By Contac t Referred To Contact Diagnoses Wheezing Chest congestion Richard Schneider, [address] [place] [address] Referral ID Status Reason Start Date Expiration Date Visits Re quested Visits Authorized [id number] Closed 1 1 Referral ID Status Reason Start Date Expiration Date Visits Re quested Visits Authorized [id number] Closed 1 1 Summary Purpose Family History [...] or prosecute any alcohol or drug abuse patient.[facility], IncIn the event this information is protected by the Federal Confidentiality of Alcohol and Drug Abuse Patient Records regulations: The Federal rules restrict any use of the information to criminally investigate or prosecute any alcohol or drug abuse patient.[facility], IncIn the event this information is protected by the Federal Confidentiality of Alcohol and Drug Abuse Patient Records regulations: The Federal rules restrict any use of the information to criminally investigate or prosecute any alcohol or drug abuse patient.[facility], IncIn the event this information is protected by the Federal Confidentiality of Alcohol and Drug Abuse Patient Records regulations: The Federal rules restrict any use of the information to criminally investigate or prosecute any alcohol or drug abuse patient.[facility], IncIn the event this information is protected by the Federal Confidentiality of Alcohol and Drug Abuse Patient Records regulations: The Federal rules restrict any use of the information to criminally investigate or prosecute any alcohol or drug abuse patient.[facility], IncIn the event this information is protected by the Federal Confidentiality of Alcohol and Drug Abuse Patient Records regulations: The Federal rules restrict any use of the information to criminally investigate or prosecute any alcohol or drug abuse patient.[facility], IncIn the event this information is protected by the Federal Confidentiality of Alcohol and Drug Abuse Patient Records regulations: The Federal rules restrict any use of the information to criminally investigate or prosecute any alcohol or drug abuse patient.[facility], IncIn the event this information is protected by the Federal Confidentiality of Alcohol and Drug Abuse Patient Records regulations: The Federal rules restrict any use of the information to criminally investigate or prosecute any alcohol or drug abuse patient.[facility], IncIn the event this information is protected by the Federal Confidentiality of Alcohol and Drug Abuse Patient Records regulations: The Federal rules restrict any use of the information to criminally investigate or prosecute any alcohol or drug abuse patient.[facility], IncIn the event this information is protected by the Federal Confidentiality of Alcohol and Drug Abuse Patient Records regulations: The Federal rules restrict any use of the information to criminally investigate or prosecute any alcohol or drug abuse patient.[facility], IncIn the event this information is protected by the Federal Confidentiality of Alcohol and Drug Abuse Patient Records regulations: The Federal rules restrict any use of the information to criminally investigate or prosecute any alcohol or drug abuse patient.[facility], IncIn the event this information is protected by the Federal Confidentiality of Alcohol and Drug Abuse Patient Records regulations: The Federal rules restrict any use of the information to criminally investigate or prosecute any alcohol or drug abuse patient.[facility], IncIn the event this information is protected by the Federal Confidentiality of Alcohol and Drug Abuse Patient Records regulations: The Federal rules restrict any use of the information to criminally investigate or prosecute any alcohol or drug abuse patient.[facility], IncIn the event this information is protected by the Federal Confidentiality of Alcohol and Drug Abuse Patient Records regulations: The Federal rules restrict any use of the information to criminally investigate or prosecute any alcohol or drug abuse patient.[facility], IncIn the event this information is protected by the Federal Confidentiality of Alcohol and Drug Abuse Patient Records regulations: The Federal rules restrict any use of the information to criminally investigate or prosecute any alcohol or drug abuse patient.[facility], IncIn the event this information is protected by the Federal Confidentiality of Alcohol and Drug Abuse Patient Records regulations: The Federal rules restrict any use of the information to criminally investigate or prosecute any alcohol or drug abuse patient.[facility], IncIn the event this information is protected by the Federal Confidentiality of Alcohol and Drug Abuse Patient Records regulations: The Federal rules restrict any use of the information to criminally investigate or prosecute any alcohol or drug abuse patient.[facility], IncIn the event this information is protected by the Federal Confidentiality of Alcohol and Drug Abuse Patient Records regulations: The Federal rules restrict any use of the information to criminally investigate or prosecute any alcohol or drug abuse patient.[facility], IncIn the event this information is protected by the Federal Confidentiality of Alcohol and Drug Abuse Patient Records regulations: The Federal rules restrict any use of the information to criminally investigate or prosecute any alcohol or drug abuse patient.[facility], IncIn the event this information is protected by the Federal Confidentiality of Alcohol and Drug Abuse Patient Records regulations: The Federal rules restrict any use of the information to criminally investigate or prosecute any alcohol or drug abuse patient.[facility], IncIn the event this information is protected by the Federal Confidentiality of Alcohol and Drug Abuse Patient Records regulations: The Federal rules restrict any use of the information to criminally investigate or prosecute any alcohol or drug abuse patient.[facility], IncIn the event this information is protected by the Federal Confidentiality of Alcohol and Drug Abuse Patient Records regulations: The Federal rules restrict any use of the information to criminally investigate or prosecute any alcohol or drug abuse patient.[facility], IncIn the event this information is protected by the Federal Confidentiality of Alcohol and Drug Abuse Patient Records regulations: The Federal rules restrict any use of the information to criminally investigate or prosecute any alcohol or drug abuse patient.[facility], IncIn the event this information is protected by the Federal Confidentiality of Alcohol and Drug Abuse Patient Records regulations: The Federal rules restrict any use of the information to criminally investigate or prosecute any alcohol or drug abuse patient.[facility], IncIn the event this information is protected by the Federal Confidentiality of Alcohol and Drug Abuse Patient Records regulations: The Federal rules restrict any use of the information to criminally investigate or prosecute any alcohol or drug abuse patient.[facility], IncIn the event this information is protected by the Federal Confidentiality of Alcohol and Drug Abuse Patient Records regulations: The Federal rules restrict any use of the information to criminally investigate or prosecute any alcohol or drug abuse patient.[facility], IncIn the event this information is protected by the Federal Confidentiality of Alcohol and Drug Abuse Patient Records regulations: The Federal rules restrict any use of the information to criminally investigate or prosecute any alcohol or drug abuse patient.[facility], IncIn the event this information is protected by the Federal Confidentiality of Alcohol and Drug Abuse Patient Records regulations: The Federal rules restrict any use of the information to criminally investigate or prosecute any alcohol or drug abuse patient.[facility], IncIn the event this information is protected by the Federal Confidentiality of Alcohol and Drug Abuse Patient Records regulations: The Federal rules restrict any use of the information to criminally investigate or prosecute any alcohol or drug abuse patient.[facility], IncIn the event this information is protected by the Federal Confidentiality of Alcohol and Drug Abuse Patient Records regulations: The Federal rules restrict any use of the information to criminally investigate or prosecute any alcohol or drug abuse patient.[facility], IncIn the event this information is protected by the Federal Confidentiality of Alcohol and Drug Abuse Patient Records regulations: The Federal rules restrict any use of the information to criminally investigate or prosecute any alcohol or drug abuse patient.[facility], IncIn the event this information is protected by the Federal Confidentiality of Alcohol and Drug Abuse Patient Records regulations: The Federal rules restrict any use of the information to criminally investigate or prosecute any alcohol or drug abuse patient.[facility], IncIn the event this information is protected by the Federal Confidentiality of Alcohol and Drug Abuse Patient Records regulations: The Federal rules restrict any use of the information to criminally investigate or prosecute any alcohol or drug abuse patient.[facility], IncIn the event this information is protected by the Federal Confidentiality of Alcohol and Drug Abuse Patient Records regulations: The Federal rules restrict any use of the information to criminally investigate or prosecute any alcohol or drug abuse patient.[facility], IncIn the event this information is protected by the Federal Confidentiality of Alcohol and Drug Abuse Patient Records regulations: The Federal rules restrict any use of the information to criminally investigate or prosecute any alcohol or drug abuse patient.[facility], IncIn the event this information is protected by the Federal Confidentiality of Alcohol and Drug Abuse Patient Records regulations: The Federal rules restrict any use of the information to criminally investigate or prosecute any alcohol or drug abuse patient.[facility], IncIn the event this information is protected by the Federal Confidentiality of Alcohol and Drug Abuse Patient Records regulations: The Federal rules restrict any use of the information to criminally investigate or prosecute any alcohol or drug abuse patient.[facility], IncIn the event this information is protected by the Federal Confidentiality of Alcohol and Drug Abuse Patient Records regulations: The Federal rules restrict any use of the information to criminally investigate or prosecute any alcohol or drug abuse patient.[facility], IncIn the event this information is protected by the Federal Confidentiality of Alcohol and Drug Abuse Patient Records regulations: The Federal rules restrict any use of the information to criminally investigate or prosecute any alcohol or drug abuse patient.[facility], IncIn the event this information is protected by the Federal Confidentiality of Alcohol and Drug Abuse Patient Records regulations: The Federal rules restrict any use of the information to criminally investigate or prosecute any alcohol or drug abuse patient.[facility], IncIn the event this information is protected by the Federal Confidentiality of Alcohol and Drug Abuse Patient Records regulations: The Federal rules restrict any use of the information to criminally investigate or prosecute any alcohol or drug abuse patient.[facility], IncIn the event this information is protected by the Federal Confidentiality of Alcohol and Drug Abuse Patient Records regulations: The Federal rules restrict any use of the information to criminally investigate or prosecute any alcohol or drug abuse patient.[facility], IncIn the event this information is protected by the Federal Confidentiality of Alcohol and Drug Abuse Patient Records regulations: The Federal rules restrict any use of the information to criminally investigate or prosecute any alcohol or drug abuse patient.[facility], IncIn the event this information is protected by the Federal Confidentiality of Alcohol and Drug Abuse Patient Records regulations: The Federal rules restrict any use of the information to criminally investigate or prosecute any alcohol or drug abuse patient.[facility], IncIn the event this information is protected by the Federal Confidentiality of Alcohol and Drug Abuse Patient Records regulations: The Federal rules restrict any use of the information to criminally investigate or prosecute any alcohol or drug abuse patient.[facility], IncIn the event this information is protected by the Federal Confidentiality of Alcohol and Drug Abuse Patient Records regulations: The Federal rules restrict any use of the information to criminally investigate or prosecute any alcohol or drug abuse patient.[facility], IncIn the event this information is protected by the Federal Confidentiality of Alcohol and Drug Abuse Patient Records regulations: The Federal rules restrict any use of the information to criminally investigate or prosecute any alcohol or drug abuse patient.[facility], IncIn the event this information is protected by the Federal Confidentiality of Alcohol and Drug Abuse Patient Records regulations: The Federal rules restrict any use of the information to criminally investigate or prosecute any alcohol or drug abuse patient.[facility], IncIn the event this information is protected by the Federal Confidentiality of Alcohol and Drug Abuse Patient Records regulations: The Federal rules restrict any use of the information to criminally investigate or prosecute any alcohol or drug abuse patient.[facility], IncIn the event this information is protected by the Federal Confidentiality of Alcohol and Drug Abuse Patient Records regulations: The Federal rules restrict any use of the information to criminally investigate or prosecute any alcohol or drug abuse patient.[facility], IncIn the event this information is protected by the Federal Confidentiality of Alcohol and Drug Abuse Patient Records regulations: The Federal rules restrict any use of the information to criminally investigate or prosecute any alcohol or drug abuse patient.[facility], IncIn the event this information is protected by the Federal Confidentiality of Alcohol and Drug Abuse Patient Records regulations: The Federal rules restrict any use of the information to criminally investigate or prosecute any alcohol or drug abuse patient.[facility], IncIn the event this information is protected by the Federal Confidentiality of Alcohol and Drug Abuse Patient Records regulations: The Federal rules restrict any use of the information to criminally investigate or prosecute any alcohol or drug abuse patient.[facility], IncIn the event this information is protected by the Federal Confidentiality of Alcohol and Drug Abuse Patient Records regulations: The Federal rules restrict any use of the information to criminally investigate or prosecute any alcohol or drug abuse patient.[facility], IncIn the event this information is protected by the Federal Confidentiality of Alcohol and Drug Abuse Patient Records regulations: The Federal rules restrict any use of the information to criminally investigate or prosecute any alcohol or drug abuse patient.[facility], IncIn the event this information is protected by the Federal Confidentiality of Alcohol and Drug Abuse Patient Records regulations: The Federal rules restrict any use of the information to criminally investigate or prosecute any alcohol or drug abuse patient.[facility], IncIn the event this information is protected by the Federal Confidentiality of Alcohol and Drug Abuse Patient Records regulations: The Federal rules restrict any use of the information to criminally investigate or prosecute any alcohol or drug abuse patient.[facility], IncIn the event this information is protected by the Federal Confidentiality of Alcohol and Drug Abuse Patient Records regulations: The Federal rules restrict any use of the information to criminally investigate or prosecute any alcohol or drug abuse patient.[facility] Reason for Visit (unrecogniz ed section and content) Reason Comments Parkinson's Disease Specialty Diagnoses / Procedures Referred By Raul t Referred To Contact Diagnoses Parkinson's disease Procedures PROVIDER ORDERED FOLLOW UP OFFICE/OUTPATIENT NEW HIGH MDM 60-74 MINUTES Gila Issa MD [address] [facility] [address] [place] [address] Referral ID Status Reason Start Date Expiration Date V isits Requested Visits Authorized [id number] Closed PCP Requested Referral 12/16/2022 03/16/2023 1 1 Reason Comments Follow Up 6 months Reason Comments Refill Request Specialty Diagnoses / Procedures Referred By Raul wild Referred To Contact MR IMAGING Diagnoses Cognitive impairment, mild, so stated Parkinson's disease (HCC) Aphasia Dysphasia Procedures MRI BRAIN WO/W IVCON MRI BRAIN BRAIN STEM W/O W/CONTRAST MATERIAL Richard Schneider, [address] [place] [address] Mr Imaging Referral ID Status Reason Start Date Expiration Date V isits Requested Visits Authorized [id number] Closed Auto-Generate d Referral 12/24/2021 01/23/2023 1 1 Reason Comments Results Reason Comments Faxed to [facility] Reason Comments Follow for PT Reason Comments [...] Referred By Raul t Referred To Contact Orthopedics Diagnoses Carpal tunnel syndrome, left Procedures CONSULT TO ORTHOPAEDICS OFFICE/OUTPATIENT NEW HIGH MDM 60 MINUTES Richard Schneider, DO [address] [place] [address] Referral ID Status Reason Start Date Expiration Date V isits Requested Visits Authorized [id number] Closed PCP Requested Referral 11/06/2023 11/05/2024 1 1 Reason Comments Established Patient Post Op Specialty Diagnoses / Procedures Referred By Contac t Referred To Contact Diagnoses Parkinson's disease with dyskinesia and fluctuating manifestations (HCC) Procedures PROVIDER ORDERED FOLLOW UP OFFICE/OUTPATIENT NEW HIGH MDM 60-74 MINUTES Gila Issa MD [address] [address] Referral ID Status Reason Start Date Expiration Date V isits Requested Visits Authorized [id number] Closed PCP Requested Referral 08/18/2023 11/16/2023 1 1 Reason Comments [place] faxing request for orders Reason Comments Orders Due for labs? Reason Comments F/U 3 Month Reason Onset Date Comments F/U 3 Month Immunizations 07/26/2024 Flu vaccination Specialty Diagnoses / Procedures Referred By Contac t Referred To Contact Diagnoses Parkinson's disease with dyskinesia and fluctuating manifestations (HCC) Procedures PROVIDER ORDERED FOLLOW UP OFFICE/OUTPATIENT NEW HIGH MDM 60 MINUTES Gila Issa MD [address] [address] Referral ID Status Reason Start Date Expiration Date V isits Requested Visits Authorized [id number] Closed PCP Requested Referral 02/23/2024 05/23/2024 1 1 Reason Comments Patient Question Medication Question Reason Comments Patient Question Medication Request Reason Comments Orders Reason Comments Information needed for DME company for n ebulizer Reason Onset Date Comments Orders 02/21/2025 Reason Comments Forms Care Teams (unrecognized sec tion and content) Street Photographer Relationship Specialty Start Date End Date Richard Schneider DO [address] [place], [place] [id number] PCP - General Family Practice 05/04/16 Street Photographer Relationship Specialty Start Date End Date Richard Schneider DO [address] [place], [place] [id number] PCP - General Family Practice 05/04/16 [address] Photographer Relationship Specialty Start Date End Date Richard Schneider, DO [address] [place] [address] PCP - General Family Practice 05/04/16 [address] Photographer Relationship Specialty Start Date End Date Richard Schneider, DO [address] [place] [address] PCP - General Family Practice 05/04/16 [address] Photographer Relationship Specialty Start Date End Date Richard Schneider, DO [address] [place] [address] PCP - General Family Practice 05/04/16 [address] Photographer Relationship Specialty Start Date End Date Richard Schneider, DO [address] [place] [address] PCP - General Family Practice 05/04/16 [address] Photographer Relationship Specialty Start Date End Date Richard Schneider, DO [address] [place] [address] PCP - General Family Practice 05/04/16 [address] Photographer Relationship Specialty Start Date End Date Richard Schneider, DO [address] [place] [address] PCP - General Family Practice 05/04/16 Street Photographer Relationship Specialty Start Date End Date Richard Schneider, DO [address] [place] [address] PCP - General Family Practice 05/04/16 Street Photographer Relationship Specialty Start Date End Date Richard Schneider, DO [address] [place] [address] PCP - General Family Practice 05/04/16 Street Photographer Relationship Specialty Start Date End Date Richard Schneider, DO [address] [place] [address] PCP - General Family Practice 05/04/16 Street Photographer Relationship Specialty Start Date End Date Wytat Richard Dariana, DO [address] [facility] [place] [address] PCP - General Family Medicine 05/04/16 Street Photographer Relationship Specialty Start Date End Date WyattRichard Dariana, DO [address] [place] [address] PCP - General Family Medicine 05/04/16 Nery Snyder, PSYCHOTHERAPIST SOCIAL WORKER.URBAN ANTHROPOLOGIST [address] [facility] [place] [address] Specialty Sheet Finisher Neurology 08/05/22 Street Photographer Relationship Specialty Start Date End Date SchneiderRichard hart, DO [address] [facility] [place] [address] PCP - General Family Medicine 05/04/16 Nery Snyder, PSYCHOTHERAPIST SOCIAL WORKER.URBAN ANTHROPOLOGIST [address] [facility] [place] [address] Specialty Sheet Finisher Neurology 08/05/22 Street Photographer Relationship Specialty Start Date End Date Richard Schneider Dariana, DO [address] [facility] [place] [address] PCP - General Family Medicine 05/04/16 Nery Snyder, PSYCHOTHERAPIST SOCIAL WORKER.URBAN ANTHROPOLOGIST [address] [facility] [place] [address] Specialty Sheet Finisher Neurology 08/05/22 Liz Johnson, PSYCHOTHERAPIST SOCIAL WORKER.URBAN ANTHROPOLOGIST [address] [place] [address] Specialty Sheet Finisher Neurology 11/02/22 Street Photographer Relationship Specialty Start Date End Date SchneiderRichard hart, DO [address] [facility] [place] [address] PCP - General Family Medicine 05/04/16 Nery Snyder, PSYCHOTHERAPIST SOCIAL WORKER.URBAN ANTHROPOLOGIST [address] [facility] [place] [address] Specialty Sheet Finisher Neurology 08/05/22 Liz Johnson, PSYCHOTHERAPIST SOCIAL WORKER.URBAN ANTHROPOLOGIST [address] [place] [address] Specialty Sheet Finisher Neurology 11/02/22 [address] Photographer Relationship Specialty Start Date End Date Richard Schneider, DO [address] [facility] [place] [address] PCP - General Family Medicine 05/04/16 Nery Snyder, PSYCHOTHERAPIST SOCIAL WORKER.URBAN ANTHROPOLOGIST [address] [facility] [place] [address] Specialty Sheet Finisher Neurology 08/05/22 Liz Johnson, PSYCHOTHERAPIST SOCIAL WORKER.URBAN ANTHROPOLOGIST [address] [place] [address] Specialty Sheet Finisher Neurology 11/02/22 Street Photographer Relationship Specialty Start Date End Date Richard Schneider, DO [address] [place] [address] PCP - General Family Medicine 05/04/16 Nery Synder, PSYCHOTHERAPIST SOCIAL WORKER.URBAN ANTHROPOLOGIST [address] [facility] [place] [address] Specialty Sheet Finisher Neurology 08/05/22 Liz Johnson, PSYCHOTHERAPIST SOCIAL WORKER.URBAN ANTHROPOLOGIST [address] [place] [address] Specialty Sheet Finisher Neurology 11/02/22 [address] Photographer Relationship Specialty Start Date End Date Richard Schneider, DO [address] [facility] [place] [address] PCP - General Family Medicine 05/04/16 Nery Snyder, PSYCHOTHERAPIST SOCIAL WORKER.URBAN ANTHROPOLOGIST [address] [facility] [place] [address] Specialty Sheet Finisher Neurology 08/05/22 Liz Johnson, PSYCHOTHERAPIST SOCIAL WORKER.URBAN ANTHROPOLOGIST [address] [place], [place] [id number] Specialty Sheet Finisher Neurology 11/02/22 Team Status: Active Member Role Status Dates Dr. Richard Schneider , Family Provider Active Dr. Richard Schneider , DO Primary Care Provider Active Team Status: Active Member Role Status Dates Dr. Richard Schneider , DO Primary Care Provider Active Edna Cabello CASH REGISTER MECHANIC, CASH REGISTER MECHANIC-C Attending Provider, Other Pro vider Active Team Status: Inactive Member Role Status Dates Dr. Richard Schneider , Primary Care Provider Active Edna Cabello CASH REGISTER MECHANIC, CASH REGISTER MECHANIC-C Attending Provider Active Team Status: Inactive Member Role Status Dates Dr. Richard Schneider DO Primary Care Provider, Attend ing Provider Active Richard BOUDREAUX Referring Provider Active Team Status: Inactive Member Role Status Dates Dr. Richard Schneider DO Primary Care Provider Active Richard BOUDREAUX Attending Provider Active Street Photographer Relationship Specialty Start Date End Date Richard Schneider DO [address] [place] [address] PCP - General Family Medicine 05/04/16 Nery Snyder, PSYCHOTHERAPIST SOCIAL WORKER.URBAN ANTHROPOLOGIST [address] [place] [address] Specialty Sheet Finisher Neurology 08/05/22 Liz Johnson, PSYCHOTHERAPIST SOCIAL WORKER.URBAN ANTHROPOLOGIST [address] [place], [place] [id number] Specialty Sheet Finisher Neurology 11/02/22 Street Photographer Relationship Specialty Start Date End Date Richard Schneider DO [address] [place] [address] PCP - General Family Medicine 05/04/16 Nery Snyder, PSYCHOTHERAPIST SOCIAL WORKER.URBAN ANTHROPOLOGIST [address] [place] [address] Specialty Sheet Finisher Neurology 08/05/22 Liz Johnson, PSYCHOTHERAPIST SOCIAL WORKER.URBAN ANTHROPOLOGIST [address] [place] [address] Specialty Sheet Finisher Neurology 11/02/22 Street Photographer Relationship Specialty Start Date End Date Richard Schneider DO [address] [place] [address] PCP - General Family Medicine 05/04/16 Nery Snyder, PSYCHOTHERAPIST SOCIAL WORKER.URBAN ANTHROPOLOGIST [address] [place] [address] Specialty Sheet Finisher Neurology 08/05/22 Liz Johnson, PSYCHOTHERAPIST SOCIAL WORKER.URBAN ANTHROPOLOGIST [address] [place] [address] Specialty Sheet Finisher Neurology 11/02/22 Street Photographer Relationship Specialty Start Date End Date Richard Schneider DO [address] [place] [address] PCP - General Family Medicine 05/04/16 Nery Snyder, PSYCHOTHERAPIST SOCIAL WORKER.URBAN ANTHROPOLOGIST [address] [place] [address] Specialty Sheet Finisher Neurology 08/05/22 Liz Johnson, PSYCHOTHERAPIST SOCIAL WORKER.URBAN ANTHROPOLOGIST [address] [place] [address] Specialty Sheet Finisher Neurology 11/02/22 Gila Issa MD [address] [place] [address] Specialty Sheet Finisher Neurology 10/06/23 Street Photographer Relationship Specialty Start Date End Date Richard Schneider DO [address] [place], [place] 965441 PCP - General Family Medicine 05/04/16 Nery Snyder, PSYCHOTHERAPIST SOCIAL WORKER.URBAN ANTHROPOLOGIST [address] [place], [place] 1790695 Specialty Sheet Finisher Neurology 08/05/22 Liz Johnson, PSYCHOTHERAPIST SOCIAL WORKER.URBAN ANTHROPOLOGIST [address] [place], [place] [id number] Specialty Sheet Finisher Neurology 11/02/22 Gila Issa MD [address] [place] [address] [phone] Specialty Sheet Finisher Neurology 10/06/23 Street Photographer Relationship Specialty Start Date End Date Richard Schneider DO [address] [place] [address] PCP - General Family Medicine 05/04/16 Nery Snyder, PSYCHOTHERAPIST SOCIAL WORKER.URBAN ANTHROPOLOGIST [address] [place], [place] [phone] Specialty Sheet Finisher Neurology 08/05/22 Liz Johnson, PSYCHOTHERAPIST SOCIAL WORKER.URBAN ANTHROPOLOGIST [address] [place] [address] Specialty Sheet Finisher Neurology 11/02/22 Gila Issa MD [address] [place] [address] [phone] Specialty Sheet Finisher Neurology 10/06/23 Team Status: Active Member Role Status Dates Dr. Richard Schneider , DO Primary Care Pr ovider, Referring Provider, Other Provider Active Dr. Bruno Zarate MD Attending Provider Active Team Status: Inactive Member Role Status Dates Dr. Richard Schneider DO Primary Care Pr ovider, Attending Provider, Referring Provider Active Team Status: Inactive Member Role Status Dates Dr. Richard Schneider DO Primary Care Provider Active Richard BOUDREAUX Attending Provider, Referring Prov ider Active Street Photographer Relationship Specialty Start Date End Date Richard Schneider DO [address] [place] [address] PCP - General Family Medicine 05/04/16 Nery Snyder, PSYCHOTHERAPIST SOCIAL WORKER.URBAN ANTHROPOLOGIST [address] [place], [place] [phone] Specialty Sheet Finisher Neurology 08/05/22 Liz Johnson, PSYCHOTHERAPIST SOCIAL WORKER.URBAN ANTHROPOLOGIST [address] [place] [address] Specialty Sheet Finisher Neurology 11/02/22 Gila Issa MD [address] [place] [address] [phone] Specialty Sheet Finisher Neurology 10/06/23 Street Photographer Relationship Specialty Start Date End Date Richard Schneider DO [address] [place] [address] PCP - General Family Medicine 05/04/16 Nery Snyder, PSYCHOTHERAPIST SOCIAL WORKER.URBAN ANTHROPOLOGIST [address] [place] [address] Specialty Sheet Finisher Neurology 08/05/22 Liz Johnson, PSYCHOTHERAPIST SOCIAL WORKER.URBAN ANTHROPOLOGIST [address] [place] [address] Specialty Sheet Finisher Neurology 11/02/22 Gila Issa MD [address] [phone] Specialty Sheet Finisher Neurology 10/06/23 Street Photographer Relationship Specialty Start Date End Date Richard Schneider DO [address] [place] [address] PCP - General Family Medicine 05/04/16 Nery Snyder, PSYCHOTHERAPIST SOCIAL WORKER.URBAN ANTHROPOLOGIST [address] [place] [address] Specialty Sheet Finisher Neurology 08/05/22 Liz Johnson PSYCHOTHERAPIST SOCIAL WORKER.URBAN ANTHROPOLOGIST [address] [place] [address] Specialty Sheet Finisher Neurology 11/02/22 Gila Issa MD [address] [place] [phone] Specialty Sheet Finisher Neurology 10/06/23 Street Photographer Relationship Specialty Start Date End Date Richard Schneider DO [address] [place] [address] PCP - General Family Medicine 05/04/16 Nery Snyder, PSYCHOTHERAPIST SOCIAL WORKER.URBAN ANTHROPOLOGIST [address] [place] [address] Specialty Sheet Finisher Neurology 08/05/22 Liz Johnson PSYCHOTHERAPIST SOCIAL WORKER.URBAN ANTHROPOLOGIST [address] [place] [address] Specialty Sheet Finisher Neurology 11/02/22 Gila Issa MD [address] [address] Specialty Sheet Finisher Neurology 10/06/23 Street Photographer Relationship Specialty Start Date End Date Richard Schneider DO [address] [place] [address] PCP - General Family Medicine 05/04/16 Nery Snyder, PSYCHOTHERAPIST SOCIAL WORKER.URBAN ANTHROPOLOGIST [address] [place], [place] [id number] Specialty Sheet Finisher Neurology 08/05/22 Liz Johnson, PSYCHOTHERAPIST SOCIAL WORKER.URBAN ANTHROPOLOGIST [address] [place], [place] [phone] Specialty Sheet Finisher Neurology 11/02/22 Gila Issa MD [address] [place] [phone] Specialty Sheet Finisher Neurology 10/06/23 Street Photographer Relationship Specialty Start Date End Date Richard Schneider DO [address] [place] [address] PCP - General Family Medicine 05/04/16 Nery Snyder, PSYCHOTHERAPIST SOCIAL WORKER.URBAN ANTHROPOLOGIST [address] [place] [address] Specialty Sheet Finisher Neurology 08/05/22 Liz Johnson, PSYCHOTHERAPIST SOCIAL WORKER.URBAN ANTHROPOLOGIST [address] [place], [place] [phone] Specialty Sheet Finisher Neurology 11/02/22 Gila Issa MD [address] [address] Specialty Sheet Finisher Neurology 10/06/23 Street Photographer Relationship Specialty Start Date End Date Richard Schneider DO [address] [place] [address] PCP - General Family Medicine 05/04/16 Nery Snyder, PSYCHOTHERAPIST SOCIAL WORKER.URBAN ANTHROPOLOGIST [address] [place] [address] Specialty Sheet Finisher Neurology 08/05/22 Liz Johnson, PSYCHOTHERAPIST SOCIAL WORKER.URBAN ANTHROPOLOGIST [address] [place] [address] Specialty Sheet Finisher Neurology 11/02/22 Gila Issa MD [address] [place] [address] [phone] Specialty Sheet Finisher Neurology 10/06/23 Street Photographer Relationship Specialty Start Date End Date Richard Schneider DO [address] [place] [address] PCP - General Family Medicine 05/04/16 Nery Snyder, PSYCHOTHERAPIST SOCIAL WORKER.URBAN ANTHROPOLOGIST [address] [place] [address] Specialty Sheet Finisher Neurology 08/05/22 Liz Johnson, PSYCHOTHERAPIST SOCIAL WORKER.URBAN ANTHROPOLOGIST [address] [place] [address] Specialty Sheet Finisher Neurology 11/02/22 Gila Issa MD [address] [place] [address] Specialty Sheet Finisher Neurology 10/06/23 Street Photographer Relationship Specialty Start Date End Date Richard Schneider DO [address] [place] [address] PCP - General Family Medicine 05/04/16 Nery Snyder, PSYCHOTHERAPIST SOCIAL WORKER.URBAN ANTHROPOLOGIST [address] [place] [address] Specialty Sheet Finisher Neurology 08/05/22 Liz Johnson, PSYCHOTHERAPIST SOCIAL WORKER.URBAN ANTHROPOLOGIST [address] [place] [address] Specialty Sheet Finisher Neurology 11/02/22 Gila Issa MD [address] [place] [address] [phone] Specialty Sheet Finisher Neurology 10/06/23 Marta Thomson, PSYCHOTHERAPIST SOCIAL WORKER.URBAN ANTHROPOLOGIST [address] [place] [address] Manager Of Manufacturing Family Medicine 09/24/24 Rob Copeland PSYCHOTHERAPIST SOCIAL WORKER.URBAN ANTHROPOLOGIST [address] [place] [address] [facility] 09/24/24 Street Photographer Relationship Specialty Start Date End Date Richard Schneider DO [address] [place] [address] PCP - General Family Medicine 05/04/16 Nery Snyder, PSYCHOTHERAPIST SOCIAL WORKER.URBAN ANTHROPOLOGIST [address] [place] [address] Specialty Sheet Finisher Neurology 08/05/22 Liz Johnson, PSYCHOTHERAPIST SOCIAL WORKER.URBAN ANTHROPOLOGIST [address] [place] [address] Specialty Sheet Finisher Neurology 11/02/22 Gila Issa MD [address] [address] Specialty Sheet Finisher Neurology 10/06/23 Marta Thomson, PSYCHOTHERAPIST SOCIAL WORKER.URBAN ANTHROPOLOGIST [address] [place] [address] Manager Of Manufacturing Family Medicine 09/24/24 Rob Copeland PSYCHOTHERAPIST SOCIAL WORKER.URBAN ANTHROPOLOGIST [address] [place], [place] 6827[address] Manager Of Manufacturing [facility] 09/24/24 Street Photographer Relationship Specialty Start Date End Date Richard Schneider DO [address] [place], [place] 871011 PCP - General Family Medicine 05/04/16 Nery Snyder, PSYCHOTHERAPIST SOCIAL WORKER.URBAN ANTHROPOLOGIST [address] [place], [place] [phone] Specialty Sheet Finisher Neurology 08/05/22 Liz Johnson, PSYCHOTHERAPIST SOCIAL WORKER.URBAN ANTHROPOLOGIST [address] [place] [address] Specialty Sheet Finisher Neurology 11/02/22 Gila Issa MD [address] [place] [address] Specialty Sheet Finisher Neurology 10/06/23 Marta Thomson, PSYCHOTHERAPIST SOCIAL WORKER.URBAN ANTHROPOLOGIST [address] [place] [address] Manager Of Manufacturing [facility] 09/24/24 Rob Copeland, PSYCHOTHERAPIST SOCIAL WORKER.URBAN ANTHROPOLOGIST [address] [place] [address] Manager Of Manufacturing [facility] 09/24/24 Street Photographer Relationship Specialty Start Date End Date Richard Schneider DO [address] [place] [address] PCP - General Family Medicine 05/04/16 Nery Snyder, PSYCHOTHERAPIST SOCIAL WORKER.URBAN ANTHROPOLOGIST [address] [place], [place] [phone] Specialty Sheet Finisher Neurology 08/05/22 Liz Johnson, PSYCHOTHERAPIST SOCIAL WORKER.URBAN ANTHROPOLOGIST [address] [place], [place] [phone] Specialty Sheet Finisher Neurology 11/02/22 Gila Issa MD [address] [place] [address] [phone] Specialty Sheet Finisher Neurology 10/06/23 Marta Thomson, PSYCHOTHERAPIST SOCIAL WORKER.URBAN ANTHROPOLOGIST [address] [place] [address] [facility] 09/24/24 Rob Copeland PSYCHOTHERAPIST SOCIAL WORKER.URBAN ANTHROPOLOGIST [address] [place] [address] [facility] 09/24/24 Street Photographer Relationship Specialty Start Date End Date Richard Schneider DO [address] [place] [address] PCP - General Family Medicine 05/04/16 Nery Snyder, PSYCHOTHERAPIST SOCIAL WORKER.URBAN ANTHROPOLOGIST [address] [place], [place] 3310[address] Specialty Sheet Finisher Neurology 08/05/22 Liz Johnson, PSYCHOTHERAPIST SOCIAL WORKER.URBAN ANTHROPOLOGIST [address] [place] [address] Specialty Sheet Finisher Neurology 11/02/22 Gila Issa MD [address] [address] Specialty Sheet Finisher Neurology 10/06/23 Marta Thomson, PSYCHOTHERAPIST SOCIAL WORKER.URBAN ANTHROPOLOGIST [address] [place] [address] Manager Of Manufacturing Family [facility] 09/24/24 Rob Copeland, PSYCHOTHERAPIST SOCIAL WORKER.URBAN ANTHROPOLOGIST [address] [place] [address] Manager Of Manufacturing Family [facility] 09/24/24 Street Photographer Relationship Specialty Start Date End Date Richard Schneider DO [address] [place] [address] PCP - General Family Medicine 05/04/16 Nery Snyder, PSYCHOTHERAPIST SOCIAL WORKER.URBAN ANTHROPOLOGIST [address] [place] [address] Specialty Sheet Finisher Neurology 08/05/22 Liz Johnson, PSYCHOTHERAPIST SOCIAL WORKER.URBAN ANTHROPOLOGIST [address] [place] [address] Specialty Sheet Finisher Neurology 11/02/22 Gila Issa MD [address] [address] Specialty Sheet Finisher Neurology 10/06/23 Marta Thomson, PSYCHOTHERAPIST SOCIAL WORKER.URBAN ANTHROPOLOGIST [address] [place] [address] Manager Of Manufacturing Family Medicine 09/24/24 Rob Copeland, PSYCHOTHERAPIST SOCIAL WORKER.URBAN ANTHROPOLOGIST [address] [place] [address] [facility] 09/24/24 Street Photographer Relationship Specialty Start Date End Date Richard Schneider DO [address] [place] [address] PCP - General Family Medicine 05/04/16 Nery Snyder, PSYCHOTHERAPIST SOCIAL WORKER.URBAN ANTHROPOLOGIST [address] [place], [place] [phone] Specialty Sheet Finisher Neurology 08/05/22 Liz Johnson, PSYCHOTHERAPIST SOCIAL WORKER.URBAN ANTHROPOLOGIST [address] [place] [address] Specialty Sheet Finisher Neurology 11/02/22 Gila Issa MD [address] [place] [address] [phone] Specialty Sheet Finisher Neurology 10/06/23 Marta Thomson, PSYCHOTHERAPIST SOCIAL WORKER.URBAN ANTHROPOLOGIST [address] [place] [address] [facility]ly [facility] 09/24/24 Rob Copeland, PSYCHOTHERAPIST SOCIAL WORKER.URBAN ANTHROPOLOGIST [address] [place] [address] [facility]ly [facility] 09/24/24 Street Photographer Relationship Specialty Start Date End Date Richard Schneider DO [address] [place] [address] PCP - General Family Medicine 05/04/16 Nery Snyder, PSYCHOTHERAPIST SOCIAL WORKER.URBAN ANTHROPOLOGIST [address] [place] [address] Specialty Sheet Finisher Neurology 08/05/22 Liz Johnson, PSYCHOTHERAPIST SOCIAL WORKER.URBAN ANTHROPOLOGIST [address] [place] [address] Specialty Sheet Finisher Neurology 11/02/22 Gila Issa MD [address] [place] [address] [phone] Specialty Sheet Finisher Neurology 10/06/23 Marta Thomson, PSYCHOTHERAPIST SOCIAL WORKER.URBAN ANTHROPOLOGIST [address] [place] [address] Manager Of Manufacturing Family Medicine 09/24/24 Rob Copeland, PSYCHOTHERAPIST SOCIAL WORKER.URBAN ANTHROPOLOGIST [address] [place] [address] Manager Of Manufacturing Family Medicine 09/24/24 Street Photographer Relationship Specialty Start Date End Date Richard Schneider DO [address] [place] [address] PCP - General Family Medicine 05/04/16 Nery Snyder, PSYCHOTHERAPIST SOCIAL WORKER.URBAN ANTHROPOLOGIST [address] [place] [address] Specialty Sheet Finisher Neurology 08/05/22 Liz Johnson, PSYCHOTHERAPIST SOCIAL WORKER.URBAN ANTHROPOLOGIST [address] [place] [address] Specialty Sheet Finisher Neurology 11/02/22 Gila Issa MD [address] [place] [address] [phone] Specialty Sheet Finisher Neurology 10/06/23 Marta Thomson, PSYCHOTHERAPIST SOCIAL WORKER.URBAN ANTHROPOLOGIST [address] [place], [place] [address] [facility] 09/24/24 Rob Copeland, PSYCHOTHERAPIST SOCIAL WORKER.URBAN ANTHROPOLOGIST [address] [place], [place] 232[address] [facility] 09/24/24 Street Photographer Relationship Specialty Start Date End Date Richard Schneider DO [address] [place], [place] [id number] PCP - General Family Medicine 05/04/16 Nery Snyder, PSYCHOTHERAPIST SOCIAL WORKER.URBAN ANTHROPOLOGIST [address] [place] [address] Specialty Sheet Finisher Neurology 08/05/22 Liz Johnson, PSYCHOTHERAPIST SOCIAL WORKER.URBAN ANTHROPOLOGIST [address] [place] [address] Specialty Sheet Finisher Neurology 11/02/22 Gila Issa MD [address] [phone] Specialty Sheet Finisher Neurology 10/06/23 Marta Thomson, PSYCHOTHERAPIST SOCIAL WORKER.URBAN ANTHROPOLOGIST [address] [place], [place] [address]67341 [facility] 09/24/24 Rob Copeland, PSYCHOTHERAPIST SOCIAL WORKER.URBAN ANTHROPOLOGIST [address] [place] [address] [facility]ly [facility] 09/24/24 Team Status: Active Member Role Status [...] Referring Provider Active Start: January 12, 2025 [address] Photographer Relationship Specialty Start Date End Date Richard Schneider DO [address] [place], [place] [id number] PCP - General Family Medicine 05/04/16 Nery Snyder, PSYCHOTHERAPIST SOCIAL WORKER.URBAN ANTHROPOLOGIST [address] [place] [address] Specialty Sheet Finisher Neurology 08/05/22 Liz Johnson, PSYCHOTHERAPIST SOCIAL WORKER.URBAN ANTHROPOLOGIST [address] [place] [address] Specialty Sheet Finisher Neurology 11/02/22 Gila Issa MD [address] [place] [phone] Specialty Sheet Finisher Neurology 10/06/23 Rob Copeland, PSYCHOTHERAPIST SOCIAL WORKER.URBAN ANTHROPOLOGIST [address] [place], [place] [id number] Manager Of Manufacturing Family [facility] 09/24/24 Street Photographer Relationship Specialty Start Date End Date Richard Schneider DO [address] [place], [place] [id number] PCP - General Family Medicine 05/04/16 Nery Snyder, PSYCHOTHERAPIST SOCIAL WORKER.URBAN ANTHROPOLOGIST [address] [place] [address] Specialty Sheet Finisher Neurology 08/05/22 Liz Johnson, PSYCHOTHERAPIST SOCIAL WORKER.URBAN ANTHROPOLOGIST [address] [place] [address] Specialty Sheet Finisher Neurology 11/02/22 Gila Issa MD [address] [phone] Specialty Sheet Finisher Neurology 10/06/23 Rob Copeland, PSYCHOTHERAPIST SOCIAL WORKER.URBAN ANTHROPOLOGIST [address] [place] [address] Manager Of Manufacturing Family Medicine 09/24/24 Street Photographer Relationship Specialty Start Date End Date Richard Schneider DO [address] [place] [address] PCP - General Family Medicine 05/04/16 Nery Snyder, PSYCHOTHERAPIST SOCIAL WORKER.URBAN ANTHROPOLOGIST [address] [place] [address] Specialty Sheet Finisher Neurology 08/05/22 Liz Johnson, PSYCHOTHERAPIST SOCIAL WORKER.URBAN ANTHROPOLOGIST [address] [place] [address] Specialty Sheet Finisher Neurology 11/02/22 Gila Issa MD [address] [phone] Specialty Sheet Finisher Neurology 10/06/23 Rob Copeland, PSYCHOTHERAPIST SOCIAL WORKER.URBAN ANTHROPOLOGIST [address] [place] [address] Manager Of Manufacturing Family [facility] 09/24/24 Kavita Mcgarry, PSYCHOTHERAPIST SOCIAL WORKER.URBAN ANTHROPOLOGIST [address] [place] [address] [id number] Manager Of Manufacturing [facility] 04/02/25 Street Photographer Relationship Specialty Start Date End Date Richard Schneider DO [address] [place], [place] 861581 PCP - General Family Medicine 05/04/16 Nery Snyder, PSYCHOTHERAPIST SOCIAL WORKER.URBAN ANTHROPOLOGIST [address] [place] [address] [phone] Specialty Sheet Finisher Neurology 08/05/22 Liz Johnson APRN.URBAN ANTHROPOLOGIST [address] [place] [address] [phone] Specialty Sheet Finisher Neurology 11/02/22 Gila Issa MD [address] [place] [address] [phone] Specialty Sheet Finisher Neurology 10/06/23 Rob Copeland APRN.URBAN ANTHROPOLOGIST [facility] [place], [place] 3560[address] Manager Of Manufacturing Family [facility] 09/24/24 Kavita Mcgarry, PSYCHOTHERAPIST SOCIAL WORKER.URBAN ANTHROPOLOGIST [facility] [place], [place] [id number] [facility] 04/02/25 Team Status: Active Member Role/Relationship [...] April 24, 2025 End: April 24, 2025 [address] Photographer Relationship Specialty Start Date End Date Richard Schneider DO [address] [place], [place] 704681 PCP - General Family Medicine 05/04/16 Nery Snyder, PSYCHOTHERAPIST SOCIAL WORKER.URBAN ANTHROPOLOGIST [address] [place], [place] [phone] Specialty Sheet Finisher Neurology 08/05/22 Liz Johnson, PSYCHOTHERAPIST SOCIAL WORKER.URBAN ANTHROPOLOGIST [address] [place], [place] [phone] Specialty Sheet Finisher Neurology 11/02/22 Gila Issa MD [address] [phone] Specialty Sheet Finisher Neurology 10/06/23 Rob Copeland, PSYCHOTHERAPIST SOCIAL WORKER.URBAN ANTHROPOLOGIST [address] [place], [place] [id number] Manager Of Manufacturing Family Medicine 09/24/24 Kavita Mcgarry, PSYCHOTHERAPIST SOCIAL WORKER.URBAN ANTHROPOLOGIST [address] [place], [place] [phone] Manager Of Manufacturing Family Medicine 04/02/25 Team Status: Inactive Member Role/Relationship Status Dates Dr. Richard Schneider DO Primary Care Provider Active Start: June 24, 2025 End: June 24, 2025 Dr. Louis Monet DO Emergency Provider Active Start: June 24, 2025 End: June 24, 2025 Street Photographer Relationship Specialty [place] [address] [place] [address] [id number] PCP - General Family Medicine 05/04/16 Nery Snyder, PSYCHOTHERAPIST SOCIAL WORKER.URBAN ANTHROPOLOGIST [address] [place] [address] [phone] Specialty Sheet Finisher Neurology 08/05/22 iLz Johnson, PSYCHOTHERAPIST SOCIAL WORKER.URBAN ANTHROPOLOGIST [facility] [place], [place] [phone] Specialty Sheet Finisher Neurology 11/02/22 Gila Issa MD [address] [place] [address] [phone] Specialty Sheet Finisher Neurology 10/06/23 Rob Copeland, PSYCHOTHERAPIST SOCIAL WORKER.URBAN ANTHROPOLOGIST [address] [place] [phone] Manager Of Manufacturing Family Medicine 09/24/24 Kavita Mcgarry, PSYCHOTHERAPIST SOCIAL WORKER.URBAN ANTHROPOLOGIST [address] [place] [address] [phone] Manager Of Manufacturing Family [facility] 04/02/25 Street Photographer Relationship Specialty Start Date End Date Richard Schneider DO [address] [place] [id number] PCP - General Family Medicine 05/04/16 Nery Snyder, PSYCHOTHERAPIST SOCIAL WORKER.URBAN ANTHROPOLOGIST [facility] [place], [place] [phone] Specialty Sheet Finisher Neurology 08/05/22 Liz Johnson, PSYCHOTHERAPIST SOCIAL WORKER.URBAN ANTHROPOLOGIST [address] [place], [place] [phone] Specialty Sheet Finisher Neurology 11/02/22 Gila Issa MD [address] [facility] [address] [place] [address] Specialty Sheet Finisher Neurology 10/06/23 Rob Copeland APRN.URBAN ANTHROPOLOGIST [address] [place], [place] [phone] Manager Of Manufacturing Family [facility] 09/24/24 Kavita Mcgarry APRN.URBAN ANTHROPOLOGIST [address] [place] [address] [facility] 04/02/25 Goals (unrecognized section and content) Goals [...] section and content) DATE CREATED AUTHOR 11/25/2023 [facility] DATE CREATED AUTHOR AUTHOR'S ORGANIZ ATION 06/24/2025 [facility] DATE CREATED AUTHOR AUTHOR'S ORGANIZ ATION 06/25/2025 [facility] FOR RECORDS PERTAINING TO PATIENTS WHO [...] BE BASED ON THE PRIMARY CLINICAL RECORDS. [employer] provides no warranty or guarantee of the accuracy or completeness of information in this document.
[2025-06-27 08:05] LABS: Hematocrit 40.4 % (40-54); Hemoglobin 13.3 g/dL (13.0-16.5); Immature Granulocytes Count 0.020 X10^3/uL (0.0-0.0); Mean Corp Hgb Conc 32.9 g/dL (32-36); Mean Corpuscular Volume 97.1 fL (80-94); Mean Platelet Vol. 12.1 fl (6.2-12.0); NRBC Flagged by Analyzer 0 % (0-5); Platelet Count 178 K/mm3 (150-450); RBC Distribution Width CV 12.6 % (11.6-14.6); RBC Distribution Width SD 44.5 fl (35.1-43.9); Red Blood Count 4.16 M/mm3 (4.6-6.2); White Blood Count 6.4 K/mm3 (4.4-11.0)
[2025-06-27 08:47] LABS: AST(SGOT) 31 U/L (<=37); Alanine Aminotransfer ALT/SGPT 13 U/L (<=46); Albumin, Serum 4.3 g/dL (3.4-4.8); Alkaline Phosphatase 89 U/L (40-129); Anion Gap 11 (5-15); BUN 19 mg/dL (4-19); BUN/Creat Ratio 17.6 RATIO (10-20); CRP 8.22 mg/L (0.0-3.0); Calcium,Total 9.2 mg/dL (7.6-11.0); Carbon Dioxide 25.8 mmol/L (21.0-32.0); Chloride 103 mmol/L (98-108); Cholesterol 112 mg/dL (<=200); Globulin 3.2 g/dL (2.2-4.2); Glucose 91 mg/dL (70-99); Low Density Lipoprotein Calc. 52 mg/dL; Potassium 4.3 mmol/L (3.3-5.1); Triglycerides 129 mg/dL; Very Low Density Lipoprotein 26 mg/dL (5-40); cholesterol:hdl ratio screen 3.24
[2025-06-27 08:48] LABS: Vitamin D,25 Hydroxy 51.3 ng/mL (30-100)
[2025-06-27 09:16] LABS: Vitamin B12 2628 pg/mL (180-914)
== END ==
PROVIDERS: PCP Student in an Organized Health Care Education/Training Program; Visit Provider Student in an Organized Health Care Education/Training Program
DX: G20.B2 Parkinson's disease with dyskinesia, with fluctuations (principal); E78.5 Hyperlipidemia, unspecified; E55.9 Vitamin D deficiency, unspecified; R73.01 Impaired fasting glucose; I10 Essential (primary) hypertension
CPT/HCPCS: 36415; 80053; 80061; 82306; 82607; 83036; 84443; 85025; 86140